=== PATIENT | female | born 1995 | race Asian ===

== ENCOUNTER 2022-09-04 19:32 | Emergency (ER) | payer OTHER, SELFPAY ==
[2022-09-04 19:59] VITALS: BP 110/65; PULSE 84; RESP 18; TEMP 36.7; O2SAT 99; BMI 23.0
--- NOTE | 2022-09-04 20:08 | ED.GENADULT ---
HPI - General Adult General Chief complaint: Epistaxis/Nosebleed Stated complaint: Bloody nose with blood clots, Headache, Dizziness Time Seen by Provider: 09/04/22 20:00 Source: patient Mode of arrival: ambulatory Limitations: no limitations History of Present Illness HPI narrative: 26-year-old female coming in today complaining of congestion, runny nose, nose bleeds. She has been ill for 5 days. Had a low-grade fever yesterday no fever today. Normal appetite. She has a headache across the frontal portion of the head. Nosebleeds generally stop within a couple of minutes. Related Data Home Medications Medication Instructions Recorded Confirmed No Known Home Medications 09/04/22 09/04/22 Allergies Allergy/AdvReac Type Severity Reaction Status Date / Time amoxicillin Allergy Mild Hives Verified 09/04/22 20:00 Review of Systems Status of ROS: Reports: 10 or more systems reviewed and unremarkable except as noted in History and below [facility] Medical History No significant past medical history Surgical History No significant past surgical history Social History Smoking Status: Never smoker Do you use any of these nicotine containing products: None Second hand tobacco smoke exposure: No How often do you have a drink containing alcohol: never How often do you have six or more drinks on one occasion: Never AUDIT-C Alcohol total score: 0 Non-prescribed substance use: denies use Exam Narrative: Exam Narrative: Well-nourished well-developed patient in no acute distress. Alert and oriented. Answers questions appropriately. Mood and affect are appropriate. Thoughts are goal oriented and rational. No tangential or magical thinking noted. Patient speaks in full sentences without needing to catch their breath. Sounds congested. HEENT: Normocephalic atraumatic. Pupils are equally round reactive to light. Extraocular muscles are intact. Conjunctivae are moist without any icterus noted. Moist mucous membranes. Posterior pharynx is normal. Neck is soft without any lymphadenopathy or thyromegaly. No masses are appreciated. She has some dried blood in the left nares. No active bleeding. Cardiovascular: Heart is regular rate and rhythm S1 and S2 are present without any murmurs. Lungs: Clear to auscultation bilaterally no wheezes rhonchi or rales are appreciated. Patient takes deep breaths without any discomfort. Abdomen: Soft and nontender nondistended with normal bowel sounds. Skin: Well perfused without any obvious rashes. Const: Vital Signs, click to edit/add: Vital Signs - 24 hr 09/04/22 19:59 Temperature 98.0 F Pulse Rate [Right Pulse Oximeter] 84 Respiratory Rate 18 Blood Pressure [Le ft Upper Arm] 110/65 Pulse Oximetry 99 Oxygen Delivery Me thod Room Air Course Vital Signs Vital signs: Initial Vital Signs Temperature 98.0 F 09/04/22 19:59 Temperature Source Temporal Artery Scan 09/04/22 19:59 Pulse Rate 84 09/04/22 19:59 Respiratory Rate 18 09/04/22 19:59 Blood Pressure 110/65 09/04/22 19:59 Blood Pressure Mean 80 09/04/22 19:59 Blood Pressure Position Sitting 09/04/22 19:59 Pulse Oximetry 99 09/04/22 19:59 Oxygen Delivery Method 09/04/22 19:59 Vital Signs Temperature 98.0 F 09/04/22 19:59 Pulse Rate 84 09/04/22 19:59 Respiratory Rate 18 09/04/22 19:59 Blood Pressure 110/65 09/04/22 19:59 Pulse Oximetry 99 09/04/22 19:59 Oxygen Delivery Method 09/04/22 19:59 Temperature 98.0 F 09/04/22 19:59 Pulse Rate 84 09/04/22 19:59 Respiratory Rate 18 09/04/22 19:59 Blood Pressure 110/65 09/04/22 19:59 Pulse Oximetry 99 09/04/22 19:59 Oxygen Delivery Method 09/04/22 19:59 Medical Decision Making MDM Narrative Medical decision making narrative: Generally healthy 26-year-old female with a URI and resulting epistaxis likely from nose blowing. Patient reassured that this is a normal phenomenon. She does not have any prolonged bleeding. We discussed symptomatic treatment with saline nasal rinses, Tylenol or ibuprofen for achiness and nasal pressure. We discussed reasons to return for follow-up. Patient had no other questions. Discharge Plan Discharge Clinical Impression: Epistaxis, URI (upper respiratory infection) Patient Disposition: Home, Self-Care Condition: Stable Additional Instructions: Okay to use Tylenol or ibuprofen for headache or elevated temperatures. Okay to use saline nasal rinses for congestion. Okay to use a very small amount of Vaseline to the inner nose to help with nosebleeds. Follow-up with your primary care provider in 1 week if you are not improving. Prescriptions: No Action No Known Home Medications Stand Alone Forms: [employer] Info Instructions
[2022-09-04 20:18] VITALS: BP 110/65; PULSE 84; RESP 18; TEMP 36.7
== END 2022-09-04 20:19 | disposition home or self-care (01) ==
LOC: ED 20:15
PROVIDERS: Emergency Provider Family Medicine
DX: R04.0 Epistaxis (principal); J06.9 Acute upper respiratory infection, unspecified; R51.9 Headache, unspecified; R42 Dizziness and giddiness
CPT/HCPCS: 99282; 99283

== ENCOUNTER 2023-06-27 19:21 | Emergency (ER) | payer OTHER, SELFPAY ==
[2023-06-27 19:28] VITALS: BP 99/65; PULSE 110; RESP 18; TEMP 37.1; O2SAT 97; BMI 20.6
--- OUTSIDE RECORDS SUMMARY | 2023-06-27 19:31 | XMS_ITS | Patient Health Record ---
Author Name Unknown Organization [facility] Address [address] [place] [id number] Care Team Providers Care Bank Secrecy Act Officer Name Role Phone Unknown, - Primary Care Provider Lenora Santana Unavailable [phone] Sandrita Lopez Unavailable [phone] Estefania Cartwright Unavailable [phone] ALLERGIES Allergen (clinical drug ingredient) Drug/Non Drug Allergy documented on EMR Reaction Allergy Type Onset Date Status sertraline Zoloft Unknown Drug Allergy Active RESULTS Component Value Reference Range Notes Test, Urine Reviewed date:03/08/2023 12:55:09 PM Interpretation:Positive Performing Lab: Notes/Report: Positive Test, Urine Positive Negative - ABO GROUP AND RH TYPE Reviewed date:04/15/2023 11:07:39 AM Interpretation: Performing Lab:[facility] [address], [id number] Patrick Resendiz Notes/Report: ABO GROUP A RH TYPE RH(D) POSITIVE For additional information, please refer to http://[email or web address].Eveo/faq/PWB882 (This link is being provided for informational/ educational purposes only.) HCG, TOTAL, QUANT Reviewed date:04/15/2023 11:12:31 AM Interpretation:Normal Performing Lab:[facility] [address], [id number] Patrick Resendiz Notes/Report: [place], [place] [address] Reference Range Non or premenopausal <5 Postmenopausal <10 Values from different assay methods may vary. The use of this assay to monitor or to diagnose patients with cancer or any condition unrelated to has not been cleared or approved by the FDA or the powertrain calibration engineer of the assay. REASON FOR REFERRAL No Information MEDICATIONS Medication SIG (Take, Route, Fr equency, Duration) Notes Start Date End Date Status Ondansetron HCl 4 MG 1 tablet as needed for nausea Orally 5 for 5 days 04/15/2023 Active miSOPROStol 200 MCG four tablets vaginal or buccally once for 1 days 04/15/2023 Active SOCIAL HISTORY Tobacco Use: Social History Observation Description Date Details (start date - stop date) Never Smoker NA - NA Sex Assigned At : Social History Observation Description Sex Assigned At Unknown Tobacco Use/Smoking Question Answer Notes Are you a nonsmoker Alcohol Screen (Audit-C) Question Answer Notes Did you have a drink containing alcohol in the p ast year? No Points 0 Interpretation Negative PROBLEMS Problem Type ICD Code Onset Dates Problem Status W/U Status Risk SNOMED Code Notes Problem Missed period (N92.6) Active confirmed Missed period (82981635) VITAL SIGNS Blood pressure diastolic 52 mm Hg 04/12/2023 Height 62.50 in 04/12/2023 Blood pressure systolic 110 mm Hg 04/12/2023 Weight 128 lbs 04/12/2023 BMI 23.04 kg/m2 04/12/2023 Encounters Encounter Location Date Provider Diagnosis [facility] [address] [place] [address] 04/11/2023 Estefania Cartwright [facility] [address] [place], [place] [id number] 04/11/2023 Estefania Cartwright [facility] [address] [place] [address] 03/08/2023 Lenora Atwood Encounter for test, result positive Z32.01 and Missed period N92.6 [facility] [address] [place] [address] 04/11/2023 Estefania Cartwright Encounter for supervision of other normal , unspecified trimester Z34.80 [facility] [address] [place] [address] 04/11/2023 Estefania Cartwright Missed ab O02.1 [facility] [address] [place] [address] 04/11/2023 Estefania Cartwright Miscarriage O03.9 and Encounter for blood typing Z01.83 [facility] [address] [place], [place] [id number] 04/12/2023 Moona Arabkhazaeli Missed period N92.6 [facility] [address] [facility] [address] [place] [address] 04/17/2023 Moona Arabkhazaeli Missed ab O02.1 [facility] [address] [place], [place] [id number] 04/17/2023 Moona Arabkhazaeli Retained products of conception after miscarriage O03.4 [facility] [address] [place] [id number] 04/12/2023 Lenora Atwood [facility] [address] [place] [phone] 04/12/2023 Lenora Atwood [facility] [address] [place] [phone] 04/15/2023 Estefania Gabbie ASSESSMENTS Encounter Date Diagnosis Assessment Notes Treatment Notes Treatment Clinical Notes 03/08/2023 Encounter for test, result positive (ICD-10 - Z32.01) 1.) Discussed maternity care at [facility]- philosophy, care models, and locations. 2.) Anticipatory guidance given re: first trimester discomforts and relief measures. Nutrition principles in early briefly discussed. Encouraged PNV with folic acid, vitamin D, and DHA supplements. First trimester warning signs reviewed. 3.) Genetic screening options briefly discussed. Pt aware of options and will discuss further at IOB. 4.) Pt encouraged to follow-up for IOB visit between 7-10 weeks. 5.) Call sooner with pain/bleeding. 04/11/2023 Encounter for supervision of other normal , unspecified trimester (ICD-10 - Z34.80) 04/11/2023 Missed ab (ICD-10 - O02.1) 04/11/2023 Miscarriage (ICD-10 - O03.9) 04/12/2023 Missed period (ICD-10 - N92.6) 04/17/2023 Retained products of conception after miscarriage (ICD-10 - O03.4) 04/17/2023 Missed ab (ICD-10 - O02.1) 04/11/2023 Encounter for blood typing (ICD-10 - Z01.83) 03/08/2023 Missed period (ICD-10 - N92.6) 04/11/2023 Other Ultrasound findings reviewed. Treatment options reviewed, including expectant management, medical management with Cytotec, or surgical management with a suction D&C. Risks and benefits of each option reviewed. She would like to proceed with D&C. Will need to perform another US in about a week to confirm loss. Will see ANALYTICAL RESEARCH CHEMIST tomorrow to get D&C consult done and potentially scheduled Blood Type and HCG today. 20 minutes spent in chart review, discussing with patient and documentation regarding: MAB managment 04/12/2023 Other presenting for SAB counseling Reviewed that her US is highly suspicious for early loss but technically she does not yet meet criteria. Recommend repeating the US in one week to confirm nonviability. She is emotionally challenged by this and does not want to draw it out, so accepts the limitations and opts to proceed with management. Reviewed management options including expectant vs medical vs surgical management. Success rates of each (70-90% for medical management vs >90% for surgical management) and associated risks reviewe. After discussion she opts for D&C. Will schedule. In the interim precautions were reviewed. 30 minutes spent reviewing images, patient counseling, and documentaiton PLAN OF TREATMENT Pending Test Test Name Order Date ABO GROUP AND RH TYPE 04/11/2023 HCG, TOTAL, QUANT 04/11/2023 Insurance Providers Payer Name Payer Address Payer Phone Subscriber Number Group Number Insured Name Patient Relationship to Insured Coverage Start Date Coverage End Date [employer] (Ins. Bill) [address] [address] [place], [place] [id number] Meri Terrell Self - patient is the insured MEDICAL (GENERAL) HISTORY Surgical History Surgery Date(Month/Year)
--- NOTE | 2023-06-27 20:16 | ED_ITS ---
HPI - General Adult General Date Seen: 06/27/23 Chief complaint: Breast Symptoms Stated complaint: Bleeding inflamed left [id number] Time Seen by Provider: 06/27/23 19:28 Source: patient Mode of arrival: ambulatory Limitations: no limitations History of Present Illness HPI narrative: Patient is a 27-year-old who presents with a day of left breast redness and pain, some bleeding. She is nursing her 2-year-old son, she says she had mastitis when he was about 1-week-old and this feels similar. She has had tactile fevers at home. No vomiting or chills. She says that he often stays latched on nursing on and off throughout the night, and often bites her nipples during that time. Related Data Home Medications Medication Instructions Recorded Confirmed No Known Home Medications 09/04/22 09/04/22 Allergies Allergy/AdvReac Type Severity Reaction Status Date / Time amoxicillin Allergy Mild Hives Verified 09/04/22 20:00 Review of Systems Status of ROS: Reports: 6 or more systems reviewed and unremarkable except as noted in History and below [facility] Medical History No significant past medical history Surgical History No significant past surgical history Social History Smoking Status: Never smoker Do you use any of these nicotine containing products: None Second hand tobacco smoke exposure: No How often do you have a drink containing alcohol: never How often do you have six or more drinks on one occasion: Never AUDIT-C Alcohol total score: 0 Non-prescribed substance use: denies use service: No Exam Narrative: Exam Narrative: Vital signs reviewed In general, alert, well-appearing woman, looks comfortable. Breast exam: On the left, there is mild erythema centrally, I do not feel any kind of abscess or other mass. Breast is diffusely tender to palpation. Slightly warm. There is no discharge at this time, does look like there is a little bit of cracking to the center of the nipple which may be contributing to bleeding. Right breast is normal. Const: Vital Signs, click to edit/add: Vital Signs - 24 hr 06/27/23 19:28 Temperature 98.7 F Pulse Rate [Pulse Oximeter] 110 H Respiratory Rate 18 Blood Pressure [Ri ght Upper Arm] 99/65 Pulse Oximetry 97 Oxygen Delivery Me thod Room Air Documenting provider has reviewed patient's vital signs: yes Course Course ED Course: Patient presents with the story and exam consistent with mastitis without abscess. She is nontoxic in appearance, afebrile here. Will go ahead and start antibiotics and I have asked her to follow-up in clinic in a couple of days for recheck. Reviewed reasons to return such as high fevers, shaking chills, vomiting, significant increased redness to the breast. Keflex 500 mg q.i.d. x7 days. Vital Signs Vital signs: Initial Vital Signs Temperature 98.7 F 06/27/23 19:28 Temperature Source Temporal Artery Scan 06/27/23 19:28 Pulse Rate 110 H 06/27/23 19:28 Respiratory Rate 18 06/27/23 19:28 Blood Pressure 99/65 06/27/23 19:28 Blood Pressure Mean 76 06/27/23 19:28 Blood Pressure Position Sitting 06/27/23 19:28 Pulse Oximetry 97 06/27/23 19:28 Oxygen Delivery Method Room Air 06/27/23 19:28 Vital Signs Temperature 98.7 F 06/27/23 19:28 Pulse Rate 110 H 06/27/23 19:28 Respiratory Rate 18 06/27/23 19:28 Blood Pressure 99/65 06/27/23 19:28 Pulse Oximetry 97 06/27/23 19:28 Oxygen Delivery Method Room Air 06/27/23 19:28 Temperature 98.7 F 06/27/23 19:28 Pulse Rate 110 H 06/27/23 19:28 Respiratory Rate 18 06/27/23 19:28 Blood Pressure 99/65 06/27/23 19:28 Pulse Oximetry 97 06/27/23 19:28 Oxygen Delivery Method Room Air 06/27/23 19:28 Discharge Plan Discharge Clinical Impression: Acute mastitis of left breast Patient Disposition: Home, Self-Care Condition: Stable Instructions: Mastitis (ED) Additional Instructions: Antibiotic as prescribed. Ibuprofen 400 mg plus Tylenol 1000 mg 3 times daily as needed for pain. Call tomorrow to make an appointment on Saturday for recheck with OB Gyne, return to the ER for severe worsening symptoms. Okay to continue to nurse. Prescriptions: No Action No Known Home Medications Follow Up/Referrals: Provider,Not a Local [Primary Care Provider] - Stand Alone Forms: [employer] Info Instructions
== END 2023-06-27 20:11 | disposition home or self-care (01) ==
PROVIDERS: Emergency Provider Emergency Medicine
DX: N61.0 Mastitis without abscess (principal)
CPT/HCPCS: 99283; 99284

== ENCOUNTER 2023-12-03 15:58 | Outpatient (CLI) | payer OTHER, SELFPAY ==
--- NOTE | 2023-12-03 16:00 | US_ITS ---
Patient: MICHEAL ESTEVES Facility:?[facility] Patient ID:?[id number] Site Patient ID:?[id number]. Site :?[id number] Study:?US-OB Pelvis DATING AND VIABILITY-12/03/2023 4:34:29 PM Ordering Physician:?STANLEY ADAIR Final Report: INDICATION: Ultrasound for dates and viability. Gestational age 8 weeks 4 days by LMP. Technique: Transvaginal grayscale, duplex, and M-mode Doppler images obtained. FINDINGS: Examination shows a single intrauterine gestation. Subchorionic fluid collection/hemorrhage measuring 2.5 x 1.8 x 0.6 cm. Right ovary measures 6.3 x 2.7 x 4.4 cm. 3.8 cm simple cyst. Corpus luteum. Left ovary measures 3.6 x 1.9 x 1.9 cm. EARLY GESTATION MEASUREMENTS: Ivor-rump length 1.3 cm, AGA of 7 weeks, 3 days. Mean gestational sac 3 cm, AGA of 8 weeks, 1 days. Yolk sac: 2.3 mm. Heart Rate: 141 bpm. IMPRESSION: 1. Single viable intrauterine . 2. Measurements are 8 days younger than clinical dates. 3. Small subchorionic hemorrhage. Dictated by Leo Burns MD @ 12/04/2023 8:57:33 AM Signed by:?Leo Burns MD @12/04/2023 8:57:33 AM (Electronic Signature)
== END 2023-12-03 15:59 | disposition home or self-care (01) ==
LOC: US 15:59
PROVIDERS: Visit Provider Physician Assistant
DX: Z34.91 Encounter for supervision of normal pregnancy, unspecified, first trimester (principal); O20.9 Hemorrhage in early pregnancy, unspecified; Z3A.08 8 weeks gestation of pregnancy
CPT/HCPCS: 76817; 84450; 84460; 86703; 86706; 86803; 86850; 86900; 86901; 87340; 87491; 87591; 93976

== ENCOUNTER 2023-12-03 17:05 | Outpatient (CLI) | payer OTHER, SELFPAY ==
[2023-12-03 21:03] LABS: Chlamydia DNA Amplified* NOT DETECTED (No Detected); GC DNA Amplified* NOT DETECTED (No Detected)
== END 2023-12-03 17:06 | disposition home or self-care (01) ==
PROVIDERS: Visit Provider Physician Assistant
DX: Z34.91 Encounter for supervision of normal pregnancy, unspecified, first trimester (principal); Z3A.08 8 weeks gestation of pregnancy
CPT/HCPCS: 82239; 84450; 84460; 86592; 86703; 86704; 86706; 86762; 86787; 86803; 86850; 86900; 86901; 87086; 87340; 87491; 87591

== ENCOUNTER 2024-02-11 16:41 | Outpatient (CLI) | payer OTHER, SELFPAY ==
--- OUTSIDE RECORDS SUMMARY | 2024-02-11 16:44 | XMS_ITS | Encounter Summary ---
Author Name Unknown Organization [facility] Address [address] [place] [address] Care Team Providers Care Flavor Extractor Name Role Phone [facility], [facility] Primary Care Provide r Jayson Lamb MD Unavailable [phone] Reason for Referral * Consultation (Routine) - Closed Specialty Diagnoses / Procedures Referred By Contac t Referred To Contact Diagnoses Cholestasis during in third trimester [facility] [address] [place] [address] Referral ID Status Reason Start Date Expiration Date Visits Re quested Visits Authorized [id number] Closed 07/20/2021 07/20/2022 1 1 Question Answer NICU Consult Yes Comments Comp and Radiologic consult [place] Please be aware that coverage of these services is subject to the terms and limitations of your health insurance plan. Call member services at your health plan with any benefit or coverage questions. * Diagnostic Imaging Ultrasound (Routine) - Closed Specialty Diagnoses / Procedures Referred By Contac t Referred To Contact Diagnoses Cholestasis during in third trimester Procedures MFM US Comprehensive Single [facility] [address] [place] [address] Referral ID Status Reason Start Date Expiration Date Visits Re quested Visits Authorized [id number] Closed 07/20/2021 07/20/2022 1 1 Encounter Details Date Type Department Care Team (Late st Contact Info) Description 07/20/2021 Orders Only [facility] [place] [address] [place] [address] Rosaline Caicedo RN Cholestasis during in third trimester (Primary Dx) Social History Tobacco Use Types Packs/Day Years Used Date Smoking Tobacco: Never Assessed Comments Yes Sex and Gender Information Value Date Recorded Sex Assigned at Not on file Gender Identity Not on file Sexual Orientation Not on file documented as of this encounter Plan of Treatment Scheduled Referrals Name Type Priority Associated Diagnoses Orde r Schedule [facility] Office Visit Referral Routine: Next available opening Cholestasis during in third trimester Weekly for 1 Occurrences starting 07/20/2021 until 07/20/2022 documented as of this encounter Results * [facility] US Comprehensive Single (07/26/2021 9:24 AM CDT) Anatomical Region Laterality Modality Ultrasound 07/26/2021 8:41 AM CDT Impressions 07/26/2021 9:44 AM CDT IMPRESSION ----- Growth parameters and estimated weight were consistent with appropriate for gestational age pattern of growth. The anatomic survey is limited due to gestational age. Normal amniotic fluid volume. BPP is reassuring. Narrative 07/26/2021 9:44 AM CDT Comprehensive ----- Pat. Name: MICHEAL FINN Study Date: 07/26/2021 8:41am Pat. NO: [id number] Referring ??MD: NAI SNIDER Site: [facility] Warehouse Technician: Matilda Delgado RDMS : 1995 Age: 25 ----- INDICATION ----- Cholestasis. METHOD ----- Transabdominal ultrasound examination. View: Suboptimal view: limited by late gestational age ----- Cm . Number of fetuses: 1 DATING ----- ? Date ?Details ?Gest. age ?MARIFER LMP ?12/09/2020 ? 32 w + 5 d ? 09/15/2021 Prior assessment ? 02/14/2021 ? GA: 9 w + 0 d ?32 w + 1 d ? 09/19/2021 U/S ? 07/26/2021 ? based upon AC, BPD, Femur, HC ?33 w + 3 d ? 09/10/2021 Assigned dating ?Dating performed on 07/26/2021, based on the LMP ?32 w + 5 d ? 09/15/2021 GENERAL EVALUATION ----- Cardiac activity present. FHR 130 bpm. movements present. Presentation cephalic. Placenta Posterior, No Previa, > 2 cm from internal os. Umbilical cord 3 vessel cord, normal insertion. Amniotic fluid Amount of AF: normal. MVP 5.9 cm. BIOMETRY ----- Main Biometry: BPD ?83.0 ?mm ? 33w 3d ?Hadlock OFD ?115.0 ?mm ?36w 0d ?Nicolaides HC ?315.3 ?mm ?35w 3d ?Hadlock Cerebellum tr ?40.2 ? mm ?34w 1d ?Nicolaides AC ?287.6 ?mm ?32w 5d ?52% ?Hadlock Femur ?62.4 ? mm ?32w 2d ?Hadlock Humerus ?56.2 ?mm ? 32w 5d ?Anaid Weight Calculation: EFW ? 2,087 ?g ? 48% ?Hadlock EFW (lb,oz) ? 4 lb 10 ?oz EFW by ?Hadlock ([id number]) Head / Face / Neck Biometry: Spinning Bath Patroller ? 7.7 ? mm CM ?5.5 ? mm ANATOMY ----- The following structures appear normal: Head / Neck ? Cranium. Head size. Head shape. Lateral ventricles. Choroid plexus. Midline falx. Cerebellum. Cisterna magna. Parenchyma. Thalami. ? Vermis. ? Neck. Nuchal fold. Face ? Lips. Profile. Nose. Maxilla. Mandible. Orbits. Lens. Heart / Thorax ?RVOT view. Situs. Aortic arch view. Bicaval view. Superior vena cava. Inferior vena cava. 3-vessel view. 0-plbtrc-romoiha view. Cardiac position. ? Cardiac size. Cardiac rhythm. ? Right lung. Left lung. Diaphragm. Abdomen ? Abdominal wall. Stomach. Kidneys. Bladder. Liver. Bowel. Genitals. Spine ?Cervical spine. Thoracic spine. Lumbar spine. Sacral spine. Extremities / Skeleton ?Right arm. Right hand. Left arm. Left hand. Right leg. Right foot. Left leg. Left foot. The following structures could not be adequately visualized: Head / Neck ? Cavum septi pellucidi. Heart / Thorax ?4-chamber view. LVOT view. Ductal arch view. Abdomen ? Cord insertion. Gender: male. MATERNAL STRUCTURES ----- Cervix ?Visualized ? Appearance: Appears Closed Right Ovary ?Visualized Left Ovary ?Visualized BIOPHYSICAL PROFILE ----- 2: breathing movements 2: Gross body movements 2: tone 2: Amniotic fluid volume 8/8 Biophysical profile score RECOMMENDATION ----- We discussed the findings on today's ultrasound with the patient. See consultation letter for further counseling. Return to primary provider for continued care. Thank-you for the opportunity to participate in the care of this patient. If you have questions regarding today's evaluation or if we can be of further service, please contact the [facility]. anomalies may be present but not detected Procedure Note Jayson Lamb MD - 07/26/2021 Comprehensive ----- Pat. Name:Shirin FINN Date:07/26/2021 8:41am Pat. NO: [id number] :NAI SNIDER [facility]Mat[facility] Del[facility] RDMS :1995Age:25 ----- INDICATION ----- Cholestasis. METHOD ----- Transabdominal ultrasound examination. View: Suboptimal view: limited bylate gestational age ----- Cm . Number of fetuses: 1 DATING ----- DateDetailsGest. age MARIFER LMP 132 w + 5 d 09/15/2021 Prior assessment 02/14/2021 GA: 9 w +0 d32 w + 1 d 09/19/2021 U/S 07/26/2021ased upon AC, BPD, Femur, HC33 w + 3 d 09/10/2021 Assigned dating Dating performed on 07/26/2021, based onthe LMP 32 w +5 d 09/15/2021 GENERAL EVALUATION ----- Cardiac activity present. FHR 130 bpm. movements present. Presentation cephalic. Placenta Posterior, No Previa, > 2 cm from internal os. Umbilical cord 3 vessel cord, normal insertion. Amniotic fluid Amount of AF: normal. MVP 5.9 cm. BIOMETRY ----- Main Biometry: BPD 83.0 mm33w 3d Hadlock OFD 115.0 mm36w 0d Nicolaides HC 315.3 mm35w 3d Hadlock Cerebellum tr 40.2 mm34w 1d Nicolaides AC 287.6 mm32w 5d 52% Hadlock Femur 62.4 mm32w 2d Hadlock Humerus 56.2 mm32w 5d [facility] Weight Calculation: EFW 2,087 g48% Hadlock EFW (lb,oz) 4 lb 10 oz EFW by Hadlock ([id number]) Head / Face / Neck Biometry: Spinning Bath Patroller 7.7 mm CM 5.5 mm ANATOMY ----- The following structures appear normal: Head / Neck Cranium. Head size. Head shape.Lateral ventricles. Choroid plexus. Midline falx. Cerebellum. Cisternamagna. Parenchyma. Thalami. Vermis. Neck. Nuchal fold. Face Lips. Profile. Nose. Maxilla.Mandible. Orbits. Lens. Heart / Thorax RVOT view. Situs. Aortic arch view.Bicaval view. Superior vena cava. Inferior vena cava. 3-vessel view.7-xyqdni-kemrwbv view. Cardiac position. Cardiac size. Cardiac rhythm. Right lung. Left lung.Diaphragm. Abdomen Abdominal wall. Stomach. Kidneys.Bladder. Liver. Bowel. Genitals. Spine Cervical spine. Thoracic spine.Lumbar spine. Sacral spine. Extremities / Skeleton Right arm. Right hand. Left arm. Lef[place]and. Right leg. Right foot. Left leg. Left foot. The following structures could not be adequately visualized: Head / Neck Cavum septi pellucidi. Heart / Thorax 4-chamber view. LVOT view. Ductal archview. Abdomen Cord insertion. Gender: male. MATERNAL STRUCTURES ----- Cervix Visualized Appearance: Appears Closed Right Ovary Visualized Left Ovary Visualized BIOPHYSICAL PROFILE ----- 2: breathing movements 2: Gross body movements 2: tone 2: Amniotic fluid volume 8/8 Biophysical profile score RECOMMENDATION ----- We discussed the findings on today's ultrasound with the patient. See consultation letter for further counseling. Return to primary providerfor continued care. Thank-you for the opportunity to participate in the care of this patient.If you have questions regarding today's evaluation or if we can be offurther service, please contact the [facility]. anomalies may be present but not detected IMPRESSION ----- Growth parameters and estimated weight were consistent withappropriate for gestational age pattern of growth. The anatomic survey islimited due to gestational age. Normal amniotic fluid volume. BPP is reassuring. Erin Morris MD [facility] US ORDERAB LES documented in this encounter Visit Diagnoses Diagnosis Cholestasis during in third trimester- Primary Cholestasis during in third trimester documented in this encounter Care Teams Flavor Extractor Relationship Specialty Start Date End Date Clinic, [facility] [address] [place] [address] PCP - General 12/12/18 Jayson Lamb MD [address] [place] [address] Assigned OBGYN Provider 08/06/21 documented as of this encounter
--- OUTSIDE RECORDS SUMMARY | 2024-02-11 16:44 | XMS_ITS | Referral Summary ---
Author Name Unknown Organization [facility] Address [address] [place] [address] Care Team Providers Care Skin Care Consultant Name Role Phone [facility] Primary Care Provide r Allergies Active Allergy Reactions Criticality Noted Date Comments Sertraline 04/15/2023 Hallucinations Medications Medication Sig Dispensed Refills Start Date End Date Status ibuprofen (ADVIL/MOTRIN) 800 MG tabletIndications: Missed ab Take 1 tablet (800 mg) by mouth every 6 hours as needed for other (mild and/or inflammatory pain) 30 tablet 04/17/2023 Active acetaminophen (TYLENOL) 325 MG tabletIndications: Missed ab Take 3 tablets (975 mg) by mouth every 6 hours as needed for mild pain 50 tablet 04/17/2023 Active Immunizations Name Administration Dates Next Due COVID-19 Monovalent 18+ (Moderna) 06/09/2021, Influenza Vaccine >6 months,quad, PF 09/02/2017 TDAP (Adacel,Boostrix) 07/18/2021,12/30/2017 Social History Tobacco Use Types Packs/Day Years Used Date Smoking Tobacco: Never Smokeless Tobacco: Never Tobacco Cessation:Counseling Given: Not Answered Alcohol Use Standard Drinks/Week Comments Not Currently 0 (1 standard drink = 0.6 oz pur e alcohol) Adolescent Education Answer Date Record ed Getting School Help Needed Not on file 06/28 Sex and Gender Information Value Date Recorded Sex Assigned at Not on file Gender Identity Not on file Sexual Orientation Not on file Last Filed Vital Signs Vital Sign Reading Time Taken Comments Blood Pressure 100/63 04/17/2023 2:00 PM CDT Pulse 77 04/17/2023 2:00 PM CDT Temperature 36.2 ??C (97.1 ??F) 04/17/2023 1:03 PM CD T Respiratory Rate 16 04/17/2023 2:00 PM CDT Oxygen Saturation 99% 04/17/2023 2:00 PM CDT Inhaled Oxygen Concentration - - Weight 57.6 kg (127 lb) 04/17/2023 12:10 PM CDT Height 162.6 cm (5' 4) 04/17/2023 12:10 PM CDT Body Mass Index 21.8 04/17/2023 12:10 PM CDT Plan of Treatment Not on file Procedures Procedure Name Priority Date/Time Associated Diagnosis Comments HCL PAP SMEAR Routine 03/01/1999 1:18 PM CDT Gynecologic Examination from Last 3 Months or Most Recently Relevant to Health Maintenance Results * PAP SMEAR (03/01/1999 1:18 PM CDT) Unlabelled DNR [facility] Biopsy Sent DNR [facility] Source VAG,CERV,E NDOCERV [facility] LMP POST [facility] PARA 3 [facility] 2 [facility] Clinical History DNR [facility] Therapy DNR [facility] Last Pap Diagnosis WITHIN NORMAL LIMITS [facility] PAP Date [id number] [facility] Specimen # DNR [facility] Tissue DNR [facility] Tissue Date DNR [facility] Statement of Adequacy [facility] Comment: SATISFACTORY FOR INTERPRETATION POST MENOPAUSAL PATIENT. ??NO ENDOCERVICAL CELLS SEEN. General Categorization DNR [facility] Descriptive Diagnosis [facility] Comment: WITHIN NORMAL LIMITS ATROPHIC CELL PATTERN Recommendations DNR [facility] DNR 114,,,,,, [facility] DNR DNR [facility] DNR DNR [facility] DNR DNR [facility] . [facility] Comment: ?PAP SMEARS ARE SUBJECT TO BOTH FALSE NEGATIVE AND FALSE ? POSITIVE RESULTS EVIDENCED BY DATA PUBLISHED IN THE ? MEDICAL LITERATURE. ??YOUR PATIENT'S RESULT SHOULD BE ? INTERPRETED IN THIS CONTEXT, TOGETHER WITH THE PATIENT'S ? HISTORY AND CLINICAL FINDINGS. TESTING LOCATION ? THIS [facility] ? [address]. [address] ? PHONE NUMBERS FOR CYTOLOGY INQUIRES, INCLUDING SLIDE REQUESTS ? EXT. [id number] ?? EXT. [id number] 02/27/1999 Heather Wu MD LABORATORY Performing Organization Address City/State/ZIP Co fl Phone Number [facility] from Last 3 Months or Most Recently Relevant to Health Maintenance Care Teams Skin Care Consultant Relationship Specialty Start Date End Date [facility] [address] [place] [address] PCP - General 12/12/18
--- OUTSIDE RECORDS SUMMARY | 2024-02-11 16:44 | XMS_ITS | Clinical Summary ---
Author Name Unknown Organization [facility] Address [place], [place] [address] Care Team Providers Care Manager Creative Services Name Role Phone Emani Layne Primary Care Provider Allergies Active Allergy Reactions Criticality Noted Date Comments Sertraline *Unknown 04/15/2023 Hallucinations Medications No known medications Active Problems Comments Yes No known active problems Encounters Date Type Department Care Team Description 12/18/2023 4:05 PM CDT Office Visit [facility] [address] [place] [address] Audelia Dexter PA Sinus Problem (pressure in cheeks, sinus headache, fullness in ears, runny nose, nasal congestion x 1 week) 12/18/2023 Travel 12/04/2023 Lab Requisition [facility] [phone] Alina Thompson PA-C 11/13/2023 Telephone [facility] [address] [place] [address] Matilda Burciaga, ALONDRA Lab (See TE 11/12/2023) from Last 3 Months Immunizations Name Administration Dates Next Due COVID-19 vaccine (Moderna 100mcg/0.5mL) PF, MDV 06/09/2021,12/29/2020 Influenza, IIV4 09/02/2017 Tdap 07/18/2021,12/30/2017 Family History Relation Name Status Comments Father Alive Mother Alive Social History Tobacco Use Types Packs/Day Years Used Date Smoking Tobacco: Some Days Cigarettes Smokeless Tobacco: Never Tobacco Cessation:Ready to Q uit: Not Asked; Counseling Given: Not Answered Alcohol Use Standard Drinks/Week Comments Not Currently 0 (1 standard drink = 0.6 oz pur e alcohol) Social Connections Answer Date Recorded Frequency of Communication with Friends and Fami ly 0 05/11/2023 Financial Resource Strain Answer Date R ecorded Difficulty of Paying Living Expenses 3 05/11/2023 Difficulty of Paying Living Expenses Not on file 05/11/2023 Food Insecurity Answer Date Recorded Worried About Running Out of Food in the Last Ye ar 1 05/11/2023 Transportation Needs Answer Date Record ed Lack of Transportation (Medical) 1 05/11/2023 Housing Stability Answer Date Recorded Unable to Pay for Housing in the Last Year 1 05/11/2023 Comments Yes Sex and Gender Information Value Date Recorded Sex Assigned at Not on file Gender Identity Not on file Sexual Orientation Not on file Obstetrics History Para Term AB IAB SAB Ectopic Multiple Livin g Live Births 4 1 0 1 0 0 0 0 1 1 Date Outcome GA Total Labor Labor/2nd/3rd Weight Sex Delivery Anes PTL Arianne A1 A5 Name Cl in Andreea ng Current Last Filed Vital Signs Vital Sign Reading Time Taken Comments Blood Pressure 112/60 12/18/2023 3:57 PM CDT Pulse 84 12/18/2023 3:57 PM CDT Temperature 37.1 ??C (98.7 ??F) 12/18/2023 3:57 PM CD T Respiratory Rate 14 11/09/2023 1:17 PM PANEL RAISER OPERATOR Oxygen Saturation 100% 12/18/2023 3:57 PM CDT Inhaled Oxygen Concentration - - Weight 55.5 kg (122 lb 4.8 oz) 12/18/2023 3:57 P M CDT Height 162.6 cm (5' 4) 10/08/2020 11:42 AM PANEL RAISER OPERATOR Body Mass Index 20.99 10/08/2020 11:42 AM PANEL RAISER OPERATOR Plan of Treatment Health Maintenance Due Date Last Done Comments Pneumococcal series for age 6-64 (1 of 2 - PCV) 2000 Depression screening for age 12+ 2006 HIV for age 15-65 2009 BMI (ht and wt on same day) for age 18+ 2012 Hepatitis C screening for ag e 18-79 2012 COVID-19 vaccine series ( season) 2023 06/09/2021, 12/29/2020 Influenza for age 9-49 06/07/2024 09/02/2017 Pap test for age 21-65 12/03/2026 , 12/03/2023, 02/14/2021, Additional history exists Tetanus booster 07/18/2031 07/18/2021, 12/30/2017 Tdap Completed 07/18/2021, 12/30/2017 Procedures Procedure Name Priority Date/Time Associated Diagnosis Comments LAB TRACKING EVENT Routine 12/03/2023 12 :30 PM PANEL RAISER OPERATOR WAREHOUSE SHIPPING ASSOCIATE THIN PREP PAP SCREEN IMAGED Routine 12/03/2023 12:00 PM PANEL RAISER OPERATOR HPV THIN PREP Routine 12/03/2023 12:00 PM PANEL RAISER OPERATOR from Last 3 Months Results * LAB TRACKING EVENT (12/03/2023 12:30 PM PANEL RAISER OPERATOR) Other (Other) Client Collect / Unknown 12/03/2023 12:30 PM PANEL RAISER OPERATOR 12/04/2023 4:18 PM PANEL RAISER OPERATOR Alina Thompson PA-C LAB BILL ONLY [facility] [address] [place] [address], * WAREHOUSE SHIPPING ASSOCIATE THIN PREP PAP SCREEN IMAGED (12/03/2023 12:00 PM PANEL RAISER OPERATOR) Case Report Gynecologic Cytology Report ? Case: [id number] ? Authorizing Provider: ??Alina Thompson PA-C ?Collected: ? 12/03/2023 1200 ? Ordering Location: ? [facility] ?Received: ?12/05/2023 1138 ? First Screen: ?Shola Naqvi ? Specimen: ?WAREHOUSE SHIPPING ASSOCIATE ThinPrep Vial Screening, Cervical ? 12/10/2023 12:11 PM PANEL RAISER OPERATOR [facility] ENTRAL LABORATORY INTERPRETATION/ RESULT NEGATIVE FOR INTRAEPITHELIAL LESION OR MALIGNANCY (NIL) (none) 12/10/2023 12:11 PM PANEL RAISER OPERATOR [facility] IMEN ADEQUACY Satisfactory for evaluation No endocervical component seen in a patient 12/10/2023 12:11 PM PANEL RAISER OPERATOR [facility] HPV REQUEST HPV and PAP 12/10/2023 12:11 PM PANEL RAISER OPERATOR [facility] Date of LMP 10/04/2023 12/10/2023 12:11 PM PANEL RAISER OPERATOR [facility] Last Pap Date 02/14/2021 12/10/2023 12:11 PM PANEL RAISER OPERATOR [facility] Last Pap Result NIL 12:11 PM PANEL RAISER OPERATOR [facility] LAB[facility] Abnormal Pap or [place] Bx in last 5 years No 12/10/2023 12:11 PM PANEL RAISER OPERATOR [facility] Menstrual Status 12/10/2023 12:11 PM PANEL RAISER OPERATOR [facility] ENTRAL LABORATORY [place] Bx Done Today No 12/10/2023 12:11 PM PANEL RAISER OPERATOR [facility] LAB[facility] Additional Information 12/10/2023 12:11 PM PANEL RAISER OPERATOR [facility] Comment: Interpreted at [facility] - [address] [facility], [place] [address] Automated Review Successful 12/10/2023 12:11 PM PANEL RAISER OPERATOR [facility] EN[facility] Comment:Specimen processed s uccessfully by automated junior software engineer device, ThinPrep Imaging System, [employer] ANCILLARY TESTING WAREHOUSE SHIPPING ASSOCIATE HPV Ordered, Please see separate report 12/10/2023 12:11 PM PANEL RAISER OPERATOR [facility] Note The pap test is a screening technique, not a diagnostic procedure. It is used primarily to screen for squamous cancers and precursor lesions. Published studies have shown that it is subject to both false negative and false positive results. The pap test should not be used as the sole means to diagnose or exclude pre-malignant and malignant lesions. 12/10/2023 12:11 PM PANEL RAISER OPERATOR [facility] Other (Cervical) 12/03/2023 12:00 PM PANEL RAISER OPERATOR 12/05/2023 11:38 AM PANEL RAISER OPERATOR Alina Thompson PA-C PATHOLOGY/CYTOLOGY Performing Organization Address City/State/[facility] Co pa Phone Number [facility] [address] [place] [address], * HPV HIGH RISK (12/03/2023 12:00 PM PANEL RAISER OPERATOR) TYPE 16 Negative Negative 12/06/2023 4:21 PM PANEL RAISER OPERATOR [facility] TRAL LABORATORY TYPE 18 Negative Negative 12/06/2023 4:21 PM PANEL RAISER OPERATOR [facility] TRAL LABORATORY OTHER HIGH RISK TYPES Negative Negative 12/06/2023 4:21 PM PANEL RAISER OPERATOR [facility] Other (Cervical) 12/03/2023 12:00 PM PANEL RAISER OPERATOR 12/05/2023 11:38 AM PANEL RAISER OPERATOR Narrative [facility] - 12/06/2023 4:21 PM PANEL RAISER OPERATOR HPV types 16, 18, 31, 33, 35, 39, 45, 51, 52, 56, 58, 59, 66 and 68 DNA were undetectable or below the pre-set threshold. Methodology: Jairo Amanuel 4800 HPV Test Alina L Fitzloff PA-C MICROBIOLOGY [facility]-CENTRAL LABORATORY [address] [place] [address], from Last 3 Months Care Teams Manager Creative Services Relationship Specialty Start Date End Date Emani Layne PA [address] [place] [address] [address] [place] [address] PCP - General Physician Brand Leader 11/11/23
--- OUTSIDE RECORDS SUMMARY | 2024-02-11 16:44 | XMS_ITS | Clinical Summary ---
Author Name Unknown Organization [place] Address [address] [place] [address] Care Team Providers Care Fine Grader Name Role Phone Clinic, [facility] Primary Care Provide r Allergies Active Allergy [...] 04/17/2023 12:10 PM CDT Plan of Treatment Health Maintenance Due Date Last Done Comments ADVANCE CARE PLANNING 1994 ANNUAL REVIEW OF HM ORDERS 1994 YEARLY PREVENTIVE VISIT 1994 HIV SCREENING 2009 HEPATITIS C SCREENING 2012 HEPATITIS B IMMUNIZATION (1 of 3 - 19+ 3-dose series) 2013 COVID-19 Vaccine (3 - 2022-2 4 season) 2023 06/09/2021, 12/29/2020 PHQ-2 (once per calendar year) 2023 PAP 02/15/2024 02/14/2021, 02/14/2021 INFLUENZA VACCINE (Season Ended) 2024 09/02/2017 DTAP/TDAP/TD IMMUNIZATION (3 - Td or Tdap) 07/18/2031 07/18/2021, 12/30/2017 HPV IMMUNIZATION Aged Out No longer e ligible based on patient's age to complete this topic IPV IMMUNIZATION Aged Out No longer e ligible based on patient's age to complete this topic MENINGITIS IMMUNIZATION Aged Out No l onger eligible based on patient's age to complete this topic Pneumococcal Vaccine: Pediatrics (0 to 5 Years) and At-Risk Patients (6 to 64 Years) Aged Out No longer eligible b ased on patient's age to complete this topic RSV MONOCLONAL ANTIBODY Aged Out No l onger eligible based on patient's age to complete this topic Procedures Procedure Name Priority Date/Time Associated Diagnosis Comments HCL PAP SMEAR Routine 03/01/1999 1:18 PM CDT Gynecologic Examination from Last 3 Months or Most Recently Relevant to Health Maintenance Results * PAP SMEAR (03/01/1999 1:18 PM CDT) Unlabelled DNR [facility] Biopsy Sent DNR [facility] Source VAG,CERV,E NDOCERV [facility] LMP POST [facility] PARA 3 [facility] 2 [facility] Clinical History [facility] Therapy DNR [facility] Last Pap Diagnosis WITHIN NORMAL LIMITS [facility] PAP Date [id number] [facility] Specimen # DNR [facility] Tissue DNR [facility] Tissue Date DNR [facility] Statement of Adequacy [facility] Comment: SATISFACTORY FOR INTERPRETATION POST MENOPAUSAL PATIENT. ??NO ENDOCERVICAL CELLS SEEN. General Categorization DNR [facility] Descriptive Diagnosis [facility] Comment: WITHIN NORMAL LIMITS ATROPHIC CELL PATTERN Recommendations DNR [facility] DNR 114,,,,,, [facility] DNR DNR [facility] DNR DNR [facility] DNR DNR [facility] . [facility] Comment: ?PAP SMEARS ARE SUBJECT TO BOTH FALSE NEGATIVE AND FALSE ? POSITIVE RESULTS EVIDENCED BY DATA PUBLISHED IN THE ? MEDICAL LITERATURE. ??YOUR PATIENT'S RESULT SHOULD BE ? INTERPRETED IN THIS CONTEXT, TOGETHER WITH THE PATIENT'S ? HISTORY AND CLINICAL FINDINGS. TESTING LOCATION ? THIS [facility] ? [address] [facility]. [address] ? PHONE NUMBERS FOR CYTOLOGY INQUIRES, INCLUDING SLIDE REQUESTS ? EXT. [id number] ?? EXT. [id number] 02/27/1999 Heather Wu MD LABORATORY Performing Organization Address City/State/[facility] Co de Phone Number [facility] from Last 3 Months or Most Recently Relevant to Health Maintenance Care Teams Fine Grader Relationship Specialty Start Date End Date Clinic, [facility] [address] [place] [address] [facility] - General 12/12/18
== END 2024-02-11 16:42 | disposition home or self-care (01) ==
LOC: NFLDREF 16:42
PROVIDERS: PCP Physician Assistant; Visit Provider Physician Assistant
DX: Z34.82 Encounter for supervision of other normal pregnancy, second trimester (principal); R00.0 Tachycardia, unspecified
CPT/HCPCS: 84443; 87086

== ENCOUNTER 2024-03-10 14:34 | Outpatient (CLI) | payer OTHER, SELFPAY ==
--- OUTSIDE RECORDS SUMMARY | 2024-03-10 14:36 | XMS_ITS | Encounter Summary ---
Author Organization [place] Address [address] [place] [address] Care Team Providers Care Business Test Analyst Name Role Phone [facility], [facility] Primary Care Provide r Jayson Lamb MD Unavailable [phone] Reason for Referral * Consultation (Routine) - Closed Specialty Diagnoses / Procedures Referred By Contac t Referred To Contact Diagnoses Cholestasis during in third trimester [facility] [address] [place] [address] Referral ID Status Reason Start Date Expiration Date Visits Re quested Visits Authorized [id number] Closed 07/20/2021 07/20/2022 1 1 Question Answer [...] [facility] [address] [place] [address] Referral ID Status Reason Start Date Expiration Date Visits Re quested Visits Authorized [id number] Closed 07/20/2021 07/20/2022 1 1 Encounter Details Date Type Department Care Team (Late st Contact Info) Description 07/20/2021 Orders Only [facility] [place] [address] [place] [address] Rosaline Caicedo RN Cholestasis during in third [...] Type Priority Associated Diagnoses Orde r Schedule [facility] Office Visit Referral Routine: Next available opening Cholestasis during in third trimester Weekly for 1 Occurrences starting 07/20/2021 until 07/20/2022 documented as of this encounter Results * [facility] US Comprehensive Single (07/26/2021 9:24 AM [...] FINN Study Date: 07/26/2021 8:41am Pat. NO: [id number] Referring ??: NAI SNIDER Site: Riki Tube Washer: Matilda Delgado RDMS : 1995 Age: 25 ----- INDICATION ----- Cholestasis. METHOD ----- Transabdominal ultrasound examination. View: Suboptimal view: limited by late gestational age ----- Cm . Number of fetuses: 1 DATING ----- ? Date ?Details ?Gest. age ?MARIEFR LMP ?12/09/2020 ? 32 w + 5 [...] ?Hadlock Humerus ?56.2 ?mm ? 32w 5d ?Naaid Weight Calculation: EFW ? 2,087 ?g ? 48% ?Hadlock EFW (lb,oz) ? 4 lb 10 ?oz EFW by ?Hadlock ([id number]) Head / Face / Neck Biometry: Pantry Goods Maker ? 7.7 ? mm CM ?5.5 ? [...] vena cava. Inferior vena cava. 3-vessel view. 8-yxamnh-lqkffkk view. Cardiac position. ? Cardiac size. Cardiac [...] Pat. Name:Shirin FINN Date:07/26/2021 8:41am Pat. NO: [id number] :NAI SNIDER Site:Yonnyer:Matilda Delgado RDMS :1995Age:25 ----- INDICATION ----- Cholestasis. [...] mm32w 2d Hadlock Humerus 56.2 mm32w 5d [facility] Weight Calculation: EFW 2,087 g48% Hadlock EFW (lb,oz) 4 lb 10 oz EFW by Hadlock ([id number]) Head / Face / Neck Biometry: Pantry Goods Maker 7.7 mm CM 5.5 mm ANATOMY ----- The following structures appear normal: Head / Neck Cranium. Head size. Head shape.Lateral ventricles. Choroid plexus. Midline falx. Cerebellum. Cisternamagna. Parenchyma. Thalami. Vermis. Neck. Nuchal fold. Face Lips. Profile. Nose. Maxilla.Mandible. Orbits. Lens. Heart / Thorax RVOT view. Situs. Aortic arch view.Bicaval view. Superior vena cava. Inferior vena cava. 3-vessel view.1-ukohcg-yrtliup view. Cardiac position. Cardiac size. Cardiac rhythm. [...] volume. BPP is reassuring. Erin Morris MD [facility] US ORDERAB LES documented in this encounter Visit Diagnoses Diagnosis Cholestasis during in third trimester- Primary Cholestasis during in third trimester documented in this encounter Care Teams Business Test Analyst Relationship Specialty Start Date End Date Clinic, [facility] [address] [place] [address] PCP - General 12/12/18 Jayson Lamb MD [address] [place] [address] Assigned OBGYN Provider 08/06/21 documented as of this encounter
--- OUTSIDE RECORDS SUMMARY | 2024-03-10 14:36 | XMS_ITS | Clinical Summary ---
Author Organization [place] Address [address] [place] [address] Care Team Providers Care Concrete Laborer Name Role Phone Clinic, [facility] Primary Care Provide r Allergies Active [...] Procedure Name Priority Date/Time Associated Diagnosis Comments ABSTRACT PAP (HIM EXTERNAL RESULT) Routine 02/14/2021 6:00 PM CDT from Last 3 Months or Most Recently Relevant to Health Maintenance Results * Abstract PAP (HIM External Result) (02/14/2021 6:00 PM CDT) PAP-ABSTRACT See Scanned Document [facility] [address] [facility] 02/14/2021 6:00 PM CDT [facility]ative [facility] - 02/14/2021 6:00 PM CDT See Care Everywhere-Ricky Provider Outside LAB - HIM EXTERNAL R ESULT [facility] [address] [facility] [address] from Last 3 Months or Most Recently Relevant to Health Maintenance Care Teams Concrete Laborer Relationship Specialty Start Date End Date Clinic, [facility] [address] [place] [address] PCP - General 12/12/18
--- OUTSIDE RECORDS SUMMARY | 2024-03-10 14:36 | XMS_ITS | Referral Summary ---
Author Organization [place] Address [address] [place] [address] Care Team Providers Care Gis Consultant Name Role Phone [facility], [facility] Primary Care Provide r Allergies [...] 6:00 PM CDT) PAP-ABSTRACT See Scanned Document [facility] 02/14/2021 6:00 PM CDT Narrative [facility] - 02/14/2021 6:00 PM CDT See Care Everywhere-Bearina Provider Outside LAB - HIM EXTERNAL R ESULT [facility] [address] [place] [address], [facility] from Last 3 Months or Most Recently Relevant to Health Maintenance Care Teams Gis Consultant Relationship Specialty Start Date End Date Clinic, [facility] [address] [place] [address] PCP - General 12/12/18
--- OUTSIDE RECORDS SUMMARY | 2024-03-10 14:36 | XMS_ITS | Clinical Summary ---
Author Organization [facility] Address [place], [place] [address] Care Team Providers Care Streetcar Dispatcher Name Role Phone Emani Layne Primary Care Provider Allergies Active Allergy Reactions Criticality Noted Date Comments Sertraline *Unknown 04/15/2023 Hallucinations Medications No known medications Active Problems Comments Yes No known active problems Encounters Date Type Department Care Team Description 12/18/2023 4:05 PM CDT Office Visit [facility] [address] [place] [address] Audelia Dexter PA Sinus Problem (pressure in cheeks, sinus headache, fullness in ears, runny nose, nasal congestion x 1 week) 12/18/2023 Travel from Last 3 Months Immunizations Name Administration [...] T Respiratory Rate 14 11/09/2023 1:17 PM ADVERTISING CLERK Oxygen Saturation 100% 12/18/2023 3:57 PM CDT Inhaled Oxygen Concentration - - Weight 55.5 kg (122 lb 4.8 oz) 12/18/2023 3:57 P M CDT Height 162.6 cm (5' 4) 10/08/2020 11:42 AM ADVERTISING CLERK Body Mass Index 20.99 10/08/2020 11:42 AM ADVERTISING CLERK Plan of Treatment Health Maintenance Due Date Last Done Comments Pneumococcal series for age 6-64 (1 of 2 - PCV) 2000 Depression screening for age 12+ 2006 HIV for age 15-65 2009 BMI (ht and wt on same day) for age 18+ 2012 Hepatitis C screening for ag e 18-79 2012 COVID-19 vaccine series (2022- season) 2023 06/09/2021, 12/29/2020 Influenza for age 9-49 06/07/2024 09/02/2017 Pap test for age 21-65 12/03/2026 , 12/03/2023, 02/14/2021, Additional history exists Tetanus booster 07/18/2031 07/18/2021, 12/30/2017 Tdap Completed 07/18/2021, 12/30/2017 Procedures Procedure Name Priority Date/Time Associated Diagnosis Comments HPV THIN PREP Routine 12/03/2023 12:00 PM ADVERTISING CLERK from Last 3 Months or Most Recently Relevant to Health Maintenance Results * HPV HIGH RISK (12/03/2023 12:00 PM ADVERTISING CLERK) TYPE 16 Negative Negative 12/06/2023 4:21 PM ADVERTISING CLERK [facility] TRAL LABORATORY TYPE 18 Negative Negative 12/06/2023 4:21 PM ADVERTISING CLERK [facility] TRAL LABORATORY OTHER HIGH RISK TYPES Negative Negative 12/06/2023 4:21 PM ADVERTISING CLERK [facility] TRA LABORATORY Other (Cervical) 12/03/2023 12:00 PM ADVERTISING CLERK 12/05/2023 11:38 AM ADVERTISING CLERK [facility]arrative [facility] - 12/06/2023 4:21 PM ADVERTISING CLERK HPV types 16, 18, 31, 33, 35, 39, 45, 51, 52, 56, 58, 59, 66 and 68 DNA were undetectable or below the pre-set threshold. Methodology: Jairo Amanuel 4800 HPV Test January Kacie Thompson PA-C MICROBIOLOGY [facility] [address] [place] [address], from Last 3 Months or Most Recently Relevant to Health Maintenance Care Teams Streetcar Dispatcher Relationship Specialty Start Date End Date Emani Layne PA [facility] [address] [place] [address] PCP - General Physician Senior Software Systems Engineer 11/11/23
--- OUTSIDE RECORDS SUMMARY | 2024-03-10 14:36 | XMS_ITS | Patient Health Record ---
Author Organization [facility] Address [address] [place] [address] Care Team Providers Care Bar Manager Name Role Phone Unknown, - Primary Care Provider Lenora Santana Unavailable [phone] Sandrita Lopez Unavailable [phone] Estefania Cartwright Unavailable [phone] Allergies Allergen (clinical drug ingredient) Drug/Non Drug Allergy documented on EMR Reaction Allergy Type Onset Date Status sertraline Zoloft Unknown Drug Allergy Active Results Component Value Reference Range Notes HCG, TOTAL, QUANT Reviewed date:04/15/2023 11:12:31 AM Interpretation:Normal Performing Lab:[facility] [employer], [place] [id number] Patrick Resendiz Notes/Report: [place], [place] [address] Reference Range Non or premenopausal <5 Postmenopausal <10 Values from different assay methods may vary. The use of this assay to monitor or to diagnose patients with cancer or any condition unrelated to has not been cleared or approved by the FDA or the sales support advisor of the assay. ABO GROUP AND RH TYPE Reviewed date:04/15/2023 11:07:39 AM Interpretation: Performing Lab:[facility] [id number] [employer], [place] [id number] Patrick Resendiz Notes/Report: ABO GROUP A RH TYPE RH(D) POSITIVE For additional information, please refer to http://education.[employer].Meritful/faq/LSV566 (This link is being provided for informational/ educational purposes only.) Reason For Referral No Information Medications Medication SIG (Take, Route, Fr equency, Duration) Notes Start Date End Date Status Ondansetron HCl 4 MG 1 tablet as needed for nausea Orally 5 for 5 days 04/15/2023 Active miSOPROStol 200 MCG four tablets vaginal or buccally once for 1 days 04/15/2023 Active Social History Tobacco Use: Social History Observation Description Date Details (start date - stop date) Never Smoker NA - NA Tobacco Use/Smoking Question Answer Notes Are you a nonsmoker Alcohol Screen (Audit-C) Question Answer Notes Did you have a drink containing alcohol in the p ast year? No Points 0 Interpretation Negative Problems Problem Type SNOMED Code ICD Code Onset Dates Problem Status W/U Status Risk Notes Problem Missed period (75420796) Missed period (N92.6) Active confirmed Vital Signs Blood pressure diastolic 52 mm Hg 04/12/2023 Height 62.50 in 04/12/2023 Blood pressure systolic 110 mm Hg 04/12/2023 Weight 128 lbs 04/12/2023 BMI 23.04 kg/m2 04/12/2023 Encounters Encounter Location Date Provider Diagnosis [facility] [address] [place], [place] [id number] 04/12/2023 Lenora Atwood [address] [id number] 04/12/2023 Lenora Atwood [address] [id number] 04/15/2023 Estefania Cartwright [place] [address] [place], [place] [phone] 04/12/2023 Sandrita Lopez Missed period N92.6 [place] [address] [place], [place] [phone] 04/11/2023 Estefania Cartwright [facility] [address] [place] [address] 04/11/2023 Estefania Cartwright Miscarriage O03.9 and Encounter for blood typing Z01.83 [facility] [address] [place] [address] 04/11/2023 Estefania Cartwright Missed ab O02.1 [facility] [address] [place], [place] [phone] 04/17/2023 Sandrita Lopez Retained products of conception after miscarriage O03.4 [facility] [address] [facility] [address] [place] [address] 04/17/2023 Sandrita Lopez Missed ab O02.1 [facility] [address] [place] [address] 04/11/2023 Estefania Cartwright Encounter for supervision of other normal , unspecified trimester Z34.80 [facility] [address] [place] [address] 04/11/2023 Estefania Cartwright Assessments Encounter Date Diagnosis (ICD Code) Assessment Notes Treatment Notes Treatment Clinical Notes 04/11/2023 Encounter for supervision of other normal , unspecified trimester (ICD-10 - Z34.80) 04/11/2023 Missed ab (ICD-10 - O02.1) 04/11/2023 Miscarriage (ICD-10 - O03.9) 04/12/2023 Missed period (ICD-10 - N92.6) 04/17/2023 Retained products of conception after miscarriage (ICD-10 - O03.4) 04/17/2023 Missed ab (ICD-10 - O02.1) 04/11/2023 Encounter for blood typing (ICD-10 - Z01.83) 04/11/2023 Other Ultrasound findings reviewed. Treatment options reviewed, including expectant management, medical management with Cytotec, or surgical management with a suction D&C. Risks and benefits of each option reviewed. She would like to proceed with D&C. Will need to perform another US in about a week to confirm loss. Will see DATA DESIGNER tomorrow to get D&C consult done and [...] spent reviewing images, patient counseling, and documentaiton Plan Of Treatment Pending Test Test Name Order Date ABO GROUP AND RH TYPE 04/11/2023 HCG, TOTAL, QUANT 04/11/2023 Insurance Providers Payer Name Payer Address Payer Phone Subscriber Number Group Number Insured Name Patient Relationship to Insured Coverage Start Date Coverage End Date [facility] Commercial (Ins. Bill) [address] [address] [place], [place] [id number] Meri Terrell Self - patient is the insured Medical (General) History Surgical History Surgery Date(Month/Year)
--- NOTE | 2024-03-10 15:00 | CRLHL7_ITS ---
For Patients: As a result of the Century Cures Act, medical imaging exams and procedure reports are released immediately into your electronic medical record. You may view this report before your referring provider. If you have questions, please contact your health care provider. INDICATION: Evaluate anatomy. COMPARISON: 12/03/2023 TECHNIQUE: Real time miranda scale imaging of the fetus was performed as well as color Doppler analysis of the umbilical vessels. FINDINGS: Sonographic imaging demonstrates a single living intrauterine gestation. Fetus demonstrates a regular cardiac rate of 163 beats per minute. Fetus has a vertex position. The placenta lies right anterior/posterior without evidence of placenta previa. Placental edge 4.6 cm from the internal cervical os. Amniotic fluid volume appears normal. Single deepest vertical pocket: 6.3 cm. The cervix is closed and measures 4.0 cm in length. The composite ultrasound gestational age is calculated at 22 weeks 2 days with an estimated sonographic due date of 07/12/2024. The estimated weight is 459 grams which lies at the 70th %. The following biometric measurements were obtained: Biparietal diameter: 5.3 cm/22 weeks 1 day 76th% Head circumference: 20.4 cm/22 weeks 4 days 84th% Abdominal circumference: 16.6 cm/21 weeks 4 day 49th% Femur length: 3.8 cm/22 weeks 0 days 62nd% The HC/AC ratio measures: 1.23 range (1.05-1.22) On anatomic survey, there is a normal appearance of the cerebral ventricles, cavum septi pellucidi, cisterna magna and cerebellum. The nose, lips, and facial profile appear normal. The cervical, thoracic and lumbar spine are well visualized and appear normal. There is a normal four-chamber heart view and the left and right ventricular outflow tracts appear normal. The diaphragm and stomach appear normal. The kidneys and bladder also appear normal. There is a normal three-vessel cord and cord insertion site. The four extremities appear normal. IMPRESSION: Normal OB ultrasound exam with concordance of clinical and sonographic dating. No intrinsic abnormalities noted on anatomic survey. Dictated by Jaleel Lambert MD @ 03/12/2024 6:03:50 AM (Electronically Signed)
== END 2024-03-10 14:35 | disposition home or self-care (01) ==
LOC: US 14:34
PROVIDERS: Visit Provider Physician Assistant
DX: Z34.92 Encounter for supervision of normal pregnancy, unspecified, second trimester (principal); Z3A.22 22 weeks gestation of pregnancy
CPT/HCPCS: 76805

== ENCOUNTER 2024-03-31 15:02 | Outpatient (CLI) | payer OTHER, SELFPAY ==
--- OUTSIDE RECORDS SUMMARY | 2024-03-31 15:05 | XMS_ITS | Encounter Summary ---
Author Organization [place] Address [address] [place] [address] Care Team Providers Care Rubber Compounder Supervisor Name Role Phone [facility], [facility] Primary Care Provide r Jayson Lamb MD Unavailable [phone] Reason for Referral * Consultation (Routine) - Closed Specialty Diagnoses / Procedures Referred By Contac t Referred To Contact Diagnoses Cholestasis during in third trimester [facility] [address] [place] [address] Referral ID Status Reason Start Date Expiration Date Visits Re quested Visits Authorized [id number] Closed 07/20/2021 07/20/2022 1 1 Question Answer [...] [facility] [address] [place] [address] Referral ID Status Reason Start Date Expiration Date Visits Re quested Visits Authorized [id number] Closed 07/20/2021 07/20/2022 1 1 Encounter Details Date Type Department Care Team (Late st Contact Info) Description 07/20/2021 Orders Only [facility] [place] [address] [place] [address] Rosaline Caicedo RN Cholestasis during in third [...] Type Priority Associated Diagnoses Orde r Schedule [facility] Office Visit Referral Routine: Next available opening Cholestasis during in third trimester Weekly for 1 Occurrences starting 07/20/2021 until 07/20/2022 documented as of this encounter Results * [facility] US Comprehensive Single (07/26/2021 9:24 AM [...] FINN Study Date: 07/26/2021 8:41am Pat. NO: [id number] Referring ??: NAI SNIDER Site: Riki Violin Restorer: Matilda Delgado RDMS : 1995 Age: 25 [...] 4 lb 10 ?oz EFW by ?Hadlock ([id number]) Head / Face / Neck Biometry: Java Programmer ? 7.7 ? mm CM ?5.5 ? [...] vena cava. Inferior vena cava. 3-vessel view. 2-xzolns-iaunghc view. Cardiac position. ? Cardiac size. Cardiac [...] Pat. Name:Shirin FINN Date:07/26/2021 8:41am Pat. NO: [id number] :NAI SNIDER Site:Yonnyer:Matilda Delgado RDMS :1995Age:25 ----- INDICATION ----- Cholestasis. METHOD ----- Transabdominal ultrasound examination. View: Suboptimal view: limited bylate gestational age ----- Cm . Number of fetuses: 1 DATING ----- DateDetailsGest. age MAIRFER LMP 132 w + 5 d 09/15/2021 [...] mm32w 2d Hadlock Humerus 56.2 mm32w 5d [facility] Weight Calculation: EFW 2,087 g48% Hadlock EFW (lb,oz) 4 lb 10 oz EFW by Hadlock ([id number]) Head / Face / Neck Biometry: Java Programmer 7.7 mm CM 5.5 mm ANATOMY ----- The following structures appear normal: Head / Neck Cranium. Head size. Head shape.Lateral ventricles. Choroid plexus. Midline falx. Cerebellum. Cisternamagna. Parenchyma. Thalami. Vermis. Neck. Nuchal fold. Face Lips. Profile. Nose. Maxilla.Mandible. Orbits. Lens. Heart / Thorax RVOT view. Situs. Aortic arch view.Bicaval view. Superior vena cava. Inferior vena cava. 3-vessel view.5-qnfocj-akqbxcv view. Cardiac position. Cardiac size. Cardiac rhythm. [...] volume. BPP is reassuring. Erin Morris MD [facility] US ORDERAB LES documented in this encounter Visit Diagnoses Diagnosis Cholestasis during in third trimester- Primary Cholestasis during in third trimester documented in this encounter Care Teams Rubber Compounder Supervisor Relationship Specialty Start Date End Date Clinic, [facility] [address] [place] [address] PCP - General 12/12/18 Jayson Lamb MD [address] [place] [address] Assigned OBGYN Provider 08/06/21 documented as of this encounter
--- OUTSIDE RECORDS SUMMARY | 2024-03-31 15:05 | XMS_ITS | Clinical Summary ---
Author Organization [facility] Address [place], [place] [address] Care Team Providers Care House Mother Name Role Phone Emani Layne Primary Care Provider Allergies Active Allergy Reactions Criticality Noted Date Comments Sertraline *Unknown 04/15/2023 Hallucinations Medications No known medications Active Problems Comments Yes No known active problems Immunizations Name Administration Dates Next Due COVID-19 vaccine (Moderna 100mcg/0.5mL) PF MDYeni 06/09/2021,12/29/2020 Influenza, IIV4 09/02/2017 Tdap 07/18/2021,12/30/2017 Family [...] Outcome GA Total Labor Labor/2nd/3rd Weight Sex Type Anes PTL Arianne A1 A5 Name Clin Living Current Last Filed Vital Signs Vital Sign Reading Time Taken Comments Blood Pressure 112/60 12/18/2023 3:57 PM CDT Pulse 84 12/18/2023 3:57 PM CDT Temperature 37.1 ??C (98.7 ??F) 12/18/2023 3:57 PM CD T Respiratory Rate 14 11/09/2023 1:17 PM MULTIMEDIA COORDINATOR Oxygen Saturation 100% 12/18/2023 3:57 PM CDT Inhaled Oxygen Concentration - - Weight 55.5 kg (122 lb 4.8 oz) 12/18/2023 3:57 P M CDT Height 162.6 cm (5' 4) 10/08/2020 11:42 AM MULTIMEDIA COORDINATOR Body Mass Index 20.99 10/08/2020 11:42 AM MULTIMEDIA COORDINATOR Plan of Treatment Health Maintenance Due Date [...] HPV THIN PREP Routine 12/03/2023 12:00 PM MULTIMEDIA COORDINATOR from Last 3 Months or Most Recently Relevant to Health Maintenance Results * HPV HIGH RISK (12/03/2023 12:00 PM MULTIMEDIA COORDINATOR) TYPE 16 Negative Negative 12/06/2023 4:21 PM MULTIMEDIA COORDINATOR [facility] TRAL LABORATORY TYPE 18 Negative Negative 12/06/2023 4:21 PM MULTIMEDIA COORDINATOR [facility] TRA LABORATORY OTHER HIGH RISK TYPES Negative Negative 12/06/2023 4:21 PM MULTIMEDIA COORDINATOR [facility] TRA LABORATORY Other (Cervical) 12/03/2023 12:00 PM MULTIMEDIA COORDINATOR 12/05/2023 11:38 AM MULTIMEDIA COORDINATOR Narrative [facility] - 12/06/2023 4:21 PM MULTIMEDIA COORDINATOR HPV types 16, 18, 31, 33, 35, 39, 45, 51, 52, 56, 58, 59, 66 and 68 DNA were undetectable or below the pre-set threshold. Methodology: Jairo Amanuel 4800 HPV Test January Donna DAIELY MICROBIOLOGY [facility] [address] [place] [address], from Last 3 Months or Most Recently Relevant to Health Maintenance Care Teams House Mother Relationship Specialty Start Date End Date Emani Layne PA [facility] [address] [place] [address] PCP - General Physician Examination Proctor 11/11/23
--- OUTSIDE RECORDS SUMMARY | 2024-03-31 15:05 | XMS_ITS | Referral Summary ---
Author Organization [place] Address [address] [place] [address] Care Team Providers Care Medicine Man Name Role Phone [facility], [facility] Primary Care Provide r Allergies [...] 6:00 PM CDT) PAP-ABSTRACT See Scanned Document [facility] LAB-CENTRAL LABORATORY 02/14/2021 6:00 PM CDT Narrative [facility] LAB-CENTRAL LABORATORY - 02/14/2021 6:00 PM CDT See Care Everywhere-Bearina Provider Outside LAB - HIM EXTERNAL R ESULT [facility] LAB-CENTRAL LABORATORY [address] [place] [address], [facility] from Last 3 Months or Most Recently Relevant to Health Maintenance Care Teams Medicine Man Relationship Specialty Start Date End Date Clinic, [facility] [address] [place] [address] PCP - General 12/12/18
--- OUTSIDE RECORDS SUMMARY | 2024-03-31 15:05 | XMS_ITS | Clinical Summary ---
Author Organization [place] Address [address] [place] [address] Care Team Providers Care Hat Sizer Name Role Phone Clinic, [facility] Primary Care Provide r Allergies Active [...] 6:00 PM CDT) PAP-ABSTRACT See Scanned Document [facility] [employer] LAB-CENTRAL LABORATORY 02/14/2021 6:00 PM CDT N[facility]ative [facility] [employer] [facility]-C[facility]AL LABORATORY - 02/14/2021 6:00 PM CDT See Care Everywhere-Ricky Provider Outside LAB - HIM EXTERNAL R ESULT [facility] [employer] LAB-CENTRAL LABORATORY [address] from Last 3 Months or Most Recently Relevant to Health Maintenance Care Teams Hat Sizer Relationship Specialty Start Date End Date Clinic, [facility] [address] [place] [address] PCP - General 12/12/18
== END 2024-03-31 15:03 | disposition home or self-care (01) ==
PROVIDERS: Visit Provider Physician Assistant
DX: L29.9 Pruritus, unspecified (principal)
CPT/HCPCS: 82239; 84450; 84460

== ENCOUNTER 2024-04-07 16:10 | Outpatient (CLI) | payer OTHER, SELFPAY ==
--- OUTSIDE RECORDS SUMMARY | 2024-04-09 11:44 | XMS_ITS | Patient Health Record ---
Author Organization [facility] Address [address] [place] [id number] Care Team Providers Care Warehouse Shipping Receiving Clerk Name Role Phone Unknown, - Primary Care Provider Lenora Santana Unavailable [phone] Sandrita Lopez Unavailable [phone] Estefania Cartwright Unavailable [phone] Allergies Allergen (clinical drug ingredient) Drug/Non Drug Allergy documented on EMR Reaction Allergy Type Onset Date Status sertraline Zoloft Unknown Drug Allergy Active Results Component Value Reference Range Notes HCG, TOTAL, QUANT Reviewed date:04/15/2023 11:12:31 AM Interpretation:Normal Performing Lab:[facility] [employer] [place], [employer] [id number] Patrick Resendiz Notes/Report: [place] [address] Reference Range Non or premenopausal <5 Postmenopausal <10 Values from different assay methods may vary. The use of this assay to monitor or to diagnose patients with cancer or any condition unrelated to has not been cleared or approved by the FDA or the hvac estimator of the assay. ABO GROUP AND RH TYPE Reviewed date:04/15/2023 11:07:39 AM Interpretation: Performing Lab:[facility] [employer] [id number] [employer], [id number] Patrick Resendiz Notes/Report: ABO GROUP A RH TYPE RH(D) POSITIVE For additional information, please refer to http://education.[employer].Mobile Active Defense/faq/FCT409 (This link is being provided for informational/ [...] W/U Status Risk Notes Problem Missed period (47805519) Missed period (N92.6) Active confirmed Vital Signs Blood pressure diastolic 52 mm Hg 04/12/2023 Height 62.50 in 04/12/2023 Blood pressure systolic 110 mm Hg 04/12/2023 Weight 128 lbs 04/12/2023 BMI 23.04 kg/m2 04/12/2023 Encounters Encounter Location Date Provider Diagnosis [place] [address] [place], [place] [phone] 04/12/2023 Lenora Atwood [address] [id number] 04/12/2023 Lenora Atwood [address] [id number] 04/15/2023 Estefania Cartwright [place] [address] [place], [place] [phone] 04/12/2023 Sandrita Lopez Missed period N92.6 [place] [address] [place], [place] [phone] 04/11/2023 Estefania Cartwright [facility] [address] [place] [address] 04/11/2023 Estefania Cartwright Miscarriage O03.9 and Encounter for blood typing Z01.83 [facility] [address] [place] [address] 04/11/2023 Estefania Cartwright Missed ab O02.1 [place] [address] [place], [place] [phone] 04/17/2023 Sandrita Lopez Retained products of conception after miscarriage O03.4 [facility] [address] [facility] [address] [place] [address] 04/17/2023 Sandrita Lopez Missed ab O02.1 [facility] [address] [place] [address] 04/11/2023 Estefania Cartwright Encounter for supervision of other normal , unspecified trimester Z34.80 [facility] [address] [place] [address] 04/11/2023 Estefania Cartwright Assessments Encounter Date Diagnosis (ICD Code) Assessment Notes Treatment Notes Treatment Clinical Notes 04/11/2023 Miscarriage (ICD-10 - O03.9) 04/12/2023 Missed period (ICD-10 - N92.6) 04/17/2023 Retained products of conception after miscarriage (ICD-10 - O03.4) 04/17/2023 Missed ab (ICD-10 - O02.1) 04/11/2023 Missed ab (ICD-10 - O02.1) 04/11/2023 Encounter for supervision of other normal , unspecified trimester (ICD-10 - Z34.80) 04/11/2023 Encounter for blood typing (ICD-10 - Z01.83) 04/11/2023 Other Ultrasound findings reviewed. Treatment options reviewed, including expectant management, medical management with Cytotec, or surgical management with a suction D&C. Risks and benefits of each option reviewed. She would like to proceed with D&C. Will need to perform another US in about a week to confirm loss. Will see DATA POWER CONSULTANT tomorrow to get D&C consult done and [...] Insured Coverage Start Date Coverage End Date [facility] Commercial (Ins. Bill) [address] [address] [place], [place] [id number] Meri Terrell Self - patient is the insured Medical (General) History Surgical History Surgery Date(Month/Year)
--- OUTSIDE RECORDS SUMMARY | 2024-04-09 11:44 | XMS_ITS | Referral Summary ---
Author Organization [place] Address [address] [place] [address] Care Team Providers Care Shactor Helper Name Role Phone [facility], [facility] Primary Care Provide r Allergies [...] 6:00 PM CDT) PAP-ABSTRACT See Scanned Document [facility] LAB-CENTRAL LABORATORY 02/14/2021 6:00 PM CDT Narrative [facility] LAB-CENTRAL LABORATORY - 02/14/2021 6:00 PM CDT See Care Everywhere-Bearina Provider Outside LAB - HIM EXTERNAL R ESULT [facility] LAB-CENTRAL LABORATORY [address] [place] [address], [facility] from Last 3 Months or Most Recently Relevant to Health Maintenance Care Teams Shactor Helper Relationship Specialty Start Date End Date Clinic, [facility] [address] [place] [address] PCP - General 12/12/18
--- OUTSIDE RECORDS SUMMARY | 2024-04-09 11:44 | XMS_ITS | Clinical Summary ---
Author Organization [place] Address [address] [place] [address] Care Team Providers Care Chronic Manager Name Role Phone Clinic, [facility] Primary Care Provide r Allergies Active [...] 2023 PAP 02/15/2024 02/14/2021, 02/14/2021 INFLUENZA VACCINE (#1) 2024 09/02/2017 DTAP/TDAP/TD IMMUNIZATION (3 - Td [...] 6:00 PM CDT) PAP-ABSTRACT See Scanned Document [facility] LAB-CENTRAL LABORATORY 02/14/2021 6:00 PM CDT Narrative [facility]-C[facility]AL LAB[facility]ATORY - 02/14/2021 6:00 PM CDT See Care Everywhere-Ricky Provider Outside LAB - HIM EXTERNAL R ESULT [facility] LAB-CENTRAL LABORATORY [address] from Last 3 Months or Most Recently Relevant to Health Maintenance Care Teams Chronic Manager Relationship Specialty Start Date End Date Clinic, [facility] [address] [place] [address] PCP - General 12/12/18
--- OUTSIDE RECORDS SUMMARY | 2024-04-09 11:44 | XMS_ITS | Encounter Summary ---
Author Organization [place] Address [address] [place] [address] Care Team Providers Care Underliner Name Role Phone [facility], [facility] Primary Care Provide r Jayson Lamb MD Unavailable [phone] Reason for Referral * Consultation (Routine) - Closed Specialty Diagnoses / Procedures Referred By Contac t Referred To Contact Diagnoses Cholestasis during in third trimester [facility] [address] [place] [address] Referral ID Status Reason Start Date Expiration Date Visits Re quested Visits Authorized [id number] Closed 07/20/2021 07/20/2022 1 1 Question Answer [...] [facility] [address] [place] [address] Referral ID Status Reason Start Date Expiration Date Visits Re quested Visits Authorized [id number] Closed 07/20/2021 07/20/2022 1 1 Encounter Details Date Type Department Care Team (Late st Contact Info) Description 07/20/2021 Orders Only [facility] [address] [place] [address] Rosaline Caicedo RN Cholestasis during in third [...] Type Priority Associated Diagnoses Orde r Schedule [facility] Office Visit Referral Routine: Next available opening Cholestasis during in third trimester Weekly for 1 Occurrences starting 07/20/2021 until 07/20/2022 documented as of this encounter Results * [facility] US Comprehensive Single (07/26/2021 9:24 AM CDT) [...] FINN Study Date: 07/26/2021 8:41am Pat. NO: [id number] Referring ??: NAI SNIDER Site: [facility] Booking Clerk: Matilda Delgado RDMS : 1995 Age: 25 [...] 4 lb 10 ?oz EFW by ?Hadlock ([id number]-FL) Head / Face / Neck Biometry: Senior User Experience Architect ? 7.7 ? mm CM ?5.5 ? [...] vena cava. Inferior vena cava. 3-vessel view. 4-elcdrc-jmntxpz view. Cardiac position. ? Cardiac size. Cardiac [...] Pat. Name:Shirin FINN Date:07/26/2021 8:41am Pat. NO: [id number] :NAI SNIDER Site:Yonnyer:Matilda Delgado RDMS :1995Age:25 ----- [...] mm32w 2d Hadlock Humerus 56.2 mm32w 5d [facility] Weight Calculation: EFW 2,087 g48% Hadlock EFW (lb,oz) 4 lb 10 oz EFW by Hadlock (STC-HQ-EM-FL) Head / Face / Neck Biometry: Senior User Experience Architect 7.7 mm CM 5.5 mm ANATOMY ----- The following structures appear normal: Head / Neck Cranium. Head size. Head shape.Lateral ventricles. Choroid plexus. Midline falx. Cerebellum. Cisternamagna. Parenchyma. Thalami. Vermis. Neck. Nuchal fold. Face Lips. Profile. Nose. Maxilla.Mandible. Orbits. Lens. Heart / Thorax RVOT view. Situs. Aortic arch view.Bicaval view. Superior vena cava. Inferior vena cava. 3-vessel view.5-fotriy-dbhipuk view. Cardiac position. Cardiac size. Cardiac rhythm. [...] volume. BPP is reassuring. Erin Morris MD [facility] US ORDERAB LES documented in this encounter Visit Diagnoses Diagnosis Cholestasis during in third trimester- Primary Cholestasis during in third trimester documented in this encounter Care Teams Underliner Relationship Specialty Start Date End Date Clinic, [facility] [address] [facility] [place] [address] PCP - General 12/12/18 Jayson Lamb MD [address] [place] [address] Assigned OBGYN Provider 08/06/21 documented as of this encounter
--- OUTSIDE RECORDS SUMMARY | 2024-04-09 11:44 | XMS_ITS | Clinical Summary ---
Author Organization [facility] Address [place], [place] [address] Care Team Providers Care Pump House Operator Name Role Phone Emani Layne Primary Care [...] T Respiratory Rate 14 11/09/2023 1:17 PM STOCKROOM KEEPER Oxygen Saturation 100% 12/18/2023 3:57 PM CDT Inhaled Oxygen Concentration - - Weight 55.5 kg (122 lb 4.8 oz) 12/18/2023 3:57 P M CDT Height 162.6 cm (5' 4) 10/08/2020 11:42 AM STOCKROOM KEEPER Body Mass Index 20.99 10/08/2020 11:42 AM STOCKROOM KEEPER Plan of Treatment Health Maintenance Due Date [...] HPV THIN PREP Routine 12/03/2023 12:00 PM STOCKROOM KEEPER from Last 3 Months or Most Recently Relevant to Health Maintenance Results * HPV HIGH RISK (12/03/2023 12:00 PM STOCKROOM KEEPER) TYPE 16 Negative Negative 12/06/2023 4:21 PM STOCKROOM KEEPER [facility] TRAL LABORATORY TYPE 18 Negative Negative 12/06/2023 4:21 PM STOCKROOM KEEPER [facility] TRA LABORATORY OTHER HIGH RISK TYPES Negative Negative 12/06/2023 4:21 PM STOCKROOM KEEPER [facility] TRA LABORATORY Other (Cervical) 12/03/2023 12:00 PM STOCKROOM KEEPER 12/05/2023 11:38 AM STOCKROOM KEEPER Narrative [facility] - 12/06/2023 4:21 PM STOCKROOM KEEPER HPV types 16, 18, 31, 33, 35, 39, 45, 51, 52, 56, 58, 59, 66 and 68 DNA were undetectable or below the pre-set threshold. Methodology: Jairo Amanuel 4800 HPV Test January Donna DAILEY MICROBIOLOGY [facility] LAB[facility]ATORY [address] [place] [address], from Last 3 Months or Most Recently Relevant to Health Maintenance Care Teams Pump House Operator Relationship Specialty Start Date End Date Emani Layne PA [address] [place] [address] [address] [place] [address] PCP - General Physician Stave Log Ripsaw Operator 11/11/23
== END 2024-04-07 16:11 | disposition home or self-care (01) ==
LOC: NFLDREF 04-09 11:42
PROVIDERS: Visit Provider Physician Assistant
DX: R74.8 Abnormal levels of other serum enzymes (principal)
CPT/HCPCS: 82239; 84450; 84460

== ENCOUNTER 2024-04-28 16:29 | Outpatient (CLI) | payer OTHER, SELFPAY ==
--- OUTSIDE RECORDS SUMMARY | 2024-05-01 08:35 | XMS_ITS | Encounter Summary ---
Author Organization [place] Address [address] [place] [address] Care Team Providers Care Data Integration Analyst Name Role Phone [facility], [facility] Primary Care Provide r Jayson Lamb MD Unavailable [phone] Reason for Referral * Consultation (Routine) - Closed Specialty Diagnoses / Procedures Referred By Contac t Referred To Contact Diagnoses Cholestasis during in third trimester [facility] [address] [place] [address] Referral ID Status Reason Start Date Expiration Date Visits Re quested Visits Authorized [id number] Closed 07/20/2021 07/20/2022 1 1 Question Answer [...] [facility] [address] [place] [address] Referral ID Status Reason Start Date Expiration Date Visits Re quested Visits Authorized [id number] Closed 07/20/2021 07/20/2022 1 1 Encounter Details Date Type Department Care Team (Late st Contact Info) Description 07/20/2021 Orders Only [facility] [address] [place] [address] Rosaline Caicedo RN Cholestasis during in third [...] Type Priority Associated Diagnoses Orde r Schedule [facility] Office Visit Referral Routine: Next available opening Cholestasis during in third trimester Weekly for 1 Occurrences starting 07/20/2021 until 07/20/2022 documented as of this encounter Results * [facility] US Comprehensive Single (07/26/2021 9:24 AM [...] FINN Study Date: 07/26/2021 8:41am Pat. NO: [id number] Referring ??: NAI SNIDER Site: [facility] Aurist: Matilda Delgado RDMS : 1995 Age: 25 [...] 4 lb 10 ?oz EFW by ?Hadlock ([id number]-GQ-FL) Head / Face / Neck Biometry: Sales And Service Change Leader ? 7.7 ? mm CM ?5.5 ? [...] vena cava. Inferior vena cava. 3-vessel view. 0-pnagjy-opbztxl view. Cardiac position. ? Cardiac size. Cardiac [...] Pat. Name:Shirin FINN Date:07/26/2021 8:41am Pat. NO: [id number] :NAI SNIDER Site:Yonnyer:Matilda Delgado RDMS :1995Age:25 ----- [...] mm32w 2d Hadlock Humerus 56.2 mm32w 5d [facility] Weight Calculation: EFW 2,087 g48% Hadlock EFW (lb,oz) 4 lb 10 oz EFW by Hadlock ([id number]-FL) Head / Face / Neck Biometry: Sales And Service Change Leader 7.7 mm CM 5.5 mm ANATOMY ----- The following structures appear normal: Head / Neck Cranium. Head size. Head shape.Lateral ventricles. Choroid plexus. Midline falx. Cerebellum. Cisternamagna. Parenchyma. Thalami. Vermis. Neck. Nuchal fold. Face Lips. Profile. Nose. Maxilla.Mandible. Orbits. Lens. Heart / Thorax RVOT view. Situs. Aortic arch view.Bicaval view. Superior vena cava. Inferior vena cava. 3-vessel view.2-dvbxge-bbmgbfc view. Cardiac position. Cardiac size. Cardiac rhythm. [...] volume. BPP is reassuring. Erin Morris MD [facility] US ORDERAB LES documented in this encounter Visit Diagnoses Diagnosis Cholestasis during in third trimester- Primary Cholestasis during in third trimester documented in this encounter Care Teams Data Integration Analyst Relationship Specialty Start Date End Date Clinic, [facility] [address] [facility] [place] [address] PCP - General 12/12/18 Jayson Lamb MD [address] [place] [address] Assigned OBGYN Provider 08/06/21 documented as of this encounter
--- OUTSIDE RECORDS SUMMARY | 2024-05-01 08:35 | XMS_ITS | Clinical Summary ---
Author Organization [facility] Address [place], [place] [address] Care Team Providers Care Organic Section Technical Lead Name Role Phone Emani Layne Primary Care [...] T Respiratory Rate 14 11/09/2023 1:17 PM ROOF MECHANIC Oxygen Saturation 100% 12/18/2023 3:57 PM CDT Inhaled Oxygen Concentration - - Weight 55.5 kg (122 lb 4.8 oz) 12/18/2023 3:57 P M CDT Height 162.6 cm (5' 4) 10/08/2020 11:42 AM ROOF MECHANIC Body Mass Index 20.99 10/08/2020 11:42 AM ROOF MECHANIC Plan of Treatment Health Maintenance Due Date [...] HPV THIN PREP Routine 12/03/2023 12:00 PM ROOF MECHANIC from Last 3 Months or Most Recently Relevant to Health Maintenance Results * HPV HIGH RISK (12/03/2023 12:00 PM ROOF MECHANIC) TYPE 16 Negative Negative 12/06/2023 4:[address] [facility] TRAL LABORATORY TYPE 18 Negative Negative 12/06/2023 4:[address] [facility] TRA LABORATORY OTHER HIGH RISK TYPES Negative Negative 12/06/2023 4:21 PM ROOF MECHANIC [facility] TRA LABORATORY Other (Cervical) 12/03/2023 12:00 PM ROOF MECHANIC 12/05/2023 11:38 AM ROOF MECHANIC Narrative [facility] - 12/06/2023 4:21 PM ROOF MECHANIC HPV types 16, 18, 31, 33, 35, 39, 45, 51, 52, 56, 58, 59, 66 and 68 DNA were undetectable or below the pre-set threshold. Methodology: Jairo Amanuel 4800 HPV Test January Donna DAILEY MICROBIOLOGY [facility] LABORATORY [address] [place] [address], from Last 3 Months or Most Recently Relevant to Health Maintenance Care Teams Organic Section Technical Lead Relationship Specialty Start Date End Date Emani Layne PA [address] [place] [address] [address] [place] [address] PCP - General Physician Psychology Associate 11/11/23
--- OUTSIDE RECORDS SUMMARY | 2024-05-01 08:35 | XMS_ITS | Clinical Summary ---
Author Organization [place] Address [address] [place] [address] Care Team Providers Care Vendor Manager Name Role Phone Clinic, [facility] Primary Care Provide r Allergies Active [...] 6:00 PM CDT) PAP-ABSTRACT See Scanned Document [facility] LAB-CENTRAL LABORATORY 02/14/2021 6:00 PM CDT Narrative [facility] - 02/14/2021 6:00 PM CDT See Care Everywhere-Ricky Provider Outside LAB - HIM EXTERNAL R ESULT [facility] LAB-CENTRAL LABORATORY [address] from Last 3 Months or Most Recently Relevant to Health Maintenance Care Teams Vendor Manager Relationship Specialty Start Date End Date Clinic, [facility] [address] [place] [address] PCP - General 12/12/18
--- OUTSIDE RECORDS SUMMARY | 2024-05-01 08:35 | XMS_ITS | Patient Health Record ---
Author Organization [facility] Address [address] [place] [address] Care Team Providers Care Larry Car Operator Name Role Phone Unknown, - Primary Care Provider Lenora Santana Unavailable [phone] Allergies Allergen (clinical drug ingredient) Drug/Non Drug Allergy documented on EMR Reaction Allergy Type Onset Date Status sertraline Zoloft Unknown Drug Allergy Active Reason For Referral No Information Medications Medication [...] W/U Status Risk Notes Problem Missed period (61016882) Missed period (N92.6) Active confirmed Plan Of Treatment Pending Test Test Name Order Date ABO GROUP AND RH TYPE 04/11/2023 HCG, TOTAL, QUANT 04/11/2023 Insurance Providers Payer Name Payer Address Payer Phone Subscriber Number Group Number Insured Name Patient Relationship to Insured Coverage Start Date Coverage End Date [facility] Commercial (Ins. Bill) [address] [address] [place], [place] [id number] Meri Terrell Self - patient is the insured Medical (General) History Surgical History Surgery Date(Month/Year)
--- OUTSIDE RECORDS SUMMARY | 2024-05-01 08:35 | XMS_ITS | Referral Summary ---
Author Organization [place] Address [address] [place] [address] Care Team Providers Care Panel Maker Name Role Phone [facility], [facility] Primary Care Provide r Allergies Active [...] 6:00 PM CDT) PAP-ABSTRACT See Scanned Document [facility] 02/14/2021 6:00 PM CDT Narrative [facility] - 02/14/2021 6:00 PM CDT See Care Everywhere-Bearina Provider Outside LAB - HIM EXTERNAL R ESULT [facility]-C[facility] LAB[facility]ORY [address] [place] [address], [facility] from Last 3 Months or Most Recently Relevant to Health Maintenance Care Teams Panel Maker Relationship Specialty Start Date End Date Clinic, [facility] [address] [place] [address] PCP - General 12/12/18
== END 2024-04-28 16:30 | disposition home or self-care (01) ==
LOC: NFLDREF 05-01 08:33
PROVIDERS: Visit Provider Physician Assistant
DX: Z34.93 Encounter for supervision of normal pregnancy, unspecified, third trimester (principal)
CPT/HCPCS: 86592

== ENCOUNTER 2024-05-15 14:26 | Outpatient (CLI) | payer OTHER, SELFPAY ==
--- OUTSIDE RECORDS SUMMARY | 2024-05-15 14:30 | XMS_ITS | Clinical Summary ---
Author Organization [place] Address [address] [place] [address] Care Team Providers Care Product Safety Professional Name Role Phone Clinic, [facility] Primary Care Provide r Allergies Active [...] 6:00 PM CDT) PAP-ABSTRACT See Scanned Document [facility] [employer] [facility]AL LABORAT[facility] 02/14/2021 6:00 PM CDT [facility]ative [facility] [employer] [facility] - 02/14/2021 6:00 PM CDT See Care Everywhere-Ricky Provider Outside LAB - HIM EXTERNAL R ESULT [facility] [employer] LAB-CENTRAL LABORATORY [address] from Last 3 Months or Most Recently Relevant to Health Maintenance Care Teams Product Safety Professional Relationship Specialty Start Date End Date Clinic, [facility] [address] [place] [address] PCP - General 12/12/18
--- OUTSIDE RECORDS SUMMARY | 2024-05-15 14:30 | XMS_ITS | Encounter Summary ---
Author Organization [place] Address [address] [place] [address] Care Team Providers Care News Editor Name Role Phone [facility], [facility] Primary Care Provide r Jayson Lamb MD Unavailable [phone] Reason for Referral * Consultation (Routine) - Closed Specialty Diagnoses / Procedures Referred By Contac t Referred To Contact Diagnoses Cholestasis during in third trimester [facility] [address] [place] [address] Referral ID Status Reason Start Date Expiration Date Visits Re quested Visits Authorized [id number] Closed 07/20/2021 07/20/2022 1 1 Question Answer [...] [facility] [address] [place] [address] Referral ID Status Reason Start Date Expiration Date Visits Re quested Visits Authorized [id number] Closed 07/20/2021 07/20/2022 1 1 Encounter Details Date Type Department Care Team (Late st Contact Info) Description 07/20/2021 Orders Only [facility] [place] [address] [place] [address] Rosaline Caicedo RN Cholestasis during in third [...] Type Priority Associated Diagnoses Orde r Schedule [facility] Office Visit Referral Routine: Next available opening Cholestasis during in third trimester Weekly for 1 Occurrences starting 07/20/2021 until 07/20/2022 documented as of this encounter Results * [facility] US Comprehensive Single (07/26/2021 9:24 AM [...] FINN Study Date: 07/26/2021 8:41am Pat. NO: [id number] Referring ??: NAI SNIDER Site: Riki Complaint Supervisor: Matilda Delgado RDMS : 1995 Age: 25 [...] 4 lb 10 ?oz EFW by ?Hadlock ([id number]) Head / Face / Neck Biometry: Overlock Hemmer ? 7.7 ? mm CM ?5.5 ? [...] vena cava. Inferior vena cava. 3-vessel view. 6-gzqwgq-xiyhuoe view. Cardiac position. ? Cardiac size. Cardiac [...] Pat. Name:Shirin FINN Date:07/26/2021 8:41am Pat. NO: [id number] :NAI SNIDER Site:Yonnyer:Matilda Delgado RDMS :1995Age:25 ----- [...] mm32w 2d Hadlock Humerus 56.2 mm32w 5d [facility] Weight Calculation: EFW 2,087 g48% Hadlock EFW (lb,oz) 4 lb 10 oz EFW by Hadlock ([id number]) Head / Face / Neck Biometry: Overlock Hemmer 7.7 mm CM 5.5 mm ANATOMY ----- The following structures appear normal: Head / Neck Cranium. Head size. Head shape.Lateral ventricles. Choroid plexus. Midline falx. Cerebellum. Cisternamagna. Parenchyma. Thalami. Vermis. Neck. Nuchal fold. Face Lips. Profile. Nose. Maxilla.Mandible. Orbits. Lens. Heart / Thorax RVOT view. Situs. Aortic arch view.Bicaval view. Superior vena cava. Inferior vena cava. 3-vessel view.2-oqytzh-degxezg view. Cardiac position. Cardiac size. Cardiac rhythm. [...] Normal amniotic fluid volume. BPP is reassuring. Erni Morris MD [facility] US ORDERAB LES documented in this encounter Visit Diagnoses Diagnosis Cholestasis during in third trimester- Primary Cholestasis during in third trimester documented in this encounter Care Teams News Editor Relationship Specialty Start Date End Date Clinic, [facility] [address] [place] [address] PCP - General 12/12/18 Jayson Lamb MD [address] [place] [address] Assigned OBGYN Provider 08/06/21 documented as of this encounter
--- OUTSIDE RECORDS SUMMARY | 2024-05-15 14:30 | XMS_ITS | Referral Summary ---
Author Organization [place] Address [address] [place] [address] Care Team Providers Care Dental Treatment Coordinator Name Role Phone [facility], [facility] Primary Care Provide r Allergies Active [...] 6:00 PM CDT) PAP-ABSTRACT See Scanned Document [facility] LAB[facility] 02/14/2021 6:00 PM CDT Narrative [facility] LAB[facility] - 02/14/2021 6:00 PM CDT See Care Everywhere-Bearina Provider Outside LAB - HIM EXTERNAL R ESULT [facility] LAB-CENTRAL LABORATORY [address] [place] [address], [facility] from Last 3 Months or Most Recently Relevant to Health Maintenance Care Teams Dental Treatment Coordinator Relationship Specialty Start Date End Date Clinic, [facility] [address] [place] [address] PCP - General 12/12/18
--- OUTSIDE RECORDS SUMMARY | 2024-05-15 14:30 | XMS_ITS | Clinical Summary ---
Author Organization [employer] [facility] Address [place], [place] [address] Care Team Providers Care Tip Mender Name Role Phone Emani Layne Primary Care Provider Allergies Active Allergy Reactions Criticality Noted Date Comments Sertraline *Unknown 04/15/2023 Hallucinations Medications No known medications Active Problems Comments Yes No known active problems Immunizations Name Administration Dates Next Due COVID-19 vaccine (Moderna 100mcg/0.5mL) PFАННА 06/09/2021,12/29/2020 Influenza, IIV4 09/02/2017 Tdap 07/18/2021,12/30/2017 Family [...] T Respiratory Rate 14 11/09/2023 1:17 PM MENTAL HEALTH DIRECTOR Oxygen Saturation 100% 12/18/2023 3:57 PM CDT Inhaled Oxygen Concentration - - Weight 55.5 kg (122 lb 4.8 oz) 12/18/2023 3:57 P M CDT Height 162.6 cm (5' 4) 10/08/2020 11:42 AM MENTAL HEALTH DIRECTOR Body Mass Index 20.99 10/08/2020 11:42 AM MENTAL HEALTH DIRECTOR Plan of Treatment Health Maintenance Due Date [...] HPV THIN PREP Routine 12/03/2023 12:00 PM MENTAL HEALTH DIRECTOR from Last 3 Months or Most Recently Relevant to Health Maintenance Results * HPV HIGH RISK (12/03/2023 12:00 PM MENTAL HEALTH DIRECTOR) TYPE 16 Negative Negative 12/06/2023 4:21 PM MENTAL HEALTH DIRECTOR [facility] TRAL LABORATORY TYPE 18 Negative Negative 12/06/2023 4:21 PM MENTAL HEALTH DIRECTOR [facility] TRAL LABORATORY OTHER HIGH RISK TYPES Negative Negative 12/06/2023 4:21 PM MENTAL HEALTH DIRECTOR [facility] Other (Cervical) 12/03/2023 12:00 PM MENTAL HEALTH DIRECTOR 12/05/2023 11:38 AM MENTAL HEALTH DIRECTOR Narrative [facility] LAB[facility] - 12/06/2023 4:21 PM MENTAL HEALTH DIRECTOR HPV types 16, 18, 31, 33, 35, 39, 45, 51, 52, 56, 58, 59, 66 and 68 DNA were undetectable or below the pre-set threshold. Methodology: Jairo Amanuel 4800 HPV Test January Donna DAILEY MICROBIOLOGY [facility] [address] [place] [address], from Last 3 Months or Most Recently Relevant to Health Maintenance Care Teams Tip Mender Relationship Specialty Start Date End Date Emani Layne PA [facility] [address] [place] [address] PCP - General Physician Appliance Tester 11/11/23
== END 2024-05-15 14:27 | disposition home or self-care (01) ==
PROVIDERS: Visit Provider Advanced Practice Midwife
DX: L29.9 Pruritus, unspecified (principal)
CPT/HCPCS: 82239; 84450; 84460

== ENCOUNTER 2024-05-19 09:26 | Outpatient (CLI) | payer OTHER, SELFPAY ==
--- OUTSIDE RECORDS SUMMARY | 2024-05-19 09:29 | XMS_ITS | Patient Health Record ---
Author Organization [facility] Address [address] [place] [address] Care Team Providers Care Short Range [employer] Name Role Phone Unknown, - Primary Care Provider Lenora Santana Unavailable [phone] Allergies Allergen (clinical drug ingredient) Drug/Non Drug [...] W/U Status Risk Notes Problem Missed period (02204045) Missed period (N92.6) Active confirmed Plan Of Treatment Pending Test Test Name Order Date ABO GROUP AND RH TYPE 04/11/2023 HCG, TOTAL, QUANT 04/11/2023 Insurance Providers Payer Name Payer Address Payer Phone Subscriber Number Group Number Insured Name Patient Relationship to Insured Coverage Start Date Coverage End Date [facility] Commercial (Ins. Bill) [address] [address] [place], [place] [phone] [id number] Meri Terrell Self - patient is the insured Medical (General) History Surgical History Surgery Date(Month/Year)
--- OUTSIDE RECORDS SUMMARY | 2024-05-19 09:29 | XMS_ITS | Clinical Summary ---
Author Organization [place] Address [address] [place] [address] Care Team Providers Care Commercial Accountant Name Role Phone Clinic, [facility] Primary Care Provide r Allergies Active [...] 6:00 PM CDT) PAP-ABSTRACT See Scanned Document [facility] 02/14/2021 6:00 PM CDT Narrative [facility] - 02/14/2021 6:00 PM CDT See Care Everywhere-Ricky Provider Outside LAB - HIM EXTERNAL R ESULT [facility] [address] from Last 3 Months or Most Recently Relevant to Health Maintenance Care Teams Commercial Accountant Relationship Specialty Start Date End Date Clinic, [facility] [address] [place] [address] PCP - General 12/12/18
--- OUTSIDE RECORDS SUMMARY | 2024-05-19 09:29 | XMS_ITS | Referral Summary ---
Author Organization [place] Address [address] [place] [address] Care Team Providers Care Clinical Educator Name Role Phone [facility], [facility] Primary Care Provide r Allergies Active [...] 6:00 PM CDT) PAP-ABSTRACT See Scanned Document [facility] LAB-CENTRAL LABORATORY 02/14/2021 6:00 PM CDT Narrative [facility] LAB-C[facility]TRAL LAB[facility]AT[facility] - 02/14/2021 6:00 PM CDT See Care Everywhere-Bearina Provider Outside LAB - HIM EXTERNAL R ESULT [facility] LAB-CENTRAL LABORATORY [address] [place] [address], [facility] from Last 3 Months or Most Recently Relevant to Health Maintenance Care Teams Clinical Educator Relationship Specialty Start Date End Date Clinic, [facility] [address] [place] [address] PCP - General 12/12/18
--- OUTSIDE RECORDS SUMMARY | 2024-05-19 09:29 | XMS_ITS | Encounter Summary ---
Author Organization [place] Address [address] [place] [address] Care Team Providers Care Commercial Service Technician Name Role Phone [facility], [facility] Primary Care Provide r Jayson Lamb MD Unavailable [phone] Reason for Referral * Consultation (Routine) - Closed Specialty Diagnoses / Procedures Referred By Contac t Referred To Contact Diagnoses Cholestasis during in third trimester Ur [facility]aternal [facility] [address] [place] [address] Referral ID Status Reason Start Date Expiration Date Visits Re quested Visits Authorized [id number] Closed 07/20/2021 07/20/2022 1 1 Question Answer [...] [facility] [address] [place] [address] Referral ID Status Reason Start Date Expiration Date Visits Re quested Visits Authorized [id number] Closed 07/20/2021 07/20/2022 1 1 Encounter Details Date Type Department Care Team (Late st Contact Info) Description 07/20/2021 Orders Only [facility] Maternal Medicine [facility] [place] [address] [place] [address] Rosaline Caicedo RN Cholestasis during in third [...] Type Priority Associated Diagnoses Orde r Schedule [facility] Office Visit Referral Routine: Next available opening Cholestasis during in third trimester Weekly for 1 Occurrences starting 07/20/2021 until 07/20/2022 documented as of this encounter Results * [facility] US Comprehensive Single (07/26/2021 9:24 AM [...] FINN Study Date: 07/26/2021 8:41am Pat. NO: [id number] Referring ??: NAI SNIDER Site: Riki Screen Printing Equipment Setter: Matilda Delgado RDMS : 1995 Age: 25 [...] 4 lb 10 ?oz EFW by ?Hadlock ([id number]) Head / Face / Neck Biometry: Agile Test Lead ? 7.7 ? mm CM ?5.5 ? [...] vena cava. Inferior vena cava. 3-vessel view. 9-cgsoqr-grlawos view. Cardiac position. ? Cardiac size. Cardiac [...] Pat. Name:Shirin FINN Date:07/26/2021 8:41am Pat. NO: [id number] :NAI SNIDER Site:Yonnyer:Matilda Delgado RDMS :1995Age:25 ----- [...] mm32w 2d Hadlock Humerus 56.2 mm32w 5d [facility] Weight Calculation: EFW 2,087 g48% Hadlock EFW (lb,oz) 4 lb 10 oz EFW by Hadlock ([id number]) Head / Face / Neck Biometry: Agile Test Lead 7.7 mm CM 5.5 mm ANATOMY ----- The following structures appear normal: Head / Neck Cranium. Head size. Head shape.Lateral ventricles. Choroid plexus. Midline falx. Cerebellum. Cisternamagna. Parenchyma. Thalami. Vermis. Neck. Nuchal fold. Face Lips. Profile. Nose. Maxilla.Mandible. Orbits. Lens. Heart / Thorax RVOT view. Situs. Aortic arch view.Bicaval view. Superior vena cava. Inferior vena cava. 3-vessel view.2-ydttmy-hwrwcuu view. Cardiac position. Cardiac size. Cardiac rhythm. [...] volume. BPP is reassuring. Erin Morris MD [facility] US ORDERAB LES documented in this encounter Visit Diagnoses Diagnosis Cholestasis during in third trimester- Primary Cholestasis during in third trimester documented in this encounter Care Teams Commercial Service Technician Relationship Specialty Start Date End Date Clinic, [facility] [address] [place] [address] PCP - General 12/12/18 Jayson Lamb MD [address] [place] [address] Assigned OBGYN Provider 08/06/21 documented as of this encounter
--- OUTSIDE RECORDS SUMMARY | 2024-05-19 09:29 | XMS_ITS | Clinical Summary ---
Author Organization [employer] [facility] Address [place], [place] [address] Care Team Providers Care Manager Operational Name Role Phone Emani Layne Primary Care [...] T Respiratory Rate 14 11/09/2023 1:17 PM POWER PLANT INSPECTOR Oxygen Saturation 100% 12/18/2023 3:57 PM CDT Inhaled Oxygen Concentration - - Weight 55.5 kg (122 lb 4.8 oz) 12/18/2023 3:57 P M CDT Height 162.6 cm (5' 4) 10/08/2020 11:42 AM POWER PLANT INSPECTOR Body Mass Index 20.99 10/08/2020 11:42 AM POWER PLANT INSPECTOR Plan of Treatment Health Maintenance Due Date [...] HPV THIN PREP Routine 12/03/2023 12:00 PM POWER PLANT INSPECTOR from Last 3 Months or Most Recently Relevant to Health Maintenance Results * HPV HIGH RISK (12/03/2023 12:00 PM POWER PLANT INSPECTOR) TYPE 16 Negative Negative 12/06/2023 4:21 PM POWER PLANT INSPECTOR [facility] TRAL LABORATORY TYPE 18 Negative Negative 12/06/2023 4:21 PM POWER PLANT INSPECTOR [facility] TRAL LABORATORY OTHER HIGH RISK TYPES Negative Negative 12/06/2023 4:21 PM POWER PLANT INSPECTOR [facility] LAB[facility] Other (Cervical) 12/03/2023 12:00 PM POWER PLANT INSPECTOR 12/05/2023 11:38 AM POWER PLANT INSPECTOR Narrative [facility] LABORATORY - 12/06/2023 4:21 PM POWER PLANT INSPECTOR HPV types 16, 18, 31, 33, 35, 39, 45, 51, 52, 56, 58, 59, 66 and 68 DNA were undetectable or below the pre-set threshold. Methodology: Jairo Amanuel 4800 HPV Test January Donna DAILEY MICROBIOLOGY [facility] [address] [place] [address], from Last 3 Months or Most Recently Relevant to Health Maintenance Care Teams Manager Operational Relationship Specialty Start Date End Date Emani Layne PA [facility] [address] [place] [address] PCP - General Physician Electric Milkers Installer 11/11/23
--- NOTE | 2024-05-19 09:31 | CRLHL7_ITS ---
For Patients: As a result of the Century Cures Act, medical imaging exams and procedure reports are released immediately into your electronic medical record. You may view this report before your referring provider. If you have questions, please contact your health care provider. INDICATION: PRURITUS, CHOLESTASIS TECHNIQUE: Real time miranda scale imaging of the fetus was performed. COMPARISON: 03/10/2024 FINDINGS: Sonographic imaging demonstrates a single living intrauterine gestation. Fetus demonstrates a regular cardiac rate of 142 beats per minute. Fetus has a vertex position. The placenta lies anteriorly. Amniotic fluid volume appears normal and there is a single deepest pocket of 4.7 cm. The estimated weight is 2006gm which lies at the 77th %. On the prior OB ultrasound dated 03/10/2024 the estimated weight was at the 70th percentile. BPD 87th percentile. HC 91st percentile. AC 80th percentile. FL 43rd percentile. The fetus was active and demonstrated normal breathing movements. There was normal flexion and extension of the trunk and extremities. IMPRESSION: Normal biophysical profile score 8/8. Sonographic gestational age 33 weeks 0 days and a sonographic due date of 07/07/2024. Sonographic age is 11 days ahead of the clinical age. Estimated weight 77th percentile. Abdominal circumference 80th percentile Dictated by Jaleel Lambert MD @ 05/19/2024 10:36:40 AM (Electronically Signed)
== END 2024-05-19 09:27 | disposition home or self-care (01) ==
LOC: US 09:27
PROVIDERS: Visit Provider Advanced Practice Midwife
DX: O26.893 Other specified pregnancy related conditions, third trimester (principal); L29.9 Pruritus, unspecified; Z3A.33 33 weeks gestation of pregnancy
CPT/HCPCS: 76816; 76819

== ENCOUNTER 2024-05-29 09:46 | Outpatient (CLI) | payer OTHER, SELFPAY ==
--- OUTSIDE RECORDS SUMMARY | 2024-05-29 09:48 | XMS_ITS | Encounter Summary ---
Author Organization [place] Address [address] [place] [address] Care Team Providers Care Baggage Handler Name Role Phone [facility], [facility] Primary Care Provide r Jayson Lamb MD Unavailable [phone] Reason for Referral * Consultation (Routine) - Closed Specialty Diagnoses / Procedures Referred By Contac t Referred To Contact Diagnoses Cholestasis during in third trimester [facility] [address] [place] [address] Referral ID Status Reason Start Date Expiration Date Visits Re quested Visits Authorized [id number] Closed 07/20/2021 07/20/2022 1 1 Question Answer [...] Ur [facility]aternal [facility] [address] [place] [address] Referral ID Status Reason Start Date Expiration Date Visits Re quested Visits Authorized [id number] Closed 07/20/2021 07/20/2022 1 1 Encounter Details Date Type Department Care Team (Late st Contact Info) Description 07/20/2021 Orders Only [facility] Maternal Medicine Center [place] [address] [place] [address] Rosaline Caicedo RN Cholestasis during in third [...] Type Priority Associated Diagnoses Orde r Schedule [facility] Office Visit Referral Routine: Next available opening Cholestasis during in third trimester Weekly for 1 Occurrences starting 07/20/2021 until 07/20/2022 documented as of this encounter Results * [facility] US Comprehensive Single (07/26/2021 9:24 AM [...] FINN Study Date: 07/26/2021 8:41am Pat. NO: [id number] Referring ??: NAI SNIDER Site: Riki President Celebrity Acquistion: Matilda Delgado RDMS : 1995 Age: 25 [...] 4 lb 10 ?oz EFW by ?Hadlock ([id number]) Head / Face / Neck Biometry: Tire Cord Weaver ? 7.7 ? mm CM ?5.5 ? [...] vena cava. Inferior vena cava. 3-vessel view. 1-nouvls-koapmcl view. Cardiac position. ? Cardiac size. Cardiac [...] Pat. Name:Shirin FINN Date:07/26/2021 8:41am Pat. NO: [id number] :NAI SNIDER Site:Yonnyer:Matilda Delgado RDMS :1995Age:25 ----- [...] mm32w 2d Hadlock Humerus 56.2 mm32w 5d [facility] Weight Calculation: EFW 2,087 g48% Hadlock EFW (lb,oz) 4 lb 10 oz EFW by Hadlock ([id number]) Head / Face / Neck Biometry: Tire Cord Weaver 7.7 mm CM 5.5 mm ANATOMY ----- The following structures appear normal: Head / Neck Cranium. Head size. Head shape.Lateral ventricles. Choroid plexus. Midline falx. Cerebellum. Cisternamagna. Parenchyma. Thalami. Vermis. Neck. Nuchal fold. Face Lips. Profile. Nose. Maxilla.Mandible. Orbits. Lens. Heart / Thorax RVOT view. Situs. Aortic arch view.Bicaval view. Superior vena cava. Inferior vena cava. 3-vessel view.0-ypgsow-agsdkhb view. Cardiac position. Cardiac size. Cardiac rhythm. [...] volume. BPP is reassuring. Erin Morris MD [facility] US ORDERAB LES documented in this encounter Visit Diagnoses Diagnosis Cholestasis during in third trimester- Primary Cholestasis during in third trimester documented in this encounter Care Teams Baggage Handler Relationship Specialty Start Date End Date Clinic, [facility] [address] [facility] [place] [address] PCP - General 12/12/18 Jayson Lamb MD [address] [place] [address] Assigned OBGYN Provider 08/06/21 documented as of this encounter
--- OUTSIDE RECORDS SUMMARY | 2024-05-29 09:48 | XMS_ITS | Clinical Summary ---
Author Organization [employer] [facility] Address [place], [place] [address] Care Team Providers Care Automatic I Threading Machine Feeder Name Role Phone Emani Layne Primary Care [...] T Respiratory Rate 14 11/09/2023 1:17 PM BELL SPINNER Oxygen Saturation 100% 12/18/2023 3:57 PM CDT Inhaled Oxygen Concentration - - Weight 55.5 kg (122 lb 4.8 oz) 12/18/2023 3:57 P M CDT Height 162.6 cm (5' 4) 10/08/2020 11:42 AM BELL SPINNER Body Mass Index 20.99 10/08/2020 11:42 AM BELL SPINNER Plan of Treatment Health Maintenance Due Date [...] HPV THIN PREP Routine 12/03/2023 12:00 PM BELL SPINNER from Last 3 Months or Most Recently Relevant to Health Maintenance Results * HPV HIGH RISK (12/03/2023 12:00 PM BELL SPINNER) TYPE 16 Negative Negative 12/06/2023 4:21 PM BELL SPINNER [facility] TRAL LABORATORY TYPE 18 Negative Negative 12/06/2023 4:21 PM BELL SPINNER [facility] TRAL LABORATORY OTHER HIGH RISK TYPES Negative Negative 12/06/2023 4:21 PM BELL SPINNER [facility] Other (Cervical) 12/03/2023 12:00 PM BELL SPINNER 12/05/2023 11:38 AM BELL SPINNER Narrative [facility] LAB[facility] - 12/06/2023 4:21 PM BELL SPINNER HPV types 16, 18, 31, 33, 35, 39, 45, 51, 52, 56, 58, 59, 66 and 68 DNA were undetectable or below the pre-set threshold. Methodology: Jairo Amanuel 4800 HPV Test January Donna DAILEY MICROBIOLOGY [facility] [address] [place] [address], from Last 3 Months or Most Recently Relevant to Health Maintenance Care Teams Automatic I Threading Machine Feeder Relationship Specialty Start Date End Date Emani Layne PA [facility] [address] [place] [address] PCP - General Physician Sandwich Maker 11/11/23
--- OUTSIDE RECORDS SUMMARY | 2024-05-29 09:48 | XMS_ITS | Clinical Summary ---
Author Organization [place] Address [address] [place] [address] Care Team Providers Care Decorator Inspector Name Role Phone Clinic, [facility] Primary Care Provide r Allergies [...] Scanned Document [facility] 02/14/2021 6:00 PM CDT N[facility]ative [facility] - 02/14/2021 6:00 PM CDT See Care Everywhere-Ricky Provider Outside LAB - HIM EXTERNAL R ESULT [facility] [address] from Last 3 Months or Most Recently Relevant to Health Maintenance Care Teams Decorator Inspector Relationship Specialty Start Date End Date Clinic, [facility] [address] [place] [address] PCP - General 12/12/18
--- OUTSIDE RECORDS SUMMARY | 2024-05-29 09:48 | XMS_ITS | Referral Summary ---
Author Organization [place] Address [address] [place] [address] Care Team Providers Care Dye Can Operator Name Role Phone [facility], [facility] Primary Care Provide r [...] 6:00 PM CDT) PAP-ABSTRACT See Scanned Document [facility] 02/14/2021 6:00 PM CDT Narrative [facility] - 02/14/2021 6:00 PM CDT See Care Everywhere-[place] Provider Outside LAB - HIM EXTERNAL R ESULT [facility] [address] [place] [address], [facility] from Last 3 Months or Most Recently Relevant to Health Maintenance Care Teams Dye Can Operator Relationship Specialty Start Date End Date Clinic, [facility] [address] [place] [address] PCP - General 12/12/18
--- NOTE | 2024-05-29 10:15 | CRLHL7_ITS ---
For Patients: As a result of the Century Cures Act, medical imaging exams and procedure reports are released immediately into your electronic medical record. You may view this report before your referring provider. If you have questions, please contact your health care provider. INDICATION: Third trimester scan, evaluate growth. COMPARISON: 05/19/2024 TECHNIQUE: Real time miranda scale imaging of the fetus was performed. FINDINGS: Sonographic imaging demonstrates a single living intrauterine gestation. Fetus demonstrates a regular cardiac rate of 157 beats per minute. Fetus has a vertex position. The placenta lies anteriorly. Amniotic fluid volume appears normal and there is a single deepest vertical pocket: 6.3 cm. ASHIA 14.8 cm. The estimated weight is 2183gm which lies at the 57th %. On the prior OB ultrasound exam dated 05/19/2024 the estimated weight was at the 77th%. BPD greater than 97th percentile. HC 81st percentile. AC 57th percentile. FL is 28th percentile. The HC/AC ratio measures 1.09 range (0.94-1.11). IMPRESSION: Sonographic gestational age 34 weeks 2 days and a sonographic due date of 07/08/2024. Sonographic age 10 days of the clinical age. Estimated weight 57th percentile. Abdominal circumference 57th percentile. ASHIA 14.8 cm. Dictated by Jaleel Lambert MD @ 05/29/2024 2:06:23 PM (Electronically Signed)
== END 2024-05-29 09:47 | disposition home or self-care (01) ==
LOC: US 09:47
PROVIDERS: Visit Provider Physician Assistant
DX: Z34.93 Encounter for supervision of normal pregnancy, unspecified, third trimester (principal); Z3A.34 34 weeks gestation of pregnancy
CPT/HCPCS: 76816; 82239; 84450; 84460

== ENCOUNTER 2024-06-01 11:31 | Outpatient (CLI) | payer OTHER, SELFPAY ==
--- OUTSIDE RECORDS SUMMARY | 2024-06-01 11:34 | XMS_ITS | Clinical Summary ---
Author Organization [place] Address [address] [place] [address] Care Team Providers Care Engineer Rf Deployment Name Role Phone Clinic, [facility] Primary Care Provide r Allergies [...] 6:00 PM CDT) PAP-ABSTRACT See Scanned Document [facility] 02/14/2021 6:00 PM CDT N[facility]ative [facility] - 02/14/2021 6:00 PM CDT See Care Everywhere-Ricky Provider Outside LAB - HIM EXTERNAL R ESULT [facility] [address] from Last 3 Months or Most Recently Relevant to Health Maintenance Care Teams Engineer Rf Deployment Relationship Specialty Start Date End Date Clinic, [facility] [address] [place] [address] PCP - General 12/12/18
--- OUTSIDE RECORDS SUMMARY | 2024-06-01 11:35 | XMS_ITS | Referral Summary ---
Author Organization [place] Address [address] [place] [address] Care Team Providers Care Title One Reading Teacher Name Role Phone [facility], [facility] Primary Care Provide r Allergies Active [...] 6:00 PM CDT) PAP-ABSTRACT See Scanned Document [facility] 02/14/2021 6:00 PM CDT Narrative [facility] - 02/14/2021 6:00 PM CDT See Care Everywhere-Bearina Provider Outside LAB - HIM EXTERNAL R ESULT [facility] [address] [place] [address], [facility] from Last 3 Months or Most Recently Relevant to Health Maintenance Care Teams Title One Reading Teacher Relationship Specialty Start Date End Date Clinic, [facility] [address] [place] [address] PCP - General 12/12/18
--- OUTSIDE RECORDS SUMMARY | 2024-06-01 11:35 | XMS_ITS | Encounter Summary ---
Author Organization [place] Address [address] [place] [address] Care Team Providers Care Prick Stitcher Name Role Phone [facility], [facility] Primary Care Provide r Jayson Lamb MD Unavailable [phone] Reason for Referral * Consultation (Routine) - Closed Specialty Diagnoses / Procedures Referred By Contac t Referred To Contact Diagnoses Cholestasis during in third trimester [facility] [address] [place] [address] Referral ID Status Reason Start Date Expiration Date Visits Re quested Visits Authorized [id number] Closed 07/20/2021 07/20/2022 1 1 Question Answer [...] [facility] [address] [place] [address] Referral ID Status Reason Start Date Expiration Date Visits Re quested Visits Authorized [id number] Closed 07/20/2021 07/20/2022 1 1 Encounter Details Date Type Department Care Team (Late st Contact Info) Description 07/20/[address] [facility] M[facility] [address] [place] [address] Rosaline Caicedo RN Cholestasis during in third [...] Type Priority Associated Diagnoses Orde r Schedule [facility] Office Visit Referral Routine: Next available opening Cholestasis during in third trimester Weekly for 1 Occurrences starting 07/20/2021 until 07/20/2022 documented as of this encounter Results * [facility] US Comprehensive Single (07/26/2021 9:24 AM CDT) [...] FINN Study Date: 07/26/2021 8:41am Pat. NO: [id number] Referring ??: NAI SNIDER Site: [facility] Administrative Services Coordinator: Matilda Delgado RDMS : 1995 Age: 25 [...] 4 lb 10 ?oz EFW by ?Hadlock ([id number]) Head / Face / Neck Biometry: Mail Processing Associate ? 7.7 ? mm CM ?5.5 ? [...] vena cava. Inferior vena cava. 3-vessel view. 7-qznvfd-jvmoxnu view. Cardiac position. ? Cardiac size. Cardiac [...] Pat. Name:Shirin FINN Date:07/26/2021 8:41am Pat. NO: [id number] :NAI SNIDER Site:Yonnyer:Matilda Delgado RDMS :1995Age:25 ----- [...] mm32w 2d Hadlock Humerus 56.2 mm32w 5d [facility] Weight Calculation: EFW 2,087 g48% Hadlock EFW (lb,oz) 4 lb 10 oz EFW by Hadlock ([id number]) Head / Face / Neck Biometry: Mail Processing Associate 7.7 mm CM 5.5 mm ANATOMY ----- The following structures appear normal: Head / Neck Cranium. Head size. Head shape.Lateral ventricles. Choroid plexus. Midline falx. Cerebellum. Cisternamagna. Parenchyma. Thalami. Vermis. Neck. Nuchal fold. Face Lips. Profile. Nose. Maxilla.Mandible. Orbits. Lens. Heart / Thorax RVOT view. Situs. Aortic arch view.Bicaval view. Superior vena cava. Inferior vena cava. 3-vessel view.6-ezgtgk-clwnhhm view. Cardiac position. Cardiac size. Cardiac rhythm. [...] volume. BPP is reassuring. Erin Morris MD [facility] US ORDERAB LES documented in this encounter Visit Diagnoses Diagnosis Cholestasis during in third trimester- Primary Cholestasis during in third trimester documented in this encounter Care Teams Prick Stitcher Relationship Specialty Start Date End Date Clinic, [facility] [address] [address] PCP - General 12/12/18 Jayson Lamb MD [address] [place] [address] Assigned OBGYN Provider 08/06/21 documented as of this encounter
--- OUTSIDE RECORDS SUMMARY | 2024-06-01 11:35 | XMS_ITS | Patient Health Record ---
Author Organization [facility] Address [address] [address] Care Team Providers Care Director Of Consumer Marketing Name Role Phone Unknown, - Primary Care Provider Lenora Santana Unavailable [phone] Allergies Allergen (clinical drug ingredient) Drug/Non Drug [...] W/U Status Risk Notes Problem Missed period (98516635) Missed period (N92.6) Active confirmed Plan Of Treatment Pending Test Test Name Order Date ABO GROUP AND RH TYPE 04/11/2023 HCG, TOTAL, QUANT 04/11/2023 Insurance Providers Payer Name Payer Address Payer Phone Subscriber Number Group Number Insured Name Patient Relationship to Insured Coverage Start Date Coverage End Date [facility] Commercial (Ins. Bill) [address] [address] [place], [place] [id number] Meri Terrell Self - patient is the insured Medical (General) History Surgical History Surgery Date(Month/Year)
--- OUTSIDE RECORDS SUMMARY | 2024-06-01 11:35 | XMS_ITS | Clinical Summary ---
Author Organization [facility] Address [place], [place] [address] Care Team Providers Care Casting Technician Name Role Phone [facility] Primary Care [...] T Respiratory Rate 14 11/09/2023 1:17 PM PUBLIC SAF[employer]Y POLICE Oxygen Saturation 100% 12/18/2023 3:57 PM CDT Inhaled Oxygen Concentration - - Weight 55.5 kg (122 lb 4.8 oz) 12/18/2023 3:57 P M CDT Height 162.6 cm (5' 4) 10/08/2020 11:42 AM [employer] SAF[employer]Y [employer]ICE Body Mass Index 20.99 10/08/2020 11:42 AM PUBLIC SAFETY POLICE Plan of Treatment Health Maintenance Due Date [...] HPV THIN PREP Routine 12/03/2023 12:00 PM [employer] S[employer] from Last 3 Months or Most Recently Relevant to Health Maintenance Results * HPV HIGH RISK (12/03/2023 12:00 PM PUBLIC SAF[employer]Y POLICE) TYPE 16 Negative Negative 12/06/2023 4:21 PM PUBLIC SAFETY POLICE [facility] LABORAT[facility] TYPE 18 Negative Negative 12/06/2023 4:21 PM PUBLIC SAFETY POLICE [facility] TRAL LABORATORY OTHER HIGH RISK TYPES Negative Negative 12/06/2023 4:21 PM PUBLIC SAFETY POLICE [facility] LAB[facility]ATORY Other (Cervical) 12/03/2023 12:00 PM PUBLIC SAFETY POLICE 12/05/2023 11:38 AM PUBLIC SAFETY POLICE Narrative [facility] LAB[facility]ORY - 12/06/2023 4:21 PM PUBLIC SAFETY POLICE HPV types 16, 18, 31, 33, 35, 39, 45, 51, 52, 56, 58, 59, 66 and 68 DNA were undetectable or below the pre-set threshold. Methodology: Jairo Amanuel 4800 HPV Test January Donna DAILEY MICROBIOLOGY [facility] LAB[facility] [address] [place] [address], from Last 3 Months or Most Recently Relevant to Health Maintenance Care Teams Casting Technician Relationship Specialty Start Date End Date Emani Layne PA [facility] [address] [place] [address] PCP - General Physician Placement Interviewer 11/11/23
== END 2024-06-01 11:32 | disposition home or self-care (01) ==
PROVIDERS: Visit Provider Obstetrics & Gynecology
DX: Z34.93 Encounter for supervision of normal pregnancy, unspecified, third trimester (principal); Z3A.33 33 weeks gestation of pregnancy
CPT/HCPCS: 80048; 80076

== ENCOUNTER 2024-06-03 13:34 | Outpatient (CLI) | payer OTHER, SELFPAY ==
--- OUTSIDE RECORDS SUMMARY | 2024-06-03 13:37 | XMS_ITS | Referral Summary ---
Author Organization [place] Address [address] [place] [address] Care Team Providers Care Improvement Analyst Name Role Phone [facility], [facility] Primary Care Provide r Allergies [...] 6:00 PM CDT) PAP-ABSTRACT See Scanned Document [facility] LAB[facility]CENTRAL LABORAT[facility] 02/14/2021 6:00 PM CDT Narrative [facility] LAB[facility]AL LAB[facility]AT[facility] - 02/14/2021 6:00 PM CDT See Care Everywhere-B[place] Provider Outside LAB - HIM EXTERNAL R ESULT [facility]-C[facility]AL LABORATORY [address] [place] [address], [facility] from Last 3 Months or Most Recently Relevant to Health Maintenance Care Teams Improvement Analyst Relationship Specialty Start Date End Date Clinic, [facility] [address] [place] [address] PCP - General 12/12/18
--- OUTSIDE RECORDS SUMMARY | 2024-06-03 13:37 | XMS_ITS | Clinical Summary ---
Author Organization [facility] Address [place], [place] [address] Care Team Providers Care Portfolio Analyst Name Role Phone Emani Layne Primary Care [...] T Respiratory Rate 14 11/09/2023 1:17 PM COUNTY TAX ASSESSOR Oxygen Saturation 100% 12/18/2023 3:57 PM CDT Inhaled Oxygen Concentration - - Weight 55.5 kg (122 lb 4.8 oz) 12/18/2023 3:57 P M CDT Height 162.6 cm (5' 4) 10/08/2020 11:42 AM COUNTY TAX ASSESSOR Body Mass Index 20.99 10/08/2020 11:42 AM COUNTY TAX ASSESSOR Plan of Treatment Health Maintenance Due Date [...] HPV THIN PREP Routine 12/03/2023 12:00 PM COUNTY TAX ASSESSOR from Last 3 Months or Most Recently Relevant to Health Maintenance Results * HPV HIGH RISK (12/03/2023 12:00 PM COUNTY TAX ASSESSOR) TYPE 16 Negative Negative 12/06/2023 4:21 PM COUNTY TAX ASSESSOR [facility] TRAL LABORATORY TYPE 18 Negative Negative 12/06/2023 4:21 PM COUNTY TAX ASSESSOR [facility] TRAL LABORATORY OTHER HIGH RISK TYPES Negative Negative 12/06/2023 4:21 PM COUNTY TAX ASSESSOR [facility] LAB[facility] Other (Cervical) 12/03/2023 12:00 PM COUNTY TAX ASSESSOR 12/05/2023 11:38 AM COUNTY TAX ASSESSOR Narrative [facility] LABORATORY - 12/06/2023 4:21 PM COUNTY TAX ASSESSOR HPV types 16, 18, 31, 33, 35, 39, 45, 51, 52, 56, 58, 59, 66 and 68 DNA were undetectable or below the pre-set threshold. Methodology: Jairo Amanuel 4800 HPV Test January Donna DAILEY MICROBIOLOGY [facility] LAB[facility] [address] [place] [address], from Last 3 Months or Most Recently Relevant to Health Maintenance Care Teams Portfolio Analyst Relationship Specialty Start Date End Date Emani Layne PA [facility] [address] [place] [address] PCP - General Physician Oil Field Pipeline Supervisor 11/11/23
--- OUTSIDE RECORDS SUMMARY | 2024-06-03 13:37 | XMS_ITS | Clinical Summary ---
Author Organization [place] Address [address] [place] [address] Care Team Providers Care Certified Medical Technician Name Role Phone Clinic, [facility] Primary Care Provide r Allergies Active [...] 6:00 PM CDT) PAP-ABSTRACT See Scanned Document [facility] LAB-CENTRAL LABORATORY 02/14/2021 6:00 PM CDT Narrative [facility] LAB-CENTRAL LABORATORY - 02/14/2021 6:00 PM CDT See Care Everywhere-Ricky Provider Outside LAB - HIM EXTERNAL R ESULT [facility] LAB-CENTRAL LABORATORY [address] [place] [address], [facility] from Last 3 Months or Most Recently Relevant to Health Maintenance Care Teams Certified Medical Technician Relationship Specialty Start Date End Date Clinic, [facility] [address] [place], [place] [address] PCP - General 12/12/18
--- OUTSIDE RECORDS SUMMARY | 2024-06-03 13:37 | XMS_ITS | Patient Health Record ---
Author Organization [facility] Address [address] [address] Care Team Providers Care Dynamic Balancer Name Role Phone Unknown, - Primary Care Provider Lenora Santana Unavailable [phone] Allergies Allergen (clinical drug ingredient) Drug/Non Drug [...] W/U Status Risk Notes Problem Missed period (62913551) Missed period (N92.6) Active confirmed Plan Of Treatment Pending Test Test Name Order Date ABO GROUP AND RH TYPE 04/11/2023 HCG, TOTAL, QUANT 04/11/2023 Insurance Providers Payer Name Payer Address Payer Phone Subscriber Number Group Number Insured Name Patient Relationship to Insured Coverage Start Date Coverage End Date [facility] Commercial (Ins. Bill) [address] [address] [place], [place] [id number] Meri Terrell Self - patient is the insured Medical (General) History Surgical History Surgery Date(Month/Year)
--- OUTSIDE RECORDS SUMMARY | 2024-06-03 13:37 | XMS_ITS | Encounter Summary ---
Author Organization [place] Address [address] [place] [address] Care Team Providers Care Respooler Name Role Phone [facility], [facility] Primary Care Provide r Jayson Lamb MD Unavailable [phone] Reason for Referral * Consultation (Routine) - Closed Specialty Diagnoses / Procedures Referred By Contac t Referred To Contact Diagnoses Cholestasis during in third trimester [facility] [address] [place] [address] Referral ID Status Reason Start Date Expiration Date Visits Re quested Visits Authorized [id number] Closed 07/20/2021 07/20/2022 1 1 Question Answer [...] [facility] [address] [place] [address] Referral ID Status Reason Start Date Expiration Date Visits Re quested Visits Authorized [id number] Closed 07/20/2021 07/20/2022 1 1 Encounter Details Date Type Department Care Team (Late st Contact Info) Description 07/20/2021 Orders Only [facility] M[facility] [place] [address] [place] [address] Rosaline Caicedo RN Cholestasis during in third [...] Type Priority Associated Diagnoses Orde r Schedule [facility] Office Visit Referral Routine: Next available opening Cholestasis during in third trimester Weekly for 1 Occurrences starting 07/20/2021 until 07/20/2022 documented as of this encounter Results * [facility] US Comprehensive Single (07/26/2021 [...] FINN Study Date: 07/26/2021 8:41am Pat. NO: [id number] Referring ??: NAI SNIDER Site: [facility] Property Technician: Matilda Delgado RDMS : 1995 Age: [...] 4 lb 10 ?oz EFW by ?Hadlock ([id number]) Head / Face / Neck Biometry: Cellophane Casting Machine Repairer ? 7.7 ? mm CM ?5.5 ? [...] vena cava. Inferior vena cava. 3-vessel view. 1-nzuimm-csprzum view. Cardiac position. ? Cardiac size. Cardiac [...] Pat. Name:Shirin FINN Date:07/26/2021 8:41am Pat. NO: [id number] :NAI SNIDER Site:Yonnyer:Matilda Delgado RDMS :1995Age:25 ----- [...] mm32w 2d Hadlock Humerus 56.2 mm32w 5d [facility] Weight Calculation: EFW 2,087 g48% Hadlock EFW (lb,oz) 4 lb 10 oz EFW by Hadlock ([id number]) Head / Face / Neck Biometry: Cellophane Casting Machine Repairer 7.7 mm CM 5.5 mm ANATOMY ----- The following structures appear normal: Head / Neck Cranium. Head size. Head shape.Lateral ventricles. Choroid plexus. Midline falx. Cerebellum. Cisternamagna. Parenchyma. Thalami. Vermis. Neck. Nuchal fold. Face Lips. Profile. Nose. Maxilla.Mandible. Orbits. Lens. Heart / Thorax RVOT view. Situs. Aortic arch view.Bicaval view. Superior vena cava. Inferior vena cava. 3-vessel view.1-dtocrs-gxlovjg view. Cardiac position. Cardiac size. Cardiac rhythm. [...] volume. BPP is reassuring. Erin Morris MD [facility] US ORDERAB LES documented in this encounter Visit Diagnoses Diagnosis Cholestasis during in third trimester- Primary Cholestasis during in third trimester documented in this encounter Care Teams Respooler Relationship Specialty Start Date End Date Clinic, [facility] [address] [facility] [place] [address] PCP - General 12/12/18 Jayson Lamb MD [address] [place] [address] Assigned OBGYN Provider 08/06/21 documented as of this encounter
--- NOTE | 2024-06-03 13:45 | CRLHL7_ITS ---
For Patients: As a result of the Century Cures Act, medical imaging exams and procedure reports are released immediately into your electronic medical record. You may view this report before your referring provider. If you have questions, please contact your health care provider. INDICATION: Right upper quadrant abdomen pain. TECHNIQUE: Ultrasound abdomen limited. Sonographic images of the right upper quadrant were obtained using miranda-scale and color Doppler images. COMPARISON: None. FINDINGS: Liver: Normal in morphology but slightly hyperechoic. No suspicious masses. No intrahepatic biliary dilatation. Gallbladder: No stones or sludge. Normal wall thickness. No pericholecystic fluid. Common bile duct: 3.5 mm. Pancreas: Unremarkable. Right kidney: Normal in size. Normal echotexture and cortex. No suspicious masses, stones, or hydronephrosis. Vasculature: Proximal abdominal aorta and IVC are unremarkable. IMPRESSION: Minimal hepatic steatosis. Otherwise, normal right upper quadrant ultrasound. Dictated by Carl Horvath MD @ 06/04/2024 7:45:09 AM (Electronically Signed)
--- NOTE | 2024-06-03 14:30 | CRLHL7_ITS ---
For Patients: As a result of the Century Cures Act, medical imaging exams and procedure reports are released immediately into your electronic medical record. You may view this report before your referring provider. If you have questions, please contact your health care provider. INDICATION: Biophysical profile, ICP with worsening transaminitis TECHNIQUE: Ultrasound OB pelvis transabdominal. Real-time miranda-scale imaging of the fetus was performed with color Doppler and spectral Doppler analysis of the umbilical artery without stress testing. COMPARISON: 05/29/2024 FINDINGS: Sonographic imaging demonstrates a single living intrauterine gestation. Fetus demonstrates a regular cardiac rate of 131 beats per minute. Fetus has a cephalic orientation. The placenta lies anterior. Amniotic fluid volume appears normal with a MVP of 7.6 cm. breathing movements, motion, and tone were all observed. IMPRESSION: Single viable intrauterine with a biophysical profile 05/14. Dictated by Eliu Arroyo MD @ 06/03/2024 3:51:44 PM (Electronically Signed)
== END 2024-06-03 13:35 | disposition home or self-care (01) ==
LOC: US 13:35
PROVIDERS: Visit Provider Obstetrics & Gynecology
DX: O26.619 Liver and biliary tract disorders in pregnancy, unspecified trimester (principal); R74.01 Elevation of levels of liver transaminase levels; K83.1 Obstruction of bile duct; Z3A.33 33 weeks gestation of pregnancy
CPT/HCPCS: 76705; 76819

== ENCOUNTER 2024-06-04 08:05 | Outpatient (CLI) | payer OTHER, SELFPAY ==
--- OUTSIDE RECORDS SUMMARY | 2024-06-04 10:50 | XMS_ITS | Encounter Summary ---
Author Organization [place] Address [address] [place] [address] Care Team Providers Care Project Controls Specialist Name Role Phone [facility], [facility] Primary Care Provide r Jayson Lamb MD Unavailable [phone] Reason for Referral * Consultation (Routine) - Closed Specialty Diagnoses / Procedures Referred By Contac t Referred To Contact Diagnoses Cholestasis during in third trimester [facility] [address] [place] [address] Referral ID Status Reason Start Date Expiration Date Visits Re quested Visits Authorized [id number] Closed 07/20/2021 07/20/2022 1 1 Question Answer [...] [facility] [address] [place] [address] Referral ID Status Reason Start Date Expiration Date Visits Re quested Visits Authorized [id number] Closed 07/20/2021 07/20/2022 1 1 Encounter Details Date Type Department Care Team (Late st Contact Info) Description 07/20/2021 Orders Only [facility] [place] [address] [place] [address] Rosaline Caicedo RN Cholestasis during in third [...] Type Priority Associated Diagnoses Orde r Schedule [facility] Office Visit Referral Routine: Next available opening Cholestasis during in third trimester Weekly for 1 Occurrences starting 07/20/2021 until 07/20/2022 documented as of this encounter Results * [facility] US Comprehensive Single (07/26/2021 9:24 AM [...] FINN Study Date: 07/26/2021 8:41am Pat. NO: [id number] Referring ??: NAI SNIDER Site: Riki Plaster Mechanic: Matilda Delgado RDMS : 1995 Age: 25 [...] 4 lb 10 ?oz EFW by ?Hadlock ([id number]) Head / Face / Neck Biometry: Brand Planner ? 7.7 ? mm CM ?5.5 ? [...] vena cava. Inferior vena cava. 3-vessel view. 8-jkoddy-ylfxcjo view. Cardiac position. ? Cardiac size. Cardiac [...] present but not detected Procedure Note Jayson Labm MD - 07/26/2021 Comprehensive ----- Pat. Name:Shirin FINN Date:07/26/2021 8:41am Pat. NO: [id number] :NAI SNIDER Site:Yonnyer:Matilda Delgado RDMS :1995Age:25 ----- [...] mm32w 2d Hadlock Humerus 56.2 mm32w 5d [facility] Weight Calculation: EFW 2,087 g48% Hadlock EFW (lb,oz) 4 lb 10 oz EFW by Hadlock ([id number]) Head / Face / Neck Biometry: Brand Planner 7.7 mm CM 5.5 mm ANATOMY ----- The following structures appear normal: Head / Neck Cranium. Head size. Head shape.Lateral ventricles. Choroid plexus. Midline falx. Cerebellum. Cisternamagna. Parenchyma. Thalami. Vermis. Neck. Nuchal fold. Face Lips. Profile. Nose. Maxilla.Mandible. Orbits. Lens. Heart / Thorax RVOT view. Situs. Aortic arch view.Bicaval view. Superior vena cava. Inferior vena cava. 3-vessel view.1-gyjfqx-qveprfo view. Cardiac position. Cardiac size. Cardiac rhythm. [...] volume. BPP is reassuring. Erin Morris MD [facility] US ORDERAB LES documented in this encounter Visit Diagnoses Diagnosis Cholestasis during in third trimester- Primary Cholestasis during in third trimester documented in this encounter Care Teams Project Controls Specialist Relationship Specialty Start Date End Date Clinic, [facility] [address] [facility] [place] [address] PCP - General 12/12/18 Jayson Lamb MD [address] [place] [address] Assigned OBGYN Provider 08/06/21 documented as of this encounter
--- OUTSIDE RECORDS SUMMARY | 2024-06-04 10:50 | XMS_ITS | Clinical Summary ---
Author Organization [facility] Address [place], [place] [address] Care Team Providers Care Beverage Steward Name Role Phone Emani Layne Primary Care [...] T Respiratory Rate 14 11/09/2023 1:17 PM SOUND MIXER Oxygen Saturation 100% 12/18/2023 3:57 PM CDT Inhaled Oxygen Concentration - - Weight 55.5 kg (122 lb 4.8 oz) 12/18/2023 3:57 P M CDT Height 162.6 cm (5' 4) 10/08/2020 11:42 AM SOUND MIXER Body Mass Index 20.99 10/08/2020 11:42 AM SOUND MIXER Plan of Treatment Health Maintenance Due Date [...] HPV THIN PREP Routine 12/03/2023 12:00 PM SOUND MIXER from Last 3 Months or Most Recently Relevant to Health Maintenance Results * HPV HIGH RISK (12/03/2023 12:00 PM SOUND MIXER) TYPE 16 Negative Negative 12/06/2023 4:21 PM SOUND MIXER [facility] TYPE 18 Negative Negative 12/06/2023 4:21 PM SOUND MIXER [facility] OTHER HIGH RISK TYPES Negative Negative 12/06/2023 4:21 PM SOUND MIXER [facility] Other (Cervical) 12/03/2023 12:00 PM SOUND MIXER 12/05/2023 11:38 AM SOUND MIXER Narrative [facility] - 12/06/2023 4:21 PM SOUND MIXER HPV types 16, 18, 31, 33, 35, 39, 45, 51, 52, 56, 58, 59, 66 and 68 DNA were undetectable or below the pre-set threshold. Methodology: Jairo Amanuel 4800 HPV Test January Donna DAILEY MICROBIOLOGY [facility] [address] [place] [address], from Last 3 Months or Most Recently Relevant to Health Maintenance Care Teams Beverage Steward Relationship Specialty Start Date End Date Emani Layne PA [facility] [address] [place] [address] PCP - General Physician Implementation Technician 11/11/23
--- OUTSIDE RECORDS SUMMARY | 2024-06-04 10:50 | XMS_ITS | Clinical Summary ---
Author Organization [place] Address [address] [place] [address] Care Team Providers Care Food Expeditor Name Role Phone Clinic, [facility] Primary Care Provide r Allergies [...] 6:00 PM CDT) PAP-ABSTRACT See Scanned Document [facility] 02/14/2021 6:00 PM CDT Narrative [facility] - 02/14/2021 6:00 PM CDT See Care Everywhere-Ricky Provider Outside LAB - HIM EXTERNAL R ESULT [facility] LAB[facility]AT[facility] [address] [place] [address], [facility] from Last 3 Months or Most Recently Relevant to Health Maintenance Care Teams Food Expeditor Relationship Specialty Start Date End Date Clinic, [facility] [address] [place], [place] [id number] PCP - General 12/12/18
--- OUTSIDE RECORDS SUMMARY | 2024-06-04 10:50 | XMS_ITS | Referral Summary ---
Author Organization [place] Address [address] [place] [address] Care Team Providers Care Physician President Name Role Phone [facility], [facility] Primary Care Provide r Allergies [...] Outside LAB - HIM EXTERNAL R ESULT [facility] [address] [place] [address], [facility] from Last 3 Months or Most Recently Relevant to Health Maintenance Care Teams Physician President Relationship Specialty Start Date End Date Clinic, [facility] [address] [place] [address] PCP - General 12/12/18
== END 2024-06-04 08:06 | disposition home or self-care (01) ==
LOC: NFLDREF 10:48
PROVIDERS: Visit Provider Obstetrics & Gynecology
DX: O26.613 Liver and biliary tract disorders in pregnancy, third trimester (principal); R74.01 Elevation of levels of liver transaminase levels; R10.11 Right upper quadrant pain; K83.1 Obstruction of bile duct; Z3A.33 33 weeks gestation of pregnancy; Z36.85 Encounter for antenatal screening for Streptococcus B
CPT/HCPCS: 80053; 82239; 87081; 87653

== ENCOUNTER 2024-06-23 15:20 | Outpatient (CLI) | payer OTHER, SELFPAY ==
--- OUTSIDE RECORDS SUMMARY | 2024-06-23 15:22 | XMS_ITS | Encounter Summary ---
Author Organization [place] Address [facility] [place] [address] Care Team Providers Care Oil Operator Name Role Phone No Ref-Primary, Physician Primary Care Provider Encounter Details Date Type Department Care Team (Late st Contact Info) Description 06/15/2024 MyC Medical Advice [facility] [place] [address] [place], [place] [address] Trang Perez, CHRISTIAN Social History Tobacco Use Types Packs/Day Years Used Date Smoking Tobacco: Never Smokeless Tobacco: Never Alcohol Use Standard Drinks/Week Comments Not Currently 0 (1 standard drink = 0.6 oz pur e alcohol) [place] Depression Scale Answer Date Recorded Last EPDS Total Score Not on file 06/07/2024 The thought of harming myself has occurred to me . Never 06/07/2024 Adolescent Education Answer Date Record ed Getting School Help Needed Not on file 06/28 Food Insecurity Answer Date Recorded Within the past 12 months, d id you worry that your food would run out before you got money to buy more? No 06/06/2024 Within the past 12 months, d id the food you bought just not last and you didn? t have money to get more? No 06/06/2024 Housing Stability Answer Date Recorded Do you have housing? (Trumanin g is defined as stable permanent housing and does not include staying ouside in a car, in a tent, in an abandoned building, in an overnight custodial, or couch-surfing.) No 06/06/2024 Are you worried about losing your housing? No 06/06/2024 Financial Resource Strain Answer Date R ecorded Within the past 12 months, h ave you or your family members you live with been unable to get utilities (heat, electricity) when it was really needed? No 06/06/2024 Transportation Needs Answer Date Record ed Within the past 12 months, h as lack of transportation kept you from medical appointments, getting your medicines, non-medical meetings or appointments, work, or from getting things that you need? No 06/06/2024 Interpersonal Safety Answer Date Record ed Do you feel physically and e motionally safe where you currently live? Yes 06/06/2024 Within the past 12 months, h ave you been hit, slapped, kicked or otherwise physically hurt by someone? No 06/06/2024 Within the past 12 months, h ave you been humiliated or emotionally abused in other ways by your partner or ex-partner? No 06/06/2024 Sex and Gender Information Value Date Recorded Sex Assigned at Not on file Gender Identity Not on file Sexual Orientation Not on file documented as of this encounter Plan of Treatment Not on file documented as of this encounter Goals Goal Patient Goal Type Associated Problems Recent Progress Patient-Stated? Author MYC ECC OBHTN WELCOME GOAL Care Plan MYC ECC OBHTN WELCOME Problem No Rosaline Bro MD Home Observation of Elevated Blood Pressure (HOPE-BP) program Care Plan Home Observation of Elevated Blood Pressure (HOPE-BP) program No Fidel Oliva MYC ECC OBHTN 002A & 003A NORMAL BLOOD PRESSURE MESSAGE GOAL TEMPLATE Care Plan MYC ECC OBHTN 002A & 003A NORMAL BLOOD PRESSURE MESSAGE PROBLEM TEMPLATE No Fidel Oliva MYC ECC OBHTN 002A & 003A NORMAL BLOOD PRESSURE MESSAGE GOAL TEMPLATE Care Plan MYC ECC OBHTN 002A & 003A NORMAL BLOOD PRESSURE MESSAGE PROBLEM TEMPLATE No Fidel [place]iva MYC ECC OBHTN 002A & 003A NORMAL BLOOD PRESSURE MESSAGE GOAL TEMPLATE Care Plan MYC ECC OBHTN 002A & 003A NORMAL BLOOD PRESSURE MESSAGE PROBLEM TEMPLATE No Fidel [place] MYC ECC OBHTN 002A & 003A NORMAL BLOOD PRESSURE MESSAGE GOAL TEMPLATE Care Plan MYC ECC OBHTN 002A & 003A NORMAL BLOOD PRESSURE MESSAGE PROBLEM TEMPLATE No Fidel Oliva MYC ECC OBHTN 002A & 003A NORMAL BLOOD PRESSURE MESSAGE GOAL TEMPLATE Care Plan MYC ECC OBHTN 002A & 003A NORMAL BLOOD PRESSURE MESSAGE PROBLEM TEMPLATE No Mychart, [place] MYC ECC OBHTN 002A & 003A NORMAL BLOOD PRESSURE MESSAGE GOAL TEMPLATE Care Plan MYC ECC OBHTN 002A & 003A NORMAL BLOOD PRESSURE MESSAGE PROBLEM TEMPLATE No Mychart, [place] MYC ECC OBHTN 002A & 003A NORMAL BLOOD PRESSURE MESSAGE GOAL TEMPLATE Care Plan MYC ECC OBHTN 002A & 003A NORMAL BLOOD PRESSURE MESSAGE PROBLEM TEMPLATE No Mychart, [place] documented as of this encounter Visit Diagnoses Not on filedocumented in this encounter Additional Health Concerns Active Problems Noted Date Diagnosed Date MYC ECC OBHTN WELCOME Problem 06/08/2024 Home Observation of Postpart um Elevated Blood Pressure (HOPE-BP) program 06/11/2024 MYC ECC OBHTN 002A & 003A NO RMAL BLOOD PRESSURE MESSAGE PROBLEM TEMPLATE 06/12/2024 MYC ECC OBHTN 002A & 003A NO RMAL BLOOD PRESSURE MESSAGE PROBLEM TEMPLATE 06/12/2024 MYC ECC OBHTN 002A & 003A NO RMAL BLOOD PRESSURE MESSAGE PROBLEM TEMPLATE 06/13/2024 MYC ECC OBHTN 002A & 003A NO RMAL BLOOD PRESSURE MESSAGE PROBLEM TEMPLATE 06/13/2024 MYC ECC OBHTN 002A & 003A NO RMAL BLOOD PRESSURE MESSAGE PROBLEM TEMPLATE 06/14/2024 MYC ECC OBHTN 002A & 003A NO RMAL BLOOD PRESSURE MESSAGE PROBLEM TEMPLATE 06/14/2024 MYC ECC OBHTN 002A & 003A NO RMAL BLOOD PRESSURE MESSAGE PROBLEM TEMPLATE 06/15/2024 Infection Onset Date Last Indicated Resolved Time COVID-19 06/07/2024 06/10/2024 06/21/2024 11:3 9 PM CDT documented as of this encounter Care Teams Oil Operator Relationship Specialty Start Date End Date No Ref-Primary, Physician PCP - General 06/06/24 documented as of this encounter
--- OUTSIDE RECORDS SUMMARY | 2024-06-23 15:22 | XMS_ITS | Encounter Summary ---
Author Organization [place] Address [facility] [place] [address] Care Team Providers Care Rail Bonder Name Role Phone No Ref-Primary, Physician Primary Care Provider Reason for Visit * Reason Onset Date Comments Hypertension 06/15/2024 Encounter Details Date Type Department Care Team (Late st Contact Info) Description 06/15/2024 Telephone [facility] [place] [address] [place], [place] [phone] Trang Perez RN Hypertension Social History Tobacco Use Types Packs/Day Years Used Date Smoking Tobacco: Never Smokeless Tobacco: Never Alcohol Use Standard Drinks/Week Comments Not Currently 0 (1 standard drink = 0.6 oz pur e alcohol) [place] Depression Scale Answer Date Recorded Last EPDS [...] Answer Date Recorded Do you have housing? (Naresh g is defined as stable permanent housing [...] on file documented as of this encounter Miscellaneous Notes * Telephone Encounter - Trang Perez RN - 06/15/2024 11:35 AM CDT Home Observation of Elevated BP (HOPE-BP) Program Meri Terrell enrolled in the HOPE-BP Program on 06/10/2024, 4 days ago. Delivered on 06/06/2024 . Diagnosis: Preeclampsia with severe features. Medication(s) prescribed: Nifedipine ER. Patient reported the following blood pressures in the past 72 hours: 06/12/2024 06/13/2024 06/14/2024 06/15/2024 [facility] Health Trends BP Review Flowsheet Systolic (Patient Reported) 122 119 123 117 106 122 120 Diastolic (Patient Reported) 82 86 79 77 74 71 83 Multiple values from one day are sorted in reverse-chronological order Spoke with patient to follow up on blood pressure. Based on self-report, Gerardo blood pressures were in the Optimal Range (SBP 100-139 AND DBP 60-89). Patient advised to check and record blood pressure twice daily and take all medication as prescribed. Patient verbalized understanding. Patient reported a mild to moderate headache relieved by medication or non- pharmacologic interventions. Denied: chest pain, difficulty breathing or shortness of breath, unsteady gait, weakness, blurred vision, dizziness, angioedema or lip swelling, leg edema, difficulty swallowing, palpitations, krishan h, acute joint redness or pain (gout), and symptomatic hypotension. Welcomed Meri to GACKLE BP program, reviewed purpose and goals of program. Pt requesting My Chart message with contact information. Meri also reports she never started to take the Nifedipine, states My doctor told me to only start if my systolic BP is >130. Reviewed s/s of pre-e, encourage pt to call with any questions or concerns. Meri verbalized understanding. Encouraged pt to continue taking BP twice daily and recording in My Chart. Pt agreeable. Trang Perez RN documented in this encounter Plan of Treatment Not on file documented as of this encounter Goals Goal Patient Goal Type Associated Problems Recent Progress Patient-Stated? Author MYC ECC OBHTN WELCOME GOAL Care Plan MYC ECC OBHTN WELCOME Problem No Rosaline Bro MD Home Observation of Elevated Blood Pressure (GACKLE-BP) program Care Plan Home Observation of Elevated Blood Pressure (GACKLE-BP) program No Mychart, [place] MYC ECC OBHTN 002A & 003A NORMAL BLOOD PRESSURE MESSAGE GOAL TEMPLATE Care Plan MYC ECC OBHTN 002A & 003A NORMAL BLOOD PRESSURE MESSAGE PROBLEM TEMPLATE No Mychart, [place] MYC ECC OBHTN 002A & 003A NORMAL BLOOD PRESSURE MESSAGE GOAL TEMPLATE Care Plan MYC ECC OBHTN 002A & 003A NORMAL BLOOD PRESSURE MESSAGE PROBLEM TEMPLATE No Mychart, [place] MYC ECC OBHTN 002A & 003A NORMAL BLOOD PRESSURE MESSAGE GOAL TEMPLATE Care Plan MYC ECC OBHTN 002A & 003A NORMAL BLOOD PRESSURE MESSAGE PROBLEM TEMPLATE No Mychart, [place] MYC ECC OBHTN 002A & 003A NORMAL BLOOD PRESSURE MESSAGE GOAL TEMPLATE Care Plan MYC ECC OBHTN 002A & 003A NORMAL BLOOD PRESSURE MESSAGE PROBLEM TEMPLATE No Mychart, [place] MYC ECC OBHTN 002A & 003A NORMAL BLOOD PRESSURE MESSAGE GOAL TEMPLATE Care Plan MYC ECC OBHTN 002A & 003A NORMAL BLOOD PRESSURE MESSAGE PROBLEM TEMPLATE No Mychart, [place] MYC ECC OBHTN 002A & 003A NORMAL BLOOD PRESSURE MESSAGE GOAL TEMPLATE Care Plan MYC ECC OBHTN 002A & 003A NORMAL BLOOD PRESSURE MESSAGE PROBLEM TEMPLATE No [place], [place] MYC ECC OBHTN 002A & 003A NORMAL BLOOD PRESSURE MESSAGE GOAL TEMPLATE Care Plan MYC ECC OBHTN 002A & 003A NORMAL BLOOD PRESSURE MESSAGE PROBLEM TEMPLATE No [place], [place] documented as of this encounter Visit Diagnoses [...] documented as of this encounter Care Teams Rail Bonder Relationship Specialty Start Date End Date No Ref-Primary, Physician PCP - General 06/06/24 documented as of this encounter
--- OUTSIDE RECORDS SUMMARY | 2024-06-23 15:22 | XMS_ITS | Encounter Summary ---
Author Organization [place] Address [address] [place] [address]. [place] [address] Care Team Providers Care Convertible Power Shovel Operator Name Role Phone No Ref-Primary, Physician Primary Care Provider Encounter Details Date Type Department Care Team (Late st Contact Info) Description 06/15/2024 Encounter [facility], [facility] [address] [place] [phone] Social History Tobacco Use Types Packs/Day Years Used Date Smoking Tobacco: Never Smokeless Tobacco: Never Alcohol Use Standard Drinks/Week Comments Not Currently 0 (1 standard drink = 0.6 oz pur e alcohol) [place] Depression Scale Answer Date Recorded Last EPDS [...] Date Recorded Do you have housing? (Naresh martinez is defined as stable permanent housing and does not include staying ouside in a car, in a tent, in an abandoned building, in an overnight half-way, or couch-surfing.) No 06/06/2024 Are you worried [...] as of this encounter Miscellaneous Notes * Note - Nela Contreras RN - 06/15/2024 12:18 PM CDT This note was copied from a baby's chart. I met with Laura for discharge teaching and gave pertinent handouts (see below). Encouraged seeking outpatient support as needed. Teaching completed, all questions answered and readiness togo home is verbalized. Nela Contreras RN, IBCLC Process Owner Jorge: [employer]: [phone] Office: [phone] [x]Discharge-- [facility] milk storage [x]Discharge-- [facility] breast pump clean [x]Discharge-- After first week feeding log [x]Discharge-- Signs of a good latch [x]Discharge-- [facility] resources documented in this encounter Plan of Treatment Not on file documented as of this encounter Goals Goal Patient Goal Type Associated Problems Recent Progress Patient-Stated? Author TREV SAWANT OBHTN WELCOME GOAL Care Plan TREV SAWANT OBHTN WELCOME Problem No Rosaline Bro MD Home Observation of Elevated Blood Pressure (HOPE-BP) program Care Plan Home Observation of Elevated Blood Pressure (HOPE-BP) program No Mychart, [facility] MYC ECC OBHTN 002A & 003A NORMAL BLOOD PRESSURE MESSAGE GOAL TEMPLATE Care Plan MYC ECC OBHTN 002A & 003A NORMAL BLOOD PRESSURE MESSAGE PROBLEM TEMPLATE No Mychart, [place] MYC ECC OBHTN 002A & 003A NORMAL BLOOD PRESSURE MESSAGE GOAL TEMPLATE Care Plan MYC ECC OBHTN 002A & 003A NORMAL BLOOD PRESSURE MESSAGE PROBLEM TEMPLATE No Mychart, [place] MYC ECC OBHTN 002A & 003A NORMAL BLOOD PRESSURE MESSAGE GOAL TEMPLATE Care Plan MYC ECC OBHTN 002A & 003A NORMAL BLOOD PRESSURE MESSAGE PROBLEM TEMPLATE No Mychart, [place] MYC ECC OBHTN 002A & 003A NORMAL BLOOD PRESSURE MESSAGE GOAL TEMPLATE Care Plan MYC ECC OBHTN 002A & 003A NORMAL BLOOD PRESSURE MESSAGE PROBLEM TEMPLATE No Mychart, [place] MYC ECC OBHTN 002A & 003A NORMAL BLOOD PRESSURE MESSAGE GOAL TEMPLATE Care Plan MYC ECC OBHTN 002A & 003A NORMAL BLOOD PRESSURE MESSAGE PROBLEM TEMPLATE No Mychart, [place] MYC ECC OBHTN 002A & 003A NORMAL BLOOD PRESSURE MESSAGE GOAL TEMPLATE Care Plan MYC ECC OBHTN 002A & 003A NORMAL BLOOD PRESSURE MESSAGE PROBLEM TEMPLATE No Mychart, [place] MYC ECC OBHTN 002A & 003A NORMAL BLOOD PRESSURE MESSAGE GOAL TEMPLATE Care Plan MYC ECC OBHTN 002A & 003A NORMAL BLOOD PRESSURE MESSAGE PROBLEM TEMPLATE No Mychart, [place] documented as of this encounter Visit Diagnoses [...] documented as of this encounter Care Teams Convertible Power Shovel Operator Relationship Specialty Start Date End Date No Ref-Primary, Physician PCP - General 06/06/24 documented as of this encounter
--- OUTSIDE RECORDS SUMMARY | 2024-06-23 15:22 | XMS_ITS | Encounter Summary ---
Author Organization [place] Address [facility]0 [facility] [place] [address] Care Team Providers Care Associate Professor Of Counseling Name Role Phone No Ref-Primary, Physician Primary Care Provider Encounter Details Date Type Department Care Team (Late st Contact Info) Description 06/18/2024 MyC Medical Advice [facility] [place] [address] [place], [place] [id number] Trang Perez, CHRISTIAN Social History Tobacco Use Types Packs/Day Years Used Date Smoking Tobacco: Never Smokeless Tobacco: Never Alcohol Use Standard Drinks/Week Comments Not Currently 0 (1 standard drink = 0.6 oz pur e alcohol) [place] Depression Scale Answer Date Recorded Last EPDS [...] in an abandoned building, in an overnight mcfp, or couch-surfing.) No 06/06/2024 Are you worried [...] BLOOD PRESSURE MESSAGE PROBLEM TEMPLATE No Mychart, [place] MYC ECC OBHTN 002A & 003A NORMAL BLOOD PRESSURE MESSAGE GOAL TEMPLATE Care Plan MYC ECC OBHTN 002A & 003A NORMAL BLOOD PRESSURE MESSAGE PROBLEM TEMPLATE No Mychart, [place] MYC ECC OBHTN 002A & 003A NORMAL BLOOD PRESSURE MESSAGE GOAL TEMPLATE Care Plan MYC ECC OBHTN 002A & 003A NORMAL BLOOD PRESSURE MESSAGE PROBLEM TEMPLATE No Mychart, [place] MYC ECC OBHTN 002A & 003A NORMAL BLOOD PRESSURE MESSAGE GOAL TEMPLATE Care Plan MYC ECC OBHTN 002A & 003A NORMAL BLOOD PRESSURE MESSAGE PROBLEM TEMPLATE No Mychart, [place] documented as of this encounter Visit Diagnoses [...] RMAL BLOOD PRESSURE MESSAGE PROBLEM TEMPLATE 06/15/2024 MYC ECC OBHTN 002A & 003A NO RMAL BLOOD PRESSURE MESSAGE PROBLEM TEMPLATE 06/16/2024 Infection Onset Date Last Indicated Resolved Time COVID-19 06/07/2024 06/10/2024 06/21/2024 11:3 9 PM CDT documented as of this encounter Care Teams Associate Professor Of Counseling Relationship Specialty Start Date End Date No Ref-Primary, Physician PCP - General 06/06/24 documented as of this encounter
--- OUTSIDE RECORDS SUMMARY | 2024-06-23 15:22 | XMS_ITS | Clinical Summary ---
Author Organization [facility] Address [address] [place] [address] Care Team Providers Care Senior Staff Psychologist Name Role Phone No Ref-Primary, Physician Primary Care Provider Allergies Active Allergy Reactions Criticality Noted Date Comments Sertraline 04/15/2023 Hallucinations Medications Medication Sig Dispensed Refills Start Date End Date Status omeprazole (PRILOSEC OTC) 20 MG EC tablet Take 20 mg by mouth daily. Active ibuprofen (ADVIL/MOTRIN) 600 MG tabletIndications : (spontaneous vaginal delivery) Take 1 tablet (600 mg) by mouth every 6 hours as needed for moderate pain. Start after delivery 60 tablet 06/08/2024 Active senna-docusate (SENOKOT-S/GOKUL LACE) 8.6-50 MG tabletIndications : (spontaneous vaginal delivery) Take 1 tablet by mouth daily. Start after delivery. 100 tablet 06/08/2024 Active NIFEdipine ER OSMOTIC (ADALAT CC) 30 MG 24 hr tabletIndications : hypertension Take 1 tablet (30 mg) by mouth every 24 hours. 30 tablet 1 06/12/2024 Active ibuprofen (ADVIL/MOTRIN) 800 MG tabletIndications :Missed ab Take 1 tablet (800 mg) by mouth every 6 hours as needed for other (mild and/or inflammatory pain) 30 tablet 04/17/2023 4 Discontinue d(Stop at Discharge) acetaminophen (TYLENOL) 325 MG tabletIndications :Missed ab Take 3 tablets (975 mg) by mouth every 6 hours as needed for mild pain 50 tablet 04/17/2023 4 Discontinue d(Stop at Discharge) ursodiol (ACTIGALL) 300 MG capsule Take 300 mg by mouth 2 times daily. 4 Discontinue d(Stop at Discharge) acetaminophen (TYLENOL) 325 MG tabletIndications : (spontaneous vaginal delivery) Take 2 tablets (650 mg) by mouth every 6 hours as needed for mild pain. Start after Delivery. 100 tablet 06/08/2024 Discontinue d(Stop at Discharge) Active Problems Problem Noted Date Diagnosed Date Preeclampsia, severe 06/08/2024 Encounter for induction of labor 06/06/2024 Encounters Date Type Department Care Team Description 06/18/2024 MyC Medical Advice [facility] [address] [place] [address] Trang Perez, CHRISTIAN 06/15/2024 Encounter [facility] [address] [place] [phone] 06/15/2024 MyC Medical Advice [facility]aternal [facility] [address] [place] [address] Trang Perez RN 06/15/2024 Telephone [facility]aternal [facility] [address] [place] [address] Trang Perez, CHRISTIAN Hypertension 06/06/2024 7:03 PM CDT Anesthesia Event [facility] [address] [place] [phone] Ainsley Bravo MD 06/06/2024 4:30 PM CDT Anesthesia Event [facility] [address] [place] [phone] Akira Sullivan MD Niemczyk, Alexander, MD 06/06/2024 7:03 AM CDT - 06/11/2024 1:00 PM CDT Hospital Encounter [facility] [address] [place] [phone] Viry Patel MD Darnell, Suzanne Marie, MD (spontaneous vaginal delivery) (Primary Dx); Severe pre-eclampsia, antepartum; Severe pre-eclampsia in third trimester; hypertension Discharge Disposition: Home-Health Care Svc 06/06/2024 Travel 06/04/2024 Telephone [facility] [place] [address] [address] Jeanine Garza, RN Clinic Care Coordination - Initial from Last 3 Months Immunizations Name Administration Dates Next Due COVID-19 Monovalent 18+ (Moderna) 06/09/2021, Influenza Vaccine >6 months,quad, PF 09/02/2017 TDAP (Adacel,Boostrix) 07/18/2021,12/30/2017 Social History Tobacco Use Types Packs/Day Years Used Date Smoking Tobacco: Never Smokeless Tobacco: Never Tobacco Cessation:Counseling Given: Not Answered Alcohol Use Standard Drinks/Week Comments Not Currently 0 (1 standard drink = 0.6 oz pur e alcohol) [place] Depression Scale Answer Date Recorded Last EPDS [...] Answer Date Recorded Do you have housing? (Housin g is defined as stable permanent housing and does not include staying ouside in a car, in a tent, in an abandoned building, in an overnight fci, or couch-surfing.) No 06/06/2024 Are you worried [...] Sign Reading Time Taken Comments Blood Pressure 109/73 06/11/2024 8:02 AM CDT Pulse 88 06/11/2024 8:02 AM CDT Temperature 36.6 ??C (97.9 ??F) 06/11/2024 8:02 AM CD T Respiratory Rate 18 06/11/2024 8:02 AM CDT Oxygen Saturation 98% 06/07/2024 11: 15 PM CDT Inhaled Oxygen Concentration - - Weight 66.2 kg (145 lb 15.1 oz) 06/10/2024 3:57 AM CDT Height 162.6 cm (5' 4) 04/17/2023 12:1 0 PM CDT Body Mass Index 25.05 04/17/2023 12:10 PM CDT Plan of Treatment Health Maintenance Due Date Last Done Comments ADVANCE CARE PLANNING 1994 ANNUAL REVIEW OF HM ORDERS 1994 YEARLY PREVENTIVE VISIT 1994 HIV SCREENING 2009 HEPATITIS B IMMUNIZATION (1 of 3 - 19+ 3-dose series) 2013 PHQ-2 (once per calendar year) 2023 COVID-19 Vaccine (3 - 2023-2 5 season) 2024 06/09/2021, 12/29/2020 INFLUENZA VACCINE (#1) 2024 09/02/2017 PAP 12/03/2026 12/03/2023, 02/14/2021, 02/14/2021 DTAP/TDAP/TD IMMUNIZATION (3 - Td or Tdap) 07/18/2031 07/18/2021, 12/30/2017 HEPATITIS C SCREENING Completed 06/10/2024 HPV IMMUNIZATION Aged Out No longer e [...] on patient's age to complete this topic Goals Goal Patient Goal Type Associated Problems Recent Progress Patient-Stated? Author MYC ECC OBHTN WELCOME GOAL Care Plan MYC ECC OBHTN WELCOME Problem No Rosaline Bro MD Home Observation of Elevated Blood Pressure (HOPE-BP) program Care Plan Home Observation of Elevated Blood Pressure (HOPE-BP) program No Mychart, [facility] MYC ECC OBHTN 002A & 003A NORMAL BLOOD PRESSURE MESSAGE GOAL TEMPLATE Care Plan MYC ECC OBHTN 002A & 003A NORMAL BLOOD PRESSURE MESSAGE PROBLEM TEMPLATE No Mychart, [facility] MYC ECC OBHTN 002A & 003A NORMAL BLOOD PRESSURE MESSAGE GOAL TEMPLATE Care Plan MYC ECC OBHTN 002A & 003A NORMAL BLOOD PRESSURE MESSAGE PROBLEM TEMPLATE No Mychart, [facility] MYC ECC OBHTN 002A & 003A NORMAL BLOOD PRESSURE MESSAGE GOAL TEMPLATE Care Plan MYC ECC OBHTN 002A & 003A NORMAL BLOOD PRESSURE MESSAGE PROBLEM TEMPLATE No Mychart, [facility] MYC ECC OBHTN 002A & 003A NORMAL BLOOD PRESSURE MESSAGE GOAL TEMPLATE Care Plan MYC ECC OBHTN 002A & 003A NORMAL BLOOD PRESSURE MESSAGE PROBLEM TEMPLATE No Mychart, [facility] MYC ECC OBHTN 002A & 003A NORMAL BLOOD PRESSURE MESSAGE GOAL TEMPLATE Care Plan MYC ECC OBHTN 002A & 003A NORMAL BLOOD PRESSURE MESSAGE PROBLEM TEMPLATE No Mychart, [facility] MYC ECC OBHTN 002A & 003A NORMAL BLOOD PRESSURE MESSAGE GOAL TEMPLATE Care Plan MYC ECC OBHTN 002A & 003A NORMAL BLOOD PRESSURE MESSAGE PROBLEM TEMPLATE No Mychart, [facility] MYC ECC OBHTN 002A & 003A NORMAL BLOOD PRESSURE MESSAGE GOAL TEMPLATE Care Plan MYC ECC OBHTN 002A & 003A NORMAL BLOOD PRESSURE MESSAGE PROBLEM TEMPLATE No Mychart, [facility] MYC ECC OBHTN 002A & 003A NORMAL [...] PRESSURE MESSAGE PROBLEM TEMPLATE No Fidel Oliva Procedures Procedure Name Priority Date/Time Associated Diagnosis Comments EXTRA PURPLE TOP TUBE Routine 06/11/2024 9:39 AM CDT EXTRA TUBE Routine 06/11/2024 9:39 AM CDT HEPATIC FUNCTION PANEL Routine 9:39 AM CDT IVY MATHEWS VIRUS QUANTITATIVE PCR, PLASMA Routine 06/10/2024 2:52 PM CDT CMV QUANTITATIVE, PCR Routine 06/10/2024 2:52 PM CDT ANCA IGG BY IFA WITH REFLEX TO TITER Routine 06/10/2024 2:52 PM CDT MITOCHONDRIAL M2 ANTIBODY IGG Routine 06/10/2024 2:52 PM CDT HEPATITIS E ANTIBODY IGM Routine 06/10/2024 2:52 PM CDT BILE ACIDS TOTAL Routine 06/10/2024 2:52 PM CDT IGG Routine 06/10/2024 2:52 PM CDT F ACTIN EIA WITH REFLEX Routine 06/10/2024 2:52 PM CDT ANTI NUCLEAR BRAEDEN IGG BY IFA WITH REFLEX Routine 06/10/2024 2:52 PM CDT COVID-19 VIRUS (CORONAVIRUS) BY PCR STAT 06/10/2024 12:16 PM CDT EXTRA PURPLE TOP TUBE Routine 06/10/2024 11:26 AM CDT EXTRA TUBE Routine 06/10/2024 11:26 AM CDT HEPATITIS A ANTIBODY IGM STAT 06/10/2024 11:26 AM CDT COMPREHENSIVE METABOLIC PANEL STAT 06/10/2024 11:26 AM CDT HEPATITIS A ANTIBODY TOTAL Routine 06/10/2024 1:57 AM CDT HEPATITIS C ANTIBODY Routine 06/10/2024 1:57 AM CDT HEPATITIS B SURFACE ANTIBODY Routine 06/10/2024 1:57 AM CDT HEPATITIS B CORE ANTIBODY Routine 06/10/2024 1:57 AM CDT HEPATITIS B SURFACE ANTIGEN Routine 06/10/2024 1:57 AM CDT COMPREHENSIVE METABOLIC PANEL Add-On 06/09/2024 4:00 PM CDT HEPATIC FUNCTION PANEL Timed 4:00 PM CDT HEPATIC FUNCTION PANEL Routine 8:22 AM CDT ALT Timed 06/08/2024 2:01 PM CDT AST Timed 06/08/2024 2:01 PM CDT CBC WITH PLATELETS Routine 06/08/2024 8: 03 AM CDT CREATININE Routine 06/08/2024 8:03 AM CDT ALT Routine 06/08/2024 8:03 AM CDT AST Routine 06/08/2024 8:03 AM CDT MAGNESIUM STAT 06/07/2024 11:59 AM CDT CREATININE Routine 06/07/2024 11:59 AM CDT ALT Routine 06/07/2024 11:59 AM CDT AST Routine 06/07/2024 11:59 AM CDT CBC WITH PLATELETS Routine 06/07/2024 11 :59 AM CDT HEMOGLOBIN Routine 06/07/2024 7:54 AM CDT ROUTINE UA WITH MICROSCOPIC REFLEX TO CULTURE Routine 06/07/2024 12:55 AM CDT XR CHEST PORT 1 VIEW STAT 06/07/2024 12:30 AM CDT INFLUENZA A/B, RSV, & SARS-COV2 PCR Routine 06/07/2024 12:14 AM CDT BLOOD CULTURE STAT 06/07/2024 12:04 AM CDT CREATININE Routine 06/06/2024 10:21 PM CDT CBC WITH PLATELETS Routine 06/06/2024 10 :21 PM CDT ALT Routine 06/06/2024 10:21 PM CDT AST Routine 06/06/2024 10:21 PM CDT ANE EPIDURAL BLOCK Routine 06/06/2024 4: 35 PM CDT GROUP B STREP PCR Routine 06/06/2024 11: 17 AM CDT ABO/RH TYPE AND SCREEN STAT 9:27 AM CDT TYPE AND SCREEN, ADULT STAT 9:27 AM CDT BILE ACIDS TOTAL Routine 06/06/2024 9:27 AM CDT COMPREHENSIVE METABOLIC PANEL Routine 06/06/2024 9:27 AM CDT CBC WITH PLATELETS STAT 06/06/2024 9: 27 AM CDT TREPONEMA ABS W REFLEX TO RPR AND TITER STAT 06/06/2024 9:27 AM CDT LAB RESULT - HIM SCAN 06/04/2024 12:00 AM CDT ABSTRACT PAP ([facility] EXTERNAL RESULT) Routine 02/14/2021 6:00 PM CDT from Last 3 Months or Most Recently Relevant to Health Maintenance Results * Extra Purple Top Tube (06/11/2024 9:39 AM CDT) Only the most recent of2 resultswithin the time period is included. Hold Specimen JIC 06/11/2024 10:46 AM CDT [facility] Blood STRUCTURE OF RIGHT UPPER LIMB / Unknown Venipuncture / Unknown 06/11/2024 9:39 AM CDT 06/11/2024 9:44 AM CDT Soni Bond MD LAB - BLOOD ORD ERABLES [facility] [address] [facility] [address] [address], [address] [place] [address], [facility] * (ABNORMAL) Hepatic panel (06/11/2024 9:39 AM CDT) Only the most recent of3 resultswithin the time period is included. Protein Total 7.8 6.4 - 8.3 g/dL 06/11/2024 10:09 AM CDT [facility] Albumin 3.9 3.5 - 5.2 g/dL 06/11/2024 10:09 AM CDT [facility] Bilirubin Total 0.4 <=1.2 mg/dL 06/11/2024 10:09 AM CDT [facility] Alkaline Phosphatase 164(H) 40 - 150 U/L 06/11/2024 10:09 AM CDT [facility] AST 91(H) 0 - 45 U/L 06/11/2024 10:09 AM CDT [facility] ALT 298(H) 0 - 50 U/L 06/11/2024 10:09 AM CDT [facility] Bilirubin Direct <0.20 0.00 - 0.30 mg/dL 06/11/2024 10:09 AM CDT [facility] Blood STRUCTURE OF RIGHT UPPER LIMB / Unknown Venipuncture / Unknown 06/11/2024 9:39 AM CDT 06/11/2024 9:43 AM CDT Madhuri Abdullahi MD LAB - BLOOD O RDERABLES UR LAB[facility]ATORY [facility] Lab [address] [facility] [address] [place] [address] * Ivy Mathews Virus Quantitative PCR, Plasma (06/10/2024 2:52 PM CDT) EBV DNA IU/mL Not Detected Not Detected IU/mL 06/11/2024 10:56 AM CDT [facility] Blood STRUCTURE OF LEFT UPPER LIMB / Unknown Venipuncture / Unknown 06/10/2024 2:52 PM CDT 06/10/2024 4:00 PM CDT Narrative [facility] - 06/11/2024 10:56 AM CDT The skyler?? EBV assay is an FDA-approved, in vitro nucleic acid amplification test for the quantification of Ivy-Mathews virus (EBV) in human EDTA plasma on the Jairo skyler?? instrument system for automated viral nucleic acid extraction, purification, amplification, and detection of the viral nucleic acid target. Selective amplification of target nucleic acid from the sample is achieved using a dual target virus-specific approach from highly conserved regions of the EBV located in the EBV EBNA-1 gene and the EBV BMRF gene.?? This test is intended for use as an aid in the management of EBV in transplant patients. In patients undergoing monitoring of EBV, serial DNA measurements can be used to indicate the need for potential treatment changes and to assess response to treatment. The assay is calibrated to the World Health Organization International Standard for EBV DNA. Titer results are reported in International Units (IU)/mL. Madhuri Abdullahi MD LAB - MICRO G ENERAL ORDERABLES [facility] [address] [facility], [address] [place] [id number] * Mitochondrial M2 Antibody IgG (06/10/2024 2:52 PM CDT) Mitochondrial M2 Antibody IgG <1.0 <4.0 U/mL 06/12/2024 9:51 AM CDT SPECIALTY CORE/PROT/END O Comment:Negative Blood STRUCTURE OF LEFT UPPER LIMB / Unknown Venipuncture / Unknown 06/10/2024 2:52 PM CDT 06/10/2024 4:09 PM CDT Madhuri Abdullahi MD LAB - BLOOD O RDERABLES Performing Organization Address City/[facility]/ZIP Co de Phone Number SPECIALTY CORE/PROT/ENDO Specialty Core/Prot/Endo [address] [facility], [address] * ANCA IgG by IFA with Reflex to Titer (06/10/2024 2:52 PM CDT) Neutrophil Cytoplasmic Antibody <1:10 <=1:10 06/11/2024 2:27 PM CDT SPECIALTY CORE/PROT/END O Neutrophil Cytoplasmic Antibody Pattern The ANCA IFA is <1:10. No further testing will be performed. 06/11/2024 2:27 PM CDT SPECIALTY CORE/PROT/END O Blood STRUCTURE OF LEFT UPPER LIMB / Unknown Venipuncture / Unknown 06/10/2024 2:52 PM CDT 06/10/2024 4:00 PM CDT Madhuri Abdullahi MD LAB - BLOOD O RDERABLES [facility] SPECIALTY CORE/PROT/ENDO [facility] Specialty Core/Prot/Endo [address] [facility], [address] * Hepatitis E Antibody IgM (06/10/2024 2:52 PM CDT) Hepatitis E IgM Negative Negative 1:20 PM CDT [facility] Rapid Pathogen Screening Comment: INTERPRETIVE INFORMATION: Hepatitis E Virus Ab, IgM by ROSANA This test was developed and its performance characteristics determined by [facility]. It has not been cleared or approved by the US Food and Drug Administration. This test was performed in a CLIA certified laboratory and is intended for clinical purposes. Performed By: [facility] [address] [place] [address] Stress Test Technician: Jaguar Laurent MD, PhD CLIA Number: [id number] Blood STRUCTURE OF LEFT UPPER LIMB / Unknown Venipuncture / Unknown 06/10/2024 2:52 PM CDT 06/10/2024 4:00 PM CDT Madhuri Abdullahi MD LAB - BLOOD O RDERABLES Performing Organization Address [facility]/ZIP Co de Phone Number [facility] [employer] [address] [place] [phone], [place] [phone] * Bile acids total (06/10/2024 2:52 PM CDT) Only the most recent of2 resultswithin the time period is included. Bile Acids Total 6 0 - 10 umol/L 06/11/2024 8:46 PM CDT [employer] Rapid Pathogen Screening Comment: INTERPRETIVE INFORMATION: Bile Acids, Total Reference Interval applies to fasting specimens. Performed By: [facility] [address] [place] [address] Stress Test Technician: Jaguar Laurent MD, PhD CLIA Number: [id number] Blood STRUCTURE OF LEFT UPPER LIMB / Unknown Venipuncture / Unknown 06/10/2024 2:52 PM CDT 06/10/2024 4:00 PM CDT Madhuri Abdullahi MD LAB - BLOOD O RDERABLES [facility] [address] [place] [address], [facility] [phone] * IgG (06/10/2024 2:52 PM CDT) Immunoglobulin G 747 610 - 1,616 mg/dL 06/11/2024 11:04 AM CDT [facility] SPECIALTY CORE/PROT/END O Blood STRUCTURE OF LEFT UPPER LIMB / Unknown Venipuncture / Unknown 06/10/2024 2:52 PM CDT 06/10/2024 4:09 PM CDT Madhuri Abdullahi MD LAB - BLOOD O [place] [facility] SPECIALTY CORE/PROT/ENDO [facility] Specialty Core/Prot/Endo [address] [facility], [address] * (ABNORMAL) Anti Nuclear Braeden IgG by IFA with Reflex (06/10/2024 2:52 PM CDT) Pathologist [facility] KEYLA interpretation Borderline Positive(A) Negative 06/11/2024 2:28 PM CDT [facility] SPECIALTY CORE/PROT/EN DO Comment: Negative: ?<1:40 Borderline Positive: ?? 1:40 - 1:80 Positive: ?>1:80 KEYLA pattern 1 Speckled 06/11/2024 2:28 PM CDT [facility] SPECIALTY CORE/PROT/EN DO KEYLA titer 1 1:40 06/11/2024 2:28 PM CDT [facility] SPECIALTY CORE/PROT/EN DO Blood STRUCTURE OF LEFT UPPER LIMB / Unknown Venipuncture / Unknown 06/10/2024 2:52 PM CDT 06/10/2024 4:00 PM CDT Madhuri Abdullahi MD LAB - BLOOD O RDERABLES [facility] SPECIALTY CORE/PROT/ENDO [facility] Specialty Core/Prot/Endo [address], [address] [place] [address] * F Actin EIA with reflex (06/10/2024 2:52 PM CDT) F-Actin (Smooth Muscle) Ab, IgG by ROSANA 5 0 - 19 Units 06/11/2024 11:40 PM CDT [employer] Comment: If F-Actin (Smooth Muscle) Antibody, IgG is negative, the Smooth Muscle Antibody titer by IFA is not performed. REFERENCE INTERVAL: F-Actin (Smooth Muscle) Antibody, IgG by ?ROSANA ??19 Units or less ....... Negative ??20 - 30 Units .......... Weak Positive-Suggest repeat ? testing in two to three weeks ? with fresh specimen. ??31 Units or greater..... Positive-Suggestive of ? autoimmune hepatitis type 1 ? or chronic active hepatitis. F-actin IgG antibodies have been shown to have increased sensitivity for autoimmune hepatitis (AIH) but lower specificity than smooth muscle antibodies (SMA). F-actin IgG antibodies can also be seen in SMA-negative disease controls (non-AIH), especially in patients with primary biliary cirrhosis and chronic hepatitis C infections. Some patients with AIH may be SMA-positive but negative for F-actin IgG. Consider testing for SMA by IFA if suspicion for AIH is strong. Performed By: [facility] [address] [place] [address] Stress Test Technician: Jaguar Laurent MD, PhD CLIA Number: [id number] Blood STRUCTURE OF LEFT UPPER LIMB / Unknown Venipuncture / Unknown 06/10/2024 2:52 PM CDT 06/10/2024 4:00 PM CDT Madhuri Abdullahi MD LAB - BLOOD O RDERABLES [facility] [employer] [address] [place] [phone], [facility] [phone] * Cytomegalovirus DNA by PCR, Quantitative (06/10/2024 2:52 PM CDT) CMV DNA IU/mL Not Detected Not Detected IU/mL 06/11/2024 12:28 PM CDT [facility] Blood STRUCTURE OF LEFT UPPER LIMB / Unknown Venipuncture / Unknown 06/10/2024 2:52 PM CDT 06/10/2024 4:00 PM CDT Narrative [facility] - 06/11/2024 12:28 PM CDT The skyler?? CMV assay is a FDA-approved in vitro nucleic acid amplification test for the quantification of cytomegalovirus (CMV) DNA in human EDTA plasma using the Jairo skyler?? 6800 instrument for automated viral nucleic acid extraction and purification (silica-based capture technique), followed by PCR amplification and real-time detection. Selective amplification of target nucleic acid from the sample is achieved by the use of target virus-specific forward and reverse primers which are selected from highly conserved regions of the CMV DNA polymerase (UL54) gene. This test is intended for use as an aid in the management of CMV in transplant patients. In patients receiving anti-CMV therapy, serial DNA measurements can be used to assess viral response to treatment. Titer results are reported in International Units/mL (IU/mL). This assay has received FDA approval for the testing of human EDTA plasma only. The Infectious Diseases [facility] at [facility] has validated the performance characteristics of the skyler?? CMV assay for plasma and urine. Madhuri Abdullahi MD LAB - MICRO G ENERAL ORDERABLES [facility] Inf. Diseases Diag. Lab [address] [facility], [address] [place] [address], [facility] * (ABNORMAL) Symptomatic COVID-19 Virus (Coronavirus) by PCR Nose (06/10/2024 12:16 PM CDT) SARS CoV2 PCR Positive(A ) Negative 06/10/2024 3:39 PM CDT UR LAB[facility]ATORY Comment:POSITIVE: SARS-CoV-2 (COVID-19) RNA detected, presumed positive. Swab NASAL STRUCTURE / Unknown Non-blood Collection / Unknown 06/10/2024 12:16 PM CDT 06/10/2024 2:55 PM CDT Narrative UR LABORATORY - 06/10/2024 3:39 PM CDT Testing was performed using the Xpert Xpress SARS-CoV-2 Assay on the [employer]. Additional information about this Emergency Use Authorization (EUA) assay can be found via the Lab Guide. This test should be ordered for the detection of SARS-CoV-2 in individuals who meet SARS-CoV-2 clinical and/or epidemiological criteria as well as from individuals without symptoms or other reasons to suspect COVID-19. Test performance for asymptomatic patients has only been established in anterior nasal swab specimens. This test is for in vitro diagnostic use under the FDA EUA for laboratories certified under CLIA to perform high complexity testing. This test has not been FDA cleared or approved. A negative result does not rule out the presence of PCR inhibitors in the specimen or target RNA concentration below the limit of detection for the assay. The possibility of a false negative should be considered if the patient's recent exposure or clinical presentation suggests COVID-19. This test was validated by the [facility]. This laboratory is certified under the Clinical Laboratory Improvement Amendments (CLIA) as qualified to perform high complexity laboratory testing. Rosaline Pendleton MD LAB - MICRO GENERAL ORDERABLES UR LABORATORY [facility] Acute Care Lab [address] [facility], [address] [place] [address], [facility] * Hepatitis A antibody IgM (06/10/2024 11:26 AM CDT) Hepatitis A Antibody IgM Nonreactive Nonreactive 06/10/2024 2:15 PM CDT [facility] Comment:Nonreactive results indicate either inadequate or delayed anti-HAV IgM response after known exposure to HAV or absence of acute or recent hepatitis A. Blood STRUCTURE OF RIGHT UPPER LIMB / Unknown Venipuncture / Unknown 06/10/2024 11:26 AM CDT 06/10/2024 11:42 AM CDT Rosaline Pendleton MD LAB - BLOOD ORDERABL ES [facility] [address] [facility] [place] [place], [address] [place] [address] * (ABNORMAL) Comprehensive metabolic panel (06/10/2024 11:26 AM CDT) Only the most recent of3 resultswithin the time period is included. Sodium 134(L) 135 - 145 mmol/L 06/10/2024 12:06 PM CDT UR LAB[facility]ORY Potassium 4.2 3.4 - 5.3 mmol/L 06/10/2024 12:06 PM CDT UR LAB[facility] Carbon Dioxide (CO2) 21(L) 22 - 29 mmol/L 06/10/2024 12:06 PM CDT UR LAB[facility]ORY Anion Gap 13 7 - 15 mmol/L 06/10/2024 12:06 PM CDT UR LAB[facility] Urea Nitrogen 12.8 6.0 - 20.0 mg/dL 06/10/2024 12:06 PM CDT [facility] LAB[facility] Creatinine 0.56 0.51 - 0.95 mg/dL 06/10/2024 12:06 PM CDT UR LAB[facility] GFR Estimate >90 >60 mL/min/1.7 3m2 06/10/2024 12:06 PM CDT UR [facility] Comment:eGFR calculated usin 2020 CKD-EPI equation. Calcium 9.3 8.8 - 10.4 mg/dL 06/10/2024 12:06 PM CDT [facility] LAB[facility] Comment:Reference intervals for this test were updated on 04/21/2024 to reflect our healthy population more accurately. There may be differences in the flagging of prior results with similar values performed with this method. Those prior results can be interpreted in the context of the updated reference intervals. Chloride 100 98 - 107 mmol/L 06/10/2024 12:06 PM CDT UR LAB[facility] Glucose 96 70 - 99 mg/dL 06/10/2024 12:06 PM CDT [facility] Alkaline Phosphatase 181(H) 40 - 150 U/L 06/10/2024 12:06 PM CDT [facility] AST 128(H) 0 - 45 U/L 06/10/2024 12:06 PM CDT [facility] ALT 346(H) 0 - 50 U/L 06/10/2024 12:06 PM CDT [facility] Protein Total 7.8 6.4 - 8.3 g/dL 06/10/2024 12:06 PM CDT [facility] Albumin 3.9 3.5 - 5.2 g/dL 06/10/2024 12:06 PM CDT UR [facility] Bilirubin Total 0.3 <=1.2 mg/dL 06/10/2024 12:06 PM CDT UR LAB[facility] Blood STRUCTURE OF RIGHT UPPER LIMB / Unknown Venipuncture / Unknown 06/10/2024 11:26 AM CDT 06/10/2024 11:42 AM CDT Rosaline Pendleton MD LAB - BLOOD ORDERABL ES UR LABORATORY [facility] Acute Care Lab [address] [facility], [address] [place] [address] * Hepatitis A Antibody Total (06/10/2024 1:57 AM CDT) Hepatitis A Antibody Total Reactive 06/10/2024 4:49 AM CDT [facility] Comment:This assay detects t he presence of anti-hepatitis A virus (anti-HAV) total (both IgG and IgM combined). If clinically indicated, specific testing for anti- HAV IgM (HAVM / Hepatitis A IgM Antibody, Serum) is necessary to confirm the presence of acute or recent hepatitis A. Please see interpretation guide below. Blood STRUCTURE OF RIGHT HAND / Unknown Venipuncture / Unknown 06/10/2024 1:57 AM CDT 06/10/2024 2:02 AM CDT Narrative [facility] - 06/10/2024 4:49 AM CDT HAV antibody testing interpretation chart: HAV Total Antibody - NONREACTIVE HAV IgM - NOT TESTED Comments: No evidence of vaccination or previous infection; Susceptible to Hepatitis A infection HAV Total Antibody - REACTIVE HAV IgM - NOT TESTED Comments:Consistent with recent or remote Hepatitis A infection or antibody response to HAV vaccination HAV Total Antibody - REACTIVE HAV IgM - NONREACTIVE Comments:Consistent with resolved Hepatitis A infection or antibody response to HAV vaccination HAV Total Antibody - REACTIVE HAV IgM - REACTIVE Comments:Consistent with active Hepatitis A infection Suki Luis MD LAB - BLOOD ORDERABL ES Performing Organization Address [facility] de Phone Number U LABORATORY [facility] [address] [facility] [facility] [place], [address] * Hepatitis B Surface Antibody (06/10/2024 1:57 AM CDT) Hepatitis B Surface Antibody Nonreactive 06/10/2024 4:49 AM CDT [facility] Comment:Nonreactive results, defined as anti-HBs levels of less than 8.5 mIU/mL, indicate a lack of recovery from acute or chronic hepatitis B or inadequate immune response to HBV vaccination. Hepatitis B Surface Antibody Instrument Value <3.50 <8.5 m[IU]/mL 06/10/2024 4:49 AM CDT [facility] Blood STRUCTURE OF RIGHT HAND / Unknown Venipuncture / Unknown 06/10/2024 1:57 AM CDT 06/10/2024 2:02 AM CDT Suki Luis MD LAB - BLOOD ORDERABL ES Performing Organization Address [facility] Co de Phone Number U LABORATORY [facility] [place] [facility] [address] [facility] [facility] [place], [address] * Hepatitis C antibody (06/10/2024 1:57 AM CDT) Hepatitis C Antibody Nonreactive Nonreactive 06/10/2024 4:46 AM CDT [facility] Comment:A nonreactive screen ing test result does not exclude the possibility of exposure to or infection with HCV. Nonreactive screening test results in individuals with prior exposure to HCV may be due to antibody levels below the limit of detection of this assay or lack of reactivity to the HCV antigens used in this assay. Patients with recent HCV infections (<3 months from time of exposure) may have false- negative HCV antibody results due to the time needed for seroconversion (average of 8 to 9 weeks). Blood STRUCTURE OF RIGHT HAND / Unknown Venipuncture / Unknown 06/10/2024 1:57 AM CDT 06/10/2024 2:02 AM CDT Suki Luis MD LAB - BLOOD ORDERABL ES Performing Organization Address City/[facility]/ZIP Co de Phone Number LABORATORY [facility] Core Lab [address] [facility] [place], [address] * Hepatitis B surface antigen (06/10/2024 1:57 AM CDT) Hepatitis B Surface Antigen Nonreactive Nonreactive 06/10/2024 4:46 AM CDT [facility] Blood STRUCTURE OF RIGHT HAND / Unknown Venipuncture / Unknown 06/10/2024 1:57 AM CDT 06/10/2024 2:02 AM CDT Suki Luis MD LAB - BLOOD ORDERABL ES U LABORATORY [facility] Core Lab [address] [facility] [facility] [place], [address] * Hepatitis B core antibody (06/10/2024 1:57 AM CDT) Hepatitis B Core Antibody Total Nonreactive Nonreactive 06/10/2024 4:46 AM CDT U LABORATORY Comment:Nonreactive hepatiti s B core antibody test results indicate the absence of exposure to hepatitis B virus and no evidence of recent, past/resolved, or chronic hepatitis B. Blood STRUCTURE OF RIGHT HAND / Unknown Venipuncture / Unknown 06/10/2024 1:57 AM CDT 06/10/2024 2:02 AM CDT Suki Luis MD LAB - BLOOD ORDERABL ES [facility] Core Lab [address] [facility] [facility] [place], [address] [place] [address] * (ABNORMAL) AST (06/08/2024 2:01 PM CDT) Only the most recent of4 resultswithin the time period is included. AST 107(H) 0 - 45 U/L 06/08/2024 2:36 PM CDT UR LABORATORY Blood STRUCTURE OF LEFT UPPER LIMB / Unknown Venipuncture / Unknown 06/08/2024 2:01 PM CDT 06/08/2024 2:13 PM CDT Kiet Lou MD LAB - BLOOD ORDERABL ES Performing Organization Address City/[facility]/ZIP Co de Phone Number UR LABORATORY [facility] Acute Care Lab [facility] [facility], [address] [address] * (ABNORMAL) ALT (06/08/2024 2:01 PM CDT) Only the most recent of4 resultswithin the time period is included. ALT 274(H) 0 - 50 U/L 06/08/2024 2:36 PM CDT UR LABORATORY Blood STRUCTURE OF LEFT UPPER LIMB / Unknown Venipuncture / Unknown 06/08/2024 2:01 PM CDT 06/08/2024 2:13 PM CDT Kiet Lou MD LAB - BLOOD ORDERABL ES UR LABORATORY [facility] Acute [facility] Lab [address] [place] [address], [address] [phone], [facility] * (ABNORMAL) Creatinine (06/08/2024 8:03 AM CDT) Only the most recent of3 resultswithin the time period is included. Creatinine 0.49(L) 0.51 - 0.95 mg/dL 06/08/2024 9:15 AM CDT UR LABORATORY GFR Estimate >90 >60 mL/min/1.7 3m2 06/08/2024 9:15 AM CDT UR LABORATORY Comment:eGFR calculated usin 2020 CKD-EPI equation. Blood STRUCTURE OF RIGHT UPPER LIMB / Unknown Venipuncture / Unknown 06/08/2024 8:03 AM CDT 06/08/2024 8:48 AM CDT Viry Patel MD LAB - BLOOD ORD ERABLES UR LABORATORY [facility] Acute Care Lab [address] [facility] [address] [place] [address] * (ABNORMAL) CBC with platelets (06/08/2024 8:03 AM CDT) Only the most recent of4 resultswithin the time period is included. WBC Count 7.4 4.0 - 11.0 10e3/uL 06/08/2024 8:53 AM CDT UR LABORATORY RBC Count 3.81 3.80 - 5.20 10e6/uL 06/08/2024 8:53 AM CDT UR LABORATORY Hemoglobin 10.4(L) 11.7 - 15.7 g/dL 06/08/2024 8:53 AM CDT UR LABORATORY Hematocrit 31.3(L) 35.0 - 47.0 % 06/08/2024 8:53 AM CDT UR LABORATORY MCV 82 78 - 100 fL 06/08/2024 8:53 AM CDT UR LABORATORY MCH 27.3 26.5 - 33.0 pg 06/08/2024 8:53 AM CDT UR LABORATORY MCHC 33.2 31.5 - 36.5 g/dL 06/08/2024 8:53 AM CDT UR LABORATORY RDW 12.6 10.0 - 15.0 % 06/08/2024 8:53 AM CDT UR LABORATORY Platelet Count 208 150 - 450 10e3/uL 06/08/2024 8:53 AM CDT UR LABORATORY Blood STRUCTURE OF RIGHT UPPER LIMB / Unknown Venipuncture / Unknown 06/08/2024 8:03 AM CDT 06/08/2024 8:48 AM CDT Viry Patel MD LAB - BLOOD ORD ANABLES UR LABORATORY [facility] Acute [facility] Lab [address] [place] [address], [address] [phone] * (ABNORMAL) Magnesium (06/07/2024 11:59 AM CDT) Magnesium 6.6(H) 1.7 - 2.3 mg/dL 06/07/2024 12:27 PM CDT UR LABORATORY Blood STRUCTURE OF LEFT HAND / Unknown Venipuncture / Unknown 06/07/2024 11:59 AM CDT 06/07/2024 12:02 PM CDT Cinthia Beck MD LAB - BLOOD ORDERABL ES Performing Organization Address City/[facility]/ZIP Co de Phone Number UR LABORATORY [facility] Lab [address] [place] [address], [address] [phone] * (ABNORMAL) Hemoglobin (06/07/2024 7:54 AM CDT) Hemoglobin 10.0(L) 11.7 - 15.7 g/dL 06/07/2024 8:26 AM CDT UR LABORATORY Blood STRUCTURE OF LEFT UPPER LIMB / Unknown Venipuncture / Unknown 06/07/2024 7:54 AM CDT 06/07/2024 8:22 AM CDT Janice Patel MD LAB - BLOOD ORDERABL ES Performing Organization Address City/[facility]/ZIP Co de Phone Number UR LABORATORY [facility] Lab [address] [place] [address], [address] [phone] * (ABNORMAL) UA with Microscopic reflex to Culture (06/07/2024 12:55 AM CDT) Color Urine Light Yellow Colorless, Straw, Light Yellow, Yellow 06/07/2024 1:43 AM CDT UR LABORATORY Appearance Urine Clear Clear 06/07/20 1:43 AM CDT UR LABORATORY Glucose Urine Negative Negative mg/dL 06/07/2024 1:43 AM CDT UR LABORATORY Bilirubin Urine Negative Negative 1:43 AM CDT UR LABORATORY Ketones Urine Trace(A) Negative mg/dL 06/07/2024 1:43 AM CDT UR LABORATORY Specific [place] Urine 1.017 1.003 - 1.035 06/07/2024 1:43 AM CDT UR LABORATORY Blood Urine Small(A) Negative 06/07/2024 1:43 AM CDT UR LABORATORY pH Urine 7.0 5.0 - 7.0 06/07/2024 1:43 AM CDT UR LABORATORY Protein Albumin Urine Negative Negative mg/dL 06/07/2024 1:43 AM CDT UR LABORATORY Urobilinogen Urine Normal Normal, 2.0 mg/dL 06/07/2024 1:43 AM CDT UR LABORATORY Nitrite Urine Negative Negative 06/07/2024 1:43 AM CDT UR LABORATORY Leukocyte Esterase Urine Negative Negative 06/07/2024 1:43 AM CDT UR LABORATORY RBC Urine 1 <=2 /HPF ALFREDO 06/07/2024 1:43 AM CDT UR LABORATORY WBC Urine 1 <=5 /HPF ALFREDO 06/07/2024 1:43 AM CDT UR LABORATORY Urine URINE SPECIMEN FROM URINARY CONDUIT / Unknown Non-blood Collection / Unknown 06/07/2024 12:55 AM CDT 06/07/2024 1:05 AM CDT Narrative UR LABORATORY - 06/07/2024 1:43 AM CDT Urine Culture not indicated Janice Patel MD LAB - URINE ORDERABL ES UR LABORATORY [facility] Acute Care Lab [address] [facility] [address] [place] [address] * XR Chest Port 1 View (06/07/2024 12:30 AM CDT) Anatomical Region Laterality Modality Chest Computed Radiogr aphy Impressions 06/07/2024 8:32 AM CDT IMPRESSION: Trace bilateral pleural effusions versus minimal scarring. No focal consolidative opacity. I have personally reviewed the examination and initial interpretation and I agree with the findings. RAMON GARCIA MD Narrative 06/07/2024 8:32 AM CDT EXAM: XR CHEST PORT 1 VIEW 06/07/2024 12:30 AM ?? HISTORY: fever of unknown origin. COMPARISON: Previous day. TECHNIQUE: Frontal view of the chest. FINDINGS: Trachea is midline. Cardiac silhouette is within normal limits. Pulmonary vasculature is distinct. No focal airspace opacity. No pneumothorax. Trace bilateral costophrenic angle blunting. No acute osseous abnormality. Visualized soft tissues and upper abdomen are unremarkable. Procedure Note Ramon Garcia MD - 06/07/2024 EXAM: XR CHEST PORT 1 VIEW 06/07/2024 12:30 AM HISTORY: fever of unknown origin. COMPARISON: Previous day. TECHNIQUE: Frontal view of the chest. FINDINGS: Trachea is midline. Cardiac silhouette is within normal limits. Pulmonary vasculature is distinct. No focal airspace opacity. No pneumothorax. Trace bilateral costophrenic angle blunting. No acute osseous abnormality. Visualized soft tissues and upper abdomen are unremarkable. IMPRESSION: Trace bilateral pleural effusions versus minimal scarring. No focal consolidative opacity. I have personally reviewed the examination and initial interpretation and I agree with the findings. RAMON GARCIA MD Janice Patel MD IMG DIAGNOSTIC IMAGI NG ORDERABLES * (ABNORMAL) Symptomatic Influenza A/B, RSV, & SARS-CoV2 PCR (COVID-19) Nose (06/07/2024 12:14 AMCDT) Influenza A PCR Negative Negative 06/07/2024 1:23 AM CDT UR LABORATORY Influenza B PCR Negative Negative 06/07/2024 1:23 AM CDT UR LABORATORY RSV PCR Negative Negative 06/07/2024 1:23 AM CDT UR LABORATORY SARS CoV2 PCR Positive(A) Negative 06/07/2024 1:23 AM CDT UR LABORATORY Comment:POSITIVE: SARS-CoV-2 (COVID-19) RNA detected, presumed positive. Swab NASAL STRUCTURE / Unknown Non-blood Collection / Unknown 06/07/2024 12:14 AM CDT 06/07/2024 12:24 AM CDT Narrative UR LABORATORY - 06/07/2024 1:23 AM CDT Testing was performed using the Xpert Xpress CoV2/Flu/RSV Assay on the [employer] GeneXpert Instrument. This test should be ordered for the detection of SARS-CoV-2, influenza, and RSV viruses in individuals who meet clinical and/or epidemiological criteria. Test performance is unknown in asymptomatic patients. This test is for in vitro diagnostic use under the FDA EUA for laboratories certified under CLIA to perform high or moderate complexity testing. This test has not been FDA cleared or approved. A negative result does not rule out the presence of PCR inhibitors in the specimen or target RNA in concentration below the limit of detection for the assay. If only one viral target is positive but coinfection with multiple targets is suspected, the sample should be re-tested with another FDA cleared, approved, or authorized test, if coinfection would change clinical management. This test was validated by the [facility] [employer] These laboratories are certified under the Clinical Laboratory Improvement Amendments of 1988 (CLIA-88) as qualified to perform high complexity laboratory testing. Janice Patel MD LAB - MICRO GENERAL ORDERABLES UR LABORATORY [facility] Acute Care Lab [address] [facility] [place] [address], [place] * Blood Culture Hand, Left (06/07/2024 12:04 AM CDT) Culture No Growth 06/12/2024 3:16 AM CDT [facility] LAB[facility]ATORY Blood STRUCTURE OF LEFT HAND / Unknown Venipuncture / Unknown 06/07/2024 12:04 AM CDT 06/07/2024 12:18 AM CDT Janice Patel MD LAB - MICRO GENERAL ORDERABLES [facility] LABORATORY [facility] Inf. Diseases Diag. Lab [address], [address] [place] [address] * FV AN EPIDURAL DUMMY PERFORMABLE (06/06/2024 4:35 PM CDT) Narrative Jadon Zarco MD - 06/06/2024 4:35 PM CDT Jadon Zarco MD ? 06/06/2024 ??5:13 PM Epidural catheter Procedure Note Pre-Procedure Staff - ? Anesthesiologist: ??Akira Sullivan MD ? Resident/Fellow: Jadon Zarco MD ? Performed By: resident ? Location: OB ? Procedure Start/Stop Times: 06/06/2024 4:35 PM ? Pre-Anesthestic Checklist: patient identified, IV checked, risks and benefits discussed, informed consent, monitors and equipment checked, pre-op evaluation, at physician/surgeon's request and post-op pain management Timeout: ? Correct Patient: Yes ? Correct Procedure: Yes ? Correct Site: Yes ? Correct Position: Yes Procedure Documentation Procedure: epidural catheter ? Patient Position: sitting ? Patient Prep/Sterile Barriers: sterile gloves, mask, patient draped ? Skin prep: Betadine and Chloraprep ? Local skin infiltrated with mL of 1% lidocaine. ? Insertion Site: L3-4. (midline approach). ? Technique: LORT saline ? HOLDEN at 7 cm. ? Needle Type: Touhy needle ? Needle Gauge: 17. ? Needle Length (Inches): 3.5 ? Catheter: 20 G. ? Catheter threaded easily. ? 5 cm epidural space. ? Threaded 12 cm at skin. ? # of attempts: 1 and ??# of redirects: ??2 Assessment/Narrative ? Paresthesias: No. ? Test dose of 3 mL at 16:47 CDT. ? Test dose negative, 3 minutes after injection, for signs of intravascular, subdural, or intrathecal injection. ? Insertion/Infusion Method: LORT saline ? Aspiration negative for Heme or CSF via Epidural Catheter. Medication(s) Administered 0.125% bupivacaine 5 mL + fentanyl 20 mcg + NS 5 mL (Epidural) (Mixture components: BUPivacaine HCl (PF) 0.25 % Soln, 5 mL; fentaNYL (PF) 100 MCG/2ML Soln, 20 mcg; sodium chloride 0.9 % Soln, 5 mL) - EPIDURAL 10 mL - 06/06/2024 4:35:00 PM Medication Administration Time: 06/06/2024 4:35 PM FOR [facility] ([facility]) ONLY: ?? Pain Team Contact information: please page the Pain Team Via [employer]. Search Pain. During daytime hours, please page the attending first. At night please page the resident first. Akira Sullivan MD [place] ANESTHESIA * Group B strep PCR (06/06/2024 11:17 AM CDT) Group B Strep PCR Negative Negative 024 10:29 AM CDT [facility] Comment:Presumed negative fo r Streptococcus agalactiae (Group B Streptococcus) or the number of organisms may be below the limit of detection of the assay. Swab STRUCTURE OF RECTOVAGINAL SEPTUM / Unknown Non-blood Collection / Unknown 06/06/2024 11:17 AM CDT 06/06/2024 11:19 AM CDT Narrative [facility] - 06/07/2024 10:29 AM CDT The Cepheid Xpert GBS LB Assay, performed on the [employer], is a qualitative in vitro diagnostic test designed to detect Group B Streptococcus (GBS) DNA from enriched vaginal/rectal swab specimens, using fully automated, real- time polymerase chain reaction (PCR) with fluorogenic detection of the amplified DNA. Xpert GBS LB Assay testing is indicated as an aid in determining GBS colonization status in antepartum women. This assay does not diagnose or monitor treatment for GBS infections. The Cepheid Xpert GBS LB Assay is intended for use in hospital, reference or state laboratory settings. The device is not intended for [id number]-[id number] use. Cinthia Beck MD LAB - MICRO GENERAL ORDERABLES [facility] Inf. Diseases Diag. Lab [address] [facility] [place] [address], [facility] * Adult Type and Screen (06/06/2024 9:27 AM CDT) ABO/RH(D) A POS 06/06/2024 9:02 AM CDT UR BLOOD BANK Antibody Screen Negative Negative 06/06/2024 9:02 AM CDT UR BLOOD BANK SPECIMEN EXPIRATION DATE [id number] 06/06/2024 9:02 AM CDT UR BLOOD BANK Blood STRUCTURE OF LEFT UPPER LIMB / Unknown Venipuncture / Unknown 06/06/2024 9:27 AM CDT 06/06/2024 9:31 AM CDT Cinthia Beck MD LAB - BLOOD BANK JULIA T ORDER UR BLOOD BANK [facility] [place] [facility] Lab [address] [facility] [place] [address], [facility] * Treponema Abs w Reflex to RPR and Titer (06/06/2024 9:27 AM CDT) Treponema Antibody Total Nonreactive Nonreactive 06/06/2024 2:16 PM CDT SPECIALTY CORE/PROT/EN DO Blood STRUCTURE OF LEFT UPPER LIMB / Unknown Venipuncture / Unknown 06/06/2024 9:27 AM CDT 06/06/2024 9:31 AM CDT Cinthia Beck MD LAB - BLOOD ORDERABL ES SPECIALTY CORE/PROT/ENDO Specialty Core/Prot/Endo [address] [facility], [address] [place], [place] [address] * Lab Result - HIM Scan (06/04/2024 12:00 AM CDT) 06/04/2024 Provider Outside NON-BEAKER LAB TE STING * Abstract PAP (HIM External Result) (02/14/2021 6:00 PM CDT) PAP-ABSTRACT See Scanned Document [facility] 02/14/2021 6:00 PM CDT Narrative [facility] - 02/14/2021 6:00 PM CDT See Care Everywhere-Ricky Provider Outside LAB - HIM EXTERNAL R ESULT [facility] [address] [place] [address], [facility] from Last 3 Months or Most Recently Relevant to Health Maintenance Additional Health Concerns Active Problems Noted Date [...] RMAL BLOOD PRESSURE MESSAGE PROBLEM TEMPLATE 06/16/2024 MYC ECC OBHTN 002A & 003A NO RMAL BLOOD PRESSURE MESSAGE PROBLEM TEMPLATE 06/20/2024 [facility]C ECC OBHTN 002A & 003A NO RMAL BLOOD PRESSURE MESSAGE PROBLEM TEMPLATE 06/21/2024 [facility]C ECC OBHTN 002A & 003A NO RMAL BLOOD PRESSURE MESSAGE PROBLEM TEMPLATE 06/23/2024 Advance Directives For more information, please contact: [phone] * Full Code (Latest Code Status on File) Date Activated Date Inactivated Comments 06/06/2024 12:39 PM 06/06/2024 9:36 PM All basic a nd advanced life-sustaining interventions are performed as appropriate Question Answer Comments Code status determined by: Unable to dis cuss and no AD/POLST on file; continue PREVIOUSLY ORDERED code status * Full Code Date Activated Date Inactivated Comments 06/06/2024 9:01 AM 06/06/2024 12:39 PM All basic a nd advanced life-sustaining interventions are performed as appropriate Question Answer Comments Code status determined by: Unable to dis cuss and no AD/POLST on file; continue PREVIOUSLY ORDERED code status Care Teams Senior Staff Psychologist Relationship Specialty Start Date End Date No Ref-Primary, Physician PCP - General 06/06/24
--- OUTSIDE RECORDS SUMMARY | 2024-06-23 15:22 | XMS_ITS | Referral Summary ---
Author Organization [place] Address [address] [place] [address]. [place] [address] Care Team Providers Care Warehouse Distribution Associate Name Role Phone No Ref-Primary, Physician Primary Care Provider Encounters Date Type Department Care Team Description 06/18/2024 MyC Medical Advice [facility] Maternal Medicine [facility] [address] [place] [address] Trang Perez, CHRISTIAN 06/15/2024 Encounter [facility] [place] N[facility] [address] [facility] [place] [phone] 06/15/2024 MyC Medical Advice [facility] Medicine [facility] [address] [facility] [place] [address] Trang Perez, CHRISTIAN 06/15/2024 Telephone [facility] Medicine [facility] [address] [place] [address] Trang Perez RN Hypertension 06/06/2024 7:03 AM CDT - 06/11/2024 1:00 PM CDT Hospital Encounter [facility] [address] [place] [phone] Viry Patel MD Darnell, Suzanne Marie, MD (spontaneous vaginal delivery) (Primary Dx); Severe pre-eclampsia, antepartum; Severe pre-eclampsia in third trimester; hypertension Discharge Disposition: Home-Health Care [facility] [place] 06/06/2024 7:03 PM CDT Anesthesia Event [facility] [address] [place] [phone] Ainsley Bravo MD 06/06/2024 4:30 PM CDT Anesthesia Event [facility] [address] [place] [phone] Akira Sullivan MD Niemczyk, Alexander, MD 06/06/2024 Travel 06/04/2024 Telephone [facility] M[facility] [place] [address] [place] [address] Jeanine Garza, CHRISTIAN Clinic Care Coordination - Initial from Last 3 Months Allergies Active Allergy Reactions Criticality Noted Date [...] pain. Start after Delivery. 100 tablet 06/08/2024 4 Discontinue d(Stop at Discharge) Active Problems Problem Noted Date Diagnosed Date Preeclampsia, severe 06/08/2024 Encounter for induction of labor 06/06/2024 Immunizations Name Administration Dates Next Due COVID-19 Monovalent 18+ (Moderna) 06/09/2021, Influenza Vaccine >6 months,quad, PF 09/02/2017 TDAP (Adacel,Boostrix) 07/18/2021,12/30/2017 Social History Tobacco Use Types Packs/Day Years Used Date Smoking Tobacco: Never Smokeless Tobacco: Never Tobacco Cessation:Counseling Given: Not Answered Alcohol Use Standard Drinks/Week Comments Not Currently 0 (1 standard drink = 0.6 oz pur e alcohol) [place] Depression Scale Answer Date Recorded Last EPDS [...] CDT Plan of Treatment Not on file Goals Goal Patient Goal Type Associated Problems [...] BLOOD PRESSURE MESSAGE PROBLEM TEMPLATE No Mychart, [place] MYC ECC OBHTN 002A & 003A NORMAL BLOOD PRESSURE MESSAGE GOAL TEMPLATE Care Plan MYC ECC OBHTN 002A & 003A NORMAL BLOOD PRESSURE MESSAGE PROBLEM TEMPLATE No Mychart, [place] MYC ECC OBHTN 002A & 003A NORMAL BLOOD PRESSURE MESSAGE GOAL TEMPLATE Care Plan MYC ECC OBHTN 002A & 003A NORMAL BLOOD PRESSURE MESSAGE PROBLEM TEMPLATE No Mychart, [place] MYC ECC OBHTN 002A & 003A NORMAL BLOOD PRESSURE MESSAGE GOAL TEMPLATE Care Plan MYC ECC OBHTN 002A & 003A NORMAL BLOOD PRESSURE MESSAGE PROBLEM TEMPLATE No Mychart, [place] MYC ECC OBHTN 002A & 003A NORMAL BLOOD PRESSURE MESSAGE GOAL TEMPLATE Care Plan MYC ECC OBHTN 002A & 003A NORMAL BLOOD PRESSURE MESSAGE PROBLEM TEMPLATE No Mychart, [place] MYC ECC OBHTN 002A & 003A NORMAL BLOOD PRESSURE MESSAGE GOAL TEMPLATE Care Plan MYC ECC OBHTN 002A & 003A NORMAL BLOOD PRESSURE MESSAGE PROBLEM TEMPLATE No Mychart, [place] MYC ECC OBHTN 002A & 003A NORMAL BLOOD PRESSURE MESSAGE GOAL TEMPLATE Care Plan MYC ECC OBHTN 002A & 003A NORMAL BLOOD PRESSURE MESSAGE PROBLEM TEMPLATE No Mychart, [place] MYC ECC OBHTN 002A & 003A NORMAL BLOOD PRESSURE MESSAGE GOAL TEMPLATE Care Plan MYC ECC OBHTN 002A & 003A NORMAL BLOOD PRESSURE MESSAGE PROBLEM TEMPLATE No Mychart, [place] MYC ECC OBHTN 002A & 003A NORMAL BLOOD PRESSURE MESSAGE GOAL TEMPLATE Care Plan MYC ECC OBHTN 002A & 003A NORMAL BLOOD PRESSURE MESSAGE PROBLEM TEMPLATE No Mychart, [place] Procedures Procedure Name Priority Date/Time Associated Diagnosis [...] SCAN 06/04/2024 12:00 AM CDT ABSTRACT PAP (HIM EXTERNAL RESULT) Routine 02/14/2021 6:00 PM CDT from Last 3 Months or Most Recently Relevant to Health Maintenance Results * Extra Purple Top Tube (06/11/2024 9:39 AM CDT) Only the most recent of2 resultswithin the time period is included. Hold Specimen [facility] 06/11/2024 10:46 AM CDT UR LABORATORY Blood STRUCTURE OF RIGHT UPPER LIMB / Unknown Venipuncture / Unknown 06/11/2024 9:39 AM CDT 06/11/2024 9:44 AM CDT Soni Bond MD LAB - BLOOD ORD ERABLES Performing Organization Address City/[facility]/ZIP Co de Phone Number UR LABORATORY [facility] Acute Care Lab [address] [place] [address], Room [place] [phone] * (ABNORMAL) Hepatic panel (06/11/2024 9:39 AM CDT) Only the most recent of3 resultswithin the time period is included. Pathologist [facility] Protein Total 7.8 6.4 - 8.3 g/dL [...] LAB - BLOOD O RDERABLES UR LABORATORY [facility] Acute Care Lab [address] [facility], Room [address] [address] * Ivy Mathews Virus Quantitative PCR, Plasma [...] MICRO G ENERAL ORDERABLES UU IDD LABORATORY [facility] Inf. Diseases Diag. Lab 500 [facility], [address] [place] [phone] * Mitochondrial M2 Antibody IgG (06/10/2024 2:52 PM CDT) Mitochondrial M2 Antibody IgG <1.0 <4.0 U/mL 06/12/2024 9:51 AM CDT SPECIALTY CORE/PROT/END O Comment:Negative Blood STRUCTURE OF LEFT UPPER LIMB / Unknown Venipuncture / Unknown 06/10/2024 2:52 PM CDT 06/10/2024 4:09 PM CDT Madhuri Abdullahi MD LAB - BLOOD O RDERABLES Performing Organization Address [facility]/ZIP Co de Phone Number UM SPECIALTY CORE/PROT/ENDO [facility] Specialty Core/Prot/Endo 500 [facility], [address] * ANCA IgG by IFA with Reflex to Titer (06/10/2024 2:52 PM CDT) Neutrophil Cytoplasmic Antibody <1:10 <=1:10 06/11/2024 2:27 PM CDT UM SPECIALTY CORE/PROT/END O Neutrophil Cytoplasmic Antibody Pattern The ANCA IFA is <1:10. No further testing will be performed. 06/11/2024 2:27 PM CDT UM SPECIALTY CORE/PROT/END O Blood STRUCTURE OF LEFT UPPER LIMB / Unknown Venipuncture / Unknown 06/10/2024 2:52 PM CDT 06/10/2024 4:00 PM CDT Madhuri Abdullahi MD LAB - BLOOD O RDJOANN Performing Organization Address [facility] Co de Phone Number UM SPECIALTY CORE/PROT/ENDO Specialty Core/Prot/Endo 500 [facility], [address] * Hepatitis E Antibody IgM (06/10/2024 2:52 PM CDT) Hepatitis E IgM Negative Negative 1:20 PM CDT [facility] Comment: INTERPRETIVE INFORMATION: Hepatitis E Virus Ab, IgM by ROSANA This test was developed and its performance characteristics determined by [facility]. It has not been cleared or approved by the US Food and Drug Administration. This test was performed in a CLIA certified laboratory and is intended for clinical purposes. Performed By: [facility] [address] [place] [address] Business Office Manager: Jaguar Laurent MD, PhD CLIA Number: [id number] Blood STRUCTURE OF LEFT UPPER LIMB / Unknown Venipuncture / Unknown 06/10/2024 2:52 PM CDT 06/10/2024 4:00 PM CDT Madhuri Abdullahi MD LAB - BLOOD O RDERABLES [facility] [address] [place] [address], [facility] [phone] * Bile acids total (06/10/2024 2:52 PM CDT) Only the most recent of2 resultswithin the time period is included. Bile Acids Total 6 0 - 10 umol/L 06/11/2024 8:46 PM CDT [facility] Comment: INTERPRETIVE INFORMATION: Bile Acids, Total Reference Interval applies to fasting specimens. Performed By: [facility] [address] [place] [address] Business Office Manager: Jaguar Laurent MD, PhD CLIA Number: [id number] Blood STRUCTURE OF LEFT UPPER LIMB / Unknown Venipuncture / Unknown 06/10/2024 2:52 PM CDT 06/10/2024 4:00 PM CDT Madhuri Abdullahi MD LAB - BLOOD O RDERACATHERINE Performing Organization Address [facility]/ZIP Co de Phone Number [facility] [address] [place] [address], [facility] [phone] * IgG (06/10/2024 2:52 PM CDT) Immunoglobulin G 747 610 - 1,616 mg/dL 06/11/2024 11:04 AM CDT UM SPECIALTY CORE/PROT/END O Blood STRUCTURE OF LEFT UPPER LIMB / Unknown Venipuncture / Unknown 06/10/2024 2:52 PM CDT 06/10/2024 4:09 PM CDT Madhuri Abdullahi MD LAB - BLOOD O RDERABLES UM SPECIALTY CORE/PROT/ENDO UM Specialty Core/Prot/Endo 500 [facility], Room [address] * (ABNORMAL) Anti Nuclear Braeden IgG by IFA with Reflex (06/10/2024 2:52 PM CDT) KEYLA interpretation Borderline Positive(A) Negative 06/11/2024 2:28 [...] UM SPECIALTY CORE/PROT/ENDO UM Specialty Core/Prot/Endo 500 [facility], Room [address] [place] [address] * F Actin EIA with reflex (06/10/2024 2:52 PM CDT) F-Actin (Smooth Muscle) Ab, IgG by ROSANA 5 0 - 19 Units 06/11/2024 11:40 PM CDT [facility] Comment: If F-Actin (Smooth Muscle) Antibody, IgG [...] suspicion for AIH is strong. Performed By: [facility] [address] [place] [id number] Business Office Manager: Jaguar Laurent MD, PhD CLIA Number: [id number] Blood STRUCTURE OF LEFT UPPER LIMB / Unknown Venipuncture / Unknown 06/10/2024 2:52 PM CDT 06/10/2024 4:00 PM CDT Madhuri Abdullahi MD LAB - BLOOD O RDERABLES [facility] [address] [place] [address], [facility] [phone] * Cytomegalovirus DNA by PCR, Quantitative (06/10/2024 [...] only. The Infectious Diseases Diagnostic Laboratory at [facility] has validated the performance characteristics of the skyler?? CMV assay for plasma and urine. Madhuri Abdullahi MD LAB - MICRO G ENERAL ORDERABLES UU IDD LABORATORY [facility] Inf. Diseases Diag. Lab 500 [facility], [address] [place], [place] [address]RUST * (ABNORMAL) Symptomatic COVID-19 Virus (Coronavirus) by PCR Nose (06/10/2024 12:16 PM CDT) [facility] SARS CoV2 PCR Positive(A ) Negative 06/10/2024 3:39 PM CDT UR LABORATORY Comment:POSITIVE: SARS-CoV-2 (COVID-19) RNA detected, presumed positive. Swab NASAL STRUCTURE / Unknown Non-blood Collection / Unknown 06/10/2024 12:16 PM CDT 06/10/2024 2:55 PM CDT Narrative UR LABORATORY - 06/10/2024 3:39 PM CDT Testing was performed using the Xpert Xpress SARS-CoV-2 Assay on the [employer] Instrument Systems. Additional information about this Emergency [...] COVID-19. This test was validated by the [facility] Laboratory. This laboratory is certified under the Clinical Laboratory Improvement Amendments (CLIA) as qualified to perform high complexity laboratory testing. Rosaline Pendleton MD LAB - MICRO GENERAL ORDERABLES UR LABORATORY [facility] Acute Care Lab [address] [facility], [address] [place] [address], [facility] * Hepatitis A antibody IgM (06/10/2024 11:26 AM CDT) Pathologist [facility] Hepatitis A Antibody IgM Nonreactive Nonreactive 06/10/2024 2:15 PM CDT UU LABORATORY Comment:Nonreactive results indicate either inadequate or delayed anti-HAV IgM response after known exposure to HAV or absence of acute or recent hepatitis A. Blood STRUCTURE OF RIGHT UPPER LIMB / Unknown Venipuncture / Unknown 06/10/2024 11:26 AM CDT 06/10/2024 11:42 AM CDT Rosaline Pendleton MD LAB - BLOOD ORDERABL ES Performing Organization Address City/[facility]/ZIP Co de Phone Number UU LABORATORY [facility] Core Lab 500 [facility], Room [address] [place] [address] * (ABNORMAL) Comprehensive metabolic panel (06/10/2024 11:26 [...] LAB - BLOOD ORDERABL ES UR LABORATORY [facility] Acute Care Lab [address] [facility], [address] [place] [address], [facility] * Hepatitis A Antibody Total (06/10/2024 1:57 [...] LAB - BLOOD ORDERABL ES UU LABORATORY [facility] Core Lab 500 [facility], Room [address] [place] [address], [facility] * Hepatitis B Surface Antibody (06/10/2024 1:57 [...] - BLOOD ORDERABL ES Performing Organization Address City/[facility] de Phone Number U LABORATORY [facility] Core Lab 500 [facility], [facility] [address] [phone] * Hepatitis C antibody (06/10/2024 1:57 AM [...] - BLOOD ORDERABL ES Performing Organization Address City/[facility] de Phone Number UU LABORATORY [facility] Core Lab 500 [facility], [address] [phone] * Hepatitis B surface antigen (06/10/2024 1:57 AM CDT) Hepatitis B Surface Antigen Nonreactive Nonreactive 06/10/2024 4:46 AM CDT UU LABORATORY Blood STRUCTURE OF RIGHT HAND / Unknown Venipuncture / Unknown 06/10/2024 1:57 AM CDT 06/10/2024 2:02 AM CDT Suki Luis MD LAB - BLOOD ORDERABL ES U LABORATORY [facility] Core Lab 500 [facility], Room [address] [place] [phone] * Hepatitis B core antibody (06/10/2024 1:57 AM CDT) Hepatitis B Core Antibody Total Nonreactive Nonreactive 06/10/2024 4:46 AM CDT UU LABORATORY Comment:Nonreactive hepatiti s B core antibody test results indicate the absence of exposure to hepatitis B virus and no evidence of recent, past/resolved, or chronic hepatitis B. Blood STRUCTURE OF RIGHT HAND / Unknown Venipuncture / Unknown 06/10/2024 1:57 AM CDT 06/10/2024 2:02 AM CDT Suki Luis MD LAB - BLOOD ORDERABL ES Performing Organization Address [facility]/ZIP Co de Phone Number U LABORATORY [facility] Core Lab 500 [facility], [address] [address], [facility] * (ABNORMAL) AST (06/08/2024 2:01 PM CDT) Only the most recent of4 resultswithin the time period is included. AST 107(H) 0 - 45 U/L 06/08/2024 2:36 PM CDT UR LABORATORY Blood STRUCTURE OF LEFT UPPER LIMB / Unknown Venipuncture / Unknown 06/08/2024 2:01 PM CDT 06/08/2024 2:13 PM CDT Kiet Lou MD LAB - BLOOD ORDERABL ES UR LABORATORY [facility] Acute Care Lab [address] [facility], [address] [place] [address], [facility] * (ABNORMAL) ALT (06/08/2024 2:01 PM CDT) Only the most recent of4 resultswithin the time period is included. ALT 274(H) 0 - 50 U/L 06/08/2024 2:36 PM CDT UR LABORATORY Blood STRUCTURE OF LEFT UPPER LIMB / Unknown Venipuncture / Unknown 06/08/2024 2:01 PM CDT 06/08/2024 2:13 PM CDT Kiet Lou MD LAB - BLOOD ORDERABL ES Performing Organization Address City/[facility] Co de Phone Number UR LABORATORY [facility] Acute Care Lab [address] [place] [address], [address] * (ABNORMAL) Creatinine (06/08/2024 8:03 AM CDT) Only the most recent of3 resultswithin the time period is included. Creatinine 0.49(L) 0.51 - 0.95 mg/dL 06/08/2024 9:15 AM CDT UR LABORATORY GFR Estimate >90 >60 mL/min/1.7 3m2 06/08/2024 9:15 AM CDT UR LABORATORY Comment:eGFR calculated 2020 CKD-EPI equation. Blood STRUCTURE OF RIGHT UPPER LIMB / Unknown Venipuncture / Unknown 06/08/2024 8:03 AM CDT 06/08/2024 8:48 AM CDT Viry Patel MD LAB - BLOOD ORD ERABLES UR LABORATORY [facility] Acute Care Lab [address] [place] [address], [address] [address], [place] * (ABNORMAL) CBC with platelets (06/08/2024 8:03 [...] LAB - BLOOD ORD ERABLES UR LABORATORY [facility] Acute Care Lab [address] [place] [address], [address] * (ABNORMAL) Magnesium (06/07/2024 11:59 AM CDT) Magnesium 6.6(H) 1.7 - 2.3 mg/dL 06/07/2024 12:27 PM CDT UR LABORATORY Blood STRUCTURE OF LEFT HAND / Unknown Venipuncture / Unknown 06/07/2024 11:59 AM CDT 06/07/2024 12:02 PM CDT Cinthia Beck MD LAB - BLOOD ORDERABL ES UR LABORATORY [facility] Acute Care Lab [address] [place] [address], [address] * (ABNORMAL) Hemoglobin (06/07/2024 7:54 AM CDT) Hemoglobin 10.0(L) 11.7 - 15.7 g/dL 06/07/2024 8:26 AM CDT UR LABORATORY Blood STRUCTURE OF LEFT UPPER LIMB / Unknown Venipuncture / Unknown 06/07/2024 7:54 AM CDT 06/07/2024 8:22 AM CDT Janice Patel MD LAB - BLOOD ORDERABL ES UR LABORATORY [facility] Acute Care Lab [address] [facility], [address] [address] * (ABNORMAL) UA with Microscopic reflex to Culture (06/07/2024 12:55 AM CDT) Color Urine Light Yellow Colorless, Straw, Light Yellow, Yellow 06/07/2024 1:43 AM CDT UR LABORATORY Appearance Urine Clear Clear 06/07/20 24 1:43 AM CDT UR LABORATORY Glucose Urine Negative Negative mg/dL 06/07/2024 1:43 AM CDT UR LABORATORY Bilirubin Urine Negative Negative 1:43 AM CDT UR LABORATORY Ketones Urine Trace(A) Negative mg/dL 06/07/2024 1:43 AM CDT UR LABORATORY Specific [place] Urine 1.017 1.003 - 1.035 06/07/2024 1:43 [...] LAB - URINE ORDERABL ES UR LABORATORY [facility] Acute Care Lab [address] [facility], [address] [place] [address], [facility] * XR Chest Port 1 View (06/07/2024 [...] the Xpert Xpress CoV2/Flu/RSV Assay on the ithinksport GeneXpert Instrument. This test should be ordered [...] management. This test was validated by the [facility]. These laboratories are certified under the Clinical Laboratory Improvement Amendments of 1988 (CLIA-88) as qualified to perform high complexity laboratory testing. Janice Patel MD LAB - MICRO GENERAL ORDERABLES UR LABORATORY [facility] Acute Care Lab [address] [facility], [address] [place] [address], [facility] * Blood Culture Hand, Left (06/07/2024 12:04 AM CDT) Culture No Growth 06/12/2024 3:16 AM CDT UU IDD LABORATORY Blood STRUCTURE OF LEFT HAND / Unknown Venipuncture / Unknown 06/07/2024 12:04 AM CDT 06/07/2024 12:18 AM CDT Janice Patel MD LAB - MICRO GENERAL ORDERABLES UU IDD LABORATORY [facility] Inf. Diseases Diag. Lab 500 [facility], [address] [place] [address], [facility] * FV AN EPIDURAL DUMMY PERFORMABLE (06/06/2024 [...] Medication Administration Time: 06/06/2024 4:35 PM FOR [facility] ([facility]) ONLY: ?? Pain Team Contact information: please page the Pain Team Via [employer]. Search Pain. During daytime hours, please page [...] Xpert GBS LB Assay, performed on the [employer], is a qualitative in vitro diagnostic [...] settings. The device is not intended for [id number]-[id number] use. Cinthia Beck MD LAB - MICRO GENERAL ORDERABLES UU IDD LABORATORY [facility] Inf. Diseases Diag. Lab 500 [facility], [address] [place] [address], [facility] * Adult Type and Screen (06/06/2024 9:27 AM CDT) ABO/RH(D) A POS 06/06/2024 9:02 AM CDT UR BLOOD BANK Antibody Screen Negative Negative 06/06/2024 9:02 AM CDT UR BLOOD BANK SPECIMEN EXPIRATION DATE [id number] 06/06/2024 9:02 AM CDT UR BLOOD BANK Blood STRUCTURE OF LEFT UPPER LIMB / Unknown Venipuncture / Unknown 06/06/2024 9:27 AM CDT 06/06/2024 9:31 AM CDT Cinthia Beck MD LAB - BLOOD BANK JULIA T ORDER UR BLOOD BANK [facility] Lab [address] [facility], [address] [place] [address], [facility] * Treponema Abs w Reflex to RPR and Titer (06/06/2024 9:27 AM CDT) Treponema Antibody Total Nonreactive Nonreactive 06/06/2024 2:16 PM CDT UM SPECIALTY CORE/PROT/EN DO Blood STRUCTURE OF LEFT UPPER LIMB / Unknown Venipuncture / Unknown 06/06/2024 9:27 AM CDT 06/06/2024 9:31 AM CDT Cinthia Beck MD LAB - BLOOD ORDERABL ES UM SPECIALTY CORE/PROT/ENDO UM Specialty Core/Prot/Endo 500 [facility] [address], [address] [place] [id number] [place] * Lab Result - HIM Scan (06/04/2024 12:00 AM CDT) 06/04/2024 Provider Outside NON-BEAKER LAB TE STING * Abstract PAP ([facility] External Result) (02/14/2021 6:00 PM CDT) PAP-ABSTRACT See Scanned Document [facility] That{img} LAB-CENTRAL LABORATORY 02/14/2021 6:00 PM CDT Narrative [facility] LAB-CENTRAL LABORATORY - 02/14/2021 6:00 PM CDT See Care Everywhere-[facility] Provider Outside LAB - HIM EXTERNAL R ESULT [facility] LAB-CENTRAL LABORATORY [address] [place] [address], [facility] from Last 3 Months or Most [...] Advance Directives For more information, please contact: [phone] * Full Code (Latest Code Status on [...] continue PREVIOUSLY ORDERED code status Care Teams Warehouse Distribution Associate Relationship Specialty Start Date End Date No Ref-Primary, Physician PCP - General 06/06/24
--- OUTSIDE RECORDS SUMMARY | 2024-06-23 15:23 | XMS_ITS | Encounter Summary ---
Author Organization [place] Address [address] [place] [address]. [place] [address] Care Team Providers Care Customer Account Administrator Name Role Phone No Ref-Primary, Physician Primary Care Provider Encounter Details Date Type Department Care Team (Latest Contact Info) Description 06/06/2024 Travel Social History Tobacco Use Types Packs/Day Years Used Date Smoking Tobacco: Never Smokeless Tobacco: Never Alcohol Use Standard Drinks/Week Comments Not Currently 0 (1 standard drink = 0.6 oz pur e alcohol) [place] Depression Scale Answer Date Recorded Last EPDS [...] in an abandoned building, in an overnight correction, or couch-surfing.) No 06/06/2024 Are you worried [...] on file documented as of this encounter Visit Diagnoses Not on filedocumented in this encounter Additional Health Concerns Infection Onset Date Last Indicated Resolved Time Rule Out COVID-19 06/06/2024 06/07/2024 06/07/2024 1:23 AM CDT documented as of this encounter Care Teams Customer Account Administrator Relationship Specialty Start Date End Date No Ref-Primary, Physician PCP - General 06/06/24 documented as of this encounter
--- OUTSIDE RECORDS SUMMARY | 2024-06-23 15:23 | XMS_ITS | Clinical Summary ---
Author Organization [facility] Address [place], [place] [address] Care Team Providers Care Supplemental Manager Name Role Phone Emani Layne Primary Care [...] of Communication with Friends and Fami ly Not on file 06/07/2024 Financial Resource Strain Answer Date R ecorded [...] T Respiratory Rate 14 11/09/2023 1:17 PM SWABBER Oxygen Saturation 100% 12/18/2023 3:57 PM CDT Inhaled Oxygen Concentration - - Weight 55.5 kg (122 lb 4.8 oz) 12/18/2023 3:57 P M CDT Height 162.6 cm (5' 4) 10/08/2020 11:42 AM SWABBER Body Mass Index 20.99 10/08/2020 11:42 AM SWABBER Plan of Treatment Health Maintenance Due Date Last Done Comments Pneumococcal series for age 6-64 (1 of 2 - PCV) 2000 Depression screening for age 12+ 2006 HIV for age 15-65 2009 BMI (ht and wt on same day) for age 18+ 2012 Hepatitis C screening for ag e 18-79 2012 COVID-19 vaccine series (2022- season) 2024 06/09/2021, 12/29/2020 Influenza for age 9-49 06/07/2024 09/02/2017 Pap test for age 21-65 12/03/2026 , 12/03/2023, 02/14/2021, Additional history exists Tetanus booster 07/18/2031 07/18/2021, 12/30/2017 RSV vaccine for adults or (1 - 1-dose 60+ series) 2054 Tdap Completed 07/18/2021, 12/30/2017 Procedures Procedure Name Priority Date/Time Associated Diagnosis Comments HPV HIGH RISK Routine 12/03/2023 12:00 PM SWABBER from Last 3 Months or Most Recently Relevant to Health Maintenance Results * HPV HIGH RISK (12/03/2023 12:00 PM SWABBER) TYPE 16 Negative Negative 12/06/2023 4:21 PM SWABBER [facility] TYPE 18 Negative Negative 12/06/2023 4:21 PM SWABBER [facility] OTHER HIGH RISK TYPES Negative Negative 12/06/2023 4:21 PM SWABBER [facility] Other (Cervical) 12/03/2023 12:00 PM SWABBER 12/05/2023 11:38 AM SWABBER Narrative [facility] - 12/06/2023 4:21 PM SWABBER HPV types 16, 18, 31, 33, 35, 39, 45, 51, 52, 56, 58, 59, 66 and 68 DNA were undetectable or below the pre-set threshold. Methodology: Jairo Amanuel 4800 HPV Test January Donna DAILEY MICROBIOLOGY [facility] [address] [place] [address], from Last 3 Months or Most Recently Relevant to Health Maintenance Care Teams Supplemental Manager Relationship Specialty Start Date End Date Emani Layne PA [facility] [address] [place] [address] PCP - General Physician Metrologist 11/11/23
--- OUTSIDE RECORDS SUMMARY | 2024-06-23 15:23 | XMS_ITS | Encounter Summary ---
Author Organization [facility] Address [address] [place] [address]. [place] [address] Care Team Providers Care Support Services Specialist Name Role Phone No Ref-Primary, Physician Primary Care Provider Reason for Referral * Home Health Therapies & Aides (Routine: Next available opening) Specialty Diagnoses / Procedures Referred By Contac t Referred To Contact [address] [phone] Referral ID Status Reason Start Date Expiration Date Visits Re quested Visits Authorized Question Answer Please see patient within 48 hours of discharge Reason for Referral Blood Pressure, Incision Check Comments If your home visit was not scheduled during your hospital stay, you should receive a call from [facility] within 24 hours after discharge to schedule your ordered home visit. If you have not heard by then, please call [phone]. Reason for Visit * Reason Comments Induction Of Labor * Auth/Cert (Routine) Specialty Diagnoses / Procedures Referred By Contac t Referred To Contact Obstetrics Diagnoses Maternity*MARIFER: 07/10/24*IOL;Cholestasis Encounter for induction of labor Preeclampsia, severe Ur cc [address] [place] [phone] Referral ID Status Reason Start Date Expiration Date Visits Re quested Visits Authorized [id number] 1 1 Encounter Details Date Type Department Care Team (Latest Contact Info) Description 06/06/2024 7:03 AM CDT - 06/11/2024 1:00 PM CDT Hospital Encounter [facility] [address] [place] [id number] Viry Patel MD [address] [place], [place] [id number] Soni Bond MD [address] [place] [address] (spontaneous vaginal delivery) (Primary Dx); Severe pre-eclampsia, antepartum; Severe pre-eclampsia in third trimester; hypertension Discharge Disposition: Home-Health Care Svc Social History Tobacco Use Types Packs/Day Years Used Date Smoking Tobacco: Never Smokeless Tobacco: Never Alcohol Use Standard Drinks/Week Comments Not Currently 0 (1 standard drink = 0.6 oz pur e alcohol) [place] Depression Scale Answer Date Recorded Last EPDS [...] in an abandoned building, in an overnight snf, or couch-surfing.) No 06/06/2024 Are you worried [...] on file documented as of this encounter Last Filed Vital Signs Vital Sign Reading [...] 15.1 oz) 06/10/2024 3:57 AM CDT Height - - Body Mass Index 25.05 04/17/2023 12:10 PM CDT documented in this encounter Discharge Summaries * Yani Ayala MD - 06/11/2024 1:[address] [facility] Discharge Summary Meri Terrell Age: [age] year old Date of : 1995 Date of Admission: 06/06/2024 Date of Discharge: 06/11/24 Admitting Physician: Soni Bond MD Discharge Physician: Yani Ayala MD Admit Dx: - , Intrauterine at 35w1d - ICP - transaminitis - hepatitis B non-immune - GERD - h/o PPD Discharge Dx: - Same as above, now s/p - Pre-eclampsia with severe features - COVID positive Procedures: - Spontaneous vaginal delivery - Epidural analgesia Consults: Anesthesia Admit HPI: Meri Terrell is a 28 year old at 35w1d by LMP c/w 8w4d US who presents today for IOL due to cholestasis of . She reports that the cholestasis causes her RUQ pain and itching. In the past week she has also noticed chest pain, dyspnea, and cough. This has otherwise been uncomplicated, with no diabetes, HTN, or other concerns. At admission, her BA were noted to be elevated at 31. Her LFTs were elevated. She met criteria for pre-eclampsia with severe features based on blood pressures. Her HELLP labs (barring LFTs) were normal. Please see her Admission H&P and Delivery Summary for further details. Intrapartum Course: Meri Terrell is a 28 year old now who presented at 35w1d for IOL for cholestasis of . was notable for hepatitis B non immune status. Her IOL began with misoprostol. She was augmented with AROm. She received an epidural for pain control and was GBS unknown so was treated with PCN in labor. Labor course was complicated by development of category II tracing. She progressed to complete and pushed for about 1 minute, after which she had a spontaneous vaginal delivery of aviable male infant in vertex position. No nuchal cord was noted. Apgars and weight pending. The cord was double clamped after 60 seconds and cut. A cord segment and cord blood were obtained. 30U of IV pitocin was started. The placenta was then delivered using gentle traction and suprapubic pressure. The uterus was noted to be firm after fundal massage. The perineum was assessed for lacerations and none were noted. On final examination of the perineum, the repair was noted to be hemostatic. Total QBL was 50 cc. The placenta appeared intact with a 3V umbilical cord. Dr. Bond was present for the entire procedure. Course: She completed a 24h course of magnesium in the setting. Her blood pressures were normotensive not requiring antihypertensives. She had fevers and received 1 dose of Gent/Clinda however workup revealed COVID positivity. She was symptomatically managed. Her LFTs were uptrending after delivery, thus she remained hospitalized for continued monitoring and workup with GI. On PPD#5her LFTs stabilized and workup thus far was negative, she was meeting all of her goals and deemed stable for discharge. She was voiding without difficulty, tolerating a regular diet without nausea and vomiting, her pain was well controlled on oral pain medicines and her lochia was appropriate. Discharge Medications: Review of your medicines START taking Dose / Directions NIFEdipine ER 30 MG 24 hr tablet Commonly known as: ADALAT CC Used for: hypertension Dose: 30 mg Start taking on: June 12, 2024 Take 1 tablet (30 mg) by mouth every 24 hours. Quantity: 30 tablet Refills: 1 senna-docusate 8.6-50 MG tablet Commonly known as: SENOKOT-S/PERICOLACE Used for: (spontaneous vaginal delivery) Dose: 1 tablet Take 1 tablet by mouth daily. Start after delivery. Quantity: 100 tablet Refills: 0 CONTINUE these medicines which may have CHANGED, or have new prescriptions. If we are uncertain of the size of tablets/capsules you have at home, strength may be listed as something that might have changed. Dose / Directions ibuprofen 600 MG tablet Commonly known as: ADVIL/MOTRIN This may have changed: medication strength how much to take reasons to take this additional instructions Used for: (spontaneous vaginal delivery) Dose: 600 mg Take 1 tablet (600 mg) by mouth every 6 hours as needed for moderate pain. Start after delivery Quantity: 60 tablet Refills: 0 CONTINUE these medicines which have NOT CHANGED Dose / Directions omeprazole 20 MG EC tablet Commonly known as: PriLOSEC OTC Dose: 20 mg Take 20 mg by mouth daily. Refills: 0 STOP taking acetaminophen 325 MG tablet Commonly known as: TYLENOL ursodiol 300 MG capsule Commonly known as: ACTIGALL Where to get your medicines These medications were sent to [facility] [address] [address] ibuprofen 600 MG tablet NIFEdipine ER 30 MG 24 hr tablet senna-docusate 8.6-50 MG tablet Discharge/Disposition: Meri Terrell was discharged to home in stable condition with the following instructions/medications: 1) Call for temperature > 100.4, bright red vaginal bleeding >1 pad an hour x 2 hours, foul smelling vaginal discharge, pain not controlled by usual oral pain meds, persistent nausea and vomiting not controlled on medications 2) She desired nothing for contraception. 3) For feeding she decided to breast feed. 4) She was instructed to follow-up with her primary OB in 6 weeks for a routine visit . 5) Discharge activity: Pelvic rest for 6 weeks. Madhuri Abdullahi MD Obstetrics and Gynecology, PGY2 06/11/2024, 3:26 PM The patient was seen and examined by me on the day of discharge. I have reviewed and agree with theresident's above note. Yani Ayala MD, FACOG documented in this encounter Discharge Instructions * Discharge Instructions* Kayla Darnell, RN - 06/08/2024 1:04 PM CDT Images from the original note were not included. After Your Delivery (the Period): Care Instructions Overview After childbirth ( period), your body goes through many changes as you recover. In these weeks after delivery, try to take good care of yourself. Get rest whenever you can and accept help from others. It may take 4 to 6 weeks to feel like yourself again, and possibly longer if you had a . You may feel sore or very tired as you recover. After delivery, you may continue to have contractions as the uterus returns to the size it was before your . You will also have some vaginal bleeding. And you may have pain around the vagina as you heal. Several days after delivery you mayalso have pain and swelling in your breasts as they fill with milk. There are things you can do at home to help ease these discomforts. After childbirth, it's common to feel emotional. You may feel irritable, cry easily, and feel happyone minute and sad the next. This is called the baby blues. Hormone changes are one cause of these emotional changes. These feelings usually get better within a couple of weeks. If they don't, talkto your doctor or handkerchief cutter. In the first couple of weeks after you give , your doctor or handkerchief cutter may want to check in withyou and make a plan for follow-up care. You will likely have a complete visit in the first 3 months after delivery. At that time, your doctor or handkerchief cutter will check on your recovery and seehow you're doing. But if you have questions or concerns before then, you can always call your doctor or handkerchief cutter. Follow-up care is a arellano part of your treatment and safety. Be sure to make and go to all appointments, and call your doctor if you are having problems. It's also a good idea to know your test resultsand keep a list of the medicines you take. How can you care for yourself at home? Taking care of your body Use pads instead of tampons for bleeding. After , you will have bloody vaginal discharge. You may also pass some blood clots that shouldn't be bigger than an egg. Over the next 6 weeks or so, your bleeding should decrease a little every day and slowly change to a pinkish and then whitish discharge. For cramps or mild pain, try an kdwr-wux-lhxyhch pain medicine, such as acetaminophen (Tylenol) or ibuprofen (Advil, Motrin). Read and follow all instructions on the label. To ease pain around the vagina or from hemorrhoids: Put ice or a cold pack on the area for 10 to 20 minutes at a time. Put a thin cloth between the iceand your skin. Try sitting in a few inches of warm water (sitz bath) when you can or after bowel movements. Clean yourself with a gentle squeeze of warm water from a bottle instead of wiping with toilet paper. Use witch lars or hemorrhoid pads (such as Tucks). Try using a cold compress for sore and swollen breasts. And wear a supportive bra that fits. Ease constipation by drinking plenty of fluids and eating high-fiber foods. Ask your doctor or handkerchief cutter about dpfl-and-hevxqeh stool softeners. Activity Rest when you can. Ask for help from family or friends when you need it. If you can, have another adult in your home for at least 2 or 3 days after . When you feel ready, try to get some exercise every day. For many people, walking is a good choice.Don't do any heavy exercise until your doctor or handkerchief cutter says it's okay. Ask your doctor or handkerchief cutter when it is okay to have vaginal sex. If you don't want to get , talk to your doctor or handkerchief cutter about control options. You can get even before your period returns. Also, you can get while you are . Talk to your doctor or handkerchief cutter if you want to get again. They can talk to you about when it is safe. Emotional health It's normal to have some sadness, anxiety, and mood swings after delivery. It may help to talk witha trusted friend or family member. You can also call the Maternal Mental Health Hotline at 1-084-PEP[facility] ( ) for support. If these mood changes last more than a couple of weeks, talk toyour doctor or handkerchief cutter. When should you call for help? Share this information with your partner, family, or a friend. They can help you watch for warning signs. Call 911 anytime you think you may need emergency care. For example, call if: You feel you cannot stop from hurting yourself, your baby, or someone else. You passed out (lost consciousness). You have chest pain, are short of breath, or cough up blood. You have a seizure. Where to get help 24 hours a day, 7 days a week If you or someone you know talks about suicide, self-harm, a mental health crisis, a substance use crisis, or any other kind of emotional distress, get help right away. You can: Call the Suicide and Crisis Lifeline at 988. Call 7-853-024-TALK ( ). Text HOME to 395211 to access the Crisis Text Line. Consider saving these numbers in your phone. Go to [employer] for more information or to chat online. Call your doctor or handkerchief cutter now or seek immediate medical care if: You have signs of hemorrhage (too much bleeding), such as: Heavy vaginal bleeding. This means that you are soaking through one or more pads in an hour. Or youpass blood clots bigger than an egg. Feeling dizzy or lightheaded, or you feel like you may faint. Feeling so tired or weak that you cannot do your usual activities. A fast or irregular heartbeat. New or worse belly pain. You have signs of infection, such as: A fever. Increased pain, swelling, warmth, or redness from an incision or wound. Frequent or painful urination or blood in your urine. Vaginal discharge that smells bad. New or worse belly pain. You have symptoms of a blood clot in your leg (called a deep vein thrombosis), such as: Pain in the calf, back of the knee, thigh, or groin. Swelling in the leg or groin. A color change on the leg or groin. The skin may be reddish or purplish, depending on your usual skin color. You have signs of preeclampsia, such as: Sudden swelling of your face, hands, or feet. New vision problems (such as dimness, blurring, or seeing spots). A severe headache. You have signs of heart failure, such as: New or increased shortness of breath. New or worse swelling in your legs, ankles, or feet. Sudden weight gain, such as more than 2 to 3 pounds in a day or 5 pounds in a week. Feeling so tired or weak that you cannot do your usual activities. You had spinal or epidural pain relief and have: New or worse back pain. Increased pain, swelling, warmth, or redness at the injection site. Tingling, weakness, or numbness in your legs or groin. Watch closely for changes in your health, and be sure to contact your doctor or handkerchief cutter if: Your vaginal bleeding isn't decreasing. You feel sad, anxious, or hopeless for more than a few days. You are having problems with your breasts or . Where can you learn more? Go to https://www.[employer].net/patiented Enter A461 in the search box to learn more about After Your Delivery (the Period): CareInstructions. Current as of: April 15, 2023 Content Version: 14.0 ?? [employer]. Care instructions adapted under license by your healthcare professional. If you have questions about a medical condition or this instruction, always ask your healthcare professional. [employer] disclaims any warranty or liability for your use of this information. Warning Signs after Having a Baby Keep this paper on your fridge or somewhere else where you can see it. Call your provider if you have any of these symptoms up to 12 weeks after having your baby. Thoughts of hurting yourself or your baby Pain in your chest or trouble breathing Severe headache not helped by pain medicine Eyesight concerns (blurry vision, seeing spots or flashes of light, other changes to eyesight) Fainting, shaking or other signs of a seizure Call 9-1-1 if you feel that it is an emergency. The symptoms below can happen to anyone after giving . They can be very serious. Call your provider if you have any of these warning signs. My provider???s phone number:[facility] [phone] Losing too much blood (hemorrhage) Call your provider if you soak through a pad in less than an hour or pass blood clots bigger than agolf ball. These may be signs that you are bleeding too much. Blood clots in the legs or lungs After you give , your body naturally clots its blood to help prevent blood loss. Sometimes this increased clotting can happen in other areas of the body, like the legs or lungs. This can block your blood flow and be very dangerous. Call your provider if you: Have a red, swollen spot on the back of your leg that is warm or painful when you touch it. Are coughing up blood. Infection Call your provider if you have any of these symptoms: Fever of 100.4 F (38 C) or higher. Pain or redness around your stitches if you had an incision. Any yellow, white, or green fluid coming from places where you had stitches or surgery. Mood Problems ( depression) Many people feel sad or have mood changes after having a baby. But for some people, these mood swings are worse. Call your provider right away if you feel so anxious or nervous that you can't care for yourself oryour baby. Preeclampsia (high blood pressure) Even if you didn't have high blood pressure when you were , you are at risk for the high blood pressure disease called preeclampsia. This risk can last up to 12 weeks after giving . Call your provider if you have: Pain on your right side under your rib cage Sudden swelling in the hands and face Remember: You know your body. If something doesn't feel right, get medical help. For informational purposes only. Not to replace the advice of your health care provider. Copyright 2020 [employer] ([employer]). All rights reserved. Clinically reviewed by [employer]ia [employer], CHRISTIANC-OB, MSN. [employer] [id number] - Rev 11/29. Care (Vaginal ) When Your Baby Is in the NICU: Care Instructions Overview When your baby is in the intensive care unit (NICU), you may feel a wide range of emotions. You may worry about your baby or find it hard to be apart from your baby. You may spend a lot of time at the hospital while your baby is in the NICU. It's important to care for yourself too during this time. Get rest whenever you can and accept helpfrom others. Your body will slowly heal in the next few weeks. You may feel sore or very tired. After delivery, you may continue to have contractions as the uterus returns to its original size. You will also have some vaginal bleeding. And you may have pain around the vagina as you heal. Several days after delivery you may also have pain and swelling in your breasts as they fill with milk. There are things you can do to help ease these discomforts. After childbirth, it's common to feel emotional. Changes in your hormones can shift your mood without warning. You may feel irritable, cry easily, and feel happy one minute and sad the next. These feelings usually get better within a couple of weeks. If they don't, talk to your doctor or handkerchief cutter. Follow-up care is a arellano part of your treatment and safety. Be sure to make and go to all appointments, and call your doctor if you are having problems. It's also a good idea to know your test resultsand keep a list of the medicines you take. How can you care for yourself at home? Taking care of your body Use pads instead of tampons for bleeding. After , you will have bloody vaginal discharge. You may also pass some blood clots that shouldn't be bigger than an egg. Over the next 6 weeks or so, your bleeding should decrease a little every day and slowly change to a pinkish and then whitish discharge. For cramps or mild pain, try an ipnb-csb-clcaimv pain medicine, such as acetaminophen (Tylenol) or ibuprofen (Advil, Motrin). Read and follow all instructions on the label. To ease pain around the vagina or from hemorrhoids: Put ice or a cold pack on the area for 10 to 20 minutes at a time. Put a thin cloth between the iceand your skin. Try sitting in a few inches of warm water (sitz bath) when you can or after bowel movements. Clean yourself with a gentle squeeze of warm water from a bottle instead of wiping with toilet paper. Use witch lars or hemorrhoid pads (such as Tucks). Try using a cold compress for sore and swollen breasts. And wear a supportive bra that fits. If you pump breast milk for your baby: Start pumping right away. Keep pumping every few hours to keep up your milk supply. Ask your doctor, handkerchief cutter, nurse, or store sales consultant about what type of pump you should use if you don't have a breast pump at home. Ease constipation by drinking plenty of fluids and eating high-fiber foods. Ask your doctor or handkerchief cutter about kkrt-pdj-azfaqrz stool softeners. Activity Rest when you can. Ask for help from family or friends when you need it. When you feel ready, try to get some exercise every day. For many people, walking is a good choice.Don't do any heavy exercise until your doctor or handkerchief cutter says it's okay. Ask your doctor or handkerchief cutter when it is okay to have vaginal sex. If you don't want to get , talk to your doctor or handkerchief cutter about control options. You can get even before your period returns. You can also get while you are . Talk to your doctor or handkerchief cutter if you want to get again. They can talk to you about when it is safe. Taking care of your emotional health Get support. You may go through many different emotions while your baby is in the NICU. It may helpto talk with a friend, a family member, or a counselor. Your hospital may have a social insurance analyst or support group for NICU parents. It's normal to have some sadness, anxiety, and mood swings after delivery. You can always call the Maternal Mental Health Hotline at 6-162-IKC[facility] ( ) for support. If these mood changeslast more than a couple of weeks, talk to your doctor or handkerchief cutter. When should you call for help? Share this information with your partner, family, or a friend. They can help you watch for warning signs. Call 342 anytime you think you may need emergency care. For example, call if: You feel you cannot stop from hurting yourself, your baby, or someone else. You passed out (lost consciousness). You have chest pain, are short of breath, or cough up blood. You have a seizure. Where to get help 24 hours a day, 7 days a week If you or someone you know talks about suicide, self-harm, a mental health crisis, a substance use crisis, or any other kind of emotional distress, get help right away. You can: Call the Suicide and Crisis Lifeline at 988. Call 3-512-706-TALK ( ). Text HOME to 248537 to access the Crisis Text Line. Consider saving these numbers in your phone. Go to [employer] for more information or to chat online. Call your doctor or handkerchief cutter now or seek immediate medical care if: You have signs of hemorrhage (too much bleeding), such as: Heavy vaginal bleeding. This means that you are soaking through one or more pads in an hour. Or youpass blood clots bigger than an egg. Feeling dizzy or lightheaded, or you feel like you may faint. Feeling so tired or weak that you cannot do your usual activities. A fast or irregular heartbeat. New or worse belly pain. You have signs of infection, such as: A fever. Increased pain, swelling, warmth, or redness from an incision or wound. Frequent or painful urination or blood in your urine. Vaginal discharge that smells bad. New or worse belly pain. You have symptoms of a blood clot in your leg (called a deep vein thrombosis), such as: Pain in the calf, back of the knee, thigh, or groin. Swelling in the leg or groin. A color change on the leg or groin. The skin may be reddish or purplish, depending on your usual skin color. You have signs of preeclampsia, such as: Sudden swelling of your face, hands, or feet. New vision problems (such as dimness, blurring, or seeing spots). A severe headache. You have signs of heart failure, such as: New or increased shortness of breath. New or worse swelling in your legs, ankles, or feet. Sudden weight gain, such as more than 2 to 3 pounds in a day or 5 pounds in a week. Feeling so tired or weak that you cannot do your usual activities. You had spinal or epidural pain relief and have: New or worse back pain. Increased pain, swelling, warmth, or redness at the injection site. Tingling, weakness, or numbness in your legs or groin. Watch closely for changes in your health, and be sure to contact your doctor or handkerchief cutter if: Your vaginal bleeding isn't decreasing. You feel sad, anxious, or hopeless for more than a few days. You are having problems with your breasts or . Where can you learn more? Go to https://www.[employer]/patiented Enter P265 in the search box to learn more about Care (Vaginal ) When Your Baby Isin the NICU: Care Instructions. Current as of: April 15, 2023 Content Version: 14.1 ?? [employer]. Care instructions adapted under license by your healthcare professional. If you have questions about a medical condition or this instruction, always ask your healthcare professional. [employer] disclaims any warranty or liability for your use of this information. Checking Your Blood Pressure at Home During and after How do I measure my blood pressure? It???s important to take the readings at the same time each day, such as morning and evening. Take your blood pressure before taking any morning medications. How to get the most accurate reading 30 minutes before checking your blood pressure, avoid the following: Drinking caffeine Drinking alcohol Eating Smoking Exercising 5 minutes before checking your blood pressure: Use the bathroom and urinate so you have an empty bladder. Sit still in a chair for around 5 minutes. Stay calm and relaxed and do not talk if possible. To check your blood pressure: Sit up straight in a chair. Place your feet on the floor. Don???t cross your ankles or legs. Rest your arm at the level of your heart on a table or desk or on the arm of a chair. Use the same arm every day. Pull up your shirt sleeve. Don???t take the measurement over clothes. Wrap the blood pressure cuff around the upper part of your left arm, 1 inch (2.5 cm) above your elbow. Fit the cuff snugly around your arm. You should be able to place only one finger between the cuff and your arm. Position the cord so that it rests in the bend of your elbow. Press the power button. Sit quietly while the cuff inflates and deflates. Read the digital reading on the monitor screen and write the numbers down (record them) in a notebook. Wait 2-3 minutes, then repeat the steps, starting at step 1. Which features do you need? Arm cuff monitors give the most exact readings. Wrist and finger blood pressure monitors are often less exact. Pick a blood pressure monitor that has passed tests to show they measure exactly. Blood pressure cuffs for sale in the [place] that have passed tests are listed on the website www.validatebp.org. Some monitors that have passed tests are: Omron 3 Series Upper Arm Blood Pressure Monitor (Model [id number]) Omron 5 Series Upper Arm Blood Pressure Monitor (Model [id number]) Omron 7 Series Upper Arm Blood Pressure Monitor (Model [id number]-7320) [employer] Upper Arm Blood Pressure Monitor with Talking Function (UA 1030T) Don???t use smartphone apps. There are many smartphone apps that claim to check your blood pressureusing the pulse in your wrist or finger. These don???t work. They haven???t passed any tests. Don???t give your clinic a blood pressure reading from a smartphone marsha. If you have a flexible spending account (FSA) or health savings account (HSA), you may wish to pay yourself back (reimburse) for the machine and cuff. A blood pressure monitor is an allowed zmio-bsp-xvnboru (OTC) item to pay yourself back from these accounts. Cuff size The size of the arm cuff is a arellano feature. Make sure the cuff is the right size for your arm. If the cuff isn???t the right size, readings will either be too high or low. To know what size cuff to buy, measure the distance around your bicep (upper arm). Use a flexible measuring tape or paperboard box maker. Place the measuring tape detention between your armpit and elbow. Measure the distance around your arm in inches. You may need to buy a cuff apart from the machine to get the right size. Cuff sizes and arm measurements Small adult: 22 to 26 cm (8.7 to 10.2 inches) Adult: 27 to 34 cm (10.6 to 13.4 inches) Large adult: 35 to 44 cm (13.8 to 17.3 inches) Adult thigh: 45 to 52 cm (17.7 to 20.5 inches) Copyright statement content=For informational purposes only. Not to replace the advice of your health care provider. Photo: ID [id number] ?? [employer] [place] - 2. Text copyright ?? 2022 [facility]. All rights reserved. Clinically reviewed by [facility]. [employer] [id number] - REV 12/27. * Attachments The following attachments cannot be sent through Care Everywhere. * Care at Home With Baby (Yemeni) * (s) Checking Your Blood Pressure at Home: During and after (Yemeni) documented in this encounter Medications at Time of Discharge Medication Sig Dispensed Refills Start Date End Date ibuprofen (ADVIL/MOTRIN) 600 MG tabletIndications: (spontaneous vaginal delivery) Take 1 tablet (600 mg) by mouth every 6 hours as needed for moderate pain. Start after delivery 60 tablet 06/08/2024 NIFEdipine ER OSMOTIC (ADALAT CC) 30 MG 24 hr tabletIndications:Postpa rtum hypertension Take 1 tablet (30 mg) by mouth every 24 hours. 30 tablet 1 06/12/2024 omeprazole (PRILOSEC OTC) 20 MG EC tablet Take 20 mg by mouth daily. senna-docusate (SENOKOT-S/PERICOLACE) 8.6-50 MG tabletIndications: (spontaneous vaginal delivery) Take 1 tablet by mouth daily. Start after delivery. 100 tablet 06/08/2024 documented as of this encounter Progress Notes * Thaddeus Cartagena MD - 06/11/2024 8:25 AM CDT Images from the original note were not included. HEPATOLOGY PROGRESS Date of Admission: 06/06/2024 Requesting physician: Soni Bond, * Reason for Consultation: Increased aminotransferases ASSESSMENT AND RECOMMENDATIONS: Assessment: Meri Terrell 28-year-old (week 35) on PPD#5 s/p spontaneous vaginal delivery. During this , she was diagnosed with mild intrahepatic cholestasis of (ICP, BA 31 and pruritus at delivery induction) and preeclampsia with severe features. Hepatology was consulted due to elevated aminotransferases despite vaginal delivery. AST and ALT have slowly but progressively increased, with ALT now at 81 and AST at 107. Alkaline phosphatase is mildly elevated at 158, while total bilirubin remains within normal limits. A recent ultrasound on admission showed no hepatic or biliary abnormalities. The elevated aminotransferases are likely due to preeclampsia with severe features, with a possible contribution from a recent COVID-19 infection (tested positive 06/07) and ICP. The aminotransferases elevation in preeclampsia could peak up to 4-5 days post-. Although other etiologies should be considered, given the mild elevation and gradual p rogression, adequate recovery is expected. # Elevated aminotransferases, hepatocellular pattern # Preeclampsia with severe features Initial hepatotrophic viral etiologies, including hepatitis A, B, and C, were negative. There is noevidence of hepatitis B immunity. Her bile acid levels on June 06 was 31. Recommendations -FU KEYLA, smooth muscle antibody and total IgG. -FU CMV, EBV viral load. Hepatitis E. Negative hepatitis A IgM. - Repeat LFTs daily, until peak. If down trending, it is ok to discharge the patient from the GI perspective. Will need LFTs check-up next week. - Would recommend hepatitis B vaccination as there is no evidence of immunity. Thank you for involving us in this patient's care. Please do not hesitate to contact the GI servicewith any questions or concerns. Pt care plan discussed with Dr. Blake, GI staff physician. Thaddeus Pringle MD PGY-4 Gastroenterology Fellow [phone] Subjective: NAEO. Patient asymptomatic, wondering if she can go home. Review of Systems: A complete 10 point review of systems was performed and is negative except as noted in the HPI Physical Exam: BP 109/73 (BP Location: Left arm, Patient Position: Semi-De La Rosa's, Cuff Size: Adult Regular) Pulse 88 Temp 97.9 ??F (36.6 ??C) (Oral) Resp 18 Wt 66.2 kg (145 lb 15.1 oz) LMP 10/04/2023 (Approximate) SpO2 98% Unknown BMI 25.05 kg/m?? Wt: Wt Readings from Last 2 Encounters: 06/10/24 66.2 kg (145 lb 15.1 oz) 04/17/23 57.6 kg (127 lb) Constitutional: No acute distress, resting comfortably in bed Eyes: Sclera anicteric Ears/nose/mouth/throat: Moist mucus membranes, hearing intact Neck: supple CV: No edema Respiratory: Breathing comfortably on room air Abd: Soft, nontender, nondistended, bowel sounds present Skin: warm, perfused, no jaundice Neuro: AAO x 3 Psych: Normal affect MSK: No gross deformities Data: Labs and imaging below were independently reviewed and interpreted BMP Recent Labs Lab 06/10/24 1126 06/09/24 1600 06/08/24 0806/07/24 11506/06/24222006/06/24926 NA 134* 134* -- -- -- 137 POTASSIUM 4.2 4.5 -- -- -- 3.9 CHLORIDE 100 101 -- -- -- 103 EDUARDO 9.3 9.1 -- -- -- 8.3* CO2 21* 18* -- -- -- 20* BUN 12.8 12.6 -- -- -- 5.8* CR 0.56 0.47* 0.49* 0.53 < > 0.46* GLC 96 98 -- -- -- 76 < > = values in this interval not displayed. CBC Recent Labs Lab 06/08/24 0803 06/07/24 1159 06/07/24 0754 06/06/24222006/06/24 09 WBC 7.4 7.8 -- 10.9 7.0 RBC 3.81 3.70* -- 4.31 3.93 HGB 10.4* 10.2* < > 11.8 10.8* HCT 31.3* 29.9* -- 35.3 31.7* MCV 82 81 -- 82 81 MCH 27.3 27.6 -- 27.4 27.5 MCHC 33.2 34.1 -- 33.4 34.1 RDW 12.6 12.2 -- 12.1 12.0 PLT 208 206 -- 222 208 < > = values in this interval not displayed. INRNo lab results found in last 7 days. LFTs Recent Labs Lab 06/10/24 1126 06/09/24 1600 06/09/24 0822 06/08/24 1401 06/06/24 2221 06/06/24 0927 ALKPHOS 181* 158* 153* 148 -- -- 139 AST 128* 107* 106* 99* 107* < > 56* ALT 346* 281* 281* 272* 274* < > 203* BILITOTAL 0.3 0.2 0.2 0.4 -- -- 0.4 PROTTOTAL 7.8 6.7 6.6 7.0 -- -- 6.8 ALBUMIN 3.9 3.3* 3.4* 3.4* -- -- 3.5 < > = values in this interval not displayed. MELD Computed MELD 3.0 unavailable. One or more values for this score either were not found within the given timeframe or did not fit some other criterion. Computed MELD-Na unavailable. One or more values for this score either were not found within the given timeframe or did not fit some other criterion. PANCNo lab results found in last 7 days. Imaging: US Abdomen Complete Order: [id number] Impression 1. Prominent spleen at the upper limits of normal measuring 12.8 cm. 2. Normal gallbladder and bile ducts. 3. No hydronephrosis. Narrative For Patients: As a result of the Cures Act, medical imaging exams and procedure reports are released immediately into your electronic medical record. You may view this report before yourreferring provider. If you have questions, please contact your health care provider. EXAM: US ABDOMEN COMPLETE LOCATION: [facility] DATE: 11/12/2023 INDICATION: Right upper quadrant pain COMPARISON: None. TECHNIQUE: Complete abdominal ultrasound. FINDINGS: GALLBLADDER: Normal. No gallstones, wall thickening, or pericholecystic fluid. Negative sonographicMurphy's sign. BILE DUCTS: No biliary dilatation. The common duct measures 3 mm. LIVER: Normal parenchyma with smooth contour. No focal mass. RIGHT KIDNEY: Normal size. Normal echogenicity with no hydronephrosis or mass. LEFT KIDNEY: Normal size. Normal echogenicity with no hydronephrosis or mass. SPLEEN: Borderline spleen size at 12.8 cm. PANCREAS: The visualized portions are normal. AORTA: Normal in caliber. IVC: Normal where visualized. Endoscopy: NA Associated attestation - Martín Blake MD - 06/11/2024 4:02 PM CDT Physician Attestation I saw this patient with the resident and agree with the resident/fellow's findings and plan of careas documented in the note. Arellano findings: - improving liver tests; would repeat once more in next 5-7 days to ensure normalization Please see A&P for additional details of medical decision making. Martín Blake MD Date of Service: 06/11/24 * Yani Ayala MD - 06/11/2024 6:[address] [facility] Post- Progress Note Name: Meri Terrell S: Doing well this morning. Reports pain is well controlled. Tolerating regular diet without nauseaor vomiting. Ambulating without dizziness. Lochia minimal. Voiding spontaneously. Passing flatus. Pumping for baby in NICU. Denies headache, vision changes, chest pain, dyspnea, lower extremity edema. Desires interval tubal O: Patient Vitals for the past 24 hrs: BP Temp Temp src Pulse Resp Weight 06/10/24 2345 109/74 97.7 ??F (36.5 ??C) Oral 78 18 -- 06/10/24 2006 102/72 98.1 ??F (36.7 ??C) Oral 84 18 -- 06/10/24 1530 120/84 98 ??F (36.7 ??C) Oral 102 18 -- 06/10/24 0756 120/81 97.7 ??F (36.5 ??C) Oral 80 16 -- 06/10/24 0357 122/79 97.8 ??F (36.6 ??C) Oral 69 15 66.2 kg (145 lb 15.1 oz) Gen: Resting comfortably, NAD CV: Regular rate, well perfused Pulm: Non-labored breathing on room air Abd: Soft, non tender, non-distended. Ext: non-tender, trace edema to bilateral lower extremities. I/O last 3 completed shifts: In: 1350 [P.O.:1350] Out: 400 [Urine:400] Hgb: Hemoglobin Date Value Ref Range Status 06/08/2024 10.4 (L) 11.7 - 15.7 g/dL Final Assessment/Plan: Meri Terrell 28 year old on PPD#5 s/p . Doing well postoperatively # management Pain: Well-controlled with ibuprofen, tylenol PRN GI: PRN bowel regimen, anti-emetics : Voiding spontaneously Hgb: 11.8>EBL 472 ml> 10.2 Rh: Positive Rubella: immune Feed: Pumping BC: Desires interval tubal. Discussed recommended spacing of 18 months. PPx: Encourage ambulation, IS, SCDs while confined to bed # Transaminitis of unk etiology Known ICP this (BA 31 at admission). Patient also with pre-eclampsia with severe features(as below). She has had ongoing worsening transaminitis of unknown etiology- possibly related to ICP/preeclampsia and COVID though possibly secondary to alternative etiology. Bilirubin, glucose, and creatinine normal therefore not suggestive of acute fatty liver of . Asymptomatic - Hepatitis A Thom reactive, IgM NR indicating no acute infection. Other viral serologies negative. - AST 56>>107>99>>128, ALT 203>>191>>>281>346 - AM LFTs pending - GI following, appreciate recs: Bile acids, KEYLA, smooth muscle Thom & total IgG, CMV, EBV Hepatitis E all ordered. - Tylenol held # Pre-E with SF (BP) - D#3 Nifedipine 30 mg - Normotensive overnight - LFTs above o/w HELLP - s/p 24h mag - Interested in enrollment in [facility] BP at discharge; already received equipment # COVID-19 - Tm 102 (2305, 06/06), Tl 101.6 (2335, 06/06) - CXR with trace bilateral pleural effusions - Will follow blood culture (NGTD) Madhuri Abdullahi MD Obstetrics and Gynecology, PGY2 06/11/2024, 6:59 AM BP 109/73 (BP Location: Left arm, Patient Position: Semi-De La Rosa's, Cuff Size: Adult Regular) Pulse 88 Temp 97.9 ??F (36.6 ??C) (Oral) Resp 18 Wt 66.2 kg (145 lb 15.1 oz) LMP 10/04/2023 (Approximate) SpO2 98% Unknown BMI 25.05 kg/m?? Hemoglobin Date Value Ref Range Status 06/08/2024 10.4 (L) 11.7 - 15.7 g/dL Final The patient was seen and examined by me separately from the team. I have reviewed and agree with the above note. She is feeling very well today, hoping to go home. Her am labs are still pending. If stable to downtrending, she can discharge today with outpatient GI follow up. Close BP monitoring andlow threshold to stop nifedipine given low BP readings since yesterday evening. Yani Ayala MD, FACOG * Madhuri Kimble MD - 06/10/2024 4:11 PM CDT Brief progress note At patient bedside Patient expressed frustration with hospitalization and had questions about plan of care including diagnostic workup. Explained rationale for extended stay in light of uptrending LFTs afterdelivery. Discussed with patient regarding plan for GI consult (note pending) and plan for further diagnostic workup including KEYLA, smooth muscle ab, Hep E, CMV, EBV, IgG, Bile acids, Hep A IgM, P ANCA, AMA Patient expressed understanding and was amenable to ongoing hospitalization. - Awaiting lab results. Madhuri Abdullahi MD Obstetrics and Gynecology, PGY2 06/10/2024, 7:47 PM * Rosaline Pendleton MD - 06/10/2024 6:[address] [facility] Post- Progress Note Name: Meri Terrell S: Doing well this morning. Reports pain is well controlled. Tolerating regular diet without nauseaor vomiting. Ambulating without dizziness. Lochia minimal. Voiding spontaneously. Passing flatus, no BM yet. Pumping. Denies headache, vision changes, chest pain, dyspnea, lower extremity edema. Hoping to discharge today pending GI recommendations. O: Patient Vitals for the past 24 hrs: BP Temp Temp src Pulse Resp Weight 06/10/24 0357 122/79 97.8 ??F (36.6 ??C) Oral 69 15 66.2 kg (145 lb 15.1 oz) 06/09/24 2335 111/80 97.8 ??F (36.6 ??C) Oral 73 16 -- 06/09/24 1940 117/84 97.8 ??F (36.6 ??C) Oral 87 16 -- 06/09/24 1625 121/88 97.8 ??F (36.6 ??C) Oral 92 16 -- 06/09/24 1158 119/84 98 ??F (36.7 ??C) Oral 89 16 -- 06/09/24 0815 (!) 117/94 97.7 ??F (36.5 ??C) Oral 84 16 -- Gen: Resting comfortably, NAD CV: Regular rate, well perfused Pulm: Non-labored breathing on room air Abd: Soft, non tender, non-distended. Fundus below the level of the umbilicus, firm and non-tender.No RUQ tenderness to palpation. Ext: non-tender, trace edema to bilateral lower extremities. I/O last 3 completed shifts: In: 3150 [P.O.:3150] Out: 3400 [Urine:3400] Hgb: Hemoglobin Date Value Ref Range Status 06/08/2024 10.4 (L) 11.7 - 15.7 g/dL Final Assessment/Plan: Meri Terrell 28 year old on PPD#4 s/p . Doing well postoperatively # management Pain: Well-controlled with ibuprofen, tylenol PRN GI: PRN bowel regimen, anti-emetics : Voiding spontaneously Hgb: 11.8>EBL 472 ml> 10.2 Rh: Positive Rubella: immune Feed: Pumping BC: Desires interval tubal. Discussed recommended spacing of 18 months. PPx: Encourage ambulation, IS, SCDs while confined to bed # Transaminitis of unk etiology Known ICP this (BA 31 at admission). Patient also with pre-eclampsia with severe features(as below). She has had ongoing worsening transaminitis of unknown etiology- possibly related to ICP/preeclampsia and COVID though possibly secondary to alternative etiology. Bilirubin, glucose, and creatinine normal therefore not suggestive of acute fatty liver of . Denies RUQ pain. - Hepatitis A Thom REACTIVE, HepA IgM ordered today to determine if acute infection given recently delivery and transaminitis - AST 56>>107>99>>107, ALT 203>>191>>274>272>281>281 - AM LFTs ordered - GI Consultation placed; appreciate recommendations - Tylenol held # Pre-E with SF (BP) - D#2 Nifedipine 30 mg - LFTs above o/w HELLP - s/p 24h mag - Interested in enrollment in [facility] BP at discharge # COVID-19 - Tm 102 (2305, 06/06), Tl 101.6 (2335, 06/06) - CXR with trace bilateral pleural effusions - Will follow blood culture (NGTD) Medically Ready for Discharge: Anticipated Today pending GI recommendations Rosaline Bro MD Forest Pathologist PGY-3 06/10/24 6:19 AM Staff MD Note I appreciate the note by Dr. Bro. Any necessary changes have been made by me. I saw and evaluated the patient and agree with the findings and plan of care as documented in the note. Patient doing well from standpoint. Her Hepatitis A Thom did come back reactive, will get IgM study to determine if active infection which could also be contributing to her transaminitis. Will touch base with GI to ensure no other recommendations for followup. Otherwise BP stable, no symptoms of preeclampsia. Continue on Nifedipine 30 mg daily. Given BP cuff and interested in [facility]-BP program. Plans to followup in [place], desires interval tubal and will coordinate with them. Assuming no other changes and interventions recommended by GI plans for discharge home later today. Rosaline Pendleton MD * Zuleika Garner RN - 06/09/2024 5:55 PM CDT VSS. Assessments WNL. No reported s/s of PreE. No reported epigastric or abdominal pain. Reports congestion/sinus pressure and cough have lessened. See previous note. Pt participating in her I/O. Viewing NB- Marty- on ipad. Offered SW - declines. visited today. Expressed breast milk sent to NICU. Pt reports frustration with not being seen by specialist yet and wanting to go home tomorrow. Meri reports missing her other children at home. Meri reported lack of response to call light attimes during her stay - Anna Patel retort press operator asked to talk with pt. Call light is within reach - ptasked to ask for her primary RN. * Zuleika Garner RN - 06/09/2024 11:23 AM CDT VSS. Assessments WNL. No reported s/s of PreE. Covid + with cough, sinus pressure and ear discomfort - especially R ear fluid feeling per pt. Ranks sinus pressure as 10 while eating but otherwise 3. Pt states similar to when has the flu. No vision changes, epigastric pain or VANEGAS. Dr Morse updated and discussed with pt. Pt encouraged to take motrin for pain relief. Pt had declined earlier when offered. She reports Robitussen is helping relieve her cough. Meri was teary eyed and crying as Marty is in the NICU and she can not hold her at this time and that she misses her other children. Pt would like to discharge to home today if possible - discussed with Dr. Bentley. plan for pt to stay. Seenby SW and declines a further visit at this time. Pumping and breast milk sent to nicu. Pt maintaining I/O. Call light is within reach for assistance. Special precautions maintained. * Rosaline Bro MD - 06/09/2024 5:[address] [facility] Post- Progress Note Name: Meri Terrell S: Doing well this morning. Reports pain is well controlled. Tolerating regular diet without nauseaor vomiting. Ambulating without dizziness. Lochia minimal. Infant in NICU though being discharged today. Voiding spontaneously. Passing flatus, no BM yet. Pumping. Reports that she is having no RUQ pain to palpation. Further denies headache, vision changes, chest pain, dyspnea, lower extremity edema. Understandably upset about still being inpatient. O: Patient Vitals for the past 24 hrs: BP Temp Temp src Pulse Resp Weight 06/09/24 0402 (!) 143/92 98 ??F (36.7 ??C) Oral 65 16 67.1 kg (147 lb 14.4 oz) 06/09/24 0030 138/89 98.1 ??F (36.7 ??C) Oral 60 17 -- 06/08/241999 130/88 97.6 ??F (36.4 ??C) Oral 103 18 -- 06/08/24 1615 113/88 98.6 ??F (37 ??C) Oral 84 -- -- 06/08/24 1156 111/82 -- -- 75 -- -- 06/08/24 1154 107/78 -- -- -- -- -- 06/08/24 1006 -- -- -- -- -- 67.9 kg (149 lb 9.6 oz) 06/08/24 0745 112/82 98.2 ??F (36.8 ??C) Oral 82 -- -- Gen: Resting comfortably, NAD CV: Regular rate, well perfused Pulm: Non-labored breathing on room air Abd: Soft, non tender, non-distended. Fundus below the level of the umbilicus, firm and non-tender. Ext: non-tender, trace edema to bilateral lower extremities. I/O last 3 completed shifts: In: 400 [P.O.:400] Out: 1350 [Urine:1350] Hgb: Hemoglobin Date Value Ref Range Status 06/08/2024 10.4 (L) 11.7 - 15.7 g/dL Final Assessment/Plan: Meri Terrell 28 year old on PPD#3 s/p . Doing well postoperatively # management Pain: Well-controlled with ibuprofen, tylenol PRN GI: PRN bowel regimen, anti-emetics : Voiding spontaneously Hgb: 11.8>EBL 472 ml> 10.2 Rh: Positive Rubella: immune Feed: Pumping BC: Desires interval tubal. Discussed recommended spacing of 18 months. PPx: Encourage ambulation, IS, SCDs while confined to bed # ICP BA 31. - AST 56>> 75>>107, ALT 203>>191>>274 - AM LFTs ordered; if continued worsening transaminitis, can consider RUQ US, GI vs medicine consult - Tylenol held # Pre-E with SF (BP) - D#1 Nifedipine 30 mg - IV labet 20 (06/06) - LFTs above o/w HELLP - s/p 24h mag - Interested in enrollment in [facility] BP at discharge # COVID-19 - Tm 102 (2305, 06/06), Tl 101.6 (2335, 06/06) - CXR with trace bilateral pleural effusions - Will follow blood culture (NGTD) Medically Ready for Discharge: Anticipated Tomorrow pending BP control and LFTs Rosaline Bro MD Forest Pathologist PGY-3 06/09/24 5:55 AM Associated attestation - Ronan Morse MD - 06/09/2024 12:03 PM CDT OBGYN Attending Attestation Ms. Meri Terrell was seen and examined by me separately from the team. I have reviewed and agree with the above note by Dr. Bro. I personally reviewed the following and arellano findings are: PPD#3 from at 35w3d, doing well from perspective. Her course has been complicated by preeclampsia with severe features and ICP. Her LFTs have been noted to be elevated, see below for progression and AST 99, ALT 204, stably elevated from prior. Her HELLP labs are otherwise normal. She is asymptomatic of preeclampsia. She is s/p 24h magnesium. She was started on nifedipine 30mg PO daily. She was noted to have two mild range pressures this AM. [place] repeat LFTs this afternoon, will get GI consult if they remain elevated. Plan to repeat BP earlythis afternoon with possible need to uptitrate medication. Patient additionally was diagnosed with COVID during intrapartum course. Avoiding paxlovid in the period due to increased risk of hemorrhage. Symptoms significantly improved. Cough improved, has some ongoing sinus pressure. Afebrile, oxygenating well. Continue to monitor and continue isolation. I agree with the plan for repeat LFTs, monitor BP, possible GI consult. Ronan Morse MD Help Desk Assistant [facility] Obstetrics, Gynecology, and Women's [facility] 11:59 AM 06/09/2024 * Emani Sellers MD - 06/08/2024 5:40 PM CDT BRIEF PROGRESS NOTE Discussed with patient that her AST and ALT have been slowly increasing and we would recommend thatshe stays overnight. She is amenable, but expresses frustrating that no action has been taken. We reviewed that we'll get repeat labs in the morning with the possibility of consulting GI for their input. Suspect that her labs continue to trend up due to the combination of ICP and pre-e with SF in the setting of COVID-19. Will continue to monitor. Emani Sellers MD Obstetrics & Gynecology, PGY-1 06/08/2024 5:43 PM * Mable Regan LICSW - 06/08/2024 9:49 AM CDT Received 2nd order for SW to see for elevated [place] score of 13. Score of 0 to question 10 about thoughts of self-harm. SW addressed patient's mental health in psychosocial assessment yesterday. Please see note by GILBERTO Milligan 06/07/24. On-call SW consulted with bedside RN, Anna Baker. SW informed Anna that patient's mental health has been addressed and Oliva Delarosa will continue to follow for support throughout baby's NICU admission. No need for additional SW visit today to address elevated [place]. Order closed. JOYA Martin [employer] ROOM OPERATOR Clinical Back [facility] Voicemail: [phone] Reachable via [employer] * Soni Bond MD - 06/08/2024 7:[address] [facility] Post- Progress Note Name: Meri Terrell S: Pain well controlled. Tolerating regular diet without nausea or vomiting. Ambulating without dizziness. Lochia at the level of the period. Infant in NICU. Voiding spontaneously. Passing flatus, noBM yet. Pumping for baby in NICU. Feeling very congested. No RUQ, headache, vision changes, chest pain, dyspnea, lower extremity edema. Has some cough and congestion. Magnesium stopped yesterday evening. Hoping to discharge to home today. Discussed usual recommendation for discharge after 24h post-mag though will discuss with OB team. O: Patient Vitals for the past 24 hrs: BP Temp Temp src Pulse Resp SpO2 06/08/24 0220 -- 97.7 ??F (36.5 ??C) Oral -- -- -- 06/08/24 0030 100/69 -- -- -- -- -- 06/08/24 0015 101/71 -- -- -- -- -- 06/08/24 0000 103/67 -- -- -- -- -- 06/07/24 2315 116/73 -- -- -- -- 98 % 06/07/24 2310 114/78 -- -- -- -- 98 % 06/07/245 120/81 -- -- -- -- 98 % 06/07/240 125/86 -- -- -- -- 98 % 06/07/248 (!) 129/94 -- -- -- -- 98 % 06/07/24 2252 (!) 130/102 -- -- -- -- 98 % 06/07/241999 115/83 97.6 ??F (36.4 ??C) Oral 83 18 97 % 06/07/24 1900 113/87 -- -- 79 18 99 % 06/07/24 1800 116/84 -- -- -- 16 99 % 06/07/24 1700 111/77 -- -- 77 16 100 % 06/07/24 1600 109/76 97.8 ??F (36.6 ??C) Oral 76 16 100 % 06/07/24 1500 106/67 -- -- 74 -- 100 % 06/07/24 1400 107/70 -- -- 74 -- 98 % 06/07/24 1300 107/72 -- -- 74 -- -- 06/07/24 1145 118/85 97.6 ??F (36.4 ??C) Oral 82 16 100 % 06/07/24 1100 96/59 -- -- 73 -- -- 06/07/24 1029 97/53 -- -- 78 -- 98 % 06/07/24 0900 108/75 97.6 ??F (36.4 ??C) Oral 86 16 99 % 06/07/24 0809 109/74 98.1 ??F (36.7 ??C) Oral 74 18 100 % 06/07/24 0803 -- -- -- -- -- 98 % Gen: Resting comfortably, NAD CV: Regular rate, well perfused Pulm: Non-labored breathing on room air Abd: Soft, appropriately ttp, non-distended.Fundus below the level of the umbilicus, firm and non-tender. Ext: non-tender, trace edema to bilateral lower extremities. I/O last 3 completed shifts: In: 3855.83 [P.O.:2920; I.V.:935.83] Out: 5250 [Urine:5250] Hgb: Hemoglobin Date Value Ref Range Status 06/07/2024 10.2 (L) 11.7 - 15.7 g/dL Final Assessment/Plan: Meri Terrell 28 year old on PPD #2 s/p . Doing well postoperatively # management Pain: Well-controlled with ibuprofen, tylenol PRN GI: PRN bowel regimen, anti-emetics : Voiding spontaneously Hgb: 11.8>EBL 472 ml> 10.2 Rh: Positive Rubella: immune Feed: Infant in NICU, mother with COVID BC: Desires interval tubal. Discussed recommended spacing of 18 months. PPx: Encourage ambulation, IS, SCDs while confined to bed # ICP BA 31. - AST 56>> 75> 92, ALT 203>>191>>237 # Pre-E with SF (BP) - IV labet 20 (06/06) - LFTs above o/w HELLP - s/p 24h mag - Interested in enrollment in [place] BP at discharge # COVID-19 - Tm 102 (2305, 06/06), Tl 101.6 (2335, 06/06) - CXR with trace bilateral pleural effusions - Will follow blood culture Medically Ready for Discharge: Anticipated Tomorrow- given BPs normal and pt strong desire for discharge, will recheck LFTs this PM and if trending down, could discharge at that time. Rosaline Bro MD Forest Pathologist PGY-3 06/08/24 7:23 AM [facility] staff: Appreciate note by Dr. Bro. I have seen and examined the patient without the resident. I have reviewed, edited, and agree with the note. Soni Bond MD, FACOG 06/08/2024 9:58 AM * Cinthia Beck MD - 06/07/2024 3:[address] [facility] Magnesium Check Note S: Patient has a headache. She reports that this has been coming and going. She normally drinks multiple cups of coffee, has only had a cup of tea. Also poor sleep while admitted. Denies vision changes/spots in vision, chest pain, shortness of breath, RUQ or epigastric pain. No worsening edema. O: Patient Vitals for the past 4 hrs: BP Temp Temp src Pulse Resp SpO2 06/07/24 1400 107/70 -- -- 74 -- 98 % 06/07/24 1300 107/72 -- -- 74 -- -- 06/07/24 1145 118/85 97.6 ??F (36.4 ??C) Oral 82 16 100 % Gen: NAD, resting comfortably in bed. CV: RRR, no murmurs Pulm: CTAB, no wheezes or crackles Abd: Soft, non-tender Ext: Patellar and biceps reflexes 2+ b/l, absent clonus b/l, trace LE edema b/l I/O: I/O last 3 completed shifts: In: 2555.83 [P.O.:1620; I.V.:935.83] Out: 4822 [Urine:4350; Blood:472] A/P: Meri Terrell is a 28 year old on PPD# 1 s/p , with complicated by preeclampsia with severe features. Preeclampsia with severe features - BP: normal range since 2255 yesterday - UOP: adequate, strict Is/Os. - Symptoms: Denies - HELLP labs ordered, will follow-up repeat - Mag sulfate for seizure prophylaxis: 2g/hr, continue for 24 hours - Next clinical mag check at 1930 - Nifedipine halted Headache Likely caffeine withdrawal versus COVID versus low sleep. Less likely 2/2 pre-e. - PRN Ibuprofen, Tylenol as previously scheduled - Will add PRN Benadryl/Reglan x1 if headache worsens. - Patient to try some coffee after a nap : routine care Cinthia Beck MD PGY-1 06/07/24 3:20 PM * Cinthia Beck MD - 06/07/2024 11:[address] [facility] Magnesium Check Note S: Patient is feeling better. Denies headache, vision changes/spots in vision, chest pain, shortness of breath, RUQ or epigastric pain. No worsening edema. O: Patient Vitals for the past 4 hrs: BP Temp Temp src Pulse Resp SpO2 06/07/24 1029 97/53 -- -- 78 -- 98 % 06/07/24 0900 108/75 97.6 ??F (36.4 ??C) Oral 86 16 99 % 06/07/24 0809 109/74 98.1 ??F (36.7 ??C) Oral 74 18 100 % 06/07/24 0803 -- -- -- -- -- 98 % Gen: NAD, resting comfortably in bed. CV: RRR, no murmurs Pulm: CTAB, no wheezes or crackles Abd: Soft, non-tender Ext: Patellar and biceps reflexes 0+ b/l, absent clonus b/l, trace LE edema b/l I/O: I/O last 3 completed shifts: In: 220 [P.O.:220] Out: 2772 [Urine:2300; Blood:472] A/P: Meri Terrell is a 28 year old on PPD# 1 s/p , with complicated by preeclampsia with severe features. Preeclampsia with severe features - BP: normal range since 2255 yesterday - UOP: adequate, strict Is/Os. - Symptoms: Denies - HELLP labs ordered, will follow-up repeat - Mag sulfate for seizure prophylaxis: 2g/hr for now, given diminished reflexes will order Mag level and follow-up - Next clinical mag check at 1530 - Nifedipine halted : routine care Cinthia Beck MD PGY-1 06/07/24 11:37 AM * Luís Torres MD - 06/07/2024 8:04 AM CDT Images from the original note were not included. Anesthesia Post- Follow-Up Note After with Epidural Patient: Meri Terrell Patient location: Post- floor. Anesthesia type: Epidural Subjective: She denies weakness, denies paresthesia, denies difficulties breathing or voiding, denies nausea orvomiting, and denies headache. She does not complain of pruritis at this time. She is able to ambulate. She does tolerate regular diet. Objective: Respiratory Function (RR / SpO2 / Airway Patency): Satisfactory Cardiac Function (HR / Rhythm / BP): Satisfactory Strength and sensation lower extremities: Normal Site of epidural insertion: No signs of infection or inflammation. Last Vitals: BP 108/75 (BP Location: Left arm, Patient Position: Semi-De La Rosa's, Cuff Size: Adult Regular) Pulse 86 Temp 36.4 ??C (97.6 ??F) (Oral) Resp 16 Wt 72.1 kg (159 lb) LMP 10/04/2023(Approximate) SpO2 99% Unknown BMI 27.29 kg/m?? Assessment and plan: Meri Terrell is a 28 year old female post- #1 s/p with epidural for labor analgesia. This successfully provided labor analgesia. The patient delivered via and the epidural catheter was removed immediately thereafter by the L&D RN with the catheter tip in tact per chart review. At this time, there is no evidence of adverse side effects associated with the insertion or removalof the epidural catheter. If the patient develops new lower extremity paresis or paresthesias; or if there are concerns regarding the insertion site of the catheter, please reach out to the Dept of Anesthesiology. Thank you for including us in the care of this patient. Luís Torres MD Senior Publications Specialist, CA-2, PGY-3 Associated attestation - Keisha Villalba MD - 06/07/2024 4:37 PM CDT Physician Attestation I agree with the information in this note. Keisha Villalba MD * [place] MD - 06/07/2024 6:[address] [facility] Post- Progress Note Name: Meri Terrell S: Patient was diagnosed with COVID and Pre-E with severe features last night. Pain well controlled, no longer has RUQ pain. Tolerating regular diet without nausea or vomiting. Ambulating without dizziness. Lochia at the level of the period. Infant in NICU. No RUQ, headache, vision changes, chest pain, dyspnea, lower extremity edema. Has some cough and congestion. O: Patient Vitals for the past 24 hrs: BP Temp Temp src Pulse Resp SpO2 Weight 06/07/24 09 108/75 97.6 ??F (36.4 ??C) Oral 86 16 99 % -- 06/07/24 0809 109/74 98.1 ??F (36.7 ??C) Oral 74 18 100 % -- 06/07/24 0803 -- -- -- -- -- 98 % -- 06/07/24 0700 111/74 -- -- 79 18 99 % -- 06/07/24 0600 96/61 -- -- 77 18 98 % -- 06/07/24 0500 109/73 -- -- 80 19 97 % -- 06/07/24 0405 127/82 98.1 ??F (36.7 ??C) Oral 88 18 98 % -- 06/07/24 0343 118/72 -- -- -- -- 99 % -- 06/07/24 0243 120/70 -- -- -- -- 98 % -- 06/07/24 0214 -- 98.3 ??F (36.8 ??C) Oral -- -- 98 % -- 06/07/24 0045 -- 100.3 ??F (37.9 ??C) Oral -- -- 97 % -- 06/07/24 0040 107/62 -- -- -- -- 98 % -- 06/07/24 0010 106/59 -- -- -- -- 98 % -- 06/07/24 0005 -- -- -- -- -- -- 72.1 kg (159 lb) 06/06/24 2335 123/69 (!) 101.6 ??F (38.7 ??C) Oral -- 22 97 % -- 06/06/24 2325 127/75 -- -- -- -- 97 % -- 06/06/24 2315 124/76 -- -- -- -- 97 % -- 06/06/24 2305 133/79 (!) 102 ??F (38.9 ??C) Oral -- 20 98 % -- 06/06/24 2255 139/86 -- -- -- -- 97 % -- 06/06/242224 (!) 178/110 98.3 ??F (36.8 ??C) Oral -- 20 100 % -- 06/06/242144 (!) 150/90 -- -- -- -- 99 % -- 06/06/242129 (!) 152/94 -- -- -- -- 98 % -- 06/06/242114 (!) 143/90 -- -- -- -- 99 % -- 06/06/242103 (!) 146/88 -- -- -- -- 98 % -- 06/06/242044 (!) 141/74 -- -- -- -- 97 % -- 06/06/241999 -- 98.8 ??F (37.1 ??C) Oral -- -- 98 % -- 06/06/24 1943 126/76 -- -- -- -- -- -- 06/06/24 1857 103/65 -- -- -- -- -- -- 06/06/24 184 107/61 -- -- -- -- -- -- 06/06/241829 -- 98.2 ??F (36.8 ??C) Oral -- -- -- -- 06/06/247 104/58 -- -- -- -- -- -- 06/06/241807 114/74 -- -- -- -- -- -- 06/06/241804 -- -- -- -- -- 97 % -- 06/06/241801 118/71 -- -- -- -- -- -- 06/06/24 1800 -- -- -- -- -- 97 % -- 06/06/241756 115/67 -- -- -- -- -- -- 06/06/24 175 117/69 -- -- -- -- -- -- 06/06/24 1747 120/73 -- -- -- -- -- -- 06/06/24 1744 118/71 -- -- -- -- -- -- 06/06/24 1738 122/77 -- -- -- -- -- -- 06/06/24 1732 119/77 -- -- -- -- -- -- 06/06/241729 -- -- -- -- -- 98 % -- 06/06/24 172 121/72 -- -- -- -- -- -- 06/06/24 1725 125/69 -- -- -- -- 98 % -- 06/06/24 172 112/74 -- -- -- -- -- -- 06/06/24 1720 118/71 -- -- -- -- 99 % -- 06/06/24 1718 121/74 -- -- -- -- -- -- 06/06/24 1716 122/73 -- -- -- -- -- -- 06/06/24 1715 125/76 -- -- -- -- 98 % -- 06/06/24 1710 116/77 -- -- -- -- 99 % -- 06/06/24 1708 119/77 -- -- -- -- -- -- 06/06/24 1705 119/80 -- -- -- -- 99 % -- 06/06/24 1700 -- -- -- -- -- 100 % -- 06/06/24 1659 138/89 -- -- -- -- -- -- 06/06/24 1655 -- -- -- -- -- 99 % -- 06/06/24 1650 -- -- -- -- -- 100 % -- 06/06/24 1645 -- -- -- -- -- 100 % -- 06/06/24 1640 -- -- -- -- -- 100 % -- 06/06/24 1610 -- -- -- -- -- 99 % -- 06/06/24 1518 119/86 98.3 ??F (36.8 ??C) Oral -- 20 -- -- 06/06/24 1208 106/71 98.2 ??F (36.8 ??C) Oral -- 16 -- -- Gen: Resting comfortably, NAD CV: RRR, well perfused, no mumurs Pulm: Non-labored breathing on room air, lungs clear to auscultation bilaterally Abd: Soft, appropriately ttp, non-distended.Fundus below the level of the umbilicus, firm and non-tender. Ext: non-tender, trace edema to bilateral lower extremities. 2+ patellar reflexes bilaterally. I/O last 3 completed shifts: In: 120 [P.O.:120] Out: 550 [Urine:500; Blood:50] Hgb: Hemoglobin Date Value Ref Range Status 06/06/2024 11.8 11.7 - 15.7 g/dL Final Assessment/Plan: Meri Terrell 28 year old on PPD #1 s/p . Doing well postoperatively # management Pain: Well-controlled with ibuprofen, tylenol PRN GI: PRN bowel regimen, anti-emetics : Voiding spontaneously Hgb: 11.8>EBL 472 ml> AM Hemoglobin pending. Asymptomatic from blood loss anemia; will discharge with oral iron if <10. Rh: Positive Rubella: immune Feed: Infant in NICU, mother with COVID BC: Desires interval tubal. Discussed recommended spacing of 18 months. PPx: Encourage ambulation, IS, SCDs while confined to bed # ICP - LFTs elevated Will trend LFTs today # Pre-E with SF due to SRBP - SRBP, s/p labetalol 20 mg 2238 - now with normal range blood pressures - D#1 nifedipine 30 mg - HELLP labs with elevated LFTs, unchanged from baseline with ICP, will follow up repeat LFTs today # COVID-19 # Fever, CP, dyspnea - UA unremarkable - CXR with trace bilateral pleural effusions - Will follow blood culture Dispo: Anticipate discharge home on PPD#2-3 Cinthia Beck MD PGY-1 06/07/24 6:23 AM Appreciate note by Dr. Beck. Patient has been seen and examined by me separate from the resident, agree with above note. Has headache this morning. BP now low, elevation possibly related to acute COVID presentation. Will stop nifedipine now. Continue to monitor BP closely. Repeat LFTs pending- elevated from ICP. Viry Patel MD 10:12 AM * Cody Elliott RN - 06/07/2024 4:45 AM CDT Pt arrived on unit via wheelchair @[id number]. Baby is in NICU. Report received from transferring Gail GONZALES @[id number]. Belongings transferred to room. Pt oriented tosurroundings, call light within reach. * Janice Patel MD - 06/06/2024 11:53 PM CDT Brief note Pt reports onset of headache, blurred vision and chills with inability to get warm a few hours after delivery. COVID and flu tests were ordered. BP had been elevated since delivery and ultimately shehad sustained severe range Bps. We discussed diagnosis of severe preeclampsia and recommendation for treatment with IV antihypertensive and IV magnesium and she was amenable. BP improved after IV labetalol 20 mg and IV magnesium (4g load>2g/h) was initiated. Shortly thereafter pt febrile with Tmax 102 and subsequent temperature 101.6 After initial fever she was re-evaluated and reported her headache and vision changes were improving. Overall felt better but at that time had started feeling very warm/flushed. No abdominal pain. On exam lungs clear, abdomen soft, non-tender, non-distended. Pt mildly tachycardic. No localizing s/sx of infection. After repeat temperature remained elevated, ordered bcx, urinalysis and CXR for broader infectious work up. Will initiate treatment for endometritis though exam not overly concerning for this diagnosis. Still awaiting covid/flu results. Pt remains on IV magnesium. Plan to monitor fever curve and lab results and continue abx x24 hours unless an alternate source is identified. BP 123/69 Temp (!) 101.6 ??F (38.7 ??C) (Oral) Resp 22 LMP 10/04/2023 (Approximate) SpO2 97% Unknown Gen: resting comfortably in bed CV: tachycardic, regular rhythm Pulm: breathing comfortably on room air Abd: soft, non-tender, non-distended, fundus firm at umbilicus Ext: trace bilateral LE edema Pt PPD#0 after uncomplicated after induction for cholestasis of . New diagnosis of severe preE by BP criteria now on IV magnesium. Fevers of unknown origin to be worked up as above. Pt to remain on labor for now while work up on going. - f/up UA, Bcx, CXR - f/up COVID, flu - follow fever curve - continue to treat symptoms as needed - repeat HELLP in AM - continue IV magnesium therapy x24h for seizure ppx Discussed with Dr. Varun Patel MD CUSTOMER QUALITY ENGINEER PGY-3 06/06/2024 11:59 PM * Janice Patel MD - 06/06/2024 8:[address] [facility] S: Doing okay. Not feeling contractions. Feeling pressure intermittently. O: Patient Vitals for the past 4 hrs: BP Temp Temp src SpO2 06/06/24 1943 126/76 -- -- -- 06/06/24 1857 103/65 -- -- -- 06/06/24 1841 107/61 -- -- -- 06/06/24 1830 -- 98.2 ??F (36.8 ??C) Oral -- 06/06/24 1827 104/58 -- -- -- 06/06/24 1808 114/74 -- -- -- 06/06/24 1805 -- -- -- 97 % 06/06/24 1802 118/71 -- -- -- 06/06/24 1800 -- -- -- 97 % 06/06/24 1757 115/67 -- -- -- 06/06/24 1754 117/69 -- -- -- 06/06/24 1747 120/73 -- -- -- 06/06/24 1744 118/71 -- -- -- 06/06/24 1738 122/77 -- -- -- 06/06/24 1732 119/77 -- -- -- 06/06/24 1730 -- -- -- 98 % 06/06/24 172 121/72 -- -- -- 06/06/24 172 125/69 -- -- 98 % 06/06/24 172 112/74 -- -- -- 06/06/24 1720 118/71 -- -- 99 % 06/06/24 1718 121/74 -- -- -- 06/06/24 1716 122/73 -- -- -- 06/06/24 1715 125/76 -- -- 98 % 06/06/24 1710 116/77 -- -- 99 % 06/06/24 1708 119/77 -- -- -- 06/06/24 1705 119/80 -- -- 99 % 06/06/24 1700 -- -- -- 100 % 06/06/24 1659 138/89 -- -- -- 06/06/24 1655 -- -- -- 99 % 06/06/24 1650 -- -- -- 100 % 06/06/24 1645 -- -- -- 100 % 06/06/24 1640 -- -- -- 100 % FHT: Baseline 155, moderate variability, positive accelerations, recurrent variable decelerations [place]: 5-6 contractions in 10 minutes A/P: Meri Terrell is a 28 year old at 35w1d by LMP c/w 8w4d US who presents today for IOL due to cholestasis of . IOL: - s/p miso, AROM - continue to monitor for spontaneous progress - Pain management per patient request, epidural functioning well, PRN Tylenol for headache - GBS unknown, adequately tx on PCN - PPH: standard meds ICP - Continue PRN ursodiol - Bile acids pending - AST/ALT elevated, repeat LFTs pending this PM FWB: - Category II FHT with recurrent variables. Continues to make progress in labor. Continue to monitor given moderate variability and good progress. Continue position changes. IUPC placed and will initiate amnioinfusion. - Continuous monitoring Janice Patel MD CUSTOMER QUALITY ENGINEER PGY-3 06/06/2024 8:20 PM * Soni Bond MD - 06/06/2024 7:22 PM CDT S: comfortable with epidural. More itchy. O: Vitals: 06/06/24 1827 06/06/24 1830 06/06/24 1841 06/06/24 1857 BP: 104/58 107/61 103/65 Resp: Temp: 98.2 ??F (36.8 ??C) TempSrc: Oral SpO2: Cervix: 4.5/60/-2 FHT: cat 1. Baseline 150 w/ accels to 165. Occ early decels. \ A/p: IOL for ICP. Anticipate . Continue PCN for GBS unknown. Ursodiol for ICP Soni Bond MD, FACOG (she/her/hers) Help Desk Assistant Department of Forest Pathologist/Women's Health [facility] [employer] [place] [facility] [address] [place] [address] [email or web address] p. [phone] f. [phone] * Cinthia Beck MD - 06/06/2024 4:13 PM CDT Brief Labor Progress Note Called to patient room due to prolonged deceleration. Patient resting on her left side. IV fluid bolus started. Tracing improved with position changes. Patient requesting epidural at this time due tofrequent painful contractions. Feeling more pressure. Will not give any further misoprostol. Will page anesthesia OB resident. Category II tracing: Baseline 150 bpm, moderate variability, positive accelerations, deceleration from 2842-8328. [place]: 4-5 contractions per 10 minutes Continue continuous monitoring, follow fluid responsiveness. Cinthia Beck MD PGY-1 06/06/24 4:18 PM * Cinthia Beck MD - 06/06/2024 2:[address] [facility] Labor Progress Note S: Patient reports continued RUQ pain. She is feeling lower abdominal crampy pain with contractions. No VB or LOF. O: Patient Vitals for the past 4 hrs: BP Temp Temp src Resp 06/06/24 1208 106/71 98.2 ??F (36.8 ??C) Oral 16 SVE: 3/50/-2, membranes intact FHT: Baseline 140, moderate variability, positive accelerations, absent decelerations [place]: 3-4 contractions in 10 minutes A/P: Meri Terrell is a 28 year old at 35w1d by LMP c/w 8w4d US who presents today for IOL due to cholestasis of . Labor: - Cervix 3/50/-2, membranes intact. - Plan: Will give 1x miso, start PCN and then plan for AROM in 4 hours after PCN start. Can consider pitocin at that time pending contraction pattern. - Pain: Epidural per patient request - GBS unknown, PCN starting soon - PPH: standard meds ICP - Continue PRN ursodiol - Elevated LFTs, bile acids pending - Repeat LFTs at 1999 FWB: - Category I FHT - Continuous monitoring Cinthia Beck MD PGY-1 06/06/24 2:42 PM * Cinthia Beck MD - 06/06/2024 12:[address] [facility] [place]/FHR Strip Review Note S: Patient reporting a headache per RN, which she attributes to poor sleep at night O: Patient Vitals for the past 4 hrs: BP Temp Temp src Resp 06/06/24 1208 106/71 98.2 ??F (36.8 ??C) Oral 16 FHT: Baseline 140, moderate variability, positive accelerations, no decelerations [place]: 1-2 contractions in 10 minutes A/P: Meri Terrell is a 28 year old at 35w1d by LMP c/w 8w4d US who presents today for IOL due to cholestasis of . IOL: - Cervical ripening ongoing with miso (s/p 2x), balloon PRN - Pain management per patient request, PRN Tylenol for headache - GBS unknown, PCN prior to AROM/pit - PPH: standard meds ICP - Continue PRN ursodiol - Elevated LFTs, bile acids pending - Repeat LFTs in AM FWB: - Category I FHT - Continuous monitoring Cinthia Beck MD PGY-1 06/06/24 12:20 PM documented in this encounter H&P Notes * Soni Bond MD - 06/06/2024 8:05 AM CDT [facility] Obstetrics History and Physical Meri Terrell Date of : 1995 Age: [age] year old Date of Admission: 06/06/2024 HPI: Meri Terrell is a 28 year old at 35w1d by LMP c/w 8w4d US who presents today for IOL due to cholestasis of . She reports that the cholestasis causes her RUQ pain and itching. In the past week she has also noticed chest pain, dyspnea, and cough. This has otherwise been uncomplicated, with no diabetes, HTN, or other concerns. notable for: - IOL for cholestasis of - MDD/anxiety - currently not on medications Her previous pregnancies were notable for cholestasis of , with symptoms resolving almost immediately after delivery. Her deliveries were uncomplicated vaginal deliveries, with babies around5 lb range. She has a history of depression. Denies history of hemorrhage, ludwin ulder dystocia, pre-eclampsia. No history of asthma or high blood pressure. She reports good movement. Denies LOF, vaginal bleeding, or contractions. She denies fever, chills, palpitations, N/V, LE swelling/tenderness. No concerns for headache, vision changes. OB History: OB History Para Term AB Living 4 2 0 2 1 2 SAB IAB Ectopic Multiple Live Births 1 0 0 0 2 # Outcome Date GA Lbr Mark/2nd Weight Sex Type Anes PTL Lv 4 Current 3 SAB 2022 SAB 2 08/18/21 36w0d M Vag-Spont ARACELI 1 02/03/18 36w4d M Vag-Spont ARACELI Past Medical History: Past Medical History: Diagnosis Date Liver disease Past Surgical History: Past Surgical History: Procedure Laterality Date DILATION AND CURETTAGE SUCTION N/A 04/17/2023 Procedure: SUCTION DILATION AND CURETTAGE; Surgeon: Sandrita Lopez MD; Location: [facility] Social History: Social History Tobacco Use Smoking status: Never Smokeless tobacco: Never Substance Use Topics Alcohol use: Not Currently Family History: History reviewed. No pertinent family history. Immunizations: Immunization History Administered Date(s) Administered COVID-19 Monovalent 18+ (Moderna) 12/29/2020, 06/09/2021 Influenza Vaccine >6 months,quad, PF 09/02/2017 TDAP (Adacel,Boostrix) 12/30/2017, 07/18/2021 Allergies: Allergies Allergen Reactions Zoloft [Sertraline] Hallucinations Medications: Medications Prior to Admission Medication Sig Dispense Refill Last Dose acetaminophen (TYLENOL) 325 MG tablet Take 3 tablets (975 mg) by mouth every 6 hours as needed for mild pain 50 tablet 0 Unknown ibuprofen (ADVIL/MOTRIN) 800 MG tablet Take 1 tablet (800 mg) by mouth every 6 hours as needed for other (mild and/or inflammatory pain) 30 tablet 0 Unknown omeprazole (PRILOSEC OTC) 20 MG EC tablet Take 20 mg by mouth daily. 06/06/2024 ursodiol (ACTIGALL) 300 MG capsule Take 300 mg by mouth 2 times daily. 06/06/2024 Review of Systems & Physical Exam: The Review of Systems is negative other than noted in the HPI BP 119/60 Temp 98.3 ??F (36.8 ??C) (Oral) Resp 18 LMP 10/04/2023 (Approximate) No Gen: NAD, resting comfortably while sitting. CV: RRR, nl S1/S2, no murmurs/clicks/gallops Lungs: CTAB, non-labored breathing Abd: Gravid, minimal tenderness to RUQ, non-distended Ext: No peripheral extremity edema Cervix: 1.5/50/-3 Membranes: Intact Presentation: Cephalic by BSUS Estimated Weight: 57th percentile; 2183 g on 05/29/24 ultrasound. FHT: Monitoring External FHT: Baseline 140 bpm; moderate variability; accels present; absent decelerations TOCO Irritability, 0-1 contractions in 10 minutes Data: Lab Results: Outside records pending. A positive. GTT normal. VZV, Rubella immune. Hep B non- immune. HIV/HCV/HBV/Syphilis/Chlamydia/Gonorrhea negative. GBS Status: Unknown, pending Assessment and Plan: Meri Terrell is a 28 year old at 35w1d by LMP c/w 8w4d admitted for IOL. notablefor cholestasis of Induction of Labor - Admit for IOL in the setting of cholestasis - Cervix: 1.5/50/-3 - Cervical ripening: miso, PRN balloon - Membranes: intact - Augmentation: AROM, pit PRN - Labs: CBC, T&S, RPR - GBS unknown, pending; Antibiotics indicated - Pain Control: Per patient request; Discussed options - Vistaril for therapeutic sleep PRN - Desires epidural in active labor. 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 Varun Beck MD PGY-1 06/06/24 now [facility] staff: Appreciate note by Dr. Beck. I have seen and examined the patient without the resident. I have reviewed, edited, and agree with the note. Soni Bond MD, FACOG 06/06/2024 10:57 AM documented in this encounter Consult Notes * Jolie Voss MD - 06/10/2024 8:38 AM CDTAssociated Order(s): GI HEPATOLOGY ADULT IP CONSULT Images from the original note were not included. HEPATOLOGY CONSULTATION Date of Admission: 06/06/2024 Requesting physician: Soni Bond, * Reason for Consultation: Increased aminotransferases ASSESSMENT AND RECOMMENDATIONS: Assessment: Meri Terrell 28-year-old (week 35) on PPD#4 s/p spontaneous vaginal delivery. During this , she was diagnosed with mild intrahepatic cholestasis of (ICP, BA 31 and pruritus at delivery induction) and preeclampsia with severe features. Hepatology was consulted due to elevated aminotransferases despite vaginal delivery. AST and ALT have slowly but progressively increased, with ALT now at 81 and AST at 107. Alkaline phosphatase is mildly elevated at 158, while total bilirubin remains within normal limits. A recent ultrasound on admission showed no hepatic or biliary abnormalities. The elevated aminotransferases are likely due to preeclampsia with severe features, with a possible contribution from a recent COVID-19 infection (tested positive 06/07) and ICP. The aminotransferases elevation in preeclampsia could peak up to 4-5 days post-. Although other etiologies should be considered, given the mild elevation and gradual p rogression, adequate recovery is expected. # Elevated aminotransferases, hepatocellular pattern # Preeclampsia with severe features Initial hepatotrophic viral etiologies, including hepatitis A, B, and C, were negative. There is noevidence of hepatitis B immunity. Her bile acid levels on June 06 was 31. Recommendations -Order KEYLA, smooth muscle antibody and total IgG, repeat bile acid levels. -Order CMV, EBV viral load. Hepatitis E. Pending hepatitis A IgM. - Repeat LFTs daily, until peak. - Would recommend hepatitis B vaccination as there is no evidence of immunity. Thank you for involving us in this patient's care. Please do not hesitate to contact the GI servicewith any questions or concerns. Pt care plan discussed with Dr. Voss, GI staff physician. Thaddeus Pringle MD PGY-4 Gastroenterology Fellow [phone] ATTENDING NOTE HEPATOLOGY I discussed this patient with the fellow and participated in the decision making. I agree with the fellow's note. Jolie Voss MD History of Present Illness: Meri Terrell 28-year-old (week 35) on PPD#4 s/p spontaneous vaginal delivery. During this , she was diagnosed with mild intrahepatic cholestasis of (ICP, BA 31 and pruritus at delivery induction) and preeclampsia with severe features. Hepatology was consulted due to elevated aminotransferases despite vaginal delivery. AST and ALT have slowly but progressively increased, with ALT now at 81 and AST at 107. Alkaline phosphatase is mildly elevated at 158, while total bilirubin remains within normal limits. A recent ultrasound on admission showed no hepatic or biliary abnormalities. Past Medical History: Reviewed and edited as appropriate Past Medical History: Diagnosis Date Liver disease Past Surgical History: Reviewed and edited as appropriate Past Surgical History: Procedure Laterality Date DILATION AND CURETTAGE SUCTION N/A 04/17/2023 Procedure: SUCTION DILATION AND CURETTAGE; Surgeon: Sandrita Lopez MD; Location: [facility] Social History: Reviewed and edited as appropriate Social History Socioeconomic History Marital status: Spouse name: Not on file Number of children: Not on file Years of education: Not on file Highest education level: Not on file Occupational History Not on file Tobacco Use Smoking status: Never Smokeless tobacco: Never Substance and Sexual Activity Alcohol use: Not Currently Drug use: Never Sexual activity: Yes Partners: Male control/protection: None Other Topics Concern Not on file Social History Narrative Not on file Social Determinants of Health Financial Resource Strain: Low Risk (06/06/2024) Financial Resource Strain Within the past 12 months, have you or your family members you live with been unable to get utilities (heat, electricity) when it was really needed?: No Food Insecurity: Low Risk (06/06/2024) Food Insecurity Within the past 12 months, did you worry that your food would run out before you got money to buy more?: No Within the past 12 months, did the food you bought just not last and you didn???t have money to getmore?: No Transportation Needs: Low Risk (06/06/2024) Transportation Needs Within the past 12 months, has lack of transportation kept you from medical appointments, getting your medicines, non-medical meetings or appointments, work, or from getting things that you need?: No Physical Activity: Not on file Stress: Not on file Social Connections: Socially Integrated (05/11/2023) [facility] Frequency of Communication with Friends and Family: 0 Interpersonal Safety: Low Risk (06/06/2024) Interpersonal Safety Do you feel physically and emotionally safe where you currently live?: Yes Within the past 12 months, have you been hit, slapped, kicked or otherwise physically hurt by someone?: No Within the past 12 months, have you been humiliated or emotionally abused in other ways by your partner or ex-partner?: No Housing Stability: High Risk (06/06/2024) Housing Stability Do you have housing? : No Are you worried about losing your housing?: No Family History: Reviewed and edited as appropriate History reviewed. No pertinent family history. No known history of colorectal cancer, liver disease, or inflammatory bowel disease. Allergies: Reviewed and edited as appropriate Allergies Allergen Reactions Zoloft [Sertraline] Hallucinations Medications: Medications Prior to Admission Medication Sig Dispense Refill Last Dose omeprazole (PRILOSEC OTC) 20 MG EC tablet Take 20 mg by mouth daily. 06/06/2024 [DISCONTINUED] acetaminophen (TYLENOL) 325 MG tablet Take 3 tablets (975 mg) by mouth every 6 hoursas needed for mild pain 50 tablet 0 Unknown [DISCONTINUED] ibuprofen (ADVIL/MOTRIN) 800 MG tablet Take 1 tablet (800 mg) by mouth every 6 hoursas needed for other (mild and/or inflammatory pain) 30 tablet 0 Unknown [DISCONTINUED] ursodiol (ACTIGALL) 300 MG capsule Take 300 mg by mouth 2 times daily. 06/06/2024 Review of Systems: A complete 10 point review of systems was performed and is negative except as noted in the HPI Physical Exam: BP 120/81 Pulse 80 Temp 97.7 ??F (36.5 ??C) (Oral) Resp 16 Wt 66.2 kg (145 lb 15.1 oz) LMP 10/04/2023 (Approximate) SpO2 98% Unknown BMI 25.05 kg/m?? Wt: Wt Readings from Last 2 Encounters: 06/10/24 66.2 kg (145 lb 15.1 oz) 04/17/23 57.6 kg (127 lb) Constitutional: No acute distress, resting comfortably in bed Eyes: Sclera anicteric Ears/nose/mouth/throat: Moist mucus membranes, hearing intact Neck: supple CV: No edema Respiratory: Breathing comfortably on room air Abd: Soft, nontender, nondistended, bowel sounds present Skin: warm, perfused, no jaundice Neuro: AAO x 3 Psych: Normal affect MSK: No gross deformities Data: Labs and imaging below were independently reviewed and interpreted BMP Recent Labs Lab 06/09/24 1600 06/08/24 0803 06/07/24 1159 06/06/24222006/06/24926 NA 134* -- -- -- 137 POTASSIUM 4.5 -- -- -- 3.9 CHLORIDE 101 -- -- -- 103 EDUARDO 9.1 -- -- -- 8.3* CO2 18* -- -- -- 20* BUN 12.6 -- -- -- 5.8* CR 0.47* 0.49* 0.53 0.69 0.46* GLC 98 -- -- -- 76 CBC Recent Labs Lab 06/08/24 0803 06/07/24 1159 06/07/24 0754 06/06/24222006/06/24926 WBC 7.4 7.8 -- 10.9 7.0 RBC 3.81 3.70* -- 4.31 3.93 HGB 10.4* 10.2* < > 11.8 10.8* HCT 31.3* 29.9* -- 35.3 31.7* MCV 82 81 -- 82 81 MCH 27.3 27.6 -- 27.4 27.5 MCHC 33.2 34.1 -- 33.4 34.1 RDW 12.6 12.2 -- 12.1 12.0 PLT 208 206 -- 222 208 < > = values in this interval not displayed. INRNo lab results found in last 7 days. LFTs Recent Labs Lab 06/09/24 1600 06/09/24 0822 06/08/24 1401 06/08/24 0803 06/06/24222006/06/24926 ALKPHOS 158* 153* 148 -- -- -- 139 AST 107* 106* 99* 107* 92* < > 56* ALT 281* 281* 272* 274* 237* < > 203* BILITOTAL 0.2 0.2 0.4 -- -- -- 0.4 PROTTOTAL 6.7 6.6 7.0 -- -- -- 6.8 ALBUMIN 3.3* 3.4* 3.4* -- -- -- 3.5 < > = values in this interval not displayed. MELD Computed MELD 3.0 unavailable. One or more values for this score either were not found within the given timeframe or did not fit some other criterion. Computed MELD-Na unavailable. One or more values for this score either were not found within the given timeframe or did not fit some other criterion. PANCNo lab results found in last 7 days. Imaging: US Abdomen Complete Order: [id number] Impression 1. Prominent spleen at the upper limits of normal measuring 12.8 cm. 2. Normal gallbladder and bile ducts. 3. No hydronephrosis. Narrative For Patients: As a result of the Cures Act, medical imaging exams and procedure reports are released immediately into your electronic medical record. You may view this report before yourreferring provider. If you have questions, please contact your health care provider. EXAM: US ABDOMEN COMPLETE LOCATION: [facility] DATE: 11/12/2023 INDICATION: Right upper quadrant pain COMPARISON: None. TECHNIQUE: Complete abdominal ultrasound. FINDINGS: GALLBLADDER: Normal. No gallstones, wall thickening, or pericholecystic fluid. Negative sonographicMurphy's sign. BILE DUCTS: No biliary dilatation. The common duct measures 3 mm. LIVER: Normal parenchyma with smooth contour. No focal mass. RIGHT KIDNEY: Normal size. Normal echogenicity with no hydronephrosis or mass. LEFT KIDNEY: Normal size. Normal echogenicity with no hydronephrosis or mass. SPLEEN: Borderline spleen size at 12.8 cm. PANCREAS: The visualized portions are normal. AORTA: Normal in caliber. IVC: Normal where visualized. Endoscopy: NA * Carlene Delarosa MSW - 06/07/2024 10:36 AM CDTAssociated Order(s): SOCIAL WORK IP CONSULT Social Work Initial Consult General Information Assessment completed with: Meri Terrell Type of visit: Initial Assessment Reason for Consult: NICU Admission *This assessment was completed over the phone due to patient being positive for COVID-19. Communication Assessment: Spoken Language-Yemeni Living Environment: Meri reports that she resides with her Rl and their two other children who are 6.6 and 3 years old in [place], [place]. Family/Support Factors Meri reports that her is a large part of her support network and is at home currently withtheir other children, but has been at the hospital supporting her as well. Meri reports she does not have family in the area, but they do have a network of friends that are a good support for them. Community Resources: Meri reports she does not utilize any community resources and requests no assistance with baby supplies as they are well suited with resources. Employment/Financial Employment Status: Currently Employed Financial Concerns: Meri reports she is currently employed in [employer] at [employer] and has 18 weeks of paid leave. 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 Meri reports no financial stressors at this time. Insurance: Meri has insurance through her employer-->[employer]. Mental Health Status: SW facilitated conversation around mental health with Meri. Meri reports that she did experience depression with her first child and no mental health symptoms with her second,but did experience anxiety throughout her . Meri reports she has taken medication to address her anxiety symptoms but cannot remember what the medication was and is not actively taking it any longer. Meri reports not seeing any providers currently. Meri reports she started working againand felt better about mental health and feels she has a better control over it. SW did discuss difficulty of having baby in the NICU and maybe symptoms coming back around to be aware of. SW discussedfurther symptoms of PPD/Anxiety. SW inquired if Meri would like further resources for support. Meri expressed that she feels she has a good handle on her mental health as of right now. SW will continue to check in for support as needed surrounding mental health. Additional information Meri did express that she was feeling worried about having COVID and not being with her baby in the same room. Meri reports she sees her baby on the tablet, but it has been turned off a lot. SW informed Meri that the care space is usually turned off when cares are being done , but then should beturned back on. SW inquired with Meri if this is her first NICU experience or if her other children had NICU admissions. Meri reports that she her first baby spent time in the NICU , but she was able to be in the same room as him. Meri expressed her 2nd child was healthy and had no NICU admissions. Meri expressed not knowing what to do and states that it is hard being away from her baby. Meri reports she would like her baby to have gloves on his hands because he keeps putting his hand by his eye. SW informed Meri that SW will pass the message to bedside nurse to see what they can do. Meri was grateful. SW spent time with Meri validating emotions and concerns and provided active listening. *SW did pass message to Charge and they would inform bedside nurse. INTERVENTION Conducted chart review. Introduced SW role and scope of practice. Orientation to the unit (parking, lodging, meals, visitation) Conducted psychosocial assessment Validated emotions and provided supportive listening Provided SW contact info PLAN SW will continue to follow for support as needed. JOYA Srinivasan, [facility] Maternal and Child Health Back [employer] Office: [phone] After Hours Pager: [phone] [email or web address] documented in this encounter Miscellaneous Notes * Plan of Care - Kayla Darnell RN - 06/11/2024 1:00 PM CDT Problem: Hypertensive Disorders in Goal: Patient- Stabilization Intervention: Optimize Blood Pressure and Fluid Status Recent Flowsheet Documentation Taken 06/11/2024 0800 by Kayla Darnell RN Fluid/Electrolyte Management: fluids provided Intervention: Monitor and Manage Symptom Progression Recent Flowsheet Documentation Taken 06/11/2024 0800 by Kayla Darnell RN Seizure Precautions: clutter-free environment maintained Assessment complete and WDL. VSS. Pt denies headache, vision changes and RUQ pain. Pt reflexes WDL.Pt taking PRN meds for pain. Pt using breast pump and sending milk to NICU. Discharge medications given to pt and signed for. Pt registered for [facility] BP program at time of discharge. Discharge paperwork covered with pt and spouse. Discharge complete. * Note - Christina Elizondo RN - 06/11/2024 10:46 AM CDT This note was copied from a baby's chart. Follow Up Note Reason for visit/ call/ message: Day 5, Meri discharging today Supply: Pumping regularly, no concerns about supply Significant changes (medications, equipment, comfort, etc): Got spectra S2 to take home, hoping Marty will discharge soon Skin to skin/ nuzzling/ latching: attempts when visiting baby Education given: Pumping recommendations Get new symphony kit in NICU to keep in baby's room since her pump parts are in her covid iso room Plan: Meri discharging home today She is aware that is available as needed during baby's ongoing hospital stay Will check in around day 10 Elissa Elizondo, RN, IBCLC Cancer Genetics Assistant Jorge: [employer] [phone] Office: [phone] * Plan of Care - Janice Bennett RN - 06/11/2024 5:03 AM CDT Data: Vital signs within normal limits. checks within normal limits - see flow record. Patient eating and drinking normally. Patient able to empty bladder independently and is up ambulating. Action: Patient medicated during the shift for cough . See MAR. Patient reassessed after each medication and patient stated she was comfortable. See flow record. Plan: Continue to follow care plan. * Plan of Care - Babs Hernandez RN - 06/10/2024 6:58 PM CDT Goal Outcome Evaluation: Plan of Care Reviewed With: patient, spouse Overall Patient Progress: improvingOverall Patient Progress: improving Data: Vital signs within normal limits. Numerous labs drawn, awaiting results. checks within normal limits - see flow record. Patient eating and drinking normally. Patient able to empty bladder independently and is up ambulating. No apparent signs of infection. Perineum healing well. Patient performing self cares and is pumping for infant. Infrequent cough. Action: Patient denied pain and stated she would call for pain meds. See MAR. Patient reassessed within 1 hour after each medication and pain was improved - patient stated she was comfortable. Patient education done about discharge goals and plan. See flow record. Response: Positive attachment behaviors observed with , going to NICU to breastfeed/pump. Support persons and kids present. Plan: Anticipate discharge tomorrow pending labs/BP. * Note - Nela Contreras RN - 06/10/2024 9:36 AM CDT This note was copied from a baby's chart. Follow Up Note Reason for visit/ call/ message: Supportive visit/mother's day of discharge To 11th floor as mother is working on BF, Meri declines BF support at this time reports everythingis going well. Has pump for home Plan: LC team will follow up in a few days Please contact if needs arise Nela Contreras RN, IBCLC Cancer Genetics Assistant Jorge: [employer] [phone] Office: [phone] * Plan of Care - Heather Zambrano RN - 06/10/2024 6:42 AM CDT [id number] Vitals: VSS Fundus: firm, midline Lochia: scant Laceration WDL GI/: WDL, adequate voids, passing gas, has had a BM EDS: done: 13 - has met with social work Videos: not done Certificate: done Breast Pump: done Plan: GI consult today * Provider Notification - Zuleika Garner RN - 06/09/2024 5:51 PM CDT 06/09/24 5245 Provider Notification Provider Name/Title Dr Whitaker Method of Notification Electronic Page At 4550, text to Dr Mc On behalf of pt. Pt read labs on My Chart and wants to discuss further with MD. Pt requesting to know when she will be seen by GI specialist as she wants to go home tomorrow. Responses for Dr G relied back to pt - she is satisfied that a specialist will review her case and that she will be notified as soon as we know when. * Plan of Care - Zuleika Garner RN - 06/09/2024 11:23 AM CDT Goal Outcome Evaluation: Plan of Care Reviewed With: patient Overall Patient Progress: improvingOverall Patient Progress: improving * Provider Notification - Zuleika Garner RN - 06/09/2024 11:10 AM CDT 06/09/24 0815 Provider Notification Provider Name/Title Dr Micah Dimsa Method of Notification Electronic Page At 0840, notified of BP and labs were collected. At 0936, notified that lab results are in and thatpt is wanting to discuss discharge to home. * Plan of Care - Jacquie Izaguirre RN - 06/09/2024 5:54 AM CDT Goal Outcome Evaluation: Plan of Care Reviewed With: patient Overall Patient Progress: improvingOverall Patient Progress: improving VSS ex. BP 143/92 and assessments WDL. Pt states congestion headache is improving. Up adlib with steady gait and independent with cares. Watches infant on iPad. Pumping independently. Pain managed with Ibuprofen. Will continue with cares and education per plan of care. Problem: Adult Inpatient Plan of Care Goal: Plan of Care Review Description: The Plan of Care Review/Shift note should be completed every shift. The Outcome Evaluation is a brief statement about your assessment that the patient is improving, declining, or no change. This information will be displayed automatically on your shift note. Outcome: Progressing Flowsheets (Taken 06/09/2024 0553) Plan of Care Reviewed With: patient Overall Patient Progress: improving Goal: Patient-Specific Goal (Individualized) Description: You can add care plan individualizations to a care plan. Examples of Individualizationmight be: Parent requests to be called daily at 9am for status, I have a hard time hearing out of my right ear, or Do not touch me to wake me up as it startles me. Outcome: Progressing Goal: Absence of Hospital-Acquired Illness or Injury Outcome: Progressing Intervention: Prevent Skin Injury Recent Flowsheet Documentation Taken 06/09/2024 040 by Jacquie Izaguirre RN Body Position: position changed independently Taken 06/09/202429 by Jacquie Izaguirre RN Body Position: position changed independently Intervention: Prevent and Manage VTE (Venous Thromboembolism) Risk Recent Flowsheet Documentation Taken 06/09/202429 by Jacquie Izaguirre RN VTE Prevention/Management: (ambulation promoted) -- Intervention: Prevent Infection Recent Flowsheet Documentation Taken 06/09/202429 by Jacquie Izaguirre RN Infection Prevention: equipment surfaces disinfected hand hygiene promoted personal protective equipment utilized rest/sleep promoted single patient room provided Goal: Optimal Comfort and Wellbeing Outcome: Progressing Intervention: Monitor Pain and Promote Comfort Recent Flowsheet Documentation Taken 06/09/202429 by Jacquie Izaguirre RN Pain Management Interventions: (hydration promoted) relaxation techniques promoted rest Intervention: Provide Person-Centered Care Recent Flowsheet Documentation Taken 06/09/202429 by Jacquie Izaguirre RN Trust Relationship/Rapport: care explained choices provided questions answered questions encouraged reassurance provided thoughts/feelings acknowledged Goal: Readiness for Transition of Care Outcome: Progressing Problem: (Vaginal Delivery) Goal: Successful Parent Role Transition Outcome: Progressing Intervention: Support Parent Role Transition Recent Flowsheet Documentation Taken 06/09/202429 by Jacquie Izaguirre RN Supportive Measures: active listening utilized decision-making supported goal-setting facilitated relaxation techniques promoted self-care encouraged verbalization of feelings encouraged Goal: Hemostasis Outcome: Progressing Goal: Absence of Infection Signs and Symptoms Outcome: Progressing Intervention: Prevent or Manage Infection Recent Flowsheet Documentation Taken 06/09/202429 by Jacquie Izaguirre RN Infection Management: aseptic technique maintained Isolation Precautions: special precautions maintained Goal: Optimal Pain Control and Function Outcome: Progressing Intervention: Prevent or Manage Pain Recent Flowsheet Documentation Taken 06/09/202429 by Jacquie Izaguirre RN Pain Management Interventions: (hydration promoted) relaxation techniques promoted rest Problem: Hypertensive Disorders in Goal: Patient- Stabilization Outcome: Progressing * Plan of Care - Ella Peters RN - 06/08/2024 9:56 PM CDT [id number]: The patient's blood pressure was 130/88. Her pulse was 103 bpm. Temperature WNL. Lung sounds are clear. She is doing some coughing and c/o of a headache as a 5/10 on the pain scale. Ibuprofen decreased the pain, per the patient. She is pumping, and reported that her nipples are sore. Shedoes not think she has the suction up too high, and feels that the 24 mm flanges may be too small. She is going to try the 27 mm flanges with her next pump. She said she has not drank much for water in the last 24 hours, so she was given two pitchers of water in her room and was encouraged to try to remain hydrated. She had stopped measuring her voids, but a new container was placed in her toiletand she was encouraged to measure each void. Continue with support. * Plan of Care - Anna Baker RN - 06/08/2024 6:58 PM CDT Problem: Adult Inpatient Plan of Care Goal: Optimal Comfort and Wellbeing Intervention: Monitor Pain and Promote Comfort Recent Flowsheet Documentation Taken 06/08/2024 0747 by Anna Baker explosive ordnance manager Interventions: medication (see MAR) Goal Outcome Evaluation: Plan of Care Reviewed With: patient Overall Patient Progress: improvingOverall Patient Progress: improving Progressing toward outcomes. VSS. Pain managed with as needed medications. Up in room independently. Pumping for in NICU. * Note - Christina Elizondo RN - 06/08/2024 10:57 AM CDT This note was copied from a baby's chart. Admission Note Baby Information: Infant's first name: Marty Infant medical history: admitted to NICU following delivery due to hypoglycemia Alley Tender needed? 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 Had some mastitis, but otherwise no concerns or problems Mother's Information: Name: Meri Occupation: Age: 29 Delivery type: vaginal [place]: [place] Pump for home use: Spectra S2, doesn't want rental, hoping to baby's discharge from NICU relativelysoon Partner's name: Kalyani Occupation: Relevant maternal medical and social hx: Maternal past medical history, problem list and prior to admission medications reviewed and notablefor current Covid-19 infection, baby negative Relevant maternal medications: Paxlovid L3 Maternal risk factors: N/A Admission Education given: [x]Admission packet []Kangaroo care []Benefits of breast milk [x]How breast milk is made [x]Stages of milk production [x]Milk supply/ goal volumes [x]Hand expression [x]Hands-on pumping [x]Collecting, labeling, transporting milk [x]Cleaning, sanitizing pump parts [x]Storage of milk []Benefits and use of pasteurized donor human milk Meri is hoping to discharge later today, but the decision will be made based on her lab results this afternoon. She is an experienced breast feeder and does not have questions/concerns about feedingKareem. Now that she is starting to feel a little better with her Covid symptoms, she anticipates being able to pump more frequently and once baby is discharged, she will work on latching at the breast. Currently unable to visit baby in the NICU due to covid+. Elissa Elizondo RN, IBCLC Cancer Genetics Assistant Vocera: [employer] [phone] Office: [phone] * Plan of Care - Radha Ahumada RN - 06/08/2024 5:57 AM CDT Data: Vital signs within normal limits. checks within normal limits - see flow record. Patient eating and drinking normally. Patient able to empty bladder independently and is up ambulating. Action: Patient medicated during the shift for VANEGAS by previous RN Patient reassessed within 1 hour after medication and was found to be resting, presume pain was improved - patient stated she was comfortable. Pt using breat pump, milk sent to NICU. * Plan of Care - Bisi Mckeon RN - 06/07/2024 9:38 PM CDT Vital signs within normal limits. checks within normal limits. Adequate output. Denies SOB, RUQ pain, changes in vision. Headache well managed with PO meds. Normal reflexes, no clonus. Will continue to assess/assist as needed. * Note - Nela Contreras RN - 06/07/2024 3:29 PM CDT This note was copied from a baby's chart. Brief Consult Checked in with bedside RN x Meri Forman is not feeling well today and plan for pumping is unclear. LC team will follow up at a later time. Nela Contreras RN, IBCLC Cancer Genetics Assistant Jorge: [employer] [phone] Office: [phone] * Provider Notification - Meaghan Castro RN - 06/07/2024 3:13 PM CDT stated Okay to continue for now - I think she might have been flexing a bit and she's feeling well still so just gonna check a level. Lab was ordered and drawn. 06/07/24 2524 Provider Notification Method of Notification Phone * Plan of Care - Meaghan Casrto RN - 06/07/2024 2:48 PM CDT Vital signs stable and FF at U/1 with scant lochia. Pt reflexes are normal, but brisk on the right leg this afternoon after the resident text that there is no reflexes. Pt complaining of headache again and heaviness of the eyes, but no blurred vision or epigastric pain.The Tylenol helped this morning and afternoon. Pt is eating and drinking. Voiding large amount of clear urine. Medicated pt with Ibuprofen and Tylenol for pain control. Encouraged pt to call out for assistance going to the bathroom as needed and to sleep. Continue to monitor. * Plan of Care - Cody Elliott RN - 06/07/2024 4:47 AM CDT Goal Outcome Evaluation: Plan of Care Reviewed With: patient Overall Patient Progress: improvingOverall Patient Progress: improving Outcome Evaluation: VSS while on unit, assessment WDL. Pt ambulating and voiding withoutdifficulty. Pt reports mild back pain, managed with tylenol and ibuprofen. Pt denies headache, SOB,chest pain, epigastric pain, or vision changes. Lung sounds clear bilaterally, no edema on assessment, +1 reflex, absent clonus. iPad set up for baby in NICU. Special precautions maintained. Continuewith plan of care. * Plan of Care - Gail Bhandari RN - 06/07/2024 3:33 AM CDT Data: Meri Terrell transferred to [facility] 7th floor via wheelchair at 0355. Baby in NICU. Action: Receiving unit notified of transfer: Yes. Patient and family notified of room change. Report given to Madhavi GONZALES at 0335. Belongings sent to receiving unit. Accompanied by Registered Nurse. Oriented patient to surroundings. Call light within reach. Response: Patient tolerated transfer and is stable. * Provider Notification - Gail Bhandari RN - 06/07/2024 1:37 AM CDT 06/07/24 0126 Provider Notification Provider Name/Title Dr. Patel Method of Notification At Bedside Request Evaluate-Remote Notification Reason Lab Results Notification of positive COVID test and preliminary chest xray results. * Plan of Care - Gail Bhandari RN - 06/07/2024 12:02 AM CDT RN notified Dr. Patel at 2126 of pt having consistent mild range BP post delivery. Pt then notifiedRN that she is feeling cold, pt visibly shaking, temp 98.3. Pt reporting SOB, runny nose, cough, and headache. Dr. Patel at bedside to assess pt. Labs drawn, please see results tab. COVID and influenza pending. Pt had sustained severe range pressures, treated with 20 of labetalol. Magnesium PIV started (See MAR). Reflexes present but diminished, no clonus, lung sounds clear. Pt reports VANEGAS and vision changes. Pt spiked fever of [address] Patel then notified and assessed pt. Tylenol given for HAand fever (see MAR). Recheck for temp 101.6. Plan to start antibiotics (see MAR), collect blood cultures, chest xray to be completed, and UA to be collected. * L&D Delivery Note - Soni Bond MD - 06/06/2024 8:43 PM CDT OB Vaginal Delivery Note Meri Terrell Age: [age] year old Date of : 1995 GA: 35w1d GP: Labor Complications: Intolerance EBL: mL Delivery QBL: Delivery Type: Vaginal, Spontaneous ROM to Delivery Time: (Delivered) Hours: 1 Minutes: 15 Weight: 1 Minute 5 Minute 10 Minute Totals: Delivery Details: L&D Delivery Note: Meri Terrell is a 28 year old now who presented at 35w1d for IOL for cholestasis of . was notable for hepatitis B non immune status. Her IOL began with misoprostol. She was augmented with AROm. She received an epidural for pain control and was GBS unknown so was treated with PCN in labor. Labor course was complicated by development of category II tracing. She progressed to complete and pushed for about 1 minute, after which she had a spontaneous vaginal delivery of aviable male in vertex position. No nuchal cord was noted. Apgars and weight pending. The cord was double clamped after 60 seconds and cut. A cord segment and cord blood were obtained. 30U of IV pitocin was started. The placenta was then delivered using gentle traction and suprapubic pressure. The uterus was noted to be firm after fundal massage. The perineum was assessed for lacerations and none were noted. On final examination of the perineum, the repair was noted to be hemostatic. Total QBL was 50 cc. The placenta appeared intact with a 3V umbilical cord. Dr. Bond was present for the entire procedure. Janice Patel MD CUSTOMER QUALITY ENGINEER PGY-3 06/06/2024 8:45 PM Staff: I was scrubbed and present for entire case and agree w/ above note. Soni Bond MD Bertrand Terrell [[id number]] Rupture date/time: 06/06/241914 Rupture type: Artificial Rupture of Membranes Fluid color: Clear Induction: Misoprostol Induction date/time: Cervical ripening date/time: Augmentation: AROM Delivery/Placenta Date and Time Delivery Date: 06/06/24 Delivery Time: 8:30 PM Placenta Date/Time: 06/06/2024 8:35 PM Oxytocin given at the time of delivery: after delivery of baby Apgars Living status: Living 1 Minute 5 Minute 10 Minute 15 Minute 20 Minute Skin color: Heart rate: Reflex irritability: Muscle tone: Respiratory effort: Total: Cord Cord Complications: None [place] Resuscitation Methods: None [place] Care at Delivery: NICU team called on behalf of Dr Bond for the vaginal delivery of a late (35 1/7 weeks) and category II heart rate tracing. cried immediately after his and became vigorous on his mother's abdomen. The remained vigorous. NICU teamwas dismissed. No charge. Ashley Campos APRN, SALES SUPPORT SPECIALIST 06/06/2024 8:34 PM Labor Events and Shoulder Dystocia Tracing Prior to Delivery: Category 2 Delivery (Maternal) (Provider to Complete) ([id number]) Episiotomy: None Perineal lacerations: None Blood Loss Mother: Meri Terrell #[id number] Start of Mother's Information Delivery Blood Loss 06/06/24 0830 - 06/06/242042 None End of Mother's Information Mother: Meri Terrell #[id number] Delivery - Provider to Complete ([id number]) Delivery Type (Choose the 1 that will go to the History): Vaginal, Spontaneous Placenta Date/Time: 06/06/2024 8:35 PM Removal: Expressed Disposition: Hospital disposal Anesthesia Method: Epidural Presentation and Position Presentation: Vertex Janice Patel MD * Plan of Care - Linnea Ko RN - 06/06/2024 6:47 PM CDT Pt began to have stronger contractions, reported they felt like they didn't stop. Contractions every 1.5-3 minutes, palpate moderate. EFM showed four deep variables with four contractions after having occasional late decelerations. Called Dr. Patel to bedside, IV bolus started, position changed. Ptthen had moderate variability with accels. Pt requested epidural and epidural placed with good relief. EFM with recurrent lates and variables, see cat 2 note. Position changes done, IV bolus given again. EFM now with moderate variability with some periods of minimal and occasional accels, lates andvariables still present. * Plan of Care - Linnea Ko RN - 06/06/2024 6:41 PM CDT Provider notification: Provider: Dr. Jorge HEARD was notified at 1800 regarding: a persistent Category II heart rate tracing for 30 minutes. Category II Algorithm heart rate and uterine activity reviewed with provider. EFM interpretation suggests: concern for persistent Category II tracing due to: minimal variability. EFM suggests concern for interruption of the oxygen pathway due to: variable decelerations and late decelerations. Interventions to improve oxygenation for a Category II tracing include: blood pressure check,continue monitoring, IV fluid bolus , and maternal positioning After discussion with provider:Plan reassessment in 60 minutes, variability has improved to moderate. * Plan of Care - Nuha Nguyễn RN - 06/06/2024 2:01 PM CDT Data: Patient admitted to room 481 at 0715.Patient is here for IOL due to Cholestasis. Patient is [id number]. record reviewed. OB History Para Term AB Living 4 2 0 2 1 2 SAB IAB Ectopic Multiple Live Births 1 0 0 0 2 # Outcome Date GA Lbr Mark/2nd Weight Sex Type Anes PTL Lv 4 Current 3 SAB 2022 SAB 2 08/18/21 36w0d M Vag-Spont ARACELI 1 02/03/18 36w4d M Vag-Spont ARACELI . Medical History: Past Medical History: Diagnosis Date Liver disease . Gestational age 35w1d. Vital signs per doc flowsheet. movement present. Patient reports Induction Of Labor as reason for admission. Support person present. Action: RN obtained at care of patient at 0720. Verbal consent for EFM, external monitors applied. Admission assessment completed. Patient and support persons educated on labor process. Patientinstructed to report change in movement, contractions, vaginal leaking of fluid or bleeding, abdominal pain, or any concerns related to the to her nurse/physician. Patient oriented toroom, call light in reach. Response: Dr. Beck informed of patient arrival. Plan per provider is to start the IOL with oral miso. Patient verbalized understanding of education and verbalized agreement with plan. Patient copingwith labor when the contractions grow in intensity is an epirdural. documented in this encounter Plan of Treatment Scheduled Referrals Name Type Priority Associated Diagnoses Orde r Schedule Home Care Referral Referral Routine: Next available opening Severe pre-eclampsia, antepartum Ordered: 06/08/2024 documented as of this encounter Procedures Procedure Name Priority Date/Time Associated Diagnosis Comments EXTRA TUBE Routine 06/11/2024 9:39 AM CDT EXTRA PURPLE TOP TUBE Routine 06/11/2024 9:39 AM CDT HEPATIC FUNCTION PANEL Routine 9:39 AM CDT IVY MATHEWS VIRUS QUANTITATIVE PCR, PLASMA Routine 06/10/2024 2:52 PM CDT MITOCHONDRIAL M2 ANTIBODY IGG Routine 06/10/2024 2:52 PM CDT ANCA IGG BY IFA WITH REFLEX TO TITER Routine 06/10/2024 2:52 PM CDT HEPATITIS E ANTIBODY IGM Routine 06/10/2024 2:52 PM CDT BILE ACIDS TOTAL Routine 06/10/2024 2:52 PM CDT IGG Routine 06/10/2024 2:52 PM CDT ANTI NUCLEAR THOM IGG BY IFA WITH REFLEX Routine 06/10/2024 2:52 PM CDT F ACTIN EIA WITH REFLEX Routine 06/10/2024 2:52 PM CDT CMV QUANTITATIVE, PCR Routine 06/10/2024 2:52 PM CDT COVID-19 VIRUS (CORONAVIRUS) BY PCR STAT 06/10/2024 12:16 PM CDT EXTRA TUBE Routine 06/10/2024 11:26 AM CDT EXTRA PURPLE TOP TUBE Routine 06/10/2024 11:26 AM CDT HEPATITIS A ANTIBODY IGM STAT 06/10/2024 11:26 AM CDT COMPREHENSIVE METABOLIC PANEL STAT 06/10/2024 11:26 AM CDT HEPATITIS A ANTIBODY TOTAL Routine 06/10/2024 1:57 AM CDT HEPATITIS B SURFACE ANTIBODY Routine 06/10/2024 1:57 AM CDT HEPATITIS C ANTIBODY Routine 06/10/2024 1:57 AM CDT HEPATITIS B SURFACE ANTIGEN Routine 06/10/2024 1:57 AM CDT HEPATITIS B CORE ANTIBODY Routine 06/10/2024 1:57 AM CDT HEPATIC FUNCTION PANEL Timed 4:00 PM CDT COMPREHENSIVE METABOLIC PANEL Add-On 06/09/2024 4:00 PM CDT HEPATIC FUNCTION PANEL Routine 8:22 AM CDT AST Timed 06/08/2024 2:01 PM CDT ALT Timed 06/08/2024 2:01 PM CDT CREATININE Routine 06/08/2024 8:03 AM CDT AST Routine 06/08/2024 8:03 AM CDT ALT Routine 06/08/2024 8:03 AM CDT CBC WITH PLATELETS Routine 06/08/2024 8: 03 AM CDT MAGNESIUM STAT 06/07/2024 11:59 AM CDT CREATININE Routine 06/07/2024 11:59 AM CDT AST Routine 06/07/2024 11:59 AM CDT ALT Routine 06/07/2024 11:59 AM CDT CBC WITH [...] CDT CREATININE Routine 06/06/2024 10:21 PM CDT AST Routine 06/06/2024 10:21 PM CDT ALT Routine 06/06/2024 10:21 PM CDT CBC WITH PLATELETS Routine 06/06/2024 10 :21 PM CDT GROUP B STREP PCR Routine 06/06/2024 11: 17 AM CDT TYPE AND SCREEN, ADULT STAT 9:27 AM CDT TREPONEMA ABS W REFLEX TO RPR AND TITER STAT 06/06/2024 9:27 AM CDT BILE ACIDS TOTAL Routine 06/06/2024 9:27 AM CDT COMPREHENSIVE METABOLIC PANEL Routine 06/06/2024 9:27 AM CDT ABO/RH TYPE AND SCREEN STAT 9:27 AM CDT CBC WITH PLATELETS STAT 06/06/2024 9: 27 AM CDT documented in this encounter Results * Extra Purple Top Tube (06/11/2024 9:39 AM CDT) Hold Specimen JIC 06/11/2024 10:46 AM CDT UR LABORATORY Blood STRUCTURE OF RIGHT UPPER LIMB / Unknown Venipuncture / Unknown 06/11/2024 9:39 AM CDT 06/11/2024 9:44 AM CDT Snoi Bond MD LAB - BLOOD ORD ERABLES UR LABORATORY [facility] [address] [place] [address], [address] [id number] * (ABNORMAL) Hepatic panel (06/11/2024 9:39 AM CDT) Protein Total 7.8 6.4 - 8.3 g/dL [...] LAB - BLOOD O RDERABLES UR LABORATORY [facility] [address] [place] [address], [address] [id number] * ANCA IgG by IFA with Reflex [...] Abdullahi MD LAB - BLOOD O RDJOANN UM SPECIALTY CORE/PROT/ENDO Specialty Core/Prot/Endo [address] [facility], [address] * Mitochondrial M2 Antibody IgG (06/10/2024 2:52 PM CDT) Mitochondrial M2 Antibody IgG <1.0 <4.0 U/mL 06/12/2024 9:51 AM CDT SPECIALTY CORE/PROT/END O Comment:Negative Blood STRUCTURE OF LEFT UPPER LIMB / Unknown Venipuncture / Unknown 06/10/2024 2:52 PM CDT 06/10/2024 4:09 PM CDT Madhuri Abdullahi MD LAB - BLOOD O HUNG UM SPECIALTY CORE/PROT/ENDO Specialty Core/Prot/Endo [address] [facility], Room [address] * Hepatitis E Antibody IgM (06/10/2024 2:52 PM CDT) Hepatitis E IgM Negative Negative 1:20 PM CDT [facility] Comment: INTERPRETIVE INFORMATION: Hepatitis E Virus Ab, IgM by ROSANA This test was developed and its performance characteristics determined by [employer] [employer]. It has not been cleared or approved by the [place] Food and Drug Administration. This test was performed in a CLIA certified laboratory and is intended for clinical purposes. Performed By: [facility] [address] [place] [address] Sole Trimmer: Jaguar Laurent MD, PhD CLIA Number: [id number] Blood STRUCTURE OF LEFT UPPER LIMB / Unknown Venipuncture / Unknown 06/10/2024 2:52 PM CDT 06/10/2024 4:00 PM CDT Madhuri Abdullahi MD LAB - BLOOD O RDERABLES [facility] [employer] [address] [place] [id number], [facility] [phone] * Ivy Mathews Virus Quantitative PCR, Plasma [...] [facility] [address] [facility], Room [address] [id number] * Cytomegalovirus DNA by PCR, Quantitative (06/10/2024 [...] only. The Infectious Diseases Diagnostic Laboratory at [facility] has validated the performance characteristics of the skyler?? CMV assay for plasma and urine. Madhuri Abdullahi MD LAB - MICRO G ENERAL ORDERABLES [facility]ORAT[facility] Inf. Diseases Diag. Lab [address] [facility], [address] [phone], [facility] * Bile acids total (06/10/2024 2:52 PM CDT) Pathologist [facility] Bile Acids Total 6 0 - 10 umol/L 06/11/2024 8:46 PM CDT [employer] Comment: INTERPRETIVE INFORMATION: Bile Acids, Total Reference Interval applies to fasting specimens. Performed By: [facility] [facility] [address] [place] [address] Sole Trimmer: Jaguar Laurent MD, PhD CLIA Number: [id number] Blood STRUCTURE OF LEFT UPPER LIMB / Unknown Venipuncture / Unknown 06/10/2024 2:52 PM CDT 06/10/2024 4:00 PM CDT Madhuri Abdullahi MD LAB - BLOOD O RDERABLES [facility] [employer] [address] [place] [address], [place] [phone] * IgG (06/10/2024 2:52 PM CDT) Pathologist [facility] Immunoglobulin G 747 610 - 1,616 mg/dL 06/11/2024 11:04 AM CDT UM SPECIALTY CORE/PROT/END O Blood STRUCTURE OF LEFT UPPER LIMB / Unknown Venipuncture / Unknown 06/10/2024 2:52 PM CDT 06/10/2024 4:09 PM CDT Madhuri Abdullahi MD LAB - BLOOD O RDERABLES UM SPECIALTY CORE/PROT/ENDO UM Specialty Core/Prot/Endo [address] [facility], [address] * F Actin EIA with reflex (06/10/2024 2:52 PM CDT) [facility] F-Actin (Smooth Muscle) Ab, IgG by ROSANA 5 0 - 19 Units 06/11/2024 11:40 PM CDT [facility] [employer] Comment: If F-Actin (Smooth Muscle) Antibody, IgG [...] suspicion for AIH is strong. Performed By: [employer] [employer] [address] [place] [id number] Sole Trimmer: Jaguar Laurent MD, PhD CLIA Number: [id number] Blood STRUCTURE OF LEFT UPPER LIMB / Unknown Venipuncture / Unknown 06/10/2024 2:52 PM CDT 06/10/2024 4:00 PM CDT Madhuri Abdullahi MD LAB - BLOOD O RDERABLES [employer] [address] [place] [phone], [facility] [phone] * (ABNORMAL) Anti Nuclear Thom IgG by IFA with Reflex (06/10/2024 2:52 [...] PM CDT 06/10/2024 4:00 PM CDT Madhuri bAdullahi MD LAB - BLOOD O RDERABLES UM SPECIALTY CORE/PROT/ENDO UM Specialty Core/Prot/Endo [address] [facility] [address] [facility], Room [address] [place] [address] * (ABNORMAL) Symptomatic COVID-19 Virus (Coronavirus) by [...] the Xpert Xpress SARS-CoV-2 Assay on the [employer]. Additional information about this Emergency [...] COVID-19. This test was validated by the [facility]. This laboratory is certified under the Clinical Laboratory Improvement Amendments (CLIA) as qualified to perform high complexity laboratory testing. Rosaline Pendleton MD LAB - MICRO GENERAL ORDERABLES UR LABORATORY [facility] [address] [place] [address], [address] * Extra Purple Top Tube (06/10/2024 11:26 AM CDT) Hold Specimen JIC 06/10/2024 1:01 PM CDT UR LABORATORY Blood STRUCTURE OF RIGHT UPPER LIMB / Unknown Venipuncture / Unknown 06/10/2024 11:26 AM CDT 06/10/2024 11:50 AM CDT Soni Bond MD LAB - BLOOD ORD ERABLES UR LABORATORY [facility] [address] [place] [address], [address] * Hepatitis A antibody IgM (06/10/2024 11:26 [...] LAB - BLOOD ORDERABL ES UU LABORATORY [facility] Core Lab [address] [facility], [address] [place] [address], [facility] * (ABNORMAL) Comprehensive metabolic panel (06/10/2024 11:26 AM CDT) Sodium 134(L) 135 - 145 mmol/L 06/10/2024 [...] 12:06 PM CDT UR LABORATORY Comment:eGFR calculated us2020 CKD-EPI equation. Calcium 9.3 8.8 - 10.4 [...] LAB - BLOOD ORDERABL ES UR LABORATORY [facility] Lab [address] [facility], [address] [place] [address] * Hepatitis A Antibody Total (06/10/2024 [...] - BLOOD ORDERABL ES Performing Organization Address City/[facility]/ZIP Co de Phone Number U LABORATORY [facility] [place] [facility] [address] [facility], Room [address] [phone] * Hepatitis C antibody (06/10/2024 1:57 AM [...] - BLOOD ORDERABL ES Performing Organization Address [facility] [place]/[facility] Co de Phone Number U LABORATORY [facility] [place] [facility] Lab [address] [facility], [place] [phone] * Hepatitis B Surface Antibody (06/10/2024 [...] - BLOOD ORDERABL ES Performing Organization Address [facility] [place]/[facility] Co de Phone Number LABORATORY [facility] [place] [facility] [address] [facility], [address] [phone] * Hepatitis B core antibody (06/10/2024 1:57 [...] - BLOOD ORDERABL ES Performing Organization Address [facility] [place]/[facility] Co de Phone Number U LABORATORY [facility] [place] [facility] Lab [address] [facility], [address] [phone] * Hepatitis B surface antigen (06/10/2024 1:57 AM CDT) Pathologist [facility] Hepatitis B Surface Antigen Nonreactive Nonreactive 06/10/2024 4:46 AM CDT UU LABORATORY Blood STRUCTURE OF RIGHT HAND / Unknown Venipuncture / Unknown 06/10/2024 1:57 AM CDT 06/10/2024 2:02 AM CDT Suki Luis MD LAB - BLOOD ORDERABL ES Performing Organization Address City/[facility] Co de Phone Number LABORATORY [facility] [place] [facility] Lab [address] [facility], Room [address] [phone] * (ABNORMAL) Comprehensive metabolic panel (06/09/2024 4:00 PM CDT) Pathologist [facility] Sodium 134(L) 135 - 145 mmol/L 06/09/2024 10:55 PM CDT UR LABORATORY Potassium 4.5 3.4 - 5.3 mmol/L 06/09/2024 10:55 PM CDT UR LABORATORY Carbon Dioxide (CO2) 18(L) 22 - 29 mmol/L 06/09/2024 10:55 PM CDT UR LABORATORY Anion Gap 15 7 - 15 mmol/L 06/09/2024 10:55 PM CDT UR LABORATORY Urea Nitrogen 12.6 6.0 - 20.0 mg/dL 06/09/2024 10:55 PM CDT UR LABORATORY Creatinine 0.47(L) 0.51 - 0.95 mg/dL 06/09/2024 10:55 PM CDT UR LABORATORY GFR Estimate >90 >60 mL/min/1.7 3m2 06/09/2024 10:55 PM CDT UR LABORATORY Comment:eGFR calculated usin 2020 CKD-EPI equation. Calcium 9.1 8.8 - 10.4 mg/dL 06/09/2024 10:55 PM CDT UR LABORATORY Comment:Reference intervals for this test were updated on 04/21/2024 to reflect our healthy population more accurately. There may be differences in the flagging of prior results with similar values performed with this method. Those prior results can be interpreted in the context of the updated reference intervals. [place] 101 98 - 107 mmol/L 06/09/2024 10:55 PM CDT UR LABORATORY Glucose 98 70 - 99 mg/dL 06/09/2024 10:55 PM CDT UR LABORATORY Alkaline Phosphatase 158(H) 40 - 150 U/L 06/09/2024 10:55 PM CDT UR LABORATORY AST 107(H) 0 - 45 U/L 06/09/2024 10:55 PM CDT UR LABORATORY ALT 281(H) 0 - 50 U/L 06/09/2024 10:55 PM CDT UR LABORATORY Protein Total 6.7 6.4 - 8.3 g/dL 06/09/2024 10:55 PM CDT UR LABORATORY Albumin 3.3(L) 3.5 - 5.2 g/dL 06/09/2024 10:55 PM CDT UR LABORATORY Bilirubin Total 0.2 <=1.2 mg/dL 06/09/2024 10:55 PM CDT UR LABORATORY Blood STRUCTURE OF RIGHT HAND / Unknown Venipuncture / Unknown 06/09/2024 4:00 PM CDT 06/09/2024 4:08 PM CDT Ronan Morse MD LAB - BLOOD ORDERABL ES UR LABORATORY [facility] Lab [address] [facility], [address] [phone] * (ABNORMAL) Hepatic panel (06/09/2024 4:00 PM CDT) Protein Total 6.6 6.4 - 8.3 g/dL 06/09/2024 4:31 PM CDT UR LABORATORY Albumin 3.4(L) 3.5 - 5.2 g/dL 06/09/2024 4:31 PM CDT UR LABORATORY Bilirubin Total 0.2 <=1.2 mg/dL 06/09/2024 4:31 PM CDT UR LABORATORY Alkaline Phosphatase 153(H) 40 - 150 U/L 06/09/2024 4:31 PM CDT UR LABORATORY AST 106(H) 0 - 45 U/L 06/09/2024 4:31 PM CDT UR LABORATORY ALT 281(H) 0 - 50 U/L 06/09/2024 4:31 PM CDT UR LABORATORY Bilirubin Direct <0.20 0.00 - 0.30 mg/dL 06/09/2024 4:31 PM CDT UR LABORATORY Blood STRUCTURE OF RIGHT HAND / Unknown Venipuncture / Unknown 06/09/2024 4:00 PM CDT 06/09/2024 4:08 PM CDT Ronan Morse MD LAB - BLOOD ORDERABL ES UR LABORATORY [facility] Lab [address] [facility], [address] [phone] * (ABNORMAL) Hepatic panel (06/09/2024 8:22 AM CDT) Protein Total 7.0 6.4 - 8.3 g/dL 06/09/2024 9:14 AM CDT UR LABORATORY Albumin 3.4(L) 3.5 - 5.2 g/dL 06/09/2024 9:14 AM CDT UR LABORATORY Bilirubin Total 0.4 <=1.2 mg/dL 06/09/2024 9:14 AM CDT UR LABORATORY Alkaline Phosphatase 148 40 - 150 U/L 06/09/2024 9:14 AM CDT UR LABORATORY AST 99(H) 0 - 45 U/L 06/09/2024 9:14 AM CDT UR LABORATORY ALT 272(H) 0 - 50 U/L 06/09/2024 9:14 AM CDT UR LABORATORY Bilirubin Direct <0.20 0.00 - 0.30 mg/dL 06/09/2024 9:14 AM CDT UR LABORATORY Blood STRUCTURE OF LEFT UPPER LIMB / Unknown Venipuncture / Unknown 06/09/2024 8:22 AM CDT 06/09/2024 8:54 AM CDT Madhuri Abdullahi MD LAB - BLOOD O RDERABLES UR LABORATORY [facility] Lab [address] [place] [address], [address] * (ABNORMAL) ALT (06/08/2024 2:01 PM CDT) ALT 274(H) 0 - 50 U/L 06/08/2024 2:36 PM CDT UR LABORATORY Blood STRUCTURE OF LEFT UPPER LIMB / Unknown Venipuncture / Unknown 06/08/2024 2:01 PM CDT 06/08/2024 2:13 PM CDT Kiet Lou MD LAB - BLOOD ORDERABL ES UR LABORATORY [facility] Lab [address] [place] [address], [address] * (ABNORMAL) AST (06/08/2024 2:01 PM CDT) AST 107(H) 0 - 45 U/L 06/08/2024 2:36 PM CDT UR LABORATORY Blood STRUCTURE OF LEFT UPPER LIMB / Unknown Venipuncture / Unknown 06/08/2024 2:01 PM CDT 06/08/2024 2:13 PM CDT Kiet Lou MD LAB - BLOOD ORDERABL ES UR LABORATORY [facility] Lab [address] [facility], [address] [phone] * (ABNORMAL) CBC with platelets (06/08/2024 8:03 AM CDT) WBC Count 7.4 4.0 - 11.0 10e3/uL [...] LAB - BLOOD ORD ERABLES UR LABORATORY [facility] Lab [address] [place] [address], [address] * (ABNORMAL) Creatinine (06/08/2024 8:03 AM CDT) Creatinine 0.49(L) 0.51 - 0.95 mg/dL 06/08/2024 9:15 AM CDT UR LABORATORY GFR Estimate >90 >60 mL/min/1.7 3m2 06/08/2024 9:15 AM CDT UR LABORATORY Comment:eGFR calculated usin g 2020 CKD-EPI equation. Blood STRUCTURE OF RIGHT UPPER LIMB / Unknown Venipuncture / Unknown 06/08/2024 8:03 AM CDT 06/08/2024 8:48 AM CDT Viry Patel MD LAB - BLOOD ORD ERABLES UR LABORATORY [facility] Lab [address] [place] [address], [address] * (ABNORMAL) ALT (06/08/2024 8:03 AM CDT) ALT 237(H) 0 - 50 U/L 06/08/2024 9:15 AM CDT UR LABORATORY Blood STRUCTURE OF RIGHT UPPER LIMB / Unknown Venipuncture / Unknown 06/08/2024 8:03 AM CDT 06/08/2024 8:48 AM CDT Viry Patel MD LAB - BLOOD ORD ERABLES UR LABORATORY [facility] Lab [address] [place] [address], [address] * (ABNORMAL) AST (06/08/2024 8:03 AM CDT) AST 92(H) 0 - 45 U/L 06/08/2024 9:1 5 AM CDT UR LABORATORY Blood STRUCTURE OF RIGHT UPPER LIMB / Unknown Venipuncture / Unknown 06/08/2024 8:03 AM CDT 06/08/2024 8:48 AM CDT Viry Patel MD LAB - BLOOD ORD ERABLES UR LABORATORY [facility] Acute [facility] Lab [facility], [address] [phone], [place] * (ABNORMAL) Magnesium (06/07/2024 11:59 AM CDT) Magnesium 6.6(H) 1.7 - 2.3 mg/dL 06/07/2024 12:27 PM CDT UR LABORATORY Blood STRUCTURE OF LEFT HAND / Unknown Venipuncture / Unknown 06/07/2024 11:59 AM CDT 06/07/2024 12:02 PM CDT Cinthia Beck MD LAB - BLOOD ORDERABL ES Performing Organization Address City/[facility]/ZIP Co de Phone Number UR LABORATORY [facility] Lab [address] [place] [address], [address] [phone], [place] * Creatinine (06/07/2024 11:59 AM CDT) Creatinine 0.53 0.51 - 0.95 mg/dL 06/07/2024 12:20 PM CDT UR LABORATORY GFR Estimate >90 >60 mL/min/1.7 3m2 06/07/2024 12:20 PM CDT UR LABORATORY Comment:eGFR calculated usin g 2020 CKD-EPI equation. Blood STRUCTURE OF LEFT HAND / Unknown Venipuncture / Unknown 06/07/2024 11:59 AM CDT 06/07/2024 12:02 PM CDT Estella Uribe MD LAB - BLOOD ORDERABL ES UR LABORATORY [facility] Lab [address] [place] [address], Room [place] [phone] * (ABNORMAL) ALT (06/07/2024 11:59 AM CDT) ALT 191(H) 0 - 50 U/L 06/07/2024 12:20 PM CDT UR LABORATORY Blood STRUCTURE OF LEFT HAND / Unknown Venipuncture / Unknown 06/07/2024 11:59 AM CDT 06/07/2024 12:02 PM CDT Estella Uribe MD LAB - BLOOD ORDERABL ES Performing Organization Address City/[facility]/ZIP Co de Phone Number UR LABORATORY [facility] Lab [address] [place] [address], [address] * (ABNORMAL) AST (06/07/2024 11:59 AM CDT) AST 75(H) 0 - 45 U/L 06/07/2024 12:20 PM CDT UR LABORATORY Blood STRUCTURE OF LEFT HAND / Unknown Venipuncture / Unknown 06/07/2024 11:59 AM CDT 06/07/2024 12:02 PM CDT Estella Uribe MD LAB - BLOOD ORDERABL ES UR LABORATORY [facility] Lab [address] [place] [address], [address] * (ABNORMAL) CBC with platelets (06/07/2024 11:59 AM CDT) WBC Count 7.8 4.0 - 11.0 10e3/uL 06/07/2024 12:04 PM CDT UR LABORATORY RBC Count 3.70(L) 3.80 - 5.20 10e6/uL 06/07/2024 12:04 PM CDT UR LABORATORY Hemoglobin 10.2(L) 11.7 - 15.7 g/dL 06/07/2024 12:04 PM CDT UR LABORATORY Hematocrit 29.9(L) 35.0 - 47.0 % 06/07/2024 12:04 PM CDT UR LABORATORY MCV 81 78 - 100 fL 06/07/2024 12:04 PM CDT UR LABORATORY MCH 27.6 26.5 - 33.0 pg 06/07/2024 12:04 PM CDT UR LABORATORY MCHC 34.1 31.5 - 36.5 g/dL 06/07/2024 12:04 PM CDT UR LABORATORY RDW 12.2 10.0 - 15.0 % 06/07/2024 12:04 PM CDT UR LABORATORY Platelet Count 206 150 - 450 10e3/uL 06/07/2024 12:04 PM CDT UR LABORATORY Blood STRUCTURE OF LEFT HAND / Unknown Venipuncture / Unknown 06/07/2024 11:59 AM CDT 06/07/2024 12:02 PM CDT Estella Uribe MD LAB - BLOOD ORDERABL ES UR LABORATORY [facility] Lab [address] [place] [address], [address] * (ABNORMAL) Hemoglobin (06/07/2024 7:54 AM CDT) Hemoglobin 10.0(L) 11.7 - 15.7 g/dL 06/07/2024 8:26 AM CDT UR LABORATORY Blood STRUCTURE OF LEFT UPPER LIMB / Unknown Venipuncture / Unknown 06/07/2024 7:54 AM CDT 06/07/2024 8:22 AM CDT Janice Patel MD LAB - BLOOD ORDERABL ES UR LABORATORY [facility] Lab [address] [place] [address], [address] * (ABNORMAL) UA with Microscopic reflex to [...] 06/07/2024 1:43 AM CDT UR LABORATORY Specific [place] Urine 1.017 1.003 - 1.035 06/07/2024 1:43 [...] LAB - URINE ORDERABL ES UR LABORATORY [facility] Lab [address] [facility], Room [place] [phone] * XR Chest Port 1 View [...] the Xpert Xpress CoV2/Flu/RSV Assay on the [employer] GeneXpert Instrument. This test should be ordered [...] management. This test was validated by the [facility] [employer]. These laboratories are certified under the Clinical Laboratory Improvement Amendments of 1988 (CLIA-88) as qualified to perform high complexity laboratory testing. Janice Patel MD LAB - MICRO GENERAL ORDERABLES UR LABORATORY [facility] Lab [address] [facility], [address] [place] [address] * Blood Culture Hand, Left (06/07/2024 12:04 AM CDT) Culture No Growth 06/12/2024 3:16 AM CDT UU IDD LABORATORY Blood STRUCTURE OF LEFT HAND / Unknown Venipuncture / Unknown 06/07/2024 12:04 AM CDT 06/07/2024 12:18 AM CDT Janice Patel MD LAB - MICRO GENERAL ORDERABLES UU IDD LABORATORY [facility] Lab [address] [facility], [address] [place] [address] * Creatinine (06/06/2024 10:21 PM CDT) Creatinine 0.69 0.51 - 0.95 mg/dL 06/06/2024 10:45 PM CDT UR LABORATORY GFR Estimate >90 >60 mL/min/1.7 3m2 06/06/2024 10:45 PM CDT UR LABORATORY Comment:eGFR calculated usin 2020 CKD-EPI equation. Blood STRUCTURE OF LEFT HAND / Unknown Venipuncture / Unknown 06/06/2024 10:21 PM CDT 06/06/2024 10:26 PM CDT Janice Patel MD LAB - BLOOD ORDERABL ES UR LABORATORY [facility] Lab [address] [facility], [address] [place] [address] * CBC with platelets (06/06/2024 10:21 PM CDT) WBC Count 10.9 4.0 - 11.0 10e3/uL 06/06/2024 10:30 PM CDT UR LABORATORY RBC Count 4.31 3.80 - 5.20 10e6/uL 06/06/2024 10:30 PM CDT UR LABORATORY Hemoglobin 11.8 11.7 - 15.7 g/dL 06/06/2024 10:30 PM CDT UR LABORATORY Hematocrit 35.3 35.0 - 47.0 % 06/06/2024 10:30 PM CDT UR LABORATORY MCV 82 78 - 100 fL 06/06/2024 10:30 PM CDT UR LABORATORY MCH 27.4 26.5 - 33.0 pg 06/06/2024 10:30 PM CDT UR LABORATORY MCHC 33.4 31.5 - 36.5 g/dL 06/06/2024 10:30 PM CDT UR LABORATORY RDW 12.1 10.0 - 15.0 % 06/06/2024 10:30 PM CDT UR LABORATORY Platelet Count 222 150 - 450 10e3/uL 06/06/2024 10:30 PM CDT UR LABORATORY Blood STRUCTURE OF LEFT HAND / Unknown Venipuncture / Unknown 06/06/2024 10:21 PM CDT 06/06/2024 10:26 PM CDT Janice Patel MD LAB - BLOOD ORDERABL ES UR LABORATORY [facility] Lab [facility], [address] [phone], [place] * (ABNORMAL) ALT (06/06/2024 10:21 PM CDT) Pathologist [facility] ALT 196(H) 0 - 50 U/L 06/06/2024 10:45 PM CDT UR LABORATORY Blood STRUCTURE OF LEFT HAND / Unknown Venipuncture / Unknown 06/06/2024 10:21 PM CDT 06/06/2024 10:26 PM CDT Janice Patel MD LAB - BLOOD ORDERABL ES UR LABORATORY [facility] [address] [place] [address], Room [place] [phone] * (ABNORMAL) AST (06/06/2024 10:21 PM CDT) Pathologist [facility] AST 69(H) 0 - 45 U/L 06/06/2024 11:27 PM CDT UR LABORATORY Blood STRUCTURE OF LEFT HAND / Unknown Venipuncture / Unknown 06/06/2024 10:21 PM CDT 06/06/2024 10:26 PM CDT Janice Patel MD LAB - BLOOD ORDERABL ES UR LABORATORY [facility] [address] [place] [address], [address] * Group B strep PCR (06/06/2024 11:17 AM CDT) Pathologist [facility] Group B Strep PCR Negative Negative 024 [...] LABORATORY - 06/07/2024 10:29 AM CDT The [employer] Xpert GBS LB Assay, performed on the [employer], is a qualitative in vitro diagnostic [...] settings. The device is not intended for [id number] use. Cinthia Beck MD LAB - MICRO GENERAL ORDERABLES UU IDD LABORATORY [facility] Di[facility] Lab [address] [facility], [address] [place] [address], [facility] * Adult Type and Screen (06/06/2024 9:27 AM CDT) ABO/RH(D) A POS 06/06/2024 9:02 AM CDT UR BLOOD BANK Antibody Screen Negative Negative 06/06/2024 9:02 AM CDT UR BLOOD BANK SPECIMEN EXPIRATION DATE [id number] 06/06/2024 9:02 AM CDT UR BLOOD BANK Blood STRUCTURE OF LEFT UPPER LIMB / Unknown Venipuncture / Unknown 06/06/2024 9:27 AM CDT 06/06/2024 9:31 AM CDT Cinthia Beck MD LAB - BLOOD BANK JULIA T ORDER UR BLOOD BANK [facility] [place] [facility] [address] [facility], [address] [place] [address], [facility] * (ABNORMAL) Bile acids total (06/06/2024 9:27 AM CDT) Bile Acids Total 31(H) 0 - 10 umol/L 06/07/2024 8:04 PM CDT [facility] Comment: INTERPRETIVE INFORMATION: Bile Acids, Total Reference Interval applies to fasting specimens. Performed By: [employer] [address] [place] [address] Sole Trimmer: Jaguar Laurent MD, PhD CLIA Number: [id number] Blood STRUCTURE OF LEFT UPPER LIMB / Unknown Venipuncture / Unknown 06/06/2024 9:27 AM CDT 06/06/2024 9:31 AM CDT Cinthia Beck MD LAB - BLOOD ORDERABL ES [employer] [address] [place] [address], [facility] [phone] * (ABNORMAL) Comprehensive metabolic panel (06/06/2024 9:27 AM CDT) Sodium 137 135 - 145 mmol/L 06/06/2024 9:55 AM CDT UR LABORATORY Potassium 3.9 3.4 - 5.3 mmol/L 06/06/2024 9:55 AM CDT UR LABORATORY Carbon Dioxide (CO2) 20(L) 22 - 29 mmol/L 06/06/2024 9:55 AM CDT UR LABORATORY Anion Gap 14 7 - 15 mmol/L 06/06/2024 9:55 AM CDT UR LABORATORY Urea Nitrogen 5.8(L) 6.0 - 20.0 mg/dL 06/06/2024 9:55 AM CDT UR LABORATORY Creatinine 0.46(L) 0.51 - 0.95 mg/dL 06/06/2024 9:55 AM CDT UR LABORATORY GFR Estimate >90 >60 mL/min/1.7 3m2 06/06/2024 9:55 AM CDT UR LABORATORY Comment:eGFR calculated usin 2020 CKD-EPI equation. Calcium 8.3(L) 8.8 - 10.4 mg/dL 06/06/2024 9:55 AM CDT UR LABORATORY Comment:Reference intervals for this test were updated on 04/21/2024 to reflect our healthy population more accurately. There may be differences in the flagging of prior results with similar values performed with this method. Those prior results can be interpreted in the context of the updated reference intervals. [place] 103 98 - 107 mmol/L 06/06/2024 9:55 AM CDT UR LABORATORY Glucose 76 70 - 99 mg/dL 06/06/2024 9:55 AM CDT UR LABORATORY Alkaline Phosphatase 139 40 - 150 U/L 06/06/2024 9:55 AM CDT UR LABORATORY AST 56(H) 0 - 45 U/L 06/06/2024 9:55 AM CDT UR LABORATORY ALT 203(H) 0 - 50 U/L 06/06/2024 9:55 AM CDT UR LABORATORY Protein Total 6.8 6.4 - 8.3 g/dL 06/06/2024 9:55 AM CDT UR LABORATORY Albumin 3.5 3.5 - 5.2 g/dL 06/06/2024 9:55 AM CDT UR LABORATORY Bilirubin Total 0.4 <=1.2 mg/dL 06/06/2024 9:55 AM CDT UR LABORATORY Blood STRUCTURE OF LEFT UPPER LIMB / Unknown Venipuncture / Unknown 06/06/2024 9:27 AM CDT 06/06/2024 9:31 AM CDT Cinthia Beck MD LAB - BLOOD ORDERABL ES UR LABORATORY [facility] Lab [facility], [address] [place] [address] * (ABNORMAL) CBC with platelets (06/06/2024 9:27 AM CDT) WBC Count 7.0 4.0 - 11.0 10e3/uL 06/06/2024 9:34 AM CDT UR LABORATORY RBC Count 3.93 3.80 - 5.20 10e6/uL 06/06/2024 9:34 AM CDT UR LABORATORY Hemoglobin 10.8(L) 11.7 - 15.7 g/dL 06/06/2024 9:34 AM CDT UR LABORATORY Hematocrit 31.7(L) 35.0 - 47.0 % 06/06/2024 9:34 AM CDT UR LABORATORY MCV 81 78 - 100 fL 06/06/2024 9:34 AM CDT UR LABORATORY MCH 27.5 26.5 - 33.0 pg 06/06/2024 9:34 AM CDT UR LABORATORY MCHC 34.1 31.5 - 36.5 g/dL 06/06/2024 9:34 AM CDT UR LABORATORY RDW 12.0 10.0 - 15.0 % 06/06/2024 9:34 AM CDT UR LABORATORY Platelet Count 208 150 - 450 10e3/uL 06/06/2024 9:34 AM CDT UR LABORATORY Blood STRUCTURE OF LEFT UPPER LIMB / Unknown Venipuncture / Unknown 06/06/2024 9:27 AM CDT 06/06/2024 9:31 AM CDT Cinthia Beck MD LAB - BLOOD ORDERABL ES UR LABORATORY [facility] Lab [address] [facility], [address] [place] [phone] * Treponema Abs w Reflex to RPR and Titer (06/06/2024 9:27 AM CDT) Treponema Antibody Total Nonreactive Nonreactive 06/06/2024 2:16 PM CDT SPECIALTY CORE/PROT/EN DO Blood STRUCTURE OF LEFT UPPER LIMB / Unknown Venipuncture / Unknown 06/06/2024 9:27 AM CDT 06/06/2024 9:31 AM CDT Cinthia Beck MD LAB - BLOOD ORDERABL ES SPECIALTY CORE/PROT/ENDO Specialty Core/Prot/Endo [address] [facility], [address] documented in this encounter Visit Diagnoses Diagnosis (spontaneous vaginal delivery)- Primary Normal delivery Severe pre-eclampsia, antepartum Severe pre-eclampsia in third trimester Severe pre-eclampsia, antepartum hypertension Unspecified hypertension, condition or complication Encounter for induction of labor Preeclampsia, severe Severe pre-eclampsia, unspecified as to episode of care documented in this encounter Administered Medications Inactive Administered Medications - up to 3 most recent administrations Medication Order MAR Action Action Date Dose Rate Site acetaminophen (TYLENOL) tablet 650 mg 650 mg, Oral, EVERY 4 HOURS PRN, mild pain, Starting on 06/06/24 at 1213, Maximum acetaminophen dose from all sources = 75 mg/kg/day not to exceed 4 grams/day. $Given 06/06/2024 12:24 PM CDT 650 mg acetaminophen (TYLENOL) tablet 650 mg 650 mg, Oral, EVERY 4 HOURS PRN, mild pain, fever, greater than or equal to 38 C /100.4 F (oral) or 38.5 C/ 101.4 F (core)., Starting on 06/06/24 at 2039, Maximum acetaminophen dose from all sources = 75 mg/kg/day not to exceed 4 grams/day., $Given 06/08/2024 7:47 AM CDT 650 mg $Given 06/07/2024 6:41 PM CDT 650 mg $Given 06/07/2024 11:55 AM CDT 650 mg benzocaine-menthol (CHLORASEPTIC) 6-10 MG lozenge 1 lozenge 1 lozenge, Buccal, EVERY 1 HOUR PRN, sore throat, Starting on Sat06/07/24 at 2056 $Given 06/07/2024 9:18 PM CDT 1 lozenge bisacodyl (DULCOLAX) suppository 10 mg 10 mg, Rectal, DAILY PRN, constipation, Starting on Sat06/06/24 at 2040, Do not administer if patient has 3rd or 4th degree lacerations. Hold for loose stools., $Given 06/07/2024 9:28 PM CDT 10 mg calcium carbonate (TUMS) chewable tablet 500 mg 500 mg, Oral, DAILY PRN, heartburn, Starting on Sat06/09/24 at 2306 $Given 06/09/2024 11:39 PM CDT 500 mg calcium gluconate 10 % injection 1 g 1 g, Intravenous, ONCE PRN, magnesium sulfate toxicity , Administer over 3-5 Minutes, Starting on Sat06/06/24 at 2236, For 1 dose, IF signs of magnesium toxicity appear, STOP magnesium infusion, administer calcium gluconate, and notify provider. Do not infuse in the same IV line as phosphate-containing solutions carboprost (HEMABATE) injection 250 mcg 250 mcg, Intramuscular, EVERY 15 MIN PRN, other, ONLY for uterine atony with significant bleeding POST-DELIVERY, Starting on 06/06/24 at 2039, Notify provider IF uterine atony and clarify with provider medication preference. Administer only if directed by provider. Give with caution in patients with asthma, active pulmonary, hepatic, renal or cardiovascular disease., clindamycin (CLEOCIN) 900 mg in 50 mL D5W intermittent infusion Routine, 900 mg, Intravenous, EVERY 8 HOURS, First dose on 06/07/24 at 0030, Indications: endometritis $New Bag 06/07/2024 12:28 AM CDT 900 mg 100 mL/hr diphenhydrAMINE (BENADRYL) injection 25 mg 25 mg, Intravenous, ONCE PRN, other, headache, Starting on 06/07/24 at 1522, For 1 dose $Given 06/07/2024 9:18 PM CDT 25 mg docusate sodium (COLACE) capsule 100 mg 100 mg, Oral, DAILY, First dose on 06/07/24 at 0800, Hold for loose stools., $Given 06/11/2024 7:55 AM CDT 100 mg $Given 06/10/2024 7:50 AM CDT 100 mg $Given 06/09/2024 8:23 AM CDT 100 mg fentaNYL (SUBLIMAZE) 2 mcg/mL, ROPivacaine (NAROPIN) 0.1% in NaCl 0.9% for PIB + PCEA PREMIX PIB BOLUS (mL): 6, PIB BOLUS INTERVAL (Minutes): 40, PCEA dose (mL): 6, PCEA Lockout Interval (min): 10 minutes, Hour Limit (mL): 32, PIB - Programmed Intermittent Bolus (Epidural) PCEA - Patient Controlled Epidural Analgesia Initial PIB Next Bolus will be scheduled for 30 minutes after infusion STARTED. PIB Bolus: Range 0-9 mL PIB Bolus Interval: Range 30-60 minutes PCEA Dose: Range 0-10 mL PCEA Lockout: Range 10-60 minutes One-hour limit: Range 0.1-50 mL Absolutely no anticoagulants, thrombolytics or antiplatelet medications or other opioid analgesics or other sedatives without prior notification of anesthesiology. For CADD cassettes, pharmacy to send epidural tubing set., Routine $New Syringe/Cartridge 06/06/2024 5:04 PM CDT gentamicin (GARAMYCIN) 360 mg in sodium chloride 0.9 % 50 mL intermittent infusion Routine, 360 mg (rounded from 360.5 mg = 5 mg/kg ? 72.1 kg), Intravenous, EVERY 24 HOURS, First dose on 06/07/24 at 0030, Indications: endometritis $New Bag 06/07/2024 12:59 AM CDT 360 mg guaiFENesin (ROBITUSSIN) 20 mg/mL solution 200 mg 200 mg, Oral, EVERY 4 HOURS, First dose on 06/08/24 at 0800 $Given 06/11/2024 4:29 AM CDT 200 mg $Given 06/10/2024 11:44 PM CDT 200 mg $Given 06/09/2024 8:27 PM CDT 200 mg hydrALAZINE (APRESOLINE) injection 10 mg 10 mg, Intravenous, EVERY 20 MIN PRN, other, Acute Onset Severe Hypertension Medication Algorithm, Administer over 2 Minutes, Starting on 06/06/24 at 2235, ~ IF SBP GREATER than or EQUAL to 160 or DBP GREATER than or EQUAL to 110 at 10 minutes following 3rd dose of labetalol, give IV hydralazine 10 mg over 2 minutes AND NOTIFY PROVIDER ~ IF SBP GREATER than or EQUAL to 160 or DBP GREATER than or EQUAL to 110 at 20 minutes following 1st hydralazine dose, notify provider. ~ DO NOT give if history of mitral valvular rheumatic heart disease or coronary heart disease. ibuprofen (ADVIL/MOTRIN) tablet 800 mg 800 mg, Oral, EVERY 6 HOURS PRN, other, cramping, Starting on 06/06/24 at 2039, Start 6 hours after ketorolac is completed (if ordered). Max dose: 3200 mg/day Give with food., $Given 06/09/2024 11:39 PM CDT 800 mg $Given 06/09/2024 6:09 PM CDT 800 mg $Given 06/09/2024 12:08 PM CDT 800 mg labetalol (NORMODYNE/TRANDATE) 5 MG/ML injection Starting on 06/06/24 at 2236, For 1 dose, Gail Allen: cabinet override labetalol (NORMODYNE/TRANDATE) injection 20-80 mg 20-80 mg, Intravenous, EVERY 10 MIN PRN, other, Acute Onset Severe Hypertension Medication Algorithm, Administer over 2 Minutes, Starting on 06/06/24 at 2235, ~ Begin administration if criteria for acute onset hypertension met. ~ Administer IV labetalol 20 mg over 2 minutes for first dose. ~ IF SBP GREATER than or EQUAL to 160 or DBP GREATER than or EQUAL to 110 at 10 minutes following 1st dose of labetalol, give 2nd dose of IV labetalol 40 mg over 2 minutes ~ IF SBP GREATER than or EQUAL to 160 or DBP GREATER than or EQUAL to 110 at 10 minutes following 2nd dose of labetalol, give 3rd dose of IV labetalol 80 mg over 2 minutes ~ IF SBP GREATER than or EQUAL to 160 or DBP GREATER than or EQUAL to 110 at 10 minutes following 3rd dose of labetalol, progress to IV hydralazine 10 mg and notify provider. ~ DO NOT give if history of asthma or congestive heart failure. HOLD Labetalol IF maternal HR LESS than 60 AND notify provider for further orders ~ MAX recommended daily dose: 300 mg/24hours. $Given 06/06/2024 10:39 PM CDT 20 mg lactated ringers infusion at 25-125 mL/hr, Intravenous, CONTINUOUS PRN, Titrate lactated ringers rate to obtain total IV intake of 125 mL/hr. Total IV fluids should not exceed 125 mL/hr without provider order., Intrapartum, Starting on 06/06/24 at 0857, Until 06/06/24 at 2041 $New Bag 06/06/2024 2:57 PM CDT 125 mL/hr lactated ringers infusion at 10-125 mL/hr, Intravenous, CONTINUOUS, Titrate lactated ringers rate to obtain total IV intake of no more than 125 mL/hour, Starting on 06/06/24 at 2300, Until Kanika 06/11/24 at 1501 $New Bag 06/07/2024 12:08 PM CDT 75 mL/hr 75 mL/hr $New Bag 06/06/2024 10:56 PM CDT 75 mL/hr 75 mL/hr lidocaine (LMX4) cream Topical, EVERY 1 HOUR PRN, pain, with VAD insertion, Starting on 06/06/24 at 2235, Apply at least 30 minutes prior to VAD insertion in divided doses as needed for size of site for insertion. MAX Dose: 2.5 g (?? of 5 g tube) Do NOT give if patient has a history of allergy to any local anesthetic or any carissa product. Do NOT use both lidocaine intradermal/subcutaneous injection and the lidocaine cream on the same site. lidocaine 1 % 0.1-1 mL 0.1-1 mL, Other, EVERY 1 HOUR PRN, mild pain with VAD insertion, Starting on 06/06/24 at 2235, MAX dose 1 mL subcutaneous OR intradermal along the side of the vein in divided doses as needed for VAD insertion. Do NOT give if patient has a history of allergy to any local anesthetic or any carissa product. Do NOT use both lidocaine intradermal/subcutaneous injection and the lidocaine cream on the same site. loperamide (IMODIUM) capsule 4 mg 4 mg, Oral, ONCE PRN, other, Give with first dose of carboprost (HEMABATE), Starting on 06/06/24 at 2039, For 1 dose, May give only after delivery., magnesium sulfate 2 g in 50 mL sterile water intermittent infusion 2 g, Intravenous, Administer over 5 Minutes, at 600 mL/hr, ONCE PRN, seizures, Loading dose for ACTIVE MANAGEMENT OF SEIZURES, give If on magnesium sulfate infusion., Starting on 06/06/24 at 2236, For 1 dose, Must run concurrently with maintenance IV fluid. Insert at closest possible Y-site in main-line IV. magnesium sulfate 4 g in 100 mL sterile water intermittent infusion 4 g, Intravenous, Administer over 20 Minutes, at 300 mL/hr, ONCE PRN, seizures, Loading dose for ACTIVE MANAGEMENT OF SEIZURES, give If NOT on magnesium sulfate infusion., Starting on 06/06/24 at 2236, For 1 dose, Must run concurrently with maintenance IV fluid. Insert at closest possible Y-site in main-line IV. magnesium sulfate 4 g in 100 mL sterile water intermittent infusion 4 g, Intravenous, Administer over 30 Minutes, at 200 mL/hr, ONCE, On 06/06/24 at 2300, For 1 dose, FOR SEIZURE PROPHYLAXIS. Infuse over 30 minutes per infusion control pump. Must run concurrently with maintenance IV fluid. Insert at closest possible Y-site in main-line IV. Stay with patient for 60 minutes (during loading dose and 30 minutes following). $New Bag 06/06/2024 10:57 PM CDT 4 g 200 mL/hr magnesium sulfate infusion 2 g/hr (50 mL/hr), Intravenous, CONTINUOUS, Starting on 06/06/24 at 2330, STOP infusion and then notify provider IF signs of magnesium toxicity appear. Must run concurrently with maintenance IV fluid. Insert at closest possible Y-site in main-line IV. Total IV fluid intake should not exceed 125 mL/hr. $New Bag 06/07/2024 8:25 PM CDT 2 g/hr 50 mL/hr Rate/Dose Verify 06/07/2024 3:30 PM CDT 2 g/hr 50 mL/h r Rate/Dose Verify 06/07/2024 7:45 AM CDT 2 g/hr 50 mL/h r metoclopramide (REGLAN) injection 10 mg 10 mg, Intravenous, Administer over 2 Minutes, ONCE PRN, other, headache, Starting on 06/07/24 at 1522, For 1 dose, Avoid use if patient has full bowel obstruction or perforation. midazolam (VERSED) injection 2 mg 2 mg, Intravenous, EVERY 5 MIN PRN, seizures, If unresponsive to magnesium dosing., Starting on 06/06/24 at 2236, For 5 doses, Give as directed by provider. This drug may cause significant respiratory depression. Monitor respiratory status and vital signs carefully for 1 hour after each dose. misoprostol (cervical ripening) (CYTOTEC) quarter-tab 25 mcg 25 mcg, Oral, EVERY 2 HOURS PRN, cervical ripening, Starting on 06/06/24 at 0900, For 12 doses, After 24 hours of administration, if ineffective, provider may consider change to agent or mode of cervical ripening Discontinue further dosing if: - Uterine tachysystole - Cervix favorable - Kenny Score 6 or greater - Active vaginal bleeding - Active labor - Abnormal FHR tracing - Adverse maternal reactions (i.e., fever or nausea) Provider: Delay oxytocin induction/augmentation at least 2 hours after the last dose of misoprostol (CYTOTEC)., Intrapartum $Given 06/06/2024 2:35 PM CDT 25 mcg $Given 06/06/2024 12:08 PM CDT 25 mcg $Given 06/06/2024 9:41 AM CDT 25 mcg misoprostol (CYTOTEC) tablet 400 mcg 400 mcg, Oral, GIVE ONCE PRN AND REPEAT ACCORDING TO INSTRUCTIONS, post- hemorrhage, Starting on 06/06/24 at 2038, Administer only if directed by provider. Max administrations: 4 doses, misoprostol (CYTOTEC) tablet 800 mcg 800 mcg, Rectal, GIVE ONCE PRN AND REPEAT ACCORDING TO INSTRUCTIONS, post- hemorrhage, Starting on 06/06/24 at 2039, Give rectally if unable to take oral without complications. Administer only if directed by provider. Max administrations: 4 doses., NIFEdipine ER OSMOTIC (PROCARDIA XL) 24 hr tablet 30 mg 30 mg, Oral, DAILY, First dose on Sat06/07/24 at 0800, DO NOT CRUSH. $Given 06/07/2024 8:03 AM CDT 30 mg NIFEdipine ER OSMOTIC (PROCARDIA XL) 24 hr tablet 30 mg 30 mg, Oral, EVERY 24 HOURS, First dose on Sat06/09/24 at 0500, DO NOT CRUSH. $Given 06/11/2024 7:56 AM CDT 30 mg $Given 06/10/2024 7:50 AM CDT 30 mg $Given 06/09/2024 5:13 AM CDT 30 mg ondansetron (ZOFRAN) injection 4 mg 4 mg, Intravenous, EVERY 6 HOURS PRN, nausea, vomiting, Administer over 2-5 Minutes, Starting on 06/06/24 at 2302 $Given 06/06/2024 11:12 PM CDT 4 mg oxytocin (PITOCIN) 30 units in 500 mL 0.9% NaCl infusion 100-340 mL/hr, Intravenous, CONTINUOUS PRN, After delivery to prevent uterine atony, Starting on 06/06/24 at 0857, Give after delivery to prevent uterine atony per provider direction. Administer 340 mL/hr over 30 minutes for a total of 170 mL, then decrease to 100 mL/hr until infusion complete (about 3.5 hours) or per provider direction. Start new bag at delivery. Discontinue or saline lock peripheral IV per nurse discretion., Rate/Dose Change 06/06/2024 9:03 PM CDT 100 mL/hr 100 mL/hr $New Bag 06/06/2024 8:32 PM CDT 340 mL/hr 340 mL/hr pantoprazole (PROTONIX) EC tablet 40 mg 40 mg, Oral, DAILY, First dose on Sat06/07/24 at 0800, Therapeutic interchange for omeprazole 20 mg daily. $Given 06/11/2024 7:57 AM CDT 40 mg $Given 06/10/2024 7:50 AM CDT 40 mg $Given 06/07/2024 8:03 AM CDT 40 mg penicillin G potassium 3 Million Units in D5W 50 mL intermittent infusion Routine, 3 Million Units, Intravenous, EVERY 4 HOURS, First dose on 06/06/24 at 1700, To be given until delivery., Indications: Group B Strep, Intrapartum $New Bag 06/06/2024 7:23 PM CDT 3 Million Units 100 mL/hr penicillin G potassium 5 million units vial to attach to NS 100 mL bag STAT, 5 Million Units, Intravenous, ONCE, On 06/06/24 at 1300, For 1 dose, Loading Dose. Active upon active labor status., Indications: Group B Strep, Intrapartum $New Bag 06/06/2024 2:48 PM CDT 5 Million Units sodium chloride (OCEAN) 0.65 % nasal spray 1 spray 1 spray, Both Nostrils, EVERY 1 HOUR PRN, congestion, Starting on 06/07/24 at 205 $Given 06/07/2024 9:18 PM CDT 1 spray sodium chloride (PF) 0.9% PF flush 3 mL 3 mL, Intracatheter, EVERY 8 HOURS, First dose on 06/06/24 at 0930, to lock peripheral IV dormant line, Intrapartum $Given 06/06/2024 9:33 AM CDT 3 mLs sodium chloride (PF) 0.9% PF flush 3 mL 3 mL, Intracatheter, EVERY 8 HOURS, First dose on 06/06/24 at 2300, to lock peripheral IV dormant line $Given 06/11/2024 4:28 AM CDT 3 mLs $Given 06/09/2024 11:41 PM CDT 3 mLs $Given 06/09/2024 4:37 PM CDT 3 mLs sodium chloride (PF) 0.9% PF flush 3 mL 3 mL, Intracatheter, EVERY 1 MIN PRN, line flush, other, to ensure patency or to lock dormant line, Starting on 06/06/24 at 2235 sodium chloride 0.9 % infusion Shaniqua Price: cabinet override, 1 dose, Starting on 06/06/24 at 2013, Until 06/06/24 at 2039 sodium chloride 0.9% BOLUS 250 mL Intrauterine, 250 mL, ONCE, at 750 mL/hr, Administer over 20 Minutes, On 06/06/24 at 2030, For 1 dose, Infuse via pump. Fluid should be at room temperature., Intrapartum $New Bag 06/06/2024 8:19 PM CDT 250 mLs 750 m L/hr documented in this encounter Active and Recently Administered Medications Times are shown in CDT. Scheduled Medication Order 06/09/2024 06/10/2024 06/11/2024 docusate sodium (COLACE) capsule 100 mg 100 mg, Oral, DAILY, First dose on Sat06/07/24 at 0800, Hold for loose stools., 0823 ($Given - Provider: Zuleika Garner RN) 0750 ($Given - Provider: Babs Hernandez RN) 0755 ($Given - Provider: Kayla Darnell RN - Comment: computer in room not working and no space labs available to bring into room for charting) guaiFENesin (ROBITUSSIN) 20 mg/mL solution 200 mg 200 mg, Oral, EVERY 4 HOURS, First dose on 06/08/24 at 0800 0028 ($Given - Provider: Jacquie Izaguirre RN)0402 ($Given - Provider: Jacquie Izaguirre RN)0824 ($Given - Provider: Zuleika Garner RN)1209 ($Given - Provider: Zuleika Garner RN)1636 ($Given - Provider: Zuleika Garner RN)2027 ($Given - Provider: Heather Zambrano RN)2341 (Not Given - Provider: Heather Zambrano RN - Reason: Patient/family refused) 0430 (Not Given - Provider: Heather Zambrano RN - Reason: Patient/family refused - Comment: patient stated their cough has improved and not needed at this time)0749 (Not Given - Provider: Babs Hernandez RN - Reason: Patient/family refused)1208 (Not Given - Provider: Babs Hernandez RN - Reason: Patient/family refused)1739 (Not Given - Provider: Babs Hernandez RN - Reason: Patient/family refused)1999 (Not Given - Provider: Janice Bennett RN - Reason: Patient/family refused)2344 ($Given - Provider: Janice Bennett RN) 0429 ($Given - Provider: Janice Bennett RN - Comment: computer not working)1046 (Not Given - Provider: Kayla Darnell RN - Reason: Patient/family refused)1200 (Canceled Entry - Provider: Orders Generic Provider - Comment: Automatically canceled at discontinue of medication order) NIFEdipine ER OSMOTIC (PROCARDIA XL) 24 hr tablet 30 mg 30 mg, Oral, EVERY 24 HOURS, First dose on Sat06/09/24 at 0500, DO NOT CRUSH. 0513 ($Given - Provider: Jacquie Izaguirre RN) 0750 ($Given - Provider: Babs Hernandez RN) 0756 ($Given - Provider: Kayla Darnell RN - Comment: computer in room not working and no space labs available to bring into room for charting) pantoprazole (PROTONIX) EC tablet 40 mg 40 mg, Oral, DAILY, First dose on Sat06/07/24 at 0800, Therapeutic interchange for omeprazole 20 mg daily. 0822 (Not Given - Provider: Zuleika Garner RN - Reason: Patient/family refused) 0750 ($Given - Provider: Babs Hernandez RN) 0757 ($Given - Provider: Kayla Darnell RN - Comment: computer in room not working and no space labs available to bring into room for charting) sodium chloride (PF) 0.9% PF flush 3 mL 3 mL, Intracatheter, EVERY 8 HOURS, First dose on 06/06/24 at 2300, to lock peripheral IV dormant line 0028 ($Given - Provider: Jacquie Izaguirre RN)0824 ($Given - Provider: Zuleika Garner RN)1637 ($Given - Provider: Zuleika Garner RN)2341 ($Given - Provider: Heather Zambrano RN) 0931 (Canceled Entry - Provider: Babs Hernandez RN)1739 (Canceled Entry - Provider: Babs Hernandez RN) 0428 ($Given - Provider: Janice Bennett RN - Comment: computer not working)0758 (Not Given - Provider: Kayla Darnell RN - Reason: Other - Comment: Pt in shower) Continuous Medication Order 06/09/2024 06/10/2024 06/11/2024 lactated ringers infusion at 10-125 mL/hr, Intravenous, CONTINUOUS, Titrate lactated ringers rate to obtain total IV intake of no more than 125 mL/hour, Starting on 06/06/24 at 2300, Until Kanika 06/11/24 at 1501 PRN Medication Order 06/09/2024 06/10/2024 06/11/2024 benzocaine-menthol (CHLORASEPTIC) 6-10 MG lozenge 1 lozenge 1 lozenge, Buccal, EVERY 1 HOUR PRN, sore throat, Starting on 06/07/24 at 2055 benzocaine-menthol (DERMOPLAST) topical spray Topical, 4 TIMES DAILY PRN, perineal pain, Starting on 06/06/24 at 2038, bisacodyl (DULCOLAX) suppository 10 mg 10 mg, Rectal, DAILY PRN, constipation, Starting on 06/06/24 at 2039, Do not administer if patient has 3rd or 4th degree lacerations. Hold for loose stools., calcium carbonate (TUMS) chewable tablet 500 mg 500 mg, Oral, DAILY PRN, heartburn, Starting on Sat06/09/24 at 2306 2339 ($Given - Provider: Heather Zambrano RN) calcium gluconate 10 % injection 1 g 1 g, Intravenous, ONCE PRN, magnesium sulfate toxicity , Administer over 3-5 Minutes, Starting on Sat06/06/24 at 2236, For 1 dose, IF signs of magnesium toxicity appear, STOP magnesium infusion, administer calcium gluconate, and notify provider. Do not infuse in the same IV line as phosphate-containing solutions carboprost (HEMABATE) injection 250 mcg(Linked Group 1) 250 mcg, Intramuscular, EVERY 15 MIN PRN, other, ONLY for uterine atony with significant bleeding POST-DELIVERY, Starting on 06/06/24 at 2038, Notify provider IF uterine atony and clarify with provider medication preference. Administer only if directed by provider. Give with caution in patients with asthma, active pulmonary, hepatic, renal or cardiovascular disease., hydrALAZINE (APRESOLINE) injection 10 mg 10 mg, Intravenous, EVERY 20 MIN PRN, other, Acute Onset Severe Hypertension Medication Algorithm, Administer over 2 Minutes, Starting on 06/06/24 at 2235, ~ IF SBP GREATER than or EQUAL to 160 or DBP GREATER than or EQUAL to 110 at 10 minutes following 3rd dose of labetalol, give IV hydralazine 10 mg over 2 minutes AND NOTIFY PROVIDER ~ IF SBP GREATER than or EQUAL to 160 or DBP GREATER than or EQUAL to 110 at 20 minutes following 1st hydralazine dose, notify provider. ~ DO NOT give if history of mitral valvular rheumatic heart disease or coronary heart disease. hydrocortisone (Perianal) (ANUSOL-HC) 2.5 % cream Rectal, 3 TIMES DAILY PRN, hemorrhoids, Starting on 06/06/24 at 2038, Apply to hemorrhoids. Send only if nurse requests., ibuprofen (ADVIL/MOTRIN) tablet 800 mg 800 mg, Oral, EVERY 6 HOURS PRN, other, cramping, Starting on 06/06/24 at 2038, Start 6 hours after ketorolac is completed (if ordered). Max dose: 3200 mg/day Give with food., 0402 ($Given - Provider: Jacquie Izaguirre RN)1010 ([facility] - Provider: Zuleika Garner RN)1208 ($Given - Provider: Zuleika Garner RN)1809 ($Given - Provider: Zuleika Garner RN)2339 ($Given - Provider: Heather Zambrano RN) 0931 (Not Given - Provider: Babs Hernandez RN - Reason: Other)1959 (Not Given - Provider: Janice Bennett RN - Reason: Patient/family refused) labetalol (NORMODYNE/TRANDATE) injection 20-80 mg 20-80 mg, Intravenous, EVERY 10 MIN PRN, other, Acute Onset Severe Hypertension Medication Algorithm, Administer over 2 Minutes, Starting on 06/06/24 at 2235, ~ Begin administration if criteria for acute onset hypertension met. ~ Administer IV labetalol 20 mg over 2 minutes for first dose. ~ IF SBP GREATER than or EQUAL to 160 or DBP GREATER than or EQUAL to 110 at 10 minutes following 1st dose of labetalol, give 2nd dose of IV labetalol 40 mg over 2 minutes ~ IF SBP GREATER than or EQUAL to 160 or DBP GREATER than or EQUAL to 110 at 10 minutes following 2nd dose of labetalol, give 3rd dose of IV labetalol 80 mg over 2 minutes ~ IF SBP GREATER than or EQUAL to 160 or DBP GREATER than or EQUAL to 110 at 10 minutes following 3rd dose of labetalol, progress to IV hydralazine 10 mg and notify provider. ~ DO NOT give if history of asthma or congestive heart failure. HOLD Labetalol IF maternal HR LESS than 60 AND notify provider for further orders ~ MAX recommended daily dose: 300 mg/24hours. lanolin cream Topical, EVERY 1 HOUR PRN, other, sore nipples, Starting on 06/06/24 at 2038, Apply to sore nipples., lidocaine (LMX4) cream Topical, EVERY 1 HOUR PRN, pain, with VAD insertion, Starting on 06/06/24 at 2234, Apply at least 30 minutes prior to VAD insertion in divided doses as needed for size of site for insertion. MAX Dose: 2.5 g (?? of 5 g tube) Do NOT give if patient has a history of allergy to any local anesthetic or any carissa product. Do NOT use both lidocaine intradermal/subcutaneous injection and the lidocaine cream on the same site. lidocaine 1 % 0.1-1 mL 0.1-1 mL, Other, EVERY 1 HOUR PRN, mild pain with VAD insertion, Starting on 06/06/24 at 2234, MAX dose 1 mL subcutaneous OR intradermal along the side of the vein in divided doses as needed for VAD insertion. Do NOT give if patient has a history of allergy to any local anesthetic or any carissa product. Do NOT use both lidocaine intradermal/subcutaneous injection and the lidocaine cream on the same site. loperamide (IMODIUM) capsule 2 mg 2 mg, Oral, EVERY 2 HOURS PRN, other, after each loose stool, Starting on 06/06/24 at 2038, May give only after delivery. For diarrhea occurring after carboprost (HEMABATE) administration ONLY. Maximum 16 mg/day. Do NOT give stool softeners or laxatives until diarrhea is resolved., loperamide (IMODIUM) capsule 4 mg(Linked Group 1) 4 mg, Oral, ONCE PRN, other, Give with first dose of carboprost (HEMABATE), Starting on 06/06/24 at 2038, For 1 dose, May give only after delivery., magnesium sulfate 2 g in 50 mL sterile water intermittent infusion 2 g, Intravenous, Administer over 5 Minutes, at 600 mL/hr, ONCE PRN, seizures, Loading dose for ACTIVE MANAGEMENT OF SEIZURES, give If on magnesium sulfate infusion., Starting on 06/06/24 at 2236, For 1 dose, Must run concurrently with maintenance IV fluid. Insert at closest possible Y-site in main-line IV. magnesium sulfate 4 g in 100 mL sterile water intermittent infusion 4 g, Intravenous, Administer over 20 Minutes, at 300 mL/hr, ONCE PRN, seizures, Loading dose for ACTIVE MANAGEMENT OF SEIZURES, give If NOT on magnesium sulfate infusion., Starting on 06/06/24 at 2236, For 1 dose, Must run concurrently with maintenance IV fluid. Insert at closest possible Y-site in main-line IV. methylergonovine (METHERGINE) injection 200 mcg 200 mcg, Intramuscular, EVERY 2 HOURS PRN, ONLY for uterine atony with significant bleeding POST-DELIVERY, Starting on 06/06/24 at 2038, Notify provider IF uterine atony and clarify with provider medication preference. Administer only if directed by provider. Contraindicated if Blood Pressure greater than 140/90, preeclampsia, or hypertension., metoclopramide (REGLAN) injection 10 mg 10 mg, Intravenous, Administer over 2 Minutes, ONCE PRN, other, headache, Starting on 06/07/24 at 1522, For 1 dose, Avoid use if patient has full bowel obstruction or perforation. midazolam (VERSED) injection 2 mg 2 mg, Intravenous, EVERY 5 MIN PRN, seizures, If unresponsive to magnesium dosing., Starting on 06/06/24 at 2236, For 5 doses, Give as directed by provider. This drug may cause significant respiratory depression. Monitor respiratory status and vital signs carefully for 1 hour after each dose. misoprostol (CYTOTEC) tablet 400 mcg(Linked Group 2) 400 mcg, Oral, GIVE ONCE PRN AND REPEAT ACCORDING TO INSTRUCTIONS, post- hemorrhage, Starting on 06/06/24 at 2038, Administer only if directed by provider. Max administrations: 4 doses, misoprostol (CYTOTEC) tablet 800 mcg(Linked Group 2) 800 mcg, Rectal, GIVE ONCE PRN AND REPEAT ACCORDING TO INSTRUCTIONS, post- hemorrhage, Starting on 06/06/24 at 2038, Give rectally if unable to take oral without complications. Administer only if directed by provider. Max administrations: 4 doses., No MMR Needed - Assessment: Patient does not need MMR vaccine CONTINUOUS PRN, Starting on 06/06/24 at 2039, Until Kanika 06/11/24 at 1501, Assessment: Patient does not need MMR immunization, No Tdap Needed - Assessment: Patient does not need Tdap vaccine CONTINUOUS PRN, Starting on 06/06/24 at 0, Until Kanika 06/11/24 at 1501, Assessment: Patient does not need Tdap immunization, ondansetron (ZOFRAN) injection 4 mg 4 mg, Intravenous, EVERY 6 HOURS PRN, nausea, vomiting, Administer over 2-5 Minutes, Starting on 06/06/24 at 2301 oxytocin (PITOCIN) 30 units in 500 mL 0.9% NaCl infusion 340 mL/hr, Intravenous, CONTINUOUS PRN, for hemorrhage (PPH) UNTIL bleeding subsided., Starting on 06/06/24 at 2038, When bleeding subsides decrease rate to 100 mL/hr. Notify provider immediately when infusion begun. Oxytocin is first line medication for PPH., oxytocin (PITOCIN) injection 10 Units 10 Units, Intramuscular, ONCE PRN, for hemorrhage (PPH), IF no IV access is available., Starting on 06/06/24 at 2038, For 1 dose, Notify provider immediately when injection given. Oxytocin is first line medication for PPH., sodium chloride (OCEAN) 0.65 % nasal spray 1 spray 1 spray, Both Nostrils, EVERY 1 HOUR PRN, congestion, Starting on [place] 06/07/24 at 2058 sodium chloride (PF) 0.9% PF flush 3 mL 3 mL, Intracatheter, EVERY 1 MIN PRN, line flush, other, to ensure patency or to lock dormant line, Starting on 06/06/24 at 2234 tranexamic acid 1 g in 100 mL NS IV bag (premix) 1 g, Intravenous, Administer over 10 Minutes, EVERY 30 MIN PRN, Post- hemorrhage (PPH), Starting on [facility] 06/06/24 at 2038, For 2 doses, Provider consultation REQUIRED and MUST be administered as soon as the ONSET of bleeding AND within 3 hours of regardless of cause of the PPH (atony OR laceration). IF bleeding continues, a 2nd dose may be administered after 30 minutes. IF concern for DIC (Disseminated Intravascular Coagulation), obtain coagulation studies PRIOR to administration. Contraindications include: history of PE (Pulmonary Emboli), DVT (Deep Vein Thrombosis) and current Subarachnoid hemorrhage and active DIC. Administer only if directed by provider., Linked Groups Order Group 1: carboprost (HEMABATE) injection 250 mcgJump to med 250 mcg, Intramuscular, EVERY 15 MIN PRN, other, ONLY for uterine atony with significant bleeding POST-DELIVERY, Starting on 06/06/24 at 2038, Notify provider IF uterine atony and clarify with provider medication preference. Administer only if directed by provider. Give with caution in patients with asthma, active pulmonary, hepatic, renal or cardiovascular disease., And loperamide (IMODIUM) capsule 4 mgJump to med 4 mg, Oral, ONCE PRN, other, Give with first dose of carboprost (HEMABATE), Starting on 06/06/24 at 2038, For 1 dose, May give only after delivery., Group 2: misoprostol (CYTOTEC) tablet 400 mcgJump to med 400 mcg, Oral, GIVE ONCE PRN AND REPEAT ACCORDING TO INSTRUCTIONS, post- hemorrhage, Starting on 06/06/24 at 2038, Administer only if directed by provider. Max administrations: 4 doses, Or misoprostol (CYTOTEC) tablet 800 mcgJump to med 800 mcg, Rectal, GIVE ONCE PRN AND REPEAT ACCORDING TO INSTRUCTIONS, post- hemorrhage, Starting on 06/06/24 at 2038, Give rectally if unable to take oral without complications. Administer only if directed by provider. Max administrations: 4 doses., documented in this encounter Additional Health Concerns Infection Onset Date Last Indicated Resolved Time Rule Out COVID-19 06/06/2024 06/07/2024 06/07/2024 1:23 AM CDT COVID-19 06/07/2024 06/10/2024 06/21/2024 11:3 9 PM CDT documented as of this encounter Care Teams Support Services Specialist Relationship Specialty Start Date End Date No Ref-Primary, Physician PCP - General 06/06/24 documented as of this encounter
--- OUTSIDE RECORDS SUMMARY | 2024-06-23 15:23 | XMS_ITS | Encounter Summary ---
Author Organization [place] Address [address] [place] [address] Care Team Providers Care Soil Fertility Extension Specialist Name Role Phone [facility], [facility] Primary Care Provide r Jayson Lamb MD Unavailable [phone] No Ref-Primary, Physician Primary Care Provider Reason for Referral * Consultation (Routine) - Closed Specialty Diagnoses / Procedures Referred By Contac t Referred To Contact Diagnoses Cholestasis during in third trimester [facility] [address] [place] [address] Referral ID Status Reason Start Date Expiration Date Visits Re quested Visits Authorized [id number] Closed 07/20/2021 07/20/2022 1 1 Question Answer [...] [facility] [address] [place] [address] Referral ID Status Reason Start Date Expiration Date Visits Re quested Visits Authorized [id number] Closed 07/20/2021 07/20/2022 1 1 Encounter Details Date Type Department Care Team (Late st Contact Info) Description 07/20/2021 [facility] Only [facility] [place] [address] [place] [address] Rosaline Caicedo RN Cholestasis during in third [...] Type Priority Associated Diagnoses Orde r Schedule [facility] Office Visit Referral Routine: Next available opening Cholestasis during in third trimester Weekly for 1 Occurrences starting 07/20/2021 until 07/20/2022 documented as of this encounter Results * [facility] US Comprehensive Single (07/26/2021 9:24 AM [...] AM CDT Comprehensive ----- Pat. Name: MICHEAL GLOVER Study Date: 07/26/2021 8:41am Pat. NO: [id number] Referring ??MD: NAI SNIDER Site: [facility] Sign Maintenance: Matilda Delgado RDMS : 1995 Age: 25 [...] Biometry: BPD ?83.0 ?mm ? 33w 3d ?Danita OFLucas ?115.0 ?mm ?36w 0d ?Nicolaides ?315.3 ?mm ?35w 3d ?Hadlock Cerebellum tr ?40.2 ? mm ?34w 1d ?Nicolaides AC ?287.6 ?mm ?32w 5d ?52% ?Hadlock Femur ?62.4 ? mm ?32w 2d ?Hadlock Humerus ?56.2 ?mm ? 32w 5d ?Anaid Weight Calculation: EFW ? 2,087 ?g ? 48% ?Hadlock EFW (lb,oz) ? 4 lb 10 ?oz EFW by ?Hadlock ([id number]) Head / Face / Neck Biometry: Pollution Control Engineer ? 7.7 ? mm CM ?5.5 ? [...] vena cava. Inferior vena cava. 3-vessel view. 9-zjzfms-elpspab view. Cardiac position. ? Cardiac size. Cardiac [...] MD - 07/26/2021 Comprehensive ----- Pat. Name:Shirin GLOVER Date:07/26/2021 8:41am Pat. NO: [id number] :NAI SINDER [facility]Mat[facility] Del[facility] RDMS :1995Age:25 ----- INDICATION ----- Cholestasis. [...] mm32w 2d Hadlock Humerus 56.2 mm32w 5d Anaid Weight Calculation: EFW 2,087 g48% Hadlock EFW (lb,oz) 4 lb 10 oz EFW by Hadlock ([id number]-FL) Head / Face / Neck Biometry: Pollution Control Engineer 7.7 mm CM 5.5 mm ANATOMY ----- The following structures appear normal: Head / Neck Cranium. Head size. Head shape.Lateral ventricles. Choroid plexus. Midline falx. Cerebellum. Cisternamagna. Parenchyma. Thalami. Vermis. Neck. Nuchal fold. Face Lips. Profile. Nose. Maxilla.Mandible. Orbits. Lens. Heart / Thorax RVOT view. Situs. Aortic arch view.Bicaval view. Superior vena cava. Inferior vena cava. 3-vessel view.1-htsbof-ndlqttl view. Cardiac position. Cardiac size. Cardiac rhythm. [...] movements 2: tone 2: Amniotic fluid volume 05/14 Biophysical profile score RECOMMENDATION ----- We discussed [...] volume. BPP is reassuring. Erin Morris MD [facility] US ORDERAB LES documented in this encounter Visit Diagnoses Diagnosis Cholestasis during in third trimester- Primary Cholestasis during in third trimester documented in this encounter Additional Health Concerns Infection Onset Date Last Indicated Resolved Time Rule Out COVID-06/06/2024 06/07/2024 06/07/2024 1:23 AM CDT COVID-06/07/2024 06/10/2024 06/21/2024 11:3 9 PM CDT documented as of this encounter Care Teams Soil Fertility Extension Specialist Relationship Specialty Start Date End Date [facility], [facility] [address] [place] [address] PCP - General 12/12/18 06/05/24 No Ref-Primary, Physician PCP - General 06/06/24 Jayson Lamb MD [address] [place] [address] Assigned OBGYN Provider 08/06/21 documented as of this encounter
--- OUTSIDE RECORDS SUMMARY | 2024-06-23 15:23 | XMS_ITS | Encounter Summary ---
Author Organization [place] Address [address] [facility] [place] [address] Care Team Providers Care Scheduler Conveyor Name Role Phone No Ref-Primary, Physician Primary Care Provider Reason for Visit * Auth/Cert (Routine) Specialty Diagnoses / Procedures Referred By Contac t Referred To Contact Obstetrics Diagnoses Maternity*MARIFER: 07/10/24*IOL;Cholestasis Encounter for induction of labor Preeclampsia, severe Ur [facility] [address] [place] [address] Referral ID Status Reason Start Date Expiration Date Visits Re quested Visits Authorized [id number] 1 1 Encounter Details Date Type Department Care Team (Late st Contact Info) Description 06/06/2024 4:30 PM CDT Anesthesia Event [facility] [address] [place] [address] Akira Sullivan MD [address] [facility] [address] [place], [place] [phone] Jadon Zarco MD [address] [facility] [place], [address], [facility] [address] [place], [place] [address] Anesthesia Record Procedure Summary Procedure Name Responsible Anesthesiologist Anesthesia Start Time Anesthesia Stop Time LABOR ANALGESIA Akira Sullivan MD 06/06/24 16 30 06/06/24 2030 Events Date Time Event Comment 06/06/2024 1630 An Start Anesthesia Star t is defined as when the anesthesia provider assumed care, began anesthesia prep, remained continuously present with the patient, and excludes all time for performing the pre-anesthesia evaluation. The Pre-Anesthesia Evaluation was completed before Anesthesia Start. 163 AN FACE TIME IN 171 An Facetime Out 2029 An Stop Electronically signed by Arianne Dalton on June 06, 2024 8:33 PM Meds Name Total BUPivacaine 0.125% 5 mL + fentanyl 20 mc g + NS 5 mL 10 mL * Agents No agents on file. * Blood No blood administrations on file. Lines, Drains, and Airways Type Details Placement Removal Incision/Surgical Site 04/17/23; 1216; Perineum; Pad and briefs 04/17/23 1216 by Kaitlyn Matthew RN Peripheral IV 06/06/24; 0930; 18 G; Right, Dorsal; Lower forearm 06/06/24 0930 by Nuha Nguyễn RN 06/11/24 1322 by Kayla Darnell RN Epidural 06/06/24; 1703; Resident; Epidural; L3-4 06/06/24 1703 by Linnea Ko RN 06/07/24 0024 by Gail Bhandari RN documented in this encounter Social History Tobacco Use Types Packs/Day Years Used Date Smoking Tobacco: Never Smokeless Tobacco: Never Alcohol Use Standard Drinks/Week Comments Not Currently 0 (1 standard drink = 0.6 oz pur e alcohol) [place] Depression Scale Answer Date Recorded Last EPDS [...] in an abandoned building, in an overnight chcf, or couch-surfing.) No 06/06/2024 Are you worried [...] on file documented as of this encounter OR Notes * Anesthesia Procedure Notes - Jadon Zarco MD - 06/06/2024 5:12 PM CDT Associated Order(s): Epidural Block Epidural catheter Procedure Note Pre-Procedure Staff - Anesthesiologist: Akira Sullivan MD Resident/Fellow: Jadon Zarco MD Performed By: resident Location: OB Procedure Start/Stop Times: 06/06/2024 4:35 PM Pre-Anesthestic Checklist: patient identified, IV checked, risks and benefits discussed, informed consent, monitors and equipment checked, pre-op evaluation, at physician/surgeon's request and post-op pain management Timeout: Correct Patient: Yes Correct Procedure: Yes Correct Site: Yes Correct Position: Yes Procedure Documentation Procedure: epidural catheter Patient Position: sitting Patient Prep/Sterile Barriers: sterile gloves, mask, patient draped Skin prep: Betadine and Chloraprep Local skin infiltrated with mL of 1% lidocaine. Insertion Site: L3-4. (midline approach). Technique: LORT saline HOLDEN at 7 cm. Needle Type: Touhy needle Needle Gauge: 17. Needle Length (Inches): 3.5 Catheter: 20 G. Catheter threaded easily. 5 cm epidural space. Threaded 12 cm at skin. # of attempts: 1 and # of redirects: 2 Assessment/Narrative Paresthesias: No. Test dose of 3 mL at 16:47 CDT. Test dose negative, 3 minutes after injection, for signs of intravascular, subdural, or intrathecalinjection. Insertion/Infusion Method: LORT saline Aspiration negative for Heme or CSF via Epidural Catheter. Medication(s) Administered 0.125% bupivacaine 5 mL + fentanyl 20 mcg + NS 5 mL (Epidural) (Mixture components: BUPivacaine HCl(PF) 0.25 % Soln, 5 mL; fentaNYL (PF) 100 MCG/2ML Soln, 20 mcg; sodium chloride 0.9 % Soln, 5 mL) -EPIDURAL 10 mL - 06/06/2024 4:35:00 PM Medication Administration Time: 06/06/2024 4:35 PM FOR [facility] ([facility]) ONLY: Pain Team Contact information: please page the Pain Team Via Digium.Search Pain. During daytime hours, please page the attending first. At night please page the resident first. * Anesthesia Preprocedure Evaluation - Jadon Zarco MD - 06/06/2024 4:17 PM CDT Anesthesia Pre-Procedure Evaluation Patient: Meri Terrell : 1995 Procedure : Past Medical History: Diagnosis Date Liver disease Past Surgical History: Procedure Laterality Date DILATION AND CURETTAGE SUCTION N/A 04/17/2023 Procedure: SUCTION DILATION AND CURETTAGE; Surgeon: Sandrita Lopez MD; Location: [facility] OR Allergies Allergen Reactions Zoloft [Sertraline] Hallucinations Social History Tobacco Use Smoking status: Never Smokeless tobacco: Never Substance Use Topics Alcohol use: Not Currently Wt Readings from Last 1 Encounters: 04/17/23 57.6 kg (127 lb) Anesthesia Evaluation Pt has had prior anesthetic. Type: MAC. No history of anesthetic complications ROS/MED HX ENT/Pulmonary: - neg pulmonary ROS Neurologic: - neg neurologic ROS Cardiovascular: - neg cardiovascular ROS METS/Exercise Tolerance: Hematologic: - neg hematologic ROS Musculoskeletal: - neg musculoskeletal ROS GI/Hepatic: Comment: Cholestasis of . Renal/Genitourinary: Endo: - neg endo ROS Psychiatric/Substance Use: (+) psychiatric history anxiety and depression Infectious Disease: - neg infectious disease ROS Malignancy: - neg malignancy ROS Other: Physical Exam Airway Mallampati: I TM distance: > 3 FB Neck ROM: full Mouth opening: > 3 cm Respiratory Devices and Support Dental Comment: Missing 2 teeth on R lower (+) Completely normal teeth Cardiovascular cardiovascular exam normal Rhythm and rate: regular and normal Pulmonary pulmonary exam normal breath sounds clear to auscultation OUTSIDE LABS: CBC: Lab Results Component Value Date WBC 7.0 06/06/2024 HGB 10.8 (L) 06/06/2024 HCT 31.7 (L) 06/06/2024 PLT 208 06/06/2024 BMP: Lab Results Component Value Date NA 137 06/06/2024 POTASSIUM 3.9 06/06/2024 CHLORIDE 103 06/06/2024 CO2 20 (L) 06/06/2024 BUN 5.8 (L) 06/06/2024 CR 0.46 (L) 06/06/2024 GLC 76 06/06/2024 COAGS: No results found for: PTT, INR, FIBR POC: No results found for: BGM, HCG, HCGS HEPATIC: Lab Results Component Value Date ALBUMIN 3.5 06/06/2024 PROTTOTAL 6.8 06/06/2024 ALT 203 (H) 06/06/2024 AST 56 (H) 06/06/2024 ALKPHOS 139 06/06/2024 BILITOTAL 0.4 06/06/2024 OTHER: Lab Results Component Value Date EDUARDO 8.3 (L) 06/06/2024 Anesthesia Plan ASA Status: 2 Anesthesia Type: Epidural. Consents Anesthesia Plan(s) and associated risks, benefits, and realistic alternatives discussed. Questions answered and patient/client services representative(s) expressed understanding. - Discussed: - Discussed with: Patient Postoperative Care Comments: Jadon Zarco MD I have reviewed the pertinent notes and labs in the chart from the past 30 days and (re)examined the patient. Any updates or changes from those notes are reflected in this note. # Hypocalcemia: Lowest Ca = 8.3 mg/dL in last 2 days, will monitor and replace as appropriate documented in this encounter Plan of Treatment Not on file documented as of this encounter Procedures Procedure Name Priority Date/Time Associated Diagnosis Comments ANE EPIDURAL BLOCK Routine 06/06/2024 4: 35 PM CDT documented in this encounter Results * FV AN EPIDURAL DUMMY PERFORMABLE (06/06/2024 [...] Medication Administration Time: 06/06/2024 4:35 PM FOR [facility] ([facility]) ONLY: ?? Pain Team Contact information: please page the Pain Team Via Digium. Search Pain. During daytime hours, please page the attending first. At night please page the resident first. Akira Sullivan MD [place] ANESTHESIA documented in this encounter Visit Diagnoses Not on filedocumented in this encounter Administered Medications Inactive Administered Medications - up to 3 most recent administrations Medication Order MAR Action Action Date Dose Rate Site BUPivacaine 0.125% 5 mL + fentanyl 20 mcg + NS 5 mL EPIDURAL, Starting on 06/06/24 at 1635, Anesthesia Intra-op $Given 06/06/2024 4:35 PM CDT 10 mLs documented in this encounter Care Teams Scheduler Conveyor Relationship Specialty Start Date End Date No Ref-Primary, Physician PCP - General 06/06/24 documented as of this encounter
--- OUTSIDE RECORDS SUMMARY | 2024-06-23 15:23 | XMS_ITS | Encounter Summary ---
Author Organization [place] Address [facility] [place] [address] Care Team Providers Care Accounts Payable Processor Name Role Phone Clinic, [facility] Primary Care Provide r Reason for Visit * Reason Onset Date Comments Clinic Care Coordination - Initial 06/04/2024 Encounter Details Date Type Department Care Team (Late st Contact Info) Description 06/04/[address] [facility] Maternal Medicine Center [address] [place] [address] Jeanine Garza RN Clinic Care Coordination - Initial Social History Tobacco Use Types Packs/Day Years Used Date Smoking Tobacco: Never Smokeless Tobacco: Never Alcohol Use Standard Drinks/Week Comments Not Currently 0 (1 standard drink = 0.6 oz pur e alcohol) Adolescent Education Answer Date Record ed Getting School Help Needed Not on file 06/28 Comments Yes Sex and Gender Information Value Date Recorded Sex Assigned at Not on file Gender Identity Not on file Sexual Orientation Not on file documented as of this encounter Miscellaneous Notes * Telephone Encounter - Jeanine Garza RN - 06/04/2024 1:50 PM CDT Spoke with the pt regarding DAVID and plan for IOL at 34wks for worsening cholestatis. DAVID to [facility]FM with IOL with [facility]. Pt agreeable to IOL on 06/06/24 @ 0730. Will send info via email per pt request. documented in this encounter Plan of Treatment Not on file documented as of this encounter Visit Diagnoses Not on filedocumented in this encounter Care Teams Accounts Payable Processor Relationship Specialty Start Date End Date Clinic, [facility] [place] [address] [place] [address] PCP - General 12/12/18 06/05/24 documented as of this encounter
--- OUTSIDE RECORDS SUMMARY | 2024-06-23 15:23 | XMS_ITS | Encounter Summary ---
Author Organization [place] Address [address] [place] [address]. [place] [address] Care Team Providers Care Medicare Nurse Name Role Phone No Ref-Primary, Physician Primary Care Provider Encounter Details Date Type Department Care Team ([facility] st Contact Info) Description 06/06/2024 7:03 PM CDT Anesthesia Event [facility] [address] [place] [phone] Ainsley Bravo MD ANESTHESIOLOGY DEPT [address] [place] [address] Anesthesia Record Procedure Summary Procedure Name Responsible Anesthesiologist Anesthesia Start Time Anesthesia Stop Time LABOR CONSULT Events No events on file. Meds * Agents No agents on file. * Blood No blood administrations on file. Lines, Drains, and Airways Type Details Placement Removal Incision/Surgical Site 04/17/23; 1216; P erineum; Pad and briefs 04/17/23 1216 by Kaitlyn Matthew RN documented in this encounter Social History Tobacco Use Types Packs/Day Years Used Date Smoking Tobacco: Never Smokeless Tobacco: Never Alcohol Use Standard Drinks/Week Comments Not Currently 0 (1 standard drink = 0.6 oz pur e alcohol) [place] Depression Scale Answer Date Recorded Last EPDS [...] in an abandoned building, in an overnight usp, or couch-surfing.) No 06/06/2024 Are you worried [...] on filedocumented in this encounter Care Teams Medicare Nurse Relationship Specialty Start Date End Date No Ref-Primary, Physician PCP - General 06/06/24 documented as of this encounter
== END 2024-06-23 15:21 | disposition home or self-care (01) ==
LOC: NFLDREF 15:20
PROVIDERS: Visit Provider Physician Assistant
DX: R74.01 Elevation of levels of liver transaminase levels (principal); Z39.2 Encounter for routine postpartum follow-up
CPT/HCPCS: 80076

== ENCOUNTER 2024-07-20 13:55 | Outpatient (CLI) | payer OTHER, SELFPAY | END 2024-07-20 13:56 | disposition home or self-care (01) | PROVIDERS: Visit Provider Physician Assistant | DX: Z39.2 Encounter for routine postpartum follow-up (principal) | CPT/HCPCS: 86038 ==

== ENCOUNTER 2024-09-14 11:09 | Outpatient (CLI) | payer OTHER, SELFPAY ==
--- OUTSIDE RECORDS SUMMARY | 2024-09-14 11:12 | XMS_ITS | Encounter Summary ---
Author Organization [place] Address [address] [place] [address] Care Team Providers Care Coat Room Attendant Name Role Phone No Ref-Primary, Physician Primary Care Provider Encounter Details Date Type Department Care Team (Late st Contact Info) Description 07/29/2024 [facility] Medical Advice [facility] [address] [facility] [address] [place] [id number] Latricia Chavez, RN Social History Tobacco Use Types Packs/Day Years Used Date Smoking Tobacco: Never Smokeless Tobacco: Never Alcohol Use Standard Drinks/Week Comments Not Currently 0 (1 standard drink = 0.6 oz pur e alcohol) [place] Depression Scale Answer Date Recorded Last EPDS [...] you bought just not last and you didn t have money to get more? No 06/06/2024 Housing Stability Answer Date Recorded Do you have housing? (Naresh martinez is defined as stable permanent housing and does not include staying ouside in a car, in a tent, in an abandoned building, in an overnight intermediate, or couch-surfing.) No 06/06/2024 Are you worried [...] by your partner or ex-partner? 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
--- OUTSIDE RECORDS SUMMARY | 2024-09-14 11:12 | XMS_ITS | Encounter Summary ---
Author Organization [place] Address [facility] [place] [address] Care Team Providers Care Fitness Director Name Role Phone No Ref-Primary, Physician Primary Care Provider Encounter Details Date Type Department Care Team (Late st Contact Info) Description 07/23/2024 Telephone [facility] Maternal Medicine Center [place] [address] [place], [place] [address] Deya Jovel RN Social History Tobacco Use Types Packs/Day Years Used Date Smoking Tobacco: Never Smokeless Tobacco: Never Alcohol Use Standard Drinks/Week Comments Not Currently 0 (1 standard drink = 0.6 oz pur e alcohol) [place] Depression Scale Answer Date Recorded Last EPDS [...] Answer Date Recorded Do you have housing? 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 Called to see if patient has her 6 wk PPV scheduled and if she is still checking her blood pressure. documented in this encounter Plan of Treatment Not on file documented as of this encounter Visit Diagnoses Not on filedocumented in this encounter Care Teams Fitness Director Relationship Specialty Start Date End Date No Ref-Primary, Physician PCP - General 06/06/24 documented as of this encounter
--- OUTSIDE RECORDS SUMMARY | 2024-09-14 11:12 | XMS_ITS | Encounter Summary ---
Author Organization [place] Address [facility] [place] [address] Care Team Providers Care Towboat Operator Name Role Phone No Ref-Primary, Physician Primary Care Provider Encounter Details Date Type Department Care Team (Late st Contact Info) Description 07/16/2024 [facility] Medical Advice 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
--- OUTSIDE RECORDS SUMMARY | 2024-09-14 11:12 | XMS_ITS | Encounter Summary ---
Author Organization [place] Address [facility] [place] [address] Care Team Providers Care Document Processor Name Role Phone No Ref-Primary, Physician Primary Care Provider Encounter Details Date Type Department Care Team (Late st Contact Info) Description 06/30/2024 MyC Medical Advice [facility] Maternal Medicine Center [place] [address] [place], [place] [id number] Jeanine Garza, CHRISTIAN Social History Tobacco Use Types Packs/Day Years Used Date Smoking Tobacco: Never Smokeless Tobacco: Never Alcohol Use Standard Drinks/Week Comments Not Currently 0 (1 standard drink = 0.6 oz pur e alcohol) [place] Depression Scale Answer Date Recorded Last EPDS [...] on file 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
--- OUTSIDE RECORDS SUMMARY | 2024-09-14 11:12 | XMS_ITS | Encounter Summary ---
Author Organization [place] Address [facility]0 [facility] [place] [address] Care Team Providers Care Inverform Machine Operator Name Role Phone No Ref-Primary, Physician Primary Care Provider Encounter Details Date Type Department Care Team (Late st Contact Info) Description 07/24/[address] 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
--- OUTSIDE RECORDS SUMMARY | 2024-09-14 11:12 | XMS_ITS | Encounter Summary ---
Author Organization [place] Address [address] [facility] [place] [address] Care Team Providers Care Scheduler Conveyor Name Role Phone No Ref-Primary, Physician Primary Care Provider Encounter Details Date Type Department Care Team (Late st Contact Info) Description 07/29/2024 Telephone [facility] [address] 3rd Floor,[address] [place] [facility] [address] [place] [phone] Education, [facility] Nurse Social History Tobacco Use Types Packs/Day Years Used Date Smoking Tobacco: Never Smokeless Tobacco: Never Alcohol Use Standard Drinks/Week Comments Not Currently 0 (1 standard drink = 0.6 oz pur e alcohol) [place] Depression Scale Answer Date Recorded Last EPDS [...] on file 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 indicating medication non-adherence therapy advisory for nifedipine. MFM called pt on 07/23 and LVM inquiring if pt is still checking her BP, no update from pt noted in chart since. [facility], cc'd to MFM. documented in this encounter Plan of Treatment Not on file documented as of this encounter Visit Diagnoses Not on filedocumented in this encounter Care Teams Scheduler Conveyor Relationship Specialty Start Date End Date No Ref-Primary, Physician PCP - General 06/06/24 documented as of this encounter
--- OUTSIDE RECORDS SUMMARY | 2024-09-14 11:12 | XMS_ITS | Encounter Summary ---
Author Organization [place] Address [facility] [place] [address] Care Team Providers Care Supervisor Fiber Locking Name Role Phone No Ref-Primary, Physician Primary Care Provider Encounter Details Date Type Department Care Team (Late st Contact Info) Description 07/20/2024 MyC Medical Advice [facility] Maternal Medicine Center [place] [address] [place], [place] [phone] Trang Perez, CHRISTIAN Social History Tobacco Use Types Packs/Day Years Used Date Smoking Tobacco: Never Smokeless Tobacco: Never Alcohol Use Standard Drinks/Week Comments Not Currently 0 (1 standard drink = 0.6 oz pur e alcohol) [place] Depression Scale Answer Date Recorded Last EPDS [...] in an abandoned building, in an overnight mcc, or couch-surfing.) No 06/06/2024 Are you worried [...] on file 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
--- OUTSIDE RECORDS SUMMARY | 2024-09-14 11:12 | XMS_ITS | Referral Summary ---
Author Organization [place] Address [address] [facility] [place] [address] Care Team Providers Care Night Time Babysitter Name Role Phone No Ref-Primary, Physician Primary Care Provider Encounters Date Type Department Care Team Description 07/29/2024 MyC Medical Advice [facility] [address] 3rd Floor,[address] [place] [facility] [address] [place] [phone] Latricia Chavez, CHRISTIAN 07/29/2024 Telephone [facility] [address] [place] [facility] [address] [place] [phone] Education, [facility] Obgyn Nurse 07/24/[address] [facility] Maternal Medicine [facility] [address] [place] [address] Deya Jovel, RN 07/23/[address] [facility] Maternal Medicine [facility] [address] [place] [address] Deya Jovel, RN 07/20/[address] [facility] Maternal Medicine [facility] [address] [place], [place] [address] Trang Perez, CHRISTIAN 07/16/[address] [facility] Maternal Medicine [facility] [address] [place] [address] Rosaline Reyes RN 07/07/[address] [facility] Maternal Medicine [facility] [address] [place] [address] Brook Ziegler RN 06/30/[address] [facility] Maternal Medicine [facility] [address] [place] [address] Jeanine Graza RN 06/29/2024 [facility] Maternal Medicine [facility] [address] [place] [address] Deya Jovel RN 06/18/2024 [facility] Maternal Medicine [facility] [address] [place] [address] Trang Perez, CHRISTIAN 06/15/2024 Encounter [facility] [place] N[facility] [address] [facility] [place] [address] 06/15/2024 [facility] Maternal Medicine [facility] [address] [place] [address] Trang Perez, CHRISTIAN 06/15/2024 Telephone [facility] Medicine [facility] [address] [place] [address] Trang Perez, RN Hypertension from Last 3 Months Allergies Active Allergy Reactions Criticality Noted Date Comments Sertraline 04/15/2023 Hallucinations Medications omeprazole (PRILOSEC OTC) 20 MG EC tablet Take 20 mg by mouth daily. Active ibuprofen (ADVIL/MOTRIN) 600 MG tabletIndications : (spontaneous vaginal delivery) Take 1 tablet (600 mg) by mouth every 6 hours as needed for moderate pain. Start after delivery 60 tablet 4 Active senna-docusate (SENOKOT-S/GOKUL LACE) 8.6-50 MG tabletIndications : (spontaneous vaginal delivery) Take 1 tablet by mouth daily. Start after delivery. 100 tablet 4 Active NIFEdipine ER OSMOTIC (ADALAT CC) 30 MG 24 hr tabletIndications : hypertension Take 1 tablet (30 mg) by mouth every 24 hours. 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 Gender Identity Not on file Sexual Orientation Not on file Last Filed Vital Signs Vital Sign Reading Time Taken Comments Blood Pressure 109/73 06/11/2024 8:02 AM CDT Pulse 88 06/11/2024 8:02 AM CDT Temperature 36.6 C (97.9 F) 06/11/2024 8:02 AM CDT Respiratory Rate 18 06/11/2024 8:02 AM CDT Oxygen Saturation 98% 06/07/2024 11: 15 PM CDT Inhaled Oxygen Concentration - - Weight 66.2 kg (145 lb 15.1 oz) 06/10/2024 3:57 AM CDT Height 162.6 cm (5' 4) 04/17/2023 12:1 0 PM CDT Body Mass Index 25.05 04/17/2023 12:10 PM CDT Plan of Treatment Not on file Procedures Procedure Name Priority Date/Time Associated Diagnosis Comments HEPATITIS C ANTIBODY Routine 06/10/2024 1:57 AM CDT ABSTRACT PAP (HIM EXTERNAL RESULT) Routine 02/14/2021 6:00 PM CDT from Last 3 Months or Most Recently Relevant to Health Maintenance Results * Hepatitis C antibody (06/10/2024 1:57 AM [...] 1:57 AM CDT 06/10/2024 2:02 AM CDT us Suki Luis MD LAB - BLOOD ORDERABLES Final Result [facility] Core Lab [address] [facility] [address] [facility], Room 3-[address] [place] [address] * Abstract PAP (HIM External Result) (02/14/2021 6:00 PM CDT) PAP-ABSTRACT See Scanned Document [facility]-CENTRAL LABORATORY 02/14/2021 6:00 PM CDT Narrative [facility]CENTRAL [facility] - 02/14/2021 6:00 PM CDT See Care Everywhere-[facility] us Provider Outside LAB - HIM EXTERNAL RESULT Final Result [facility] LAB-CENTRAL LABORATORY [address] from Last 3 Months or Most Recently Relevant to Health Maintenance Insurance [place] [address] [employer] Advance Directives For more information, please contact: [phone] * Full Code (Latest Code Status on [...] continue PREVIOUSLY ORDERED code status Care Teams Night Time Babysitter Relationship Specialty Start Date End Date No Ref-Primary, Physician PCP - General 06/06/24
--- OUTSIDE RECORDS SUMMARY | 2024-09-14 11:12 | XMS_ITS | Encounter Summary ---
Author Organization [place] Address [facility] [place] [address] Care Team Providers Care Pull Through Hooker Name Role Phone No Ref-Primary, Physician Primary Care Provider Encounter Details Date Type Department Care Team (Late st Contact Info) Description 07/07/2024 [facility] Medical Advice [facility] Maternal Medicine Center [place] [address] [place], [place] [address] Brook Ziegler, RN Social History Tobacco Use Types Packs/Day Years Used Date Smoking Tobacco: Never Smokeless Tobacco: Never Alcohol Use Standard Drinks/Week Comments Not Currently 0 (1 standard drink = 0.6 oz pur e alcohol) [place] Depression Scale Answer Date Recorded Last EPDS [...] on file 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
--- OUTSIDE RECORDS SUMMARY | 2024-09-14 11:12 | XMS_ITS | Clinical Summary ---
Author Organization [place] Address [address] [facility] [place] [address] Care Team Providers Care Test Architect Name Role Phone No Ref-Primary, Physician Primary [...] mouth every 24 hours. 30 tablet 1 4 Active Active Problems Problem Noted Date Diagnosed Date Preeclampsia, severe 06/08/2024 Encounter for induction of labor 06/06/2024 Encounters Date Type Department Care Team Description 07/29/2024 MyC Medical Advice [facility] [address] [place] [facility] [address] [place] [phone] Latircia Chavez RN 07/29/2024 Telephone [facility] [address] 3[address] [place] [facility] Bldg [facility] [address] [place] [phone] Education, [facility] Obgyn Nurse 07/24/2024 Documentation Only [facility] Maternal Medicine [facility] [address] [place] [address] Deya Jovel, RN 07/23/2024 Telephone [facility] Maternal Medicine [facility] [address] [place] [address] Deya Jovel, RN 07/20/2024 MyC Medical Advice [facility] Maternal Medicine [facility] [address] [place] [address] Trang Perez, CHRISTIAN 07/16/2024 MyC Medical Advice [facility] Maternal Medicine [facility] [place] [address] [place] [address] Rosaline Reyes RN 07/07/2024 MyC Medical Advice [facility] Maternal Medicine [facility] [address] [place] [address] Brook Ziegler, CHRISTIAN 06/30/2024 MyC Medical Advice [facility] Maternal Medicine [facility] [address] [place] [address] Jeanine Garza, CHRISTIAN 06/29/2024 MyC Medical Advice [facility] [place] [address] [place] [address] Deya Jovel, RN 06/18/2024 MyC Medical Advice [facility] Maternal Medicine [facility] [address] [place] [address] Trang Perez, CHRISTIAN 06/15/2024 Encounter [facility] [place] NICU [address] [place] [address] 06/15/2024 MyC Medical Advice [facility] Maternal Medicine [facility] [address] [place] [address] Trang Perez, RN 06/15/2024 Telephone [facility] [place] [address] [place] [address] Trang Perez RN Hypertension from Last 3 Months Immunizations Name Administration Dates Next Due COVID-19 Monovalent 18+ (Moderna) 06/09/2021, Influenza Vaccine >6 months,quad, PF 09/02/2017 TDAP (Adacel,Boostrix) 07/18/2021,12/30/2017 Social History Tobacco Use Types Packs/Day Years Used Date Smoking Tobacco: Never Smokeless Tobacco: Never Tobacco Cessation:Counseling Given: Not Answered Alcohol Use Standard Drinks/Week Comments Not Currently 0 (1 standard drink = 0.6 oz pur e alcohol) [place] Depression Scale Answer Date Recorded Last EPDS [...] on file 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 Gender Identity Not on file Sexual Orientation [...] - Td or Tdap) 07/18/2031 07/18/2021, 12/30/2017 RSV VACCINE (1 - 1-dose 75+ series) 2069 HEPATITIS C SCREENING Completed 06/10/2024 HPV IMMUNIZATION [...] Antibody Nonreactive Nonreactive 06/10/2024 4:46 AM CDT LABORATORY Comment:A nonreactive screen ing test result [...] MD LAB - BLOOD ORDERABLES Final Result LABORATORY [facility] [place] Core Lab [address] [facility] J [facility], Room [address] [place] [address] * Abstract PAP (HIM External Result) (02/14/2021 6:00 PM CDT) PAP-ABSTRACT See Scanned Document [facility] LAB-CENTRAL LABORATORY 02/14/2021 6:00 PM CDT Narrative [facility] LAB-CENTRAL LABORATORY - 02/14/2021 6:00 PM CDT See Care Everywhere-[facility] us Provider Outside LAB - HIM EXTERNAL RESULT Final Result [facility] LAB-CENTRAL LABORATORY [address] [place] [address], [facility] from Last 3 Months or Most Recently Relevant to Health Maintenance [place] [address] [employer] Advance Directives For more information, please contact: [phone] * Full Code (Latest Code Status on [...] continue PREVIOUSLY ORDERED code status Care Teams Test Architect Relationship Specialty Start Date End Date No Ref-Primary, Physician PCP - General 06/06/24
--- OUTSIDE RECORDS SUMMARY | 2024-09-14 11:13 | XMS_ITS | Encounter Summary ---
Author Organization [place] Address [address] [place] [address]. [place] [address] Care Team Providers Care Grain Miller Helper Name Role Phone No Ref-Primary, Physician Primary Care Provider Encounter Details Date Type Department Care Team (Latest Contact Info) Description 06/06/2024 Travel Social History Tobacco Use Types Packs/Day Years Used Date Smoking Tobacco: Never Smokeless Tobacco: Never Alcohol Use Standard Drinks/Week Comments Not Currently 0 (1 standard drink = 0.6 oz pur e alcohol) [place] Depression Scale Answer Date Recorded Last EPDS [...] in an abandoned building, in an overnight care home, or couch-surfing.) No 06/06/2024 Are you worried [...] on file 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
--- OUTSIDE RECORDS SUMMARY | 2024-09-14 11:13 | XMS_ITS | Encounter Summary ---
Author Organization [place] Address [facility] [place] [address] Care Team Providers Care Desktop Engineer Name Role Phone No Ref-Primary, Physician Primary Care Provider Reason for Visit * Reason Onset Date Comments Hypertension 06/15/2024 Encounter Details Date Type Department Care Team (Late st Contact Info) Description 06/15/2024 Telephone [facility] Maternal Medicine Center [address] [place], [place] [address] Trang Perez RN Hypertension Social History Tobacco Use Types Packs/Day Years Used Date Smoking Tobacco: Never Smokeless Tobacco: Never Alcohol Use Standard Drinks/Week Comments Not Currently 0 (1 standard drink = 0.6 oz pur e alcohol) [place] Depression Scale Answer Date Recorded Last EPDS [...] in an abandoned building, in an overnight residential, or couch-surfing.) No 06/06/2024 Are you worried [...] on file 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 Welcomed Meri to [facility] BP program, reviewed purpose and goals of [...] documented as of this encounter Care Teams Desktop Engineer Relationship Specialty Start Date End Date No Ref-Primary, Physician PCP - General 06/06/24 documented as of this encounter
--- OUTSIDE RECORDS SUMMARY | 2024-09-14 11:13 | XMS_ITS | Encounter Summary ---
Author Organization [facility] Address [address] [place] [address]. [place] [address] Care Team Providers Care Levelman Name Role Phone No Ref-Primary, Physician Primary Care Provider Reason for Referral * Home Health Therapies & Aides (Routine: Next available opening) Specialty Diagnoses / Procedures Referred By Contac t Referred To Contact Diagnoses Severe pre-eclampsia, antepartum [address] [address] Phone: tel: fax: Referral ID Status Reason Start Date Expiration [...] have not heard by then, please call [phone]. Reason for Visit * Reason Comments Induction Of Labor * Auth/Cert (Routine) Specialty Diagnoses / Procedures Referred By Contac t Referred To Contact Obstetrics Diagnoses Maternity*MARIFER: 07/10/24*IOL;Cholestasis Encounter for induction of labor Preeclampsia, severe [facility] [address] [place] [phone] Phone: tel: Referral ID Status Reason Start Date Expiration Date Visits Re quested Visits Authorized [id number] 1 1 Encounter Details Date Type Department Care Team (Latest Contact Info) Description 06/06/2024 7:03 AM CDT - 06/11/2024 1:00 PM CDT Hospital Encounter [facility] [address] [place] [id number] Viry Patel MD [address] [facility] [address] [place] [address] Soni Bond MD [address] [facility] [address] [place] [address] (spontaneous vaginal delivery) (Primary Dx); Severe pre-eclampsia, antepartum; Severe pre-eclampsia in third trimester; hypertension Discharge Disposition: Home-Health Care Svc Social History Tobacco Use Types Packs/Day Years Used Date Smoking Tobacco: Never Smokeless Tobacco: Never Alcohol Use Standard Drinks/Week Comments Not Currently 0 (1 standard drink = 0.6 oz pur e alcohol) Wayland Depression Scale Answer Date Recorded Last EPDS [...] on file 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 In the first couple of weeks after you give , your doctor or putaway driver may want to check in withyou and make a plan for follow-up care. You will likely have a complete visit in the first 3 months after delivery. At that time, your doctor or putaway driver will check on your recovery and seehow you're doing. But if you have questions or concerns before then, you can always call your doctor or putaway driver. Follow-up care is a arellano part of [...] For cramps or mild pain, try an twod-orc-bjzfjsi pain medicine, such as acetaminophen (Tylenol) or [...] eating high-fiber foods. Ask your doctor or putaway driver about viov-zbu-mhtxjjd stool softeners. Activity Rest when you can. Ask for help from family or friends when you need it. If you can, have another adult in your home for at least 2 or 3 days after . When you feel ready, try to get some exercise every day. For many people, walking is a good choice.Don't do any heavy exercise until your doctor or putaway driver says it's okay. Ask your doctor or putaway driver when it is okay to have vaginal sex. If you don't want to get , talk to your doctor or putaway driver about control options. You can get even before your period returns. Also, you can get while you are . Talk to your doctor or putaway driver if you want to get again. They can talk to you about when it is safe. Emotional health It's normal to have some sadness, anxiety, and mood swings after delivery. It may help to talk witha trusted friend or family member. You can also call the Maternal Mental Health Hotline at 6-435-[facility] ( ) for support. If these mood changes last more than a couple of weeks, talk toyour doctor or putaway driver. When should you call for help? Share [...] Call the Suicide and Crisis Lifeline at 318. Call 8-833-116-TALK ( ). Text HOME to 105025 to access the Crisis Text Line. Consider saving these numbers in your phone. Go to Tamar [employer].StyleUp for more information or to chat online. Call your doctor or putaway driver now or seek immediate medical care if: [...] be sure to contact your doctor or putaway driver if: Your vaginal bleeding isn't decreasing. You feel sad, anxious, or hopeless for more than a few days. You are having problems with your breasts or . Where can you learn more? Go to https://www.Portero.net/patiented Enter A461 in the search box to learn more about After Your Delivery (the Period): CareInstructions. Current as of: April 15, 2023 Content Version: 14.0 ?? [employer]. Care instructions adapted under license by your healthcare professional. If you have questions about a medical condition or this instruction, always ask your healthcare professional. [employer] disclaims any warranty or liability for your [...] or other signs of a seizure Call if you feel that it is an emergency. The symptoms below can happen to anyone after giving . They can be very serious. Call your provider if you have any of these warning signs. My provider???s phone number:[facility] [phone] Losing too much blood (hemorrhage) Call your [...] of your health care provider. Copyright 2020 [facility] [employer]. All rights reserved. Clinically reviewed by Nuvia Steel, CHRISTIANC-OB, MSN. Bomboard 381096 - Rev 11/29. Care (Vaginal ) When [...] they don't, talk to your doctor or putaway driver. Follow-up care is a arellano part of [...] For cramps or mild pain, try an roge-uyy-dpotamb pain medicine, such as acetaminophen (Tylenol) or [...] up your milk supply. Ask your doctor, putaway driver, nurse, or cassandra consultant about what type of pump you should use if you don't have a breast pump at home. Ease constipation by drinking plenty of fluids and eating high-fiber foods. Ask your doctor or putaway driver about rlim-pdl-qxhxzrn stool softeners. Activity Rest when you can. Ask for help from family or friends when you need it. When you feel ready, try to get some exercise every day. For many people, walking is a good choice.Don't do any heavy exercise until your doctor or putaway driver says it's okay. Ask your doctor or putaway driver when it is okay to have vaginal sex. If you don't want to get , talk to your doctor or putaway driver about control options. You can get even before your period returns. You can also get while you are . Talk to your doctor or putaway driver if you want to get again. They can talk to you about when it is safe. Taking care of your emotional health Get support. You may go through many different emotions while your baby is in the NICU. It may helpto talk with a friend, a family member, or a counselor. Your hospital may have a social services specialist or support group for NICU parents. It's normal to have some sadness, anxiety, and mood swings after delivery. You can always call the Maternal Mental Health Hotline at 0-222-[facility] ( ) for support. If these mood changeslast more than a couple of weeks, talk to your doctor or putaway driver. When should you call for help? Share [...] Suicide and Crisis Lifeline at 988. Call 2-134-689-TALK ( ). Text HOME to 943154 to access the Crisis Text Line. Consider saving these numbers in your phone. Go to enVista for more information or to chat online. Call your doctor or putaway driver now or seek immediate medical care if: [...] be sure to contact your doctor or putaway driver if: Your vaginal bleeding isn't decreasing. You feel sad, anxious, or hopeless for more than a few days. You are having problems with your breasts or . Where can you learn more? Go to https://www.Portero.Agile Sciences/patiented Enter P265 in the search box to learn more about Care (Vaginal ) When Your Baby Isin the NICU: Care Instructions. Current as of: April 15, 2023 Content Version: 14.1 ?? Signal Vine. Care instructions adapted under license by your healthcare professional. If you have questions about a medical condition or this instruction, always ask your healthcare professional. [employer] disclaims any warranty or liability for your [...] Series Upper Arm Blood Pressure Monitor (Model [id number]) Omron 5 Series Upper Arm Blood Pressure Monitor (Model [id number]) Omron 7 Series Upper Arm Blood Pressure [...] A blood pressure monitor is an allowed chvn-sci-qipvbst (OTC) item to pay yourself back from [...] arm). Use a flexible measuring tape or wallpaper printer. Place the measuring tape fci between your armpit and elbow. Measure the [...] of your health care provider. Photo: ID [id number] ?? Green [employer]osodiana [employer]inic.Tokalas. Text copyright ?? 2022 [facility]. All rights reserved. Clinically reviewed by [facility]???[facility]. Bomboard [id number] - REV 12/27. * Attachments The following attachments cannot be sent through Care Everywhere. * Care at Home With Baby (Sao T[place]an) * (s) Checking Your Blood Pressure at Home: During and after ([place]an) documented in this encounter Medications at Time of Discharge ibuprofen (ADVIL/MOTRIN) 600 MG tabletIndications: (spontaneous vaginal delivery) Take 1 tablet (600 mg) by mouth every 6 hours as needed for moderate pain. Start after delivery 60 tablet 06/08/2024 NIFEdipine ER OSMOTIC (ADALAT CC) 30 MG 24 hr tabletIndications: hypertension Take 1 tablet (30 mg) by mouth every 24 hours. 30 tablet 1 06/12/2024 omeprazole (PRILOSEC OTC) 20 MG EC tablet Take 20 mg by mouth daily. senna-docusate (SENOKOT-S/PERICOL KATI) 8.6-50 MG tabletIndications: (spontaneous vaginal delivery) Take [...] physician. Thaddeus Pringle MD PGY-4 Gastroenterology Fellow [phone] Subjective: NAEO. Patient asymptomatic, wondering if she [...] Lab 06/10/24 1126 06/09/24 1600 06/08/24 0806/07/24 1159 06/06/24 2221 06/06/24 0927 NA 134* 134* -- -- -- 137 [...] Lab 06/08/24 0803 06/07/24 1159 06/07/24 0754 06/06/24 2221 06/06/24 0927 WBC 7.4 7.8 -- 10.9 7.0 RBC [...] 7 days. Imaging: US Abdomen Complete Order: [id number] Impression 1. Prominent spleen at the upper limits of normal measuring 12.8 cm. 2. Normal gallbladder and bile ducts. 3. No hydronephrosis. Narrative For Patients: As a result of the Century Cures Act, medical imaging exams and procedure reports are released immediately into your electronic medical record. You may view this report before yourreferring provider. If you have questions, please contact your health care provider. EXAM: US ABDOMEN COMPLETE LOCATION: [facility] DATE: 11/12/2023 INDICATION: Right upper quadrant pain [...] caliber. IVC: Normal where visualized. Endoscopy: NA Cosigned by Martín Blake MD at 06/11/2024 4:02 PM CDT Associated attestation - Martín Blake MD - [...] Ayala MD - 06/11/2024 6:56 AM CDT [facility] Post- Progress Note Name: Meri Terrell S: [...] 24h mag - Interested in enrollment in [facility] BP at discharge; already received equipment # [...] Pendleton MD - 06/10/2024 6:19 AM CDT [facility] Post- Progress Note Name: Meri Terrell S: [...] 24h mag - Interested in enrollment in [facility] BP at discharge # COVID-19 - Tm 102 (2305, 06/06), Tl 101.6 (2335, 06/06) - CXR with trace bilateral pleural effusions - Will follow blood culture (NGTD) Medically Ready for Discharge: Anticipated Today pending GI recommendations Rosaline Bro MD Supervisor Doping PGY-3 06/10/24 6:19 AM Staff Note I appreciate the note by Dr. [...] daily. Given BP cuff and interested in HOPE-BP program. Plans to followup in [place], desires interval tubal and will coordinate with [...] call light attimes during her stay - Michelle Gonsalez RN asked to talk with pt. Call light [...] Bro MD - 06/09/2024 5:52 AM CDT [facility] Post- Progress Note Name: Meri Terrell S: [...] 24h mag - Interested in enrollment in [facility] BP at discharge # COVID-19 - Tm 102 (2305, 06/06), Tl 101.6 (2335, 06/06) - CXR with trace bilateral pleural effusions - Will follow blood culture (NGTD) Medically Ready for Discharge: Anticipated Tomorrow pending BP control and LFTs Rosaline Bro MD Supervisor Doping PGY-3 06/09/24 5:55 AM Cosigned by Ronan Morse MD at 06/09/2024 12:03 PM CDT Associated attestation - Ronan Morse MD - [...] BP, possible GI consult. Ronan Morse MD Lamination Machine Operator [facility] Obstetrics, Gynecology, and Women's [...] order for SW to see for elevated Wayland score of 13. Score of 0 to [...] additional SW visit today to address elevated Wayland. Order closed. JOYA Martin [facility] Clinical Melt Helper Maternal Child Health Voicemail: [phone] Reachable via Taptera * Soni Bond MD - 06/08/2024 7:21 AM CDT [facility] Post- Progress Note Name: Meri Terrell S: Pain well controlled. Tolerating regular diet without nausea or vomiting. Ambulating without dizziness. Lochia at the level of the period. in NICU. Voiding spontaneously. Passing flatus, noBM [...] BP Temp Temp src Pulse Resp SpO2 09/02/24 0220 -- 97.7 ??F (36.5 ??C) Oral -- -- -- 06/08/24 0030 100/69 -- -- -- -- -- 06/08/24 0015 101/71 -- -- -- -- -- 06/08/24 0000 103/67 -- -- -- -- -- 06/07/24 2315 116/73 -- -- -- -- 98 % 06/07/240 114/78 -- -- -- -- 98 % 06/07/245 120/81 -- -- -- -- 98 % 06/07/240 125/86 -- -- -- -- 98 % 06/07/24 2258 (!) 129/94 -- -- -- -- 98 [...] 24h mag - Interested in enrollment in [facility] BP at discharge # COVID-19 - Tm 102 (2305, 06/06), Tl 101.6 (2335, 06/06) - CXR with trace bilateral pleural effusions - Will follow blood culture Medically Ready for Discharge: Anticipated Tomorrow- given BPs normal and pt strong desire for discharge, will recheck LFTs this PM and if trending down, could discharge at that time. Rosaline Bro MD Supervisor Doping PGY-3 06/08/24 7:23 AM [facility] staff: Appreciate note by Dr. Bro. I have seen and examined the patient without the resident. I have reviewed, edited, and agree with the note. Soni Bond MD, FACOG 06/08/2024 9:58 AM * Cinthia Beck MD - 06/07/2024 3:18 PM CDT [facility] Magnesium Check Note S: Patient has a [...] Beck MD - 06/07/2024 11:34 AM CDT [facility] Magnesium Check Note S: Patient is feeling [...] care of this patient. Luís Torres MD Survey Researcher, CA-2, PGY-3 Cosigned by Keisha Villalba MD at 06/07/2024 4:37 PM CDT Associated attestation - Keisha Villalba MD - 06/07/2024 4:37 PM CDT Physician Attestation I agree with the information in this note. Keisha Villalba MD * [place], Viry Restrepo MD - 06/07/2024 6:20 AM CDT [facility] Post- Progress Note Name: Meri Terrell S: Patient was diagnosed with COVID and Pre-E with severe features last night. Pain well controlled, no longer has RUQ pain. Tolerating regular diet without nausea or vomiting. Ambulating without dizziness. Lochia at the level of the period. in NICU. No RUQ, headache, vision changes, chest pain, dyspnea, lower extremity edema. Has some cough and congestion. O: Patient Vitals for the past 24 hrs: BP Temp Temp src Pulse Resp SpO2 Weight 06/07/24 0900 108/75 97.6 ??F (36.4 ??C) [...] ??C) Oral -- 22 97 % -- 06/06/245 127/75 -- -- -- -- 97 % -- 06/06/24 2315 124/76 -- -- -- -- 97 % -- 06/06/24 2305 133/79 (!) 102 ??F (38.9 ??C) Oral -- 20 98 % -- 06/06/24 2255 139/86 -- -- -- -- 97 % -- 06/06/245 (!) 178/110 98.3 ??F (36.8 ??C) Oral [...] ??C) Oral -- -- 98 % -- 06/06/243 126/76 -- -- -- -- -- -- 06/06/24 1857 103/65 -- -- -- -- -- -- 06/06/24 1841 107/61 -- -- -- -- -- -- 06/06/24 1830 -- 98.2 ??F (36.8 ??C) Oral -- -- -- -- 06/06/24 1827 104/58 -- -- -- -- -- -- 06/06/24 180 114/74 -- -- -- -- -- -- 06/06/24 180 -- -- -- -- -- 97 % -- 06/06/24 180 118/71 -- -- -- -- -- -- 06/06/24 1800 -- -- -- -- -- 97 % -- 06/06/24 175 115/67 -- -- -- -- -- -- 06/06/241753 117/69 -- -- -- -- -- -- 06/06/241746 120/73 -- -- -- -- -- -- 06/06/241743 118/71 -- -- -- -- -- -- 06/06/248 122/77 -- -- -- -- -- -- 06/06/241731 119/77 -- -- -- -- -- -- 06/06/241729 -- -- -- -- -- 98 % -- 06/06/24 1726 121/72 -- -- -- -- -- -- 06/06/24 1725 125/69 -- -- -- -- 98 % -- 06/06/24 172 112/74 -- -- -- -- -- -- 06/06/24 1720 118/71 -- -- -- -- 99 % -- 06/06/248 121/74 -- -- -- -- -- -- 06/06/246 122/73 -- -- -- -- -- -- 06/06/24 1715 125/76 -- -- -- -- 98 % -- 08/31/24 1710 116/77 -- -- -- -- 99 [...] if <10. Rh: Positive Rubella: immune Feed: in NICU, mother with COVID BC: Desires [...] CDT Pt arrived on unit via wheelchair @4665. Baby is in NICU. Report received from transferring Gail GONZALES @6110. Belongings transferred to room. Pt oriented tosurroundings, [...] ppx Discussed with Dr. Varun Patel MD BREASTFEEDING PEER COUNSELOR PGY-3 06/06/2024 11:59 PM * Janice Patel MD - 06/06/2024 8:20 PM CDT [facility] S: Doing okay. Not feeling contractions. Feeling [...] 1805 -- -- -- 97 % 06/06/24 180 118/71 -- -- -- 06/06/24 1800 -- -- -- 97 % 06/06/24 1757 115/67 -- -- -- 06/06/24 175 117/69 -- -- -- 06/06/24 174 120/73 -- -- -- 06/06/24 1744 118/71 -- -- -- 06/06/24 1738 122/77 -- -- -- 06/06/24 173 119/77 -- -- -- 06/06/24 173 -- -- -- 98 % 06/06/24 1726 121/72 -- -- -- 06/06/24 1725 125/69 -- -- 98 % 06/06/24 1723 112/74 -- -- -- 06/06/24 1720 118/71 -- -- 99 % 06/06/24 1718 121/74 -- -- -- 06/06/24 1716 122/73 -- -- -- 06/06/24 1715 125/76 -- -- 98 % 06/06/24 1710 116/77 -- -- 99 % 06/06/24 1708 119/77 -- -- -- 06/06/24 1705 119/80 -- -- 99 % 06/06/24 170 -- -- -- 100 % 06/06/24 1659 138/89 -- -- -- 06/06/24 1655 -- -- -- 99 % 06/06/24 1650 -- -- -- 100 % 06/06/24 1645 -- -- -- 100 % 06/06/24 1640 -- -- -- 100 % FHT: Baseline 155, moderate variability, positive accelerations, recurrent variable decelerations [place]: 5-6 contractions in 10 minutes A/P: Meri [...] amnioinfusion. - Continuous monitoring Janice Patel MD BREASTFEEDING PEER COUNSELOR PGY-3 06/06/2024 8:20 PM * Soni Bond [...] for ICP Soni Bond MD, FACOG (she/her/hers) Lamination Machine Operator Department of Supervisor Doping/[facility] [employer] [place] [employer] [facility] [address] [place] [address]. [place] [address] [email or web address] p. [phone] f. [phone] * Cinthia Beck MD - 06/06/2024 4:13 [...] bpm, moderate variability, positive accelerations, deceleration from 4494-8010. [place]: 4-5 contractions per 10 minutes Continue continuous monitoring, follow fluid responsiveness. Cinthia Beck MD PGY-1 06/06/24 4:18 PM * Cinthia Beck MD - 06/06/2024 2:38 PM CDT [facility] Labor Progress Note S: Patient reports continued RUQ pain. She is feeling lower abdominal crampy pain with contractions. No VB or LOF. O: Patient Vitals for the past 4 hrs: BP Temp Temp src Resp 06/06/24 1208 106/71 98.2 ??F (36.8 ??C) Oral 16 SVE: 3/50/-2, membranes intact FHT: Baseline 140, moderate variability, positive accelerations, absent decelerations [place]: 3-4 contractions in 10 minutes A/P: Meri [...] bile acids pending - Repeat LFTs at 2000 FWB: - Category I FHT - Continuous monitoring Cinthia Beck MD PGY-1 06/06/24 2:42 PM * Cinthia Beck MD - 06/06/2024 12:16 PM CDT [facility] [place]/FHR Strip Review Note S: Patient reporting a headache per RN, which she attributes to poor sleep at night O: Patient Vitals for the past 4 hrs: BP Temp Temp src Resp 06/06/24 1208 106/71 98.2 ??F (36.8 ??C) Oral 16 FHT: Baseline 140, moderate variability, positive accelerations, no decelerations [place]: 1-2 contractions in 10 minutes A/P: Meri [...] Bond MD - 06/06/2024 8:05 AM CDT [facility] Obstetric[facility] History and Physical Meri Terrell Date [...] Type Anes PTL Lv 4 Current 3 2022 SAB 2 08/18/21 36w0d M Vag-Spont ARACELI 1 02/03/18 36w4d M Vag-Spont ARACELI Past Medical History: Past Medical History: Diagnosis Date Liver disease Past Surgical History: Past Surgical History: Procedure Laterality Date DILATION AND CURETTAGE SUCTION N/A 04/17/2023 Procedure: SUCTION DILATION AND CURETTAGE; Surgeon: Sandrita Lopez MD; Location: [facility] Social History: Social History Tobacco [...] - Continued home ursodiol GERD - Continued GUN STRIPER PPI FWB Cat I tracing, cephalic by BSUS; EFW 2183 one week ago - Continuous Monitoring - Intrauterine resuscitative measures prn Patient discussed with Dr. Varun Beck MD PGY-1 06/06/24 now [facility] staff: Appreciate note by Dr. Bcek. I have seen and examined the patient [...] physician. Thaddeus Pringle MD PGY-4 Gastroenterology Fellow [phone] ATTENDING NOTE HEPATOLOGY I discussed this patient [...] AND CURETTAGE; Surgeon: Sandrita Lopez MD; Location: [facility] Social History: Reviewed and edited [...] Social Connections: Socially Integrated (05/11/2023) Received from [facility] Social Connections Frequency of Communication with Friends [...] 7 days. Imaging: US Abdomen Complete Order: [id number] Impression 1. Prominent spleen at the upper [...] care provider. EXAM: US ABDOMEN COMPLETE LOCATION: [facility] DATE: 11/12/2023 INDICATION: Right upper quadrant pain [...] being positive for COVID-19. Communication Assessment: Spoken Language-[place] T[place]an Living Environment: Meri reports that she resides with her Rl and their two other children who are 6.6 and 3 years old in [place], [place]. Family/Support Factors Meri reports that her [...] Meri reports she is currently employed in [employer] at [employer] and has 18 weeks of paid leave. 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 Meri reports no financial stressors at this time. Insurance: Meri has insurance through her employer-->[employer]. Mental Health Status: SW facilitated conversation around [...] follow for support as needed. JOYA Srinivasan, [facility] Maternal and Child Health Melt Helper Office: [phone] After Hours Pager: [phone] [email or web address] documented in this encounter Miscellaneous Notes * Plan of Care - Kayla Darnell RN - 06/11/2024 1:00 PM CDT Problem: Hypertensive Disorders in Goal: Patient- Stabilization Intervention: Optimize Blood Pressure and Fluid Status Recent Flowsheet Documentation Taken 06/11/2024 0800 by Kayla Darnell, RN Fluid/Electrolyte Management: fluids provided Intervention: Monitor and Manage Symptom Progression Recent Flowsheet Documentation Taken 06/11/2024 0800 by Kayla Darnell, CHRISTIAN Seizure Precautions: clutter-free environment maintained Assessment complete [...] Will check in around day 10 Elissa Elizondo RN, IBCLC Director Environmental Jorge: Projection Camera Operator Group [phone] Office: [phone] * Plan of Care - Janice Bennett [...] performing self cares and is pumping for . Infrequent cough. Action: Patient denied pain and stated she would call for pain meds. See MAR. Patient reassessed within 1 hour after each medication and pain was improved - patient stated she was comfortable. Patient education done about discharge goals and plan. See flow record. Response: Positive attachment behaviors observed with infant, going to NICU to breastfeed/pump. Support persons [...] if needs arise Nela Contreras RN, IBCLC Director Environmental Jorge: [employer]jection Camera Operator Group [phone] Office: [phone] * Plan of Care - Heather Zambrano RN - 06/10/2024 6:42 AM CDT 2850-3882 Vitals: VSS Fundus: firm, midline Lochia: scant Laceration WDL GI/: WDL, adequate voids, passing gas, has had a BM EDS: done: 13 - has met with social work Videos: not done Certificate: done Breast Pump: done Plan: GI consult today * Provider Notification - Zuleika Garner RN - 06/09/2024 5:51 PM CDT 06/09/24 7827 Provider Notification Provider Name/Title Dr Whitaker Method of Notification Electronic Page At 1494, text to Dr Mc On behalf of pt. Pt read labs on My Chart and wants to discuss further with MD. Pt requesting to know when she will be seen by GI specialist as she wants to go home tomorrow. Responses for Dr Grimaldo relied back to pt - she is [...] 0815 Provider Notification Provider Name/Title Dr Micah Dimas Method of Notification Electronic Page At 0840, [...] steady gait and independent with cares. Watches on iPad. Pumping independently. Pain managed with [...] or Manage Pain Recent Flowsheet Documentation Taken 06/09/2024 0030 by Jacquie Izaguirre RN Pain Management Interventions: (hydration promoted) relaxation techniques promoted rest Problem: Hypertensive Disorders in Goal: Patient- Stabilization Outcome: Progressing * Plan of Care - Ella Peters RN - 06/08/2024 9:56 PM CDT [id number]: The patient's blood pressure was 130/88. 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 Had some mastitis, but otherwise no concerns or problems Mother's Information: Name: Meri Occupation: Age: 29 Delivery type: vaginal [place]: [place] Pump for home use: Spectra S2, doesn't [...] due to covid+. Elissa Elizondo RN, IBCLC Director Environmental Jorge: [employer] [phone] Office: [phone] * Plan of Care - Radha Ahumada [...] Consult Checked in with bedside RN x 2Meri is not feeling well today and plan for pumping is unclear. LC team will follow up at a later time. Nela Contreras RN, IBCLC Director Environmental Jorge: [employer] [phone] Office: [phone] * Provider Notification - Meaghan Castro RN - 06/07/2024 3:13 PM CDT MD stated Okay to continue for now - I think she might have been flexing a bit and she's feeling well still so just gonna check a level. Lab was ordered and drawn. 06/07/24 1134 Provider Notification Method of Notification Phone * Plan of Care - Meaghan Castro RN - 06/07/2024 2:48 PM CDT Vital [...] AM CDT Data: Meri Terrell transferred to [facility] 7th floor via wheelchair at 0355. Baby in NICU. Action: Receiving unit notified of transfer: Yes. Patient and family notified of room change. Report given to Madhavi RN at 0335. Belongings sent to receiving unit. [...] Delivery Time: (Delivered) Hours: 1 Minutes: 15 [place] Weight: 1 Minute 5 Minute 10 Minute [...] for the entire procedure. Janice Patel MD BREASTFEEDING PEER COUNSELOR PGY-3 06/06/2024 8:45 PM Staff: I was scrubbed and present for entire case and agree w/ above note. Soni Bond MD Xander, Bertrand [[id number]] Rupture date/time: 06/06/241914 Rupture type: Artificial Rupture [...] Respiratory effort: Total: Cord Cord Complications: None [place] Resuscitation Methods: None Care at Delivery: NICU team called on behalf of Dr Bond for the vaginal delivery of a late infant (35 1/7 weeks) and category II heart rate tracing. cried immediately after his and became vigorous on his mother's abdomen. The infant remained vigorous. NICU teamwas dismissed. No charge. Ashley Campos APRN, CNP 06/06/2024 8:34 PM Labor Events and Shoulder Dystocia Tracing Prior to Delivery: Category 2 Delivery (Maternal) (Provider to Complete) (710606) Episiotomy: None Perineal lacerations: None Blood Loss Mother: Meri Terrell #[id number] Start of Mother's Information Delivery Blood Loss 06/06/24 0830 - 06/06/242042 None End of Mother's Information Mother: Meri Terrell #[id number] Delivery - Provider to Complete (801461) Delivery Type (Choose the 1 that will [...] for IOL due to Cholestasis. Patient is [id number]. record reviewed. OB History Para Term AB [...] STAT 06/07/2024 12:30 AM CDT INFLUENZA A/B, RSV AND SARS-COV2 PCR Routine 06/07/2024 12:14 AM CDT [...] 9:39 AM CDT 06/11/2024 9:44 AM CDT us Soni Bond MD LAB - BLOOD ORDERABLES Final Result UR LABORATORY [facility] Acute Care Lab [address], [address] [place] [address] * (ABNORMAL) Hepatic panel (06/11/2024 9:39 AM CDT) Pathologist [facility] [place] Protein Total 7.8 6.4 - 8.3 g/dL [...] 9:39 AM CDT 06/11/2024 9:43 AM CDT us Madhuri Abdullahi MD LAB - BLOOD ORDERABLE S Final Result UR LABORATORY [facility] Acute Care Lab [address], [address] [place] [phone] * ANCA IgG by IFA with Reflex [...] 2:52 PM CDT 06/10/2024 4:00 PM CDT us Madhuri Abdullahi MD LAB - BLOOD ORDERABLE S Final Result SPECIALTY CORE/PROT/ENDO [facility] Specialty Core/Prot/Endo [address] [facility], [address] * Mitochondrial M2 Antibody IgG (06/10/2024 2:52 PM CDT) Mitochondrial M2 Antibody IgG <1.0 <4.0 U/mL 06/12/2024 9:51 AM CDT UM SPECIALTY CORE/PROT/END O Comment:Negative Blood STRUCTURE OF LEFT UPPER LIMB / Unknown Venipuncture / Unknown 06/10/2024 2:52 PM CDT 06/10/2024 4:09 PM CDT us Madhuri Abdullahi MD LAB - BLOOD ORDERABLE S Final Result UM SPECIALTY CORE/PROT/ENDO UM Specialty Core/Prot/Endo [address] [facility], [address] * Hepatitis E Antibody IgM (06/10/2024 2:52 PM CDT) [facility] Hepatitis E IgM Negative Negative 1:20 PM CDT [facility] Comment: INTERPRETIVE INFORMATION: Hepatitis E Virus Ab, IgM by ROSANA This test was developed and its performance characteristics determined by [facility]. It has not been cleared or approved by the US Food and Drug Administration. This test was performed in a CLIA certified laboratory and is intended for clinical purposes. Performed By: [facility] [address] [place] [id number] Nurse Clinical: Jaguar Laurent MD, PhD CLIA Number: [id number] Blood STRUCTURE OF LEFT UPPER LIMB / Unknown Venipuncture / Unknown 06/10/2024 2:52 PM CDT 06/10/2024 4:00 PM CDT Madhuri Abdullahi MD LAB - BLOOD ORDERABLE S Final Result Performing Organization Address [facility]/ZIP Co de Phone Number [address] [address], [facility] [phone] * Ivy Mathews Virus Quantitative PCR, Plasma (06/10/2024 2:52 PM CDT) [facility] EBV DNA IU/mL Not Detected Not Detected IU/mL 06/11/2024 10:56 AM CDT [facility] Blood STRUCTURE OF LEFT UPPER LIMB / Unknown Venipuncture / Unknown 06/10/2024 2:52 PM CDT 06/10/2024 4:00 PM CDT Narrative [facility] - 06/11/2024 10:56 AM CDT The skyler EBV assay is an FDA-approved, in vitro nucleic acid amplification test for the quantification of Ivy-Mathews virus (EBV) in human EDTA plasma on the [employer] skyler instrument system for automated viral nucleic acid extraction, purification, amplification, and detection of the viral nucleic acid target. Selective amplification of target nucleic acid from the sample is achieved using a dual target virus-specific approach from highly conserved regions of the EBV located in the EBV EBNA-1 gene and the EBV BMRF gene. This test is intended for use [...] results are reported in International Units (IU)/mL. us Madhuri Abdullahi MD LAB - MICRO GENERAL O RDERABLES Final Result [facility] Inf. Diseases Diag. Lab [address] [facility], [address] [place] [address] * Cytomegalovirus DNA by PCR, Quantitative (06/10/2024 2:52 PM CDT) CMV DNA IU/mL Not Detected Not Detected IU/mL 06/11/2024 12:28 PM CDT [facility] Blood STRUCTURE OF LEFT UPPER LIMB / Unknown Venipuncture / Unknown 06/10/2024 2:52 PM CDT 06/10/2024 4:00 PM CDT Narrative [facility] - 06/11/2024 12:28 PM CDT The skyler CMV assay is a FDA-approved in vitro nucleic acid amplification test for the quantification of cytomegalovirus (CMV) DNA in human EDTA plasma using the Jairo skyler 6800 instrument for automated viral nucleic acid [...] only. The Infectious [facility] Diagnostic [facility] at [facility] has validated the performance characteristics of the skyler CMV assay for plasma and urine. Madhuri Abdullahi MD LAB - MICRO GENERAL O RDERABLES Final Result [facility] Inf. Diseases Diag. Lab [address] [facility], [address] [place] [address] * Bile acids total (06/10/2024 2:52 PM CDT) Bile Acids Total 6 0 - 10 umol/L 06/11/2024 8:46 PM CDT [facility] Comment: INTERPRETIVE INFORMATION: Bile Acids, Total Reference Interval applies to fasting specimens. Performed By: [facility] [address] [place] [id number] Nurse Clinical: Jaguar Laurent MD, PhD CLIA Number: [id number] Blood STRUCTURE OF LEFT UPPER LIMB / Unknown Venipuncture / Unknown 06/10/2024 2:52 PM CDT 06/10/2024 4:00 PM CDT Madhuri Abdullahi MD LAB - BLOOD ORDERABLE S Final Result Performing Organization Address [facility]/ZIP Co de Phone Number [facility] [place] [address] [place] [phone] [phone] * IgG (06/10/2024 2:52 PM CDT) Immunoglobulin G 747 610 - 1,616 mg/dL 06/11/2024 11:04 AM CDT [facility] SPECIALTY CORE/PROT/END O Blood STRUCTURE OF LEFT UPPER LIMB / Unknown Venipuncture / Unknown 06/10/2024 2:52 PM CDT 06/10/2024 4:09 PM CDT Madhuri Abdullahi MD LAB - BLOOD ORDERABLE S Final Result UM SPECIALTY CORE/PROT/ENDO UM Specialty Core/Prot/Endo [address] [facility], [address] * F Actin EIA with reflex (06/10/2024 2:52 PM CDT) F-Actin (Smooth Muscle) Ab, IgG by ROSANA 5 0 - 19 Units 06/11/2024 11:40 PM CDT [facility] Comment: If F-Actin (Smooth Muscle) Antibody, IgG is negative, the Smooth Muscle Antibody titer by IFA is not performed. REFERENCE INTERVAL: F-Actin (Smooth Muscle) Antibody, IgG by ROSANA 19 Units or less ....... Negative 20 - 30 Units .......... Weak Positive-Suggest repeat testing in two to three weeks with fresh specimen. 31 Units or greater..... Positive-Suggestive of autoimmune hepatitis type 1 or chronic active hepatitis. F-actin IgG antibodies [...] suspicion for AIH is strong. Performed By: [facility] [address] [place] [address] Nurse Clinical: Jaguar Laurent MD, PhD CLIA Number: [id number] Blood STRUCTURE OF LEFT UPPER LIMB / Unknown Venipuncture / Unknown 06/10/2024 2:52 PM CDT 06/10/2024 4:00 PM CDT us Madhuri Abdullahi MD LAB - BLOOD ORDERABLE S Final Result [employer] [address] [place] [phone], [facility] [phone] * (ABNORMAL) Anti Nuclear Thom IgG by IFA with Reflex (06/10/2024 2:52 PM CDT) Pathologist [facility] [place] KEYLA interpretation Borderline Positive(A) Negative 06/11/2024 2:28 PM CDT UM SPECIALTY CORE/PROT/EN DO Comment: Negative: <1:40 Borderline Positive: 1:40 - 1:80 Positive: >1:80 KEYLA pattern 1 Speckled 06/11/2024 2:28 PM CDT UM SPECIALTY CORE/PROT/EN DO KEYLA titer 1 1:40 06/11/2024 2:28 PM CDT UM SPECIALTY CORE/PROT/EN DO Blood STRUCTURE OF LEFT UPPER LIMB / Unknown Venipuncture / Unknown 06/10/2024 2:52 PM CDT 06/10/2024 4:00 PM CDT us Madhuri Abdullahi MD LAB - BLOOD ORDERABLE S Final Result UM SPECIALTY CORE/PROT/ENDO UM Specialty Core/Prot/Endo [address] [facility] [address] [facility], Room [address] [place] [address] * (ABNORMAL) Symptomatic COVID-19 Virus (Coronavirus) by [...] the Xpert Xpress SARS-CoV-2 Assay on the [employer]. Additional information about this Emergency [...] COVID-19. This test was validated by the [facility]. This laboratory is certified under the Clinical Laboratory Improvement Amendments (CLIA) as qualified to perform high complexity laboratory testing. Rosaline Pendleton MD LAB - MICRO GENERAL ORDERABL ES Final Result UR LABORATORY [facility] Lab [address] [place] [address], [address] * Extra Purple Top Tube (06/10/2024 11:26 AM CDT) Hold Specimen JIC 06/10/2024 1:01 PM CDT UR LABORATORY Blood STRUCTURE OF RIGHT UPPER LIMB / Unknown Venipuncture / Unknown 06/10/2024 11:26 AM CDT 06/10/2024 11:50 AM CDT Soni Bond MD LAB - BLOOD ORDERABLES Final Result Performing Organization Address City/[facility]/ZIP Co de Phone Number UR LABORATORY [facility] Lab [address] [place] [address], [address] * Hepatitis A antibody IgM (06/10/2024 [...] CDT Rosaline Pendleton MD LAB - BLOOD ORDERABLES Final Result [facility] [place] [facility] Lab [address] [facility], [address] [place] [address], [facility] * (ABNORMAL) Comprehensive metabolic panel [...] 11:26 AM CDT 06/10/2024 11:42 AM CDT us Rosaline Pendleton MD LAB - BLOOD ORDERABLES Final Result UR LABORATORY [facility] Acute Care Lab [address], [address] [place] [address] * Hepatitis A Antibody Total [...] infection Suki Luis MD LAB - BLOOD ORDERABLES Final Result LABORATORY [facility] [place] [facility] [address] [facility], Room [address] [address] * Hepatitis C antibody (06/10/2024 1:57 AM [...] CDT Suki Luis MD LAB - BLOOD ORDERABLES Final Result Performing Organization Address [facility] Co de Phone Number LABORATORY [facility] [place] [facility] [address] [facility], [address] [phone] * Hepatitis B Surface Antibody (06/10/2024 1:57 [...] CDT Suki Luis MD LAB - BLOOD ORDERABLES Final Result LABORATORY [facility] [place] [facility] [address] [facility], [address] [phone] * Hepatitis B core antibody (06/10/2024 1:57 AM CDT) Pathologist [facility] [place] Hepatitis B Core Antibody Total Nonreactive Nonreactive [...] CDT Suki Luis MD LAB - BLOOD ORDERABLES Final Result Performing Organization Address City/[facility]/ZIP Co de Phone Number LABORATORY [facility] [place] [facility] [address] [facility], Room [address] * Hepatitis B surface antigen (06/10/2024 1:57 AM CDT) [facility] Hepatitis B Surface Antigen Nonreactive Nonreactive 06/10/2024 4:46 AM CDT U LABORATORY Blood STRUCTURE OF RIGHT HAND / Unknown Venipuncture / Unknown 06/10/2024 1:57 AM CDT 06/10/2024 2:02 AM CDT us Suki Luis MD LAB - BLOOD ORDERABLES Final Result LABORATORY [facility] Core Lab [address] [facility], [address] [phone] * (ABNORMAL) Comprehensive metabolic panel (06/09/2024 4:00 PM CDT) Sodium 134(L) 135 - 145 mmol/L 06/09/2024 [...] CDT Ronan Morse MD LAB - BLOOD ORDERABLES Final R esult UR LABORATORY [facility] Acute Care Lab [address] [place] [address], Room [place] [phone] [place] [address] * (ABNORMAL) Hepatic panel (06/09/2024 4:00 PM [...] 4:00 PM CDT 06/09/2024 4:08 PM CDT us Ronan Morse MD LAB - BLOOD ORDERABLES Final R esult UR LABORATORY [facility] Acute Care Lab [address] [place] [address], Room [address] [phone] * (ABNORMAL) Hepatic panel (06/09/2024 8:22 AM [...] 8:22 AM CDT 06/09/2024 8:54 AM CDT us Madhuri Abdullahi MD LAB - BLOOD ORDERABLE S Final Result UR LABORATORY [facility] Acute Care Lab [address] [place] [address], [address] * (ABNORMAL) ALT (06/08/2024 2:01 PM CDT) ALT 274(H) 0 - 50 U/L 06/08/2024 2:36 PM CDT UR LABORATORY Blood STRUCTURE OF LEFT UPPER LIMB / Unknown Venipuncture / Unknown 06/08/2024 2:01 PM CDT 06/08/2024 2:13 PM CDT us Kiet Lou MD LAB - BLOOD ORDERABLES Final Res ult UR LABORATORY [facility] Acute Care Lab [address] [place] [address], [address] * (ABNORMAL) AST (06/08/2024 2:01 PM CDT) AST 107(H) 0 - 45 U/L 06/08/2024 2:36 PM CDT UR LABORATORY Blood STRUCTURE OF LEFT UPPER LIMB / Unknown Venipuncture / Unknown 06/08/2024 2:01 PM CDT 06/08/2024 2:13 PM CDT Kiet Lou MD LAB - BLOOD ORDERABLES Final Res ult UR LABORATORY [facility] Acute Care Lab [address], [address] [place] [address] * (ABNORMAL) CBC with platelets [...] 8:03 AM CDT 06/08/2024 8:48 AM CDT us Viry Patel MD LAB - BLOOD ORDERABLES Final Result UR LABORATORY [facility] Acute Care Lab [address] [place] [address], Room [place] [phone] * (ABNORMAL) Creatinine (06/08/2024 8:03 AM CDT) Creatinine 0.49(L) 0.51 - 0.95 mg/dL 06/08/2024 9:15 AM CDT UR LABORATORY GFR Estimate >90 >60 mL/min/1.7 3m2 06/08/2024 9:15 AM CDT UR LABORATORY Comment:eGFR calculated us2020 CKD-EPI equation. Blood STRUCTURE OF RIGHT UPPER LIMB / Unknown Venipuncture / Unknown 06/08/2024 8:03 AM CDT 06/08/2024 8:48 AM CDT Viry Patel MD LAB - BLOOD ORDERABLES Final Result UR LABORATORY [facility] Acute Care Lab [address] [place] [address], [address] [address], [place] * (ABNORMAL) ALT (06/08/2024 8:03 AM CDT) ALT 237(H) 0 - 50 U/L 06/08/2024 9:15 AM CDT UR LABORATORY Blood STRUCTURE OF RIGHT UPPER LIMB / Unknown Venipuncture / Unknown 06/08/2024 8:03 AM CDT 06/08/2024 8:48 AM CDT Viry Patel MD LAB - BLOOD ORDERABLES Final Result UR LABORATORY [facility] Acute Care Lab [facility] [facility], [address] [address] * (ABNORMAL) AST (06/08/2024 8:03 AM CDT) AST 92(H) 0 - 45 U/L 06/08/2024 9:1 5 AM CDT UR LABORATORY Blood STRUCTURE OF RIGHT UPPER LIMB / Unknown Venipuncture / Unknown 06/08/2024 8:03 AM CDT 06/08/2024 8:48 AM CDT us Viry Patel MD LAB - BLOOD ORDERABLES Final Result UR LABORATORY [facility] Acute Care Lab [address] [facility] [facility], Room [place] [phone] * (ABNORMAL) Magnesium (06/07/2024 11:59 AM CDT) Magnesium 6.6(H) 1.7 - 2.3 mg/dL 06/07/2024 12:27 PM CDT UR LABORATORY Blood STRUCTURE OF LEFT HAND / Unknown Venipuncture / Unknown 06/07/2024 11:59 AM CDT 06/07/2024 12:02 PM CDT us Cinthia Beck MD LAB - BLOOD ORDERABLES Final Result Performing Organization Address City/[facility]/ZIP Co de Phone Number UR LABORATORY [facility] Acute Care Lab [address] [place] [address], Room [place] [phone] * Creatinine (06/07/2024 11:59 AM CDT) Creatinine 0.53 0.51 - 0.95 mg/dL 06/07/2024 12:20 PM CDT UR LABORATORY GFR Estimate >90 >60 mL/min/1.7 3m2 06/07/2024 12:20 PM CDT UR LABORATORY Comment:eGFR calculated us2020 CKD-EPI equation. Blood STRUCTURE OF LEFT HAND / Unknown Venipuncture / Unknown 06/07/2024 11:59 AM CDT 06/07/2024 12:02 PM CDT Estella Uribe MD LAB - BLOOD ORDERABLES Final Result UR LABORATORY [facility] Acute Care Lab [address] [place] [address], [address] [address], [place] * (ABNORMAL) ALT (06/07/2024 11:59 AM CDT) ALT 191(H) 0 - 50 U/L 06/07/2024 12:20 PM CDT UR LABORATORY Blood STRUCTURE OF LEFT HAND / Unknown Venipuncture / Unknown 06/07/2024 11:59 AM CDT 06/07/2024 12:02 PM CDT Estella Uribe MD LAB - BLOOD ORDERABLES Final Result Performing Organization Address City/[facility]/ZIP Co de Phone Number UR LABORATORY [facility] Care Lab [address] [place] [address], [address] [address], [place] * (ABNORMAL) AST (06/07/2024 11:59 AM CDT) AST 75(H) 0 - 45 U/L 06/07/2024 12:20 PM CDT UR LABORATORY Blood STRUCTURE OF LEFT HAND / Unknown Venipuncture / Unknown 06/07/2024 11:59 AM CDT 06/07/2024 12:02 PM CDT Estella Uribe MD LAB - BLOOD ORDERABLES Final Result UR LABORATORY [facility] Acute Care Lab [address] [place] [address], [address] [address], [place] * (ABNORMAL) CBC with platelets (06/07/2024 11:59 [...] 11:59 AM CDT 06/07/2024 12:02 PM CDT us Estella Uribe MD LAB - BLOOD ORDERABLES Final Result UR LABORATORY [facility] Acute Care Lab [address] [place] [address], [address] * (ABNORMAL) Hemoglobin (06/07/2024 7:54 AM CDT) [facility] Hemoglobin 10.0(L) 11.7 - 15.7 g/dL 06/07/2024 8:26 AM CDT UR LABORATORY Blood STRUCTURE OF LEFT UPPER LIMB / Unknown Venipuncture / Unknown 06/07/2024 7:54 AM CDT 06/07/2024 8:22 AM CDT us Janice Patel MD LAB - BLOOD ORDERABLES Final Res ult UR LABORATORY [facility] Acute Care Lab [address] [place] [address], [address] * (ABNORMAL) UA with Microscopic reflex [...] 06/07/2024 1:43 AM CDT UR LABORATORY Specific [place] Urine 1.017 1.003 - 1.035 06/07/2024 1:43 [...] 1:43 AM CDT Urine Culture not indicated us Janice Patel MD LAB - URINE ORDERABLES Final Res ult UR LABORATORY [facility] Acute Care Lab [address] [place] [address], [facility] * XR Chest Port 1 [...] GARCIA MD Janice Patel MD IMG DIAGNOSTIC IMAGING ORDERABLE S Final Result * (ABNORMAL) Symptomatic Influenza A/B, RSV, & [...] the Xpert Xpress CoV2/Flu/RSV Assay on the [employer] GeneXpert Instrument. This test should be ordered [...] management. This test was validated by the [facility] [email or web address]. These laboratories are certified under the Clinical Laboratory Improvement Amendments of 1988 (CLIA-88) as qualified to perform high complexity laboratory testing. us Janice Patel MD LAB - MICRO GENERAL ORDERABLES F inal Result UR LABORATORY [facility] Acute Care Lab [address] [place] [address], [address] [place] [address] * Blood Culture Hand, Left (06/07/2024 12:04 AM CDT) Culture No Growth 06/12/2024 3:16 AM CDT [facility] Blood STRUCTURE OF LEFT HAND / Unknown Venipuncture / Unknown 06/07/2024 12:04 AM CDT 06/07/2024 12:18 AM CDT us Janice Patel MD LAB - MICRO GENERAL ORDERABLES F inal Result [facility] Inf. Diseases Diag. Lab [address] [facility], [address] [place] [address], [facility] * Creatinine (06/06/2024 10:21 PM CDT) Creatinine 0.69 0.51 - 0.95 mg/dL 06/06/2024 10:45 PM CDT UR LABORATORY GFR Estimate >90 >60 mL/min/1.7 3m2 06/06/2024 10:45 PM CDT UR LABORATORY Comment:eGFR calculated usin 2020 CKD-EPI equation. Blood STRUCTURE OF LEFT HAND / Unknown Venipuncture / Unknown 06/06/2024 10:21 PM CDT 06/06/2024 10:26 PM CDT us Janice Patel MD LAB - BLOOD ORDERABLES Final Res ult UR LABORATORY [facility] Acute Care Lab [address], [address] [place] [address], [facility] * CBC with platelets (06/06/2024 10:21 PM [...] 10:21 PM CDT 06/06/2024 10:26 PM CDT us Janice Patel MD LAB - BLOOD ORDERABLES Final Res ult UR LABORATORY [facility] Acute Care Lab [address] [place] [address], Room [place] [phone] * (ABNORMAL) ALT (06/06/2024 10:21 PM CDT) ALT 196(H) 0 - 50 U/L 06/06/2024 10:45 PM CDT UR LABORATORY Blood STRUCTURE OF LEFT HAND / Unknown Venipuncture / Unknown 06/06/2024 10:21 PM CDT 06/06/2024 10:26 PM CDT us Janice Patel MD LAB - BLOOD ORDERABLES Final Res ult Performing Organization Address City/[facility]/ZIP Co de Phone Number UR LABORATORY [facility] Care Lab [address] [place] [address], [address] [id number], [place] * (ABNORMAL) AST (06/06/2024 10:21 PM CDT) AST 69(H) 0 - 45 U/L 06/06/2024 11:27 PM CDT UR LABORATORY Blood STRUCTURE OF LEFT HAND / Unknown Venipuncture / Unknown 06/06/2024 10:21 PM CDT 06/06/2024 10:26 PM CDT us Janice Patel MD LAB - BLOOD ORDERABLES Final Res ult UR LABORATORY [facility] Acute Care Lab [address] [place] [address], Room [address] [address], [place] * Group B strep PCR (06/06/2024 11:17 [...] LABORATORY - 06/07/2024 10:29 AM CDT The [employer] Xpert GBS LB Assay, performed on the [employer], is a qualitative in vitro diagnostic test designed to detect Group B Streptococcus (GBS) DNA from enriched vaginal/rectal swab specimens, using fully automated, real-time polymerase chain reaction (PCR) with fluorogenic detection of the amplified DNA. Xpert GBS LB Assay testing is indicated as an aid in determining GBS colonization status in antepartum women. This assay does not diagnose or monitor treatment for GBS infections. The Cepheid Xpert GBS LB Assay is intended for use in hospital, reference or state laboratory settings. The device is not intended for tdbau-fm-dsvs use. Cinthia Beck MD LAB - MICRO GENERAL ORDERABLE S Final Result [facility] IDD LABORATORY [facility] Inf. Diseases Diag. Lab [address] [facility], [address] [place] [phone] * Adult Type and Screen (06/06/2024 9:27 AM CDT) ABO/RH(D) A POS 06/06/2024 9:02 AM CDT UR BLOOD BANK Antibody Screen Negative Negative 06/06/2024 9:02 AM CDT UR BLOOD BANK SPECIMEN EXPIRATION DATE [id number] 06/06/2024 9:02 AM CDT UR BLOOD BANK Blood STRUCTURE OF LEFT UPPER LIMB / Unknown Venipuncture / Unknown 06/06/2024 9:27 AM CDT 06/06/2024 9:31 AM CDT Cinthia Beck MD LAB - BLOOD BANK TEST ORDER F inal Result UR BLOOD BANK [facility] [place] Blood Components Lab [address] [facility], [address] [place] [address] * (ABNORMAL) Bile acids total (06/06/2024 9:27 AM CDT) Bile Acids Total 31(H) 0 - 10 umol/L 06/07/2024 8:04 PM CDT [facility] Comment: INTERPRETIVE INFORMATION: Bile Acids, Total Reference Interval applies to fasting specimens. Performed By: [facility] [address] [place] [address] Nurse Clinical: Jaguar Laurent MD, PhD CLIA Number: [id number] Blood STRUCTURE OF LEFT UPPER LIMB / Unknown Venipuncture / Unknown 06/06/2024 9:27 AM CDT 06/06/2024 9:31 AM CDT Cinthia Beck MD LAB - BLOOD ORDERABLES Final Result Performing Organization Address City/[facility]/ZIP Co de Phone Number [employer] [address] [place] [address], [facility] [phone] * (ABNORMAL) Comprehensive metabolic panel (06/06/2024 9:27 [...] 9:55 AM CDT UR LABORATORY Comment:eGFR calculated 2020 CKD-EPI equation. Calcium 8.3(L) 8.8 - [...] 9:27 AM CDT 06/06/2024 9:31 AM CDT us Cinthia Beck MD LAB - BLOOD ORDERABLES Final Result UR LABORATORY [facility] Acute Care Lab [address] [facility], [address] [place] [address], [facility] * (ABNORMAL) CBC with platelets (06/06/2024 9:27 [...] 9:27 AM CDT 06/06/2024 9:31 AM CDT us Cinthia Beck MD LAB - BLOOD ORDERABLES Final Result UR LABORATORY [facility] Acute Care Lab [address] [place] [address], [address] [place] [phone] * Treponema Abs w Reflex to RPR and Titer (06/06/2024 9:27 AM CDT) Treponema Antibody Total Nonreactive Nonreactive 06/06/2024 2:16 PM CDT SPECIALTY CORE/PROT/EN DO Blood STRUCTURE OF LEFT UPPER LIMB / Unknown Venipuncture / Unknown 06/06/2024 9:27 AM CDT 06/06/2024 9:31 AM CDT us Cinthia Beck MD LAB - BLOOD ORDERABLES Final Result UM SPECIALTY CORE/PROT/ENDO Specialty Core/Prot/Endo [address] [facility], Room [address] documented in this encounter Visit Diagnoses [...] 101.4 F (core)., Starting on 06/06/24 at 203, Maximum acetaminophen dose from all sources = 75 mg/kg/day not to exceed 4 grams/day., $Given 06/08/2024 7:47 AM CDT 650 mg $Given 06/07/2024 6:41 PM CDT 650 mg $Given 06/07/2024 11:55 AM CDT 650 mg benzocaine-menthol (CHLORASEPTIC) 6-10 MG lozenge 1 lozenge 1 lozenge, Buccal, EVERY 1 HOUR PRN, sore throat, Starting on 06/07/24 at 2056 $Given 06/07/2024 9:18 PM CDT 1 lozenge bisacodyl (DULCOLAX) suppository 10 mg 10 mg, Rectal, DAILY PRN, constipation, Starting on 06/06/24 at 2040, Do not administer if patient has 3rd or 4th degree lacerations. Hold for loose stools., $Given 06/07/2024 9:28 PM CDT 10 mg calcium carbonate (TUMS) chewable tablet 500 mg 500 mg, Oral, DAILY PRN, heartburn, Starting on Tu06/09/24 at 2306 $Given 06/09/2024 11:39 PM CDT 500 mg calcium gluconate 10 % injection 1 g 1 g, Intravenous, ONCE PRN, magnesium sulfate toxicity , Administer over 3-5 Minutes, Starting on 06/06/24 at 2236, For 1 dose, IF signs [...] Intravenous, EVERY 8 HOURS, First dose on [place] 06/07/24 at 0030, Indications: endometritisIndications:endometri tis $New Bag 06/07/2024 12:28 AM CDT 900 mg 100 mL/hr diphenhydrAMINE (BENADRYL) injection 25 mg 25 mg, Intravenous, ONCE PRN, other, headache, Starting on [place] 06/07/24 at 1522, For 1 dose $Given 06/07/2024 9:18 PM CDT 25 mg docusate sodium (COLACE) capsule 100 mg 100 mg, Oral, DAILY, First dose on [place] 06/07/24 at 0800, Hold for loose stools., [...] (rounded from 360.5 mg = 5 mg/kg 72.1 kg), Intravenous, EVERY 24 HOURS, First dose on 06/07/24 at 0030, Indications: endometritisIndications:endomet ritis $New Bag 06/07/2024 12:59 AM CDT 360 [...] at 2236, For 1 dose, Gail Allen: zita override labetalol (NORMODYNE/TRANDATE) injection 20-80 mg 20-80 [...] on 06/06/24 at 0857, Until 06/06/24 at 204 $New Bag 06/06/2024 2:57 PM CDT 125 [...] site for insertion. MAX Dose: 2.5 g ( of 5 g tube) Do NOT give [...] post- hemorrhage, Starting on 06/06/24 at 2039, Administer only if directed by provider. Max administrations: 4 doses, misoprostol (CYTOTEC) tablet 800 mcg 800 mcg, Rectal, GIVE ONCE PRN AND REPEAT ACCORDING TO INSTRUCTIONS, post- hemorrhage, Starting on 06/06/24 at 9, Give rectally if unable to take oral [...] 40 mg, Oral, DAILY, First dose on 06/07/24 at 0800, Therapeutic interchange for omeprazole 20 [...] given until delivery., Indications: Group B Strep, IntrapartumIndications:Group B Strep $New Bag 06/06/2024 7:23 PM CDT 3 Million Units 100 mL/hr penicillin G potassium 5 million units vial to attach to NS 100 mL bag STAT, 5 Million Units, Intravenous, ONCE, On 06/06/24 at 1300, For 1 dose, Loading Dose. Active upon active labor status., Indications: Group B Strep, IntrapartumIndications:Group B Strep $New Bag 06/06/2024 2:48 PM CDT 5 Million Units sodium chloride (OCEAN) 0.65 % nasal spray 1 spray 1 spray, Both Nostrils, EVERY 1 HOUR PRN, congestion, Starting on 06/07/24 at 2059 $Given 06/07/2024 9:18 PM CDT 1 spray [...] override, 1 dose, Starting on 06/06/24 at 2014, Until 06/06/24 at 2038 sodium chloride 0.9% BOLUS 250 mL Intrauterine, 250 mL, ONCE, at 750 mL/hr, Administer over 20 Minutes, On 06/06/24 at 2030, For 1 dose, Infuse via pump. Fluid should be at room temperature., Intrapartum $New Bag 06/06/2024 8:19 PM CDT 250 mLs 750 mL/hr documented in this encounter Active and Recently [...] at 0800 0028 ($Given - Provider: Jacquie Izaguirre, CHRISTIAN)0402 ($Given - Provider: Jacquie Izaguirre, RN)0824 ($Given - Provider: Zuleika Garner RN)1209 ($Given - Provider: Zuleika aGrner RN)1636 ($Given - Provider: Zuleika Garner RN)202 ($Given - Provider: Heather Zambrano, CRHISTIAN)2341 (Not Given - Provider: Heather Zambrano RN [...] Provider: Babs Hernandez RN - Reason: Patient/family refused)2000 (Not Given - Provider: Janice Bennett RN [...] Jacquie Izaguirre RN) 0750 ($Given - Provider: Bbas Hernandez RN) 0756 ($Given - Provider: Kayla [...] dormant line 0028 ($Given - Provider: Jacquie Izgauirre RN)0824 ($Given - Provider: Zuleika Garner, RN)1637 ($Given - Provider: Zuleika Garner RN)2341 ($Given - Provider: Heather Zambrano, CHRISTIAN) 0931 (Canceled Entry - Provider: Babs Hernandez [...] PRN, sore throat, Starting on 06/07/24 at 205 benzocaine-menthol (DERMOPLAST) topical spray Topical, 4 TIMES DAILY PRN, perineal pain, Starting on 06/06/24 at 2038, bisacodyl (DULCOLAX) suppository 10 mg 10 mg, Rectal, DAILY PRN, constipation, Starting on 06/06/24 at 2040, Do not administer if patient [...] , Administer over 3-5 Minutes, Starting on 06/06/24 at 2236, For 1 dose, IF signs [...] - Provider: Jacquie Izaguirre RN)1010 (Return to Cabinet - Provider: Zuleika Garner RN)1208 ($Given - Provider: Zuleika Garner RN)1809 ($Given - Provider: Zuleika Garner RN)2339 ($Given - Provider: Heather Zambrano RN) 0931 (Not Given - Provider: Babs Hernandez RN - Reason: Other)1958 (Not Given - Provider: Janice Bennett RN [...] other, sore nipples, Starting on 06/06/24 at 2039, Apply to sore nipples., lidocaine (LMX4) cream Topical, EVERY 1 HOUR PRN, pain, with VAD insertion, Starting on 06/06/24 at 2235, Apply at least 30 minutes prior to VAD insertion in divided doses as needed for size of site for insertion. MAX Dose: 2.5 g ( of 5 g tube) Do NOT give [...] vaccine CONTINUOUS PRN, Starting on 06/06/24 at 204, Until Kanika 06/11/24 at 1501, Assessment: Patient [...] 2-5 Minutes, Starting on 06/06/24 at 2302 oxytocin (PITOCIN) 30 units in 500 mL [...] HOUR PRN, congestion, Starting on 06/07/24 at 2058 sodium chloride (PF) 0.9% PF flush 3 mL 3 mL, Intracatheter, EVERY 1 MIN PRN, line flush, other, to ensure patency or to lock dormant line, Starting on 06/06/24 at 2234 tranexamic acid 1 g in 100 mL NS IV bag (premix) 1 g, Intravenous, Administer over 10 Minutes, EVERY 30 MIN PRN, Post- hemorrhage (PPH), Starting on 06/06/24 at 2038, For 2 doses, Provider [...] INSTRUCTIONS, post- hemorrhage, Starting on 06/06/24 at 9, Give rectally if unable to take oral without complications. Administer only if directed by provider. Max administrations: 4 doses., documented in this encounter Additional Health Concerns Infection Onset Date Last Indicated Resolved Time Rule Out COVID-19 06/06/2024 06/07/2024 06/07/2024 1:23 AM CDT COVID-06/07/2024 06/10/2024 06/21/2024 11:3 9 PM CDT documented as of this encounter Care Teams Levelman Relationship Specialty Start Date End Date No Ref-Primary, Physician PCP - General 06/06/24 documented as of this encounter
--- OUTSIDE RECORDS SUMMARY | 2024-09-14 11:13 | XMS_ITS | Encounter Summary ---
Author Organization [place] Address [facility] [place] [address] Care Team Providers Care Wheelchair Van Driver Name Role Phone No Ref-Primary, Physician Primary Care Provider Encounter Details Date Type Department Care Team (Late st Contact Info) Description 06/29/2024 MyC Medical Advice [facility] [place] [address] [place], [place] [address] Deya Jovel RN Social History Tobacco Use Types Packs/Day Years Used Date Smoking Tobacco: Never Smokeless Tobacco: Never Alcohol Use Standard Drinks/Week Comments Not Currently 0 (1 standard drink = 0.6 oz pur e alcohol) [place] Depression Scale Answer Date Recorded Last EPDS [...] on file 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
--- OUTSIDE RECORDS SUMMARY | 2024-09-14 11:13 | XMS_ITS | Encounter Summary ---
Author Organization [place] Address [address] [place] [address]. [place] [address] Care Team Providers Care Hand Drawer In Helper Name Role Phone No Ref-Primary, Physician Primary Care Provider Encounter Details Date Type Department Care Team ([facility] st Contact Info) Description 06/06/2024 7:03 PM CDT Anesthesia Event [facility] [address] [place] [phone] Ainsley Bravo MD ANESTHESIOLOGY DEPT [address] [place] [address] Anesthesia Record Procedure Summary Procedure Name [...] drink = 0.6 oz pur e alcohol) [place] Depression Scale Answer Date Recorded Last EPDS [...] in an abandoned building, in an overnight penitentiary, or couch-surfing.) No 06/06/2024 Are you worried [...] on file 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
--- OUTSIDE RECORDS SUMMARY | 2024-09-14 11:13 | XMS_ITS | Encounter Summary ---
Author Organization [place] Address [address] [place] [address] Care Team Providers Care Sausage Meat Trimmer Name Role Phone [facility] Primary Care Provide r Jayson Lamb MD Unavailable [phone] No Ref-Primary, Physician Primary Care Provider Reason for Referral * Consultation (Routine) - Closed Specialty Diagnoses / Procedures Referred By Contmc t Referred To Contact Diagnoses Cholestasis during in third trimester [facility] [place] [address] [place] [address] Phone: tel: fax: Referral ID Status Reason Start Date Expiration Date Visits Re quested Visits Authorized [id number] Closed 07/20/2021 07/20/2022 1 1 Question Answer [...] Diagnoses Cholestasis during in third trimester Procedures [facility] [place] [address] [place] [address] Phone: tel: fax: Referral ID Status Reason Start Date Expiration Date Visits Re quested Visits Authorized [id number] Closed 07/20/2021 07/20/2022 1 1 Encounter Details Date Type Department Care Team (Late st Contact Info) Description 07/20/2021 Orders Only [facility] [address] [address] Rosaline Caicedo RN Cholestasis during in third trimester (Primary Dx) Social History Tobacco Use Types Packs/Day Years Used Date Smoking Tobacco: Never Assessed Comments Yes Sex and Gender Information Value Date Recorded Sex Assigned at Not on file 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 NO: [id number] Referring MD: NAI SNIDER Site: [facility] Mems Integration Engineer: Matilda Delgado RDMS : 1995 Age: 25 ----- INDICATION ----- Cholestasis. METHOD ----- Transabdominal ultrasound examination. View: Suboptimal view: limited by late gestational age ----- Cm . Number of fetuses: 1 DATING ----- Date Details Gest. age MARIFER LMP 12/09/2020 32 w + 5 d 09/15/2021 Prior assessment 02/14/2021 GA: 9 w + 0 d 32 w + 1 d 09/19/2021 U/S 07/26/2021 based upon AC, BPD, Femur, HC 33 w + 3 d 09/10/2021 Assigned dating Dating performed on 07/26/2021, based on the LMP 32 w + 5 d 09/15/2021 GENERAL EVALUATION ----- Cardiac activity present. FHR 130 bpm. movements present. Presentation cephalic. Placenta Posterior, No Previa, > 2 cm from internal os. Umbilical cord 3 vessel cord, normal insertion. Amniotic fluid Amount of AF: normal. MVP 5.9 cm. BIOMETRY ----- Main Biometry: BPD 83.0 mm 33w 3d Hadlock OFD 115.0 mm 36w 0d Nicolaides HC 315.3 mm 35w 3d Hadlock Cerebellum tr 40.2 mm 34w 1d Nicolaides AC 287.6 mm 32w 5d 52% Hadlock Femur 62.4 mm 32w 2d Hadlock Humerus 56.2 mm 32w 5d [facility] Weight Calculation: EFW 2,087 g 48% Hadlock EFW (lb,oz) 4 lb 10 oz EFW by Hadlock ([id number]) Head / Face / Neck Biometry: Domestic Travel Consultant 7.7 mm CM 5.5 mm ANATOMY ----- The following structures appear normal: Head / Neck Cranium. Head size. Head shape. Lateral ventricles. Choroid plexus. Midline falx. Cerebellum. Cisterna magna. Parenchyma. Thalami. Vermis. Neck. Nuchal fold. Face Lips. Profile. Nose. Maxilla. Mandible. Orbits. Lens. Heart / Thorax RVOT view. Situs. Aortic arch view. Bicaval view. Superior vena cava. Inferior vena cava. 3-vessel view. 5-xgxhcq-stkqtnf view. Cardiac position. Cardiac size. Cardiac rhythm. Right lung. Left lung. Diaphragm. Abdomen Abdominal wall. Stomach. Kidneys. Bladder. Liver. Bowel. Genitals. Spine Cervical spine. Thoracic spine. Lumbar spine. Sacral spine. Extremities / Skeleton Right arm. Right hand. Left arm. Left hand. Right leg. Right foot. Left leg. Left foot. The following structures could not be adequately visualized: Head / Neck Cavum septi pellucidi. Heart / Thorax 4-chamber view. LVOT view. Ductal arch view. Abdomen Cord insertion. Gender: male. MATERNAL STRUCTURES [...] detected Procedure Note Jayson Lamb MD - 10/20/2021 Comprehensive ----- Pat. Name:Shirin GLOVER Date:07/26/2021 8:41am Pat. NO: [id number] MD:NAI SNIDER [facility]:Matilda Delgado RDMS :1995Age:25 ----- INDICATION ----- Cholestasis. [...] 4 lb 10 oz EFW by Hadlock ([id number]) Head / Face / Neck Biometry: Domestic Travel Consultant 7.7 mm CM 5.5 mm ANATOMY ----- The following structures appear normal: Head / Neck Cranium. Head size. Head shape.Lateral ventricles. Choroid plexus. Midline falx. Cerebellum. Cisternamagna. Parenchyma. Thalami. Vermis. Neck. Nuchal fold. Face Lips. Profile. Nose. Maxilla.Mandible. Orbits. Lens. Heart / Thorax RVOT view. Situs. Aortic arch view.Bicaval view. Superior vena cava. Inferior vena cava. 3-vessel view.7-jcyxxc-zgjncjv view. Cardiac position. Cardiac size. Cardiac rhythm. [...] Normal amniotic fluid volume. BPP is reassuring. us Erin Morris MD [facility] US ORDERABLES Edit ed Result - Final documented in this encounter Visit Diagnoses Diagnosis Cholestasis during in third trimester- Primary Cholestasis during in third trimester documented in this encounter Additional Health Concerns Infection Onset Date Last Indicated Resolved Time Rule Out COVID-19 06/06/2024 06/07/2024 06/07/2024 1:23 AM CDT COVID-19 06/07/2024 06/10/2024 06/21/2024 11:3 9 PM CDT documented as of this encounter Care Teams Sausage Meat Trimmer Relationship Specialty Start Date End Date [facility] [id number] [place] [phone] PCP - General 12/12/18 06/05/24 No Ref-Primary, Physician PCP - General 06/06/24 Jayson Lamb MD [address] [place] [address] Assigned OBGYN Provider 08/06/21 documented as of this encounter
--- OUTSIDE RECORDS SUMMARY | 2024-09-14 11:13 | XMS_ITS | Encounter Summary ---
Author Organization [place] Address [address] [place] [address]. [place] [address] Care Team Providers Care Kindergarten Classroom Teacher Name Role Phone No Ref-Primary, Physician Primary Care Provider Encounter Details Date Type Department Care Team (Late st Contact Info) Description 06/15/[address] 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 Nela Contreras RN, IBCLC Armored Service Technician Jorge: Nursing Informatics Clinical Analyst Group: [phone] Office: [phone] [x]Discharge-- [facility] milk storage [x]Discharge-- CDC breast pump clean [x]Discharge-- After first week feeding log [x]Discharge-- Signs of a good latch [x]Discharge-- [place] resources documented in this encounter Plan of Treatment Not on file documented as of this encounter Visit Diagnoses Not on filedocumented in this encounter Additional Health Concerns Infection Onset Date Last Indicated Resolved Time COVID-19 06/07/2024 06/10/2024 06/21/2024 11:3 9 PM CDT documented as of this encounter Care Teams Kindergarten Classroom Teacher Relationship Specialty Start Date End Date No Ref-Primary, Physician PCP - General 06/06/24 documented as of this encounter
--- OUTSIDE RECORDS SUMMARY | 2024-09-14 11:13 | XMS_ITS | Encounter Summary ---
Author Organization [place] Address [facility] [place] [address] Care Team Providers Care Patent Solicitor Name Role Phone No Ref-Primary, Physician Primary Care Provider Encounter Details Date Type Department Care Team (Late st Contact Info) Description 06/18/2024 MyC Medical Advice [facility] [place] [address] [place], [place] [address] Trang Perez, CHRISTIAN Social History Tobacco Use Types Packs/Day Years Used Date Smoking Tobacco: Never Smokeless Tobacco: Never Alcohol Use Standard Drinks/Week Comments Not Currently 0 (1 standard drink = 0.6 oz pur e alcohol) [place] Depression Scale Answer Date Recorded Last EPDS [...] on file 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
--- OUTSIDE RECORDS SUMMARY | 2024-09-14 11:13 | XMS_ITS | Encounter Summary ---
Author Organization [place] Address [facility] [place] [address] Care Team Providers Care Rate Marker Name Role Phone No Ref-Primary, Physician Primary Care Provider Encounter Details Date Type Department Care Team (Late st Contact Info) Description 06/15/2024 MyC Medical Advice [facility] [place] [address] [place], [place] [id number] Trang Perez, CHRISTIAN Social History Tobacco Use Types Packs/Day Years Used Date Smoking Tobacco: Never Smokeless Tobacco: Never Alcohol Use Standard Drinks/Week Comments Not Currently 0 (1 standard drink = 0.6 oz pur e alcohol) [place] Depression Scale Answer Date Recorded Last EPDS [...] on file 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
--- OUTSIDE RECORDS SUMMARY | 2024-09-14 11:13 | XMS_ITS | Encounter Summary ---
Author Organization [facility] Address [address] [place] [address]. [place] [address] Care Team Providers Care Mold Carpenter Name Role Phone No Ref-Primary, Physician Primary Care Provider Reason for Visit * Auth/Cert (Routine) Specialty Diagnoses / Procedures Referred By Contac t Referred To Contact Obstetrics Diagnoses Maternity*MARIFER: 07/10/24*IOL;Cholestasis Encounter for induction of labor Preeclampsia, severe [facility] [address] [place] [phone] Phone: tel: Referral ID Status Reason Start Date Expiration Date Visits Re quested Visits Authorized [id number] 1 1 Encounter Details Date Type Department Care Team (Late st Contact Info) Description 06/06/2024 4:30 PM CDT Anesthesia Event [facility] [address] [place] [phone] Akira Sullivan MD [address] [facility] [address] [place] [address] Jadon Zarco MD [address] [facility], [address], [facility] [address] [place], [place] [address] Anesthesia Record Procedure Summary Procedure Name Responsible [...] Pad and briefs 04/17/23 1216 by Kaitlyn Matthew, CHRISTIAN Peripheral IV 06/06/24; 0930; 18 G; Right, Dorsal; Lower forearm 06/06/24 0930 by Nuha Nguyễn RN 06/11/24 1322 by Kayla Darnell, RN Epidural 06/06/24; 1703; Resident; Epidural; L3-4 06/06/24 1703 by Linnea Ko, RN 06/07/24 0024 by Gail Bhandari, RN documented in this encounter Social History Tobacco Use Types Packs/Day Years Used Date Smoking Tobacco: Never Smokeless Tobacco: Never Alcohol Use Standard Drinks/Week Comments Not Currently 0 (1 standard drink = 0.6 oz pur e alcohol) [place] Depression Scale Answer Date Recorded Last EPDS [...] on file 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 During daytime hours, please page the [...] AND CURETTAGE; Surgeon: Sandrita Lopez MD; Location: [facility] Main OR Allergies Allergen Reactions Zoloft [Sertraline] Hallucinations [...] and realistic alternatives discussed. Questions answered and patient/in home sales representative(s) expressed understanding. - Discussed: - Discussed [...] 06/06/2024 4:35 PM CDT Jadon Zarco MD 06/06/2024 5:13 PM Epidural catheter Procedure Note Pre-Procedure Staff [...] signs of intravascular, subdural, or intrathecal injection. Insertion/Infusion Method: LORT saline Aspiration negative for [...] Medication Administration Time: 06/06/2024 4:35 PM FOR [facility] ([facility]) ONLY: Pain Team Contact information: please page the Pain Team Via TeamStreamz. Search Pain. During daytime hours, please page the attending first. At night please page the resident first. us Akira Sullivan MD CT ANESTHESIA Final R esult documented in this encounter Visit Diagnoses Not [...] mLs documented in this encounter Care Teams Mold Carpenter Relationship Specialty Start Date End Date No Ref-Primary, Physician PCP - General 06/06/24 documented as of this encounter
--- OUTSIDE RECORDS SUMMARY | 2024-09-14 11:13 | XMS_ITS | Clinical Summary ---
Author Organization [facility] Address [place], [place] [address] Care Team Providers Care Performance Improvement Director Name Role Phone Emani Layne Primary Care Provider Allergies Active Allergy Reactions Criticality Noted Date Comments Sertraline *Unknown 04/15/2023 Hallucinations Medications ibuprofen (ADVIL; MOTRIN) 600 mg tabletIndicati ons:Severe back pain Take 1 Tablet (600 mg) by mouth 4 times daily if needed for Pain. Maximum of 3200 mg in 24 hours. 60 Tablet 08/25/20 Active ketorolac (TORADOL) 15 mg/mL injectionIndic ations:Severe back pain Inject 1 mL (15 mg) intramuscular one time for 1 dose. 1 mL 08/25/20 24 024 Discontinu ed(*Medica tion adjustment ) predniSONE (DELTASONE) 20 mg tabletIndicati ons:Severe back pain Take 2 Tablets (40 mg) by mouth once daily for 5 days. 10 Tablet 08/26/20 24 024 Hospital, Clinic, or Other Facility Administered Medication Ordered Dose Route Frequency Start Date End Date Status dexAMETHasone 10 mg inj for oral, topical or inhalation use (DECADRON)Indications:Sever e back pain 10 mg Oral ONE TIME 08/25/2024 08/25/2024 Ended ketorolac 30 mg injection (TORADOL)Indications:Severe back pain 30 mg IM ONE TIME 08/25/2024 08/25/2024 Ended Active Problems Comments Yes No known active problems Encounters Date Type Department Care Team Description 08/26/2024 Telephone [facility] [address] [place], [place] [phone] Neftali Rojo MD Screening (Spine Center Screening ) 08/25/2024 12:40 PM BACK TENDER INS[employer]ATION BOARD Ancillary Procedure [facility] [address] [place] [phone] 08/25/2024 10:55 AM BACK TENDER [employer]ATION [employer]ARD Office Visit [facility] [place] [id number] [place] [phone] Yissel Quiñones MD Back Pain 08/25/2024 Travel from Last 3 Months Immunizations Name [...] at Not on file Legal Sex Female 2:19 PM BACK TENDER [employer] Gender Identity Not on file Sexual Orientation Not on file Obstetrics History Para Term AB IAB SAB Ectopic Multiple Livin g Live Births 4 1 0 1 0 0 0 0 1 1 Date Outcome GA Total Labor Labor/2nd/3rd Weight Sex Type Anes PTL Arianne A1 A5 Name Clin Living Current Last Filed Vital Signs Vital Sign Reading Time Taken Comments Blood Pressure 103/64 08/25/2024 11:49 AM BACK TENDER [employer]ARD Pulse 76 08/25/2024 11:49 AM BACK TENDER [employer]ARD Temperature 36.4 C (97.6 F) 08/25/2024 11:49 AM BACK TENDER [employer]ATION BOARD Respiratory Rate 15 08/25/2024 11:49 AM BACK TENDER [employer]ATION BOARD Oxygen Saturation 98% 08/25/2024 11:49 AM BACK TENDER [employer]ATION BOARD Inhaled Oxygen Concentration - - Weight 63.5 kg (140 lb) 08/25/2024 11:49 AM BACK TENDER [employer] BOARD Height 162.6 cm (5' 4) 10/08/2020 11:42 AM BACK TENDER [employer] BOARD Body Mass Index 24.03 10/08/2020 11:42 AM BACK TENDER [employer] BO[employer] Plan of Treatment Health Maintenance Due Date Last Done Comments Pneumococcal series for age 6-64 (1 of 2 - PCV) 2000 Depression screening for age 12+ 2006 HIV for age 15-65 2009 BMI (ht and wt on same day) for age 18+ 2012 Hepatitis C screening for ag e 18-79 2012 COVID-19 vaccine series ( - 2023- season) 2024 06/09/2021, 12/29/2020 Influenza for age 9-49 06/07/2024 09/02/2017 Pap test for age 21-65 12/03/2026 , 12/03/2023, 02/14/2021, Additional history exists Tetanus booster 07/18/2031 07/18/2021, 12/30/2017 RSV vaccine for adults or (1 - 1-dose 75+ series) 2069 Tdap Completed 07/18/2021, 12/30/2017 Procedures Procedure Name Priority Date/Time Associated Diagnosis Comments XR SPINE LUMBAR 3 VIEWS STAT 08/25/2024 12:52 PM [employer] Severe back pain HPV HIGH RISK Routine 12/03/2023 12:00 PM BACK TENDER [employer] from Last 3 Months or Most Recently Relevant to Health Maintenance Results * XR SPINE LUMBAR 3 VIEWS (08/25/2024 12:52 PM BACK TENDER [employer]) Anatomical Region Laterality Modality LUMBAR SPINE Computed Radiogr aphy 08/25/2024 12:5 2 PM [employer] T[employer]ER [employer]ARD Impressions 08/25/2024 1:11 PM [employer] T[employer]ER [employer] 5 lumbar type vertebral bodies. Mild retrolisthesis of L5 on S1. Remainder of the lumbar spine is normally aligned. Lumbar vertebral body heights are maintained. Mild disc space narrowing and facet hypertrophy at L5-S1. IUD in the pelvis. Narrative 08/25/2024 1:11 PM BACK TENDER [employer]ARD For Patients: As a result of the Cures Act, medical imaging exams and procedure reports are released immediately into your electronic medical record. You may view this report before your referring provider. If you have questions, please contact your health care provider. EXAM: XR SPINE LUMBAR 3 VIEWS LOCATION: [facility] DATE: 08/25/2024 INDICATION: Severe Back Pain COMPARISON: None. Procedure Note Akira Gonzalez MD - 08/25/2024 For Patients: As a result of the s Act, medical imagingexams and procedure reports are released immediately into your electronicmedical record. You may view this report before your referring provider.If you have questions, please contact your health care provider. EXAM: XR SPINE LUMBAR 3 VIEWS LOCATION: [facility] DATE: 08/25/2024 INDICATION: Severe Back Pain COMPARISON: None. IMPRESSION: 5 lumbar type vertebral bodies. Mild retrolisthesis of L5 on S1. Remainderof the lumbar spine is normally aligned. Lumbar vertebral body heights aremaintained. Mild disc space narrowing and facet hypertrophy at L5-S1. IUDin the pelvis. Yissel Quiñones MD GENERAL IMAGING Final Result * HPV HIGH RISK (12/03/2023 12:00 PM BACK TENDER [employer]ATION BOARD) TYPE 16 Negative Negative 12/06/2023 4:21 PM BACK TENDER INSULATION BOARD [facility] TYPE 18 Negative Negative 12/06/2023 4:21 PM BACK TENDER INSULATION BOARD [facility] OTHER HIGH RISK TYPES Negative Negative 12/06/2023 4:21 PM BACK TENDER INSULATION BOARD [facility] Other (Cervical) 12/03/2023 12:00 PM BACK TENDER [employer]ATION BOARD 12/05/2023 11:38 AM BACK TENDER INSULATION BOARD Narrative [facility] - 12/06/2023 4:21 PM BACK TENDER [employer]ATION BOARD HPV types 16, 18, 31, 33, 35, 39, 45, 51, 52, 56, 58, 59, 66 and 68 DNA were undetectable or below the pre-set threshold. Methodology: Jairo Amanuel 4800 HPV Test january Donna DAILEY [employer]CROBIOLOG[employer] Final Resu lt [facility] [address] [place] [address], [place] from Last 3 Months or Most Recently Relevant to Health Maintenance Insurance [facility] Care Teams Performance Improvement Director Relationship Specialty Start Date End Date Emani Layne PA [address] [place] [address] PCP - General Physician Warehouse Logistics Coordinator 11/11/23
== END 2024-09-14 11:10 | disposition home or self-care (01) ==
PROVIDERS: Visit Provider Physician Assistant
DX: R63.5 Abnormal weight gain (principal); R74.01 Elevation of levels of liver transaminase levels
CPT/HCPCS: 80076; 84439; 84443

== ENCOUNTER 2024-10-30 16:15 | Outpatient (CLI) | payer OTHER, SELFPAY | END 2024-10-30 16:16 | disposition home or self-care (01) | LOC: NFLDREF 11-08 23:42 | PROVIDERS: Visit Provider Physician Assistant | DX: E03.9 Hypothyroidism, unspecified (principal) | CPT/HCPCS: 84443 ==

== ENCOUNTER 2025-02-22 17:07 | Outpatient (CLI) | payer OTHER, SELFPAY | END 2025-02-22 17:08 | disposition home or self-care (01) | PROVIDERS: Visit Provider Physician Assistant | DX: R10.11 Right upper quadrant pain (principal); R53.83 Other fatigue; R79.0 Abnormal level of blood mineral; Z13.21 Encounter for screening for nutritional disorder | CPT/HCPCS: 82306; 82728 ==

== ENCOUNTER 2025-06-10 11:28 | Outpatient (CLI) | payer OTHER, SELFPAY | END 2025-06-10 11:29 | disposition home or self-care (01) | LOC: NFLDREF 06-16 08:36 | PROVIDERS: Visit Provider Physician Assistant | DX: R79.0 Abnormal level of blood mineral (principal); E03.9 Hypothyroidism, unspecified | CPT/HCPCS: 82728; 84443 ==